=== PATIENT | female | born 1955 | race Caucasian/White ===

== ENCOUNTER 2020-08-03 06:55 | Day surgery (SDC) | payer MEDICARE, OTHER ==
[2020-08-01 12:45] VITALS: BMI 44.4
[2020-08-03 07:26] VITALS: TEMP 98.5
[2020-08-03 07:44] LABS: Glucose,Whole Blood 102 mg/dL (75-99)
[2020-08-03] MEDS ORDERED: LIDOCAINE 1% (10MG/ML) FOR IV START INTRADERMA PRN (08:21)
[2020-08-03] MEDS ORDERED: LIDOCAINE 1% INJ 10MG/ML (20 ML MDV) ONE (08:21)
[2020-08-03] MEDS ORDERED: PROPOFOL 10 MG/ML 20 ML VIAL IV ONE (08:21)
[2020-08-03] MEDS ORDERED: LACTATED RINGERS 1,000 ML IV ONE ×3 (08:21→08:34)
[2020-08-03] MEDS ORDERED: LACTATED RINGERS 1,000 ML IV SCH (08:21)
--- NOTE | 2020-08-03 08:23 | P.GSHP ---
History of Present Illness H&P Date: 08/03/20 Chief Complaint: Screening colonoscopy This is a 65-year-old female who presents today for screening colonoscopy. Patient denies a significant GI complaints. Past Medical History Past Medical History: Cancer, Diabetes Mellitus, GERD/Reflux, Hyperlipidemia, Hypertension, Memory Impairment Additional Past Medical History / Comment(s): HX BREAST CANCER 2004 History of Any Multi-Drug Resistant Organisms: None Reported Past Surgical History: Breast Surgery, Heart Catheterization, Tonsillectomy Additional Past Surgical History / Comment(s): BUNIONECTOMY. LT BREAST LUMPECTOMY. COLONOSCOPY Past Anesthesia/Blood Transfusion Reactions: No Reported Reaction Smoking Status: Former smoker - Past Family History Mother Family Medical History: No Reported History Medications and Allergies Home Medications Medication Instructions Recorded Confirmed Type Acetaminophen [Tylenol] 500 mg PO Q4-6H PRN 08/01/20 08/01/20 History Aspirin [Adult Low Dose Aspirin EC] 81 mg PO DAILY 08/01/20 08/01/20 History Citalopram Hydrobromide [CeleXA] 10 mg PO DAILY 08/01/20 08/01/20 History Dicyclomine [Bentyl] 10 mg PO TID 08/01/20 08/01/20 History Furosemide [Lasix] 40 mg PO DAILY 08/01/20 08/01/20 History Isosorbide Dinitrate 30 mg PO DAILY 08/01/20 08/01/20 History Nitroglycerin Sl Tabs [Nitrostat] 0.4 mg SUBLINGUAL Q5M PRN 08/01/20 08/01/20 History Pantoprazole Sodium 40 mg PO DAILY 08/01/20 08/01/20 History Potassium Chloride ER [K-Dur 10] 10 meq PO DAILY 08/01/20 08/01/20 History glipiZIDE [Glucotrol] 5 mg PO TID 08/01/20 08/01/20 History metFORMIN HCL 1,000 mg PO BID 08/01/20 08/01/20 History traZODone HCL [Desyrel] 100 mg PO HS 08/01/20 08/01/20 History Allergies Allergy/AdvReac Type Severity Reaction Status Date / Time naproxen AdvReac Nausea & Verified 08/03/20 07:26 Vomiting Surgical - Exam Vital Signs Temp Pulse Resp BP Pulse Ox 98.5 F 86 16 151/82 93 L 08/03/20 07:22 08/03/20 07:22 08/03/20 07:22 08/03/20 07:22 08/03/20 07:22 - General well developed, well nourished, no distress - Eyes PERRL - ENT normal pinna - Neck no masses - Respiratory normal expansion - Cardiovascular Rhythm: regular - Abdomen Abdomen: soft, non tender Results - Labs Abnormal Lab Results - Last 24 Hours (Table) 08/03/20 Range/Units 07:42 POC Glucose (mg/dL) 102 H (75-99) mg/dL Assessment and Plan Assessment: We'll perform screening colonoscopy.
[2020-08-03] MEDS ORDERED: IV FLUID CONTINUATION 850 ML IV ONE (08:24)
--- NOTE | 2020-08-03 08:32 | P.OP ---
Date of Procedure: 08/03/20 Preoperative Diagnosis: Screening colonoscopy Postoperative Diagnosis: Right colon polyp Procedure(s) Performed: Colonoscopy Anesthesia: MAC Surgeon: Fabian Ramsey Pathology: other (Right colon polyp) Condition: stable Disposition: PACU Description of Procedure: The patient's placed on the endoscopy table in the lateral position. She received IV sedation. Digital rectal exam was performed which revealed no abnormalities. Possible colonoscope was then placed patient anus and passed throughout the entire colon. The ileocecal valve was visualized. The cecum, ascending colon appeared normal. The distal ascending colon there is a small sessile polyp removed with the cold forcep. Scope was then brought withdrawn. Remainder of the transverse colon descending colon and sigmoid colon appeared normal. The rectum was normal. Scope was withdrawn for patient.
[2020-08-03] MEDS ORDERED: IV FLUID CONTINUATION 700 ML IV ONE (08:34)
[2020-08-03 08:42] VITALS: RESP 16
[2020-08-03 08:58] VITALS: BP 110/79; PULSE 75
== END 2020-08-03 09:14 | disposition home or self-care (01) ==
LOC: ORWHC2ENDO 06:55
PROVIDERS: ATTEND Surgery
DX: Z12.11 Encounter for screening for malignant neoplasm of colon (principal); D12.2 Benign neoplasm of ascending colon; E11.9 Type 2 diabetes mellitus without complications; K21.9 Gastro-esophageal reflux disease without esophagitis; E78.5 Hyperlipidemia, unspecified; I10 Essential (primary) hypertension; Z87.891 Personal history of nicotine dependence; Z88.6 Allergy status to analgesic agent; Z79.899 Other long term (current) drug therapy; J44.9 Chronic obstructive pulmonary disease, unspecified; F41.9 Anxiety disorder, unspecified
CPT/HCPCS: 88305; 45380; J2001; J2704

== ENCOUNTER 2020-11-26 10:02 | Emergency (ER) | payer MEDICARE ==
[2020-11-26 10:23] VITALS: RESP 17; TEMP 99
[2020-11-26] MEDS ORDERED: HYDROmorphone 1 MG/ML 1 ML SYRINGE IM STA (10:26)
--- NOTE | 2020-11-26 10:29 | ED ---
General Adult HPI - General Chief complaint: Extremity Problem,Nontraumatic Stated complaint: Left leg pain Time Seen by Provider: 11/26/20 10:17 Source: patient, EMS, RN notes reviewed Mode of arrival: EMS Limitations: no limitations - History of Present Illness Initial comments: Patient is a pleasant [age]-year-old female presenting to the emergency Department with complaints of left leg pain. Onset of symptoms was yesterday when she stood up from sitting on her chair. Patient states discomfort is mostly the upper leg. Patient states discomfort is greatly increased with movement and just moderate at rest. No history of similar symptoms previously. Patient denies back pain. Patient denies weakness. Patient states it is very painful to try to walk. No trauma. No leg swelling. No redness or rash or fever - Related Data Home Medications Medication Instructions Recorded Confirmed Aspirin [Adult Low Dose Aspirin EC] 81 mg PO DAILY 08/01/20 11/26/20 Citalopram Hydrobromide [CeleXA] 10 mg PO DAILY 08/01/20 11/26/20 Dicyclomine [Bentyl] 10 mg PO TID 08/01/20 11/26/20 Furosemide [Lasix] 40 mg PO DAILY 08/01/20 11/26/20 Isosorbide Dinitrate 30 mg PO DAILY 08/01/20 11/26/20 Nitroglycerin Sl Tabs [Nitrostat] 0.4 mg SUBLINGUAL Q5M PRN 08/01/20 11/26/20 Pantoprazole Sodium 40 mg PO DAILY 08/01/20 11/26/20 Potassium Chloride ER [K-Dur 10] 10 meq PO DAILY 08/01/20 11/26/20 glipiZIDE [Glucotrol] 5 mg PO TID 08/01/20 11/26/20 metFORMIN HCL [Glucophage] 1,000 mg PO BID 08/01/20 11/26/20 traZODone HCL [Desyrel] 100 mg PO HS 08/01/20 11/26/20 Atorvastatin Calcium [Lipitor] 10 mg PO DAILY 11/26/20 11/26/20 Brexpiprazole [Rexulti] 2 mg PO DAILY 11/26/20 11/26/20 SUMAtriptan succinate [Imitrex] 50 mg PO BID PRN 11/26/20 11/26/20 Topiramate [Topamax] 50 mg PO DAILY 11/26/20 11/26/20 ondansetron HCL [Zofran] 8 mg PO Q8HR PRN 11/26/20 11/26/20 Previous Rx's Medication Instructions Recorded Cyclobenzaprine [Flexeril] 10 mg PO TID PRN #12 tablet 11/26/20 predniSONE [Deltasone] 20 mg PO BID #10 tab 11/26/20 Allergies Allergy/AdvReac Type Severity Reaction Status Date / Time naproxen AdvReac Nausea & Verified 11/26/20 10:41 Vomiting Review of Systems ROS Statement: Those systems with pertinent positive or pertinent negative responses have been documented in the HPI. ROS Other: All systems not noted in ROS Statement are negative. Constitutional: Denies: fever Eyes: Denies: eye pain ENT: Denies: ear pain Respiratory: Denies: cough Cardiovascular: Denies: chest pain Endocrine: Denies: fatigue Gastrointestinal: Denies: abdominal pain Genitourinary: Denies: dysuria Musculoskeletal: Reports: as per HPI. Denies: back pain Skin: Denies: rash, lesions Past Medical History Past Medical History: Cancer, Diabetes Mellitus, GERD/Reflux, Hyperlipidemia, Hypertension, Memory Impairment Additional Past Medical History / Comment(s): HX BREAST CANCER 2004 History of Any Multi-Drug Resistant Organisms: None Reported Past Surgical History: Breast Surgery, Heart Catheterization, Tonsillectomy Additional Past Surgical History / Comment(s): BUNIONECTOMY. LT BREAST LUMPECTOMY. COLONOSCOPY Past Anesthesia/Blood Transfusion Reactions: No Reported Reaction Past Psychological History: Anxiety Smoking Status: Former smoker Past Alcohol Use History: None Reported Past Drug Use History: None Reported - Past Family History Mother Family Medical History: No Reported History General Exam Limitations: no limitations General appearance: alert, in no apparent distress Head exam: Present: atraumatic Eye exam: Present: normal appearance Neck exam: Present: normal inspection Respiratory exam: Present: normal lung sounds bilaterally Cardiovascular Exam: Present: regular rate, normal rhythm Expanded Peripheral pulses: 2+: Posterior Tibialis (R), Posterior Tibialis (L), Dorsalis Pedis (R), Dorsalis Pedis (L) GI/Abdominal exam: Present: soft. Absent: distended, tenderness, pulsatile mass Extremities exam: Present: normal inspection, full ROM (No discomfort with passive range of motion. Discomfort significantly with active range of motion). Absent: tenderness Back exam: Present: other (Discomfort left sciatic region, moderate to severe). Absent: vertebral tenderness Neurological exam: Present: alert. Absent: motor sensory deficit Psychiatric exam: Present: normal affect, normal mood Skin exam: Present: normal color. Absent: erythema Course Vital Signs 11/26/20 10:17 Temperature 99.0 F Pulse Rate 76 Respiratory 17 Rate Blood Pressure 189/137 O2 Sat by Pulse 96 Oximetry Medical Decision Making - Medical Decision Making Patient reevaluated and improved with medications. Patient updated on results and need for follow-up. - Radiology Data Radiology results: image reviewed (X-ray left elbow shows no fracture or dislocation.) Disposition Clinical Impression: Sciatica Disposition: HOME SELF-CARE Condition: Stable Additional Instructions: Please do follow-up to primary care physician in the next day or 2 for recheck. Prescription for muscle relaxers and steroids has been sent to her pharmacy. Return for increased pain, weakness, loss of control of bowel or bladder, worsening symptoms or other concerns. Prescriptions: predniSONE [Deltasone] 20 mg PO BID #10 tab Cyclobenzaprine [Flexeril] 10 mg PO TID PRN #12 tablet PRN Reason: Pain Is patient prescribed a controlled substance at d/c from ED?: No Referrals: Charu Gonzalez DO [Primary Care Provider] - 1-2 days Time of Disposition: 11:53
--- NOTE | 2020-11-26 11:44 | XR ---
EXAMINATION TYPE: XR Hip LT and AP Pelvis DATE OF EXAM: 11/26/2020 COMPARISON: NONE HISTORY: Pain TECHNIQUE: A single AP view of the pelvis is obtained. Two views of the left hip are obtained. FINDINGS: There is no acute fracture/dislocation evident in the pelvis. The hip and sacroiliac join ts appear symmetric and unremarkable. The overlying soft tissue appears unremarkable. Two views of left hip show no acute fracture or dislocation. No focal lytic or sclerotic lesion seen in the proximal left femur. Cortical thickening likely related to patient's remote history of fractu re in the diaphysis of the left femur. The overlying soft tissue is unremarkable. IMPRESSION: There is no acute fracture or dislocation in the pelvis or left hip.
[2020-11-26 12:24] VITALS: BP 176/95; PULSE 87
== END 2020-11-26 12:23 | disposition home or self-care (01) ==
LOC: EC 10:02
DX: M54.32 Sciatica, left side (principal); E11.9 Type 2 diabetes mellitus without complications; E78.5 Hyperlipidemia, unspecified; I10 Essential (primary) hypertension; K21.9 Gastro-esophageal reflux disease without esophagitis; Z79.84 Long term (current) use of oral hypoglycemic drugs; Z79.899 Other long term (current) drug therapy; Z87.891 Personal history of nicotine dependence; Z88.6 Allergy status to analgesic agent
CPT/HCPCS: 73502; 99283; 96372; J1170

== ENCOUNTER → 2020-12-13 | Outpatient (CLI) | payer MEDICARE ==
--- NOTE | 2020-12-13 14:46 | XR ---
Lumbar spine HISTORY: M54.42 3 views of lumbar spine No comparisons There is a spinal curvature present. Overlying artifact suspected in the frontal view, possible table t within the stomach, oval appearance. There is multilevel spondylosis. Loss of disc height is presen t at the intervertebral levels, vacuum phenomenon present at L2-3, L1-2 and T12-L1. Sclerosis is pres ent in the posterior elements of the lumbar spine. Retrolisthesis grade 1 L2-3. Lumbar vertebral bodi es show preserved height, bone mineralization is reduced. IMPRESSION: Degenerative disc disease, facet arthropathy, spinal curvature, spondylolisthesis and add itional findings above
== END | disposition home or self-care (01) ==
LOC: RADXRMAIN 12:29
PROVIDERS: ATTEND Family Medicine
DX: M51.36 Other intervertebral disc degeneration, lumbar region (principal); M46.96 Unspecified inflammatory spondylopathy, lumbar region; M43.10 Spondylolisthesis, site unspecified
CPT/HCPCS: 72100

== ENCOUNTER → 2021-02-01 | Outpatient (CLI) | payer MEDICARE, OTHER ==
[2021-02-01 11:23] VITALS: BP 150/98; PULSE 81; RESP 16
--- NOTE | 2021-02-01 11:54 | P.GSHP ---
History of Present Illness H&P Date: 02/01/21 Chief Complaint: right mastectomy 2004 Su is a 65 old white female seen in consultation for Dr. Johnson regarding asymmetry related to a prior left mastectomy. She underwent a left mastectomy in 2004 for breast cancer. She was treated with tamoxifen. She did not have any chemotherapy and she did not have any radiation therapy. She has been cancer free since that time. Her last right breast mammogram was performed at [facility]. She is not sure when that was done. She does not note any lumps, masses or nodules of concern in her right breast. Is not complaining of any nipple discharge or changes. She is concerned because she has marked asymmetry related to the size of the right breast and the fact that she has had a left mastectomy. She is requesting that a reduction be performed on the right side. right breast mammogram 04-18-20 benign BIRAD 2 It is hard to find clothes to fit. She also complains of back pain felt related to the asymmetry. Caffeine: 3 cups/day nicotine: none chocolate: several times a week Family History: unknown history of diabetes Hormonal History: menarche: 11 M3, breast fed: no, age at first : 34 menopause: in her 40's when she was on tamoxifen BCP: 3 years hormones: none Surgical History: Cardiac-Cath Bunions Medical History: diabetes since 2009 heart disease COPD reflux memory impairment Social History: nicotine: none alcohol: none drugs: none - Constitutional Constitutional: Denies chills, Denies fever - EENT Eyes: denies blurred vision, denies pain Ears: deny: decreased hearing, tinnitus Ears, nose, mouth and throat: Reports headache, Denies sore throat - Breasts Breasts: bilateral: as per HPI - Cardiovascular Comment: unstable angina/ follows with Dr. Valenzuela Cardiovascular: Reports as per HPI - Respiratory Respiratory: Reports cough - Gastrointestinal Gastrointestinal: Denies abdominal pain, Denies diarrhea, Denies nausea, Denies vomiting - Genitourinary (Female) Genitourinary: Denies dysuria, Denies hematuria - Menstruation Menstruation: Reports as per HPI - Musculoskeletal Musculoskeletal: Reports as per HPI - Integumentary Integumentary: Denies pruritus, Denies rash - Neurological Neurological: Reports as per HPI, Reports numbness - Psychiatric Psychiatric: Reports anxiety, Reports depression - Endocrine Comment: diabetes Endocrine: Denies fatigue, Denies weight change - Hematologic/Lymphatic Comment: aspirin - Allergic/Immunologic Allergic/Immunologic: Reports as per HPI Past Medical History Past Medical History: Cancer, COPD, Diabetes Mellitus, GERD/Reflux, Hyperlipidemia, Hypertension, Memory Impairment Additional Past Medical History / Comment(s): HX BREAST CANCER left 2004. dive rticulitis. IBS. left arm lymphodema History of Any Multi-Drug Resistant Organisms: None Reported Past Surgical History: Breast Surgery, Heart Catheterization, Tonsillectomy Additional Past Surgical History / Comment(s): BUNIONECTOMY. LT BREAST mastectomy. COLONOSCOPY Past Anesthesia/Blood Transfusion Reactions: No Reported Reaction Past Psychological History: Anxiety Smoking Status: Former smoker Past Alcohol Use History: None Reported Additional Past Alcohol Use History / Comment(s): "QUIT LONG ALONG" Past Drug Use History: None Reported - Past Family History Mother Family Medical History: No Reported History Medications and Allergies Home Medications Medication Instructions Recorded Confirmed Type Aspirin [Adult Low Dose Aspirin EC] 81 mg PO DAILY 08/01/20 11/26/20 History Citalopram Hydrobromide [CeleXA] 10 mg PO DAILY 08/01/20 11/26/20 History Dicyclomine [Bentyl] 10 mg PO TID 08/01/20 11/26/20 History Furosemide [Lasix] 40 mg PO DAILY 08/01/20 11/26/20 History Isosorbide Dinitrate 30 mg PO DAILY 08/01/20 11/26/20 History Nitroglycerin Sl Tabs [Nitrostat] 0.4 mg SUBLINGUAL Q5M PRN 08/01/20 11/26/20 History Pantoprazole Sodium 40 mg PO DAILY 08/01/20 11/26/20 History Potassium Chloride ER [K-Dur 10] 10 meq PO DAILY 08/01/20 11/26/20 History glipiZIDE [Glucotrol] 5 mg PO TID 08/01/20 11/26/20 History metFORMIN HCL [Glucophage] 1,000 mg PO BID 08/01/20 11/26/20 History traZODone HCL [Desyrel] 100 mg PO HS 08/01/20 11/26/20 History Atorvastatin Calcium [Lipitor] 10 mg PO DAILY 11/26/20 11/26/20 History Brexpiprazole [Rexulti] 2 mg PO DAILY 11/26/20 11/26/20 History Cyclobenzaprine [Flexeril] 10 mg PO TID PRN #12 tablet 11/26/20 Rx SUMAtriptan succinate [Imitrex] 50 mg PO BID PRN 11/26/20 11/26/20 History Topiramate [Topamax] 50 mg PO DAILY 11/26/20 11/26/20 History ondansetron HCL [Zofran] 8 mg PO Q8HR PRN 11/26/20 11/26/20 History predniSONE [Deltasone] 20 mg PO BID #10 tab 11/26/20 Rx Allergies Allergy/AdvReac Type Severity Reaction Status Date / Time naproxen AdvReac Nausea & Verified 02/01/21 11:17 Vomiting Surgical - Exam Vital Signs Pulse Resp BP 81 16 150/98 02/01/21 11:17 02/01/21 11:17 02/01/21 11:17 BMI 44.8 - General no distress - Eyes normal ocular movement - ENT no hearing loss - Neck trachea midline - Respiratory normal respiratory effort, clear to auscultation - Cardiovascular Heart Sounds: normal: S1, S2 - Abdomen Abdomen: soft - Integumentary normal turgor - Neurologic no disoriented, no combative - Musculoskeletal normal gait - Psychiatric oriented to time, oriented to person, oriented to place, speech is normal, memory intact breast Exam: BRA: 44DDD inspection: status post left mastectomy grade 3 ptosis right breast palpation: right breast: multipositional exam no dominate masses or nodules of concern; fungal infection under right breast right axilla: no adenopathy of concern left chest wall: no recurrent cancer left axilla: no adenopathy of concern Results Exam results reviewed from 3221 Assessment and Plan Assessment: Impression: 1. Marked asymmetry related to prior left mastectomy 2. No evidence of recurrent cancer on chest wall 3. History of heart disease 4. COPD 5. Anxiety/depression Plan: 1. Reduction mammoplasty right breast versus mastectomy I have discussed both with the patient and she wishes for a mastectomy 2. Clearance from cardiology 3. Clearance from Dr. Johnson 4. obtain medical records from Dr. Colby CC: Dr. Johnson I have had a discussion with the patient regarding reduction mammoplasty versus mastectomy. The patient is a diabetic with cardiac disease. She has symptomatic back pain and marked asymmetry making it difficult to find clothes to fit. She wishes something to be done to decrease the asymmetry. The options would include a reduction mammoplasty versus a mastectomy. The patient wishes a mastectomy to be performed. She does not want to be concerned about developing cancer in the right breast. She is not interested in reconstruction. She has declined seeing a plastic surgeon.
== END | disposition home or self-care (01) ==
LOC: WWCWWP 10:45
PROVIDERS: ATTEND Surgery
DX: N62 Hypertrophy of breast (principal); Z53.9 Procedure and treatment not carried out, unspecified reason

== ENCOUNTER → 2021-03-08 | Outpatient (CLI) | payer MEDICARE ==
[2021-03-08 13:13] VITALS: BP 183/101; PULSE 76; RESP 18; TEMP 98.1
--- NOTE | 2021-03-08 13:52 | P.PN ---
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 Johnson regarding asymmetry related to a prior left mastectomy. 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 She was treated with tamoxifen. She did not have any chemotherapy and she did not have any radiation therapy. She has been cancer free since that time. Her last right breast mammogram was performed at [facility]. This was on 04-18-20. She does not note any lumps, masses or nodules of concern in her right breast. Is not complaining of any nipple discharge or changes. She is concerned because she has marked asymmetry related to the size of the right breast and the fact that she has had a left mastectomy. She is requesting that a reduction be performed on the right side. right breast mammogram 04-18-20 benign BIRAD 2 It is hard to find clothes to fit. She also complains of back pain felt related to the asymmetry. Caffeine: 3 cups/day nicotine: none chocolate: several times a week Family History: unknown history of diabetes Hormonal History: menarche: 11 M3, breast fed: no, age at first : 34 menopause: in her 40's when she was on tamoxifen BCP: 3 years hormones: none Surgical History: Cardiac-Cath Bunions Medical History: diabetes since 2009 heart disease COPD reflux memory impairment HTN Social History: nicotine: none alcohol: none drugs: none - Constitutional Constitutional: Denies chills, Denies fever - EENT Eyes: denies blurred vision, denies pain Ears: deny: decreased hearing, tinnitus Ears, nose, mouth and throat: Reports headache, Denies sore throat - Breasts Breasts: bilateral: as per HPI - Cardiovascular Comment: unstable angina/ follows with Dr. Valenzuela Cardiovascular: Reports as per HPI - Respiratory Respiratory: Reports cough - Gastrointestinal Gastrointestinal: Denies abdominal pain, Denies diarrhea, Denies nausea, Denies vomiting - Genitourinary (Female) Genitourinary: Denies dysuria, Denies hematuria - Menstruation Menstruation: Reports as per HPI - Musculoskeletal Musculoskeletal: Reports as per HPI - Integumentary Integumentary: Denies pruritus, Denies rash - Neurological Neurological: Reports as per HPI, Reports numbness - Psychiatric Psychiatric: Reports anxiety, Reports depression - Endocrine Comment: diabetes Endocrine: Denies fatigue, Denies weight change - Hematologic/Lymphatic Comment: aspirin - Allergic/Immunologic Allergic/Immunologic: Reports as per HPI Objective - Vital Signs Vital signs: Vital Signs Temp 98.1 F 03/08/21 13:09 Pulse 76 03/08/21 13:09 Resp 18 03/08/21 13:09 BP 183/101 03/08/21 13:09 Pulse Ox 94 L 03/08/21 13:09 Intake & Output 03/07/21 03/08/21 03/08/21 18:59 06:59 18:59 Weight 109.316 kg - Exam BMI 45.5 - Constitutional General appearance: Present: cooperative - EENT Eyes: Present: EOMI ENT: Present: hearing grossly normal - Neck Neck: Present: normal ROM - Respiratory Respiratory: bilateral: CTA - Cardiovascular Rhythm: regular Heart sounds: normal: S1, S2 - Gastrointestinal General gastrointestinal: Present: soft - Integumentary Integumentary: Present: normal turgor - Musculoskeletal Musculoskeletal: Present: gait normal - Psychiatric Psychiatric: Present: A&O x's 3, appropriate affect, intact judgment & insight - Additional findings Additional findings: Breast Exam: BRA: 44DDD inspection: large ptotic right breast, no evidence of recurrent left chest wall cancer palpation: right breast: Multiple positional exam fibrocystic changes, no dominant masses or nodules of concern Right axilla: No adenopathy of concern Left chest wall: No evidence of recurrent cancer Left axilla: No adenopathy of concern Assessment and Plan Assessment: Impression: diabetes since 2009 heart disease COPD reflux memory impairment HTN Left breast DCIS/status post mastectomy/no evidence of recurrence Macromastia right breast resulting in marked asymmetry and breast pain Plan: Plan: Patient following up with cardiology today regarding hypertension Right breast mammogram Right breast mastectomy secondary to asymmetry Cardiology clearance prior to surgery Clearance from Dr. Johnson prior to surgery Surgery: Right breast mastectomy, resection redundant left axillary tissue I have talked to Dr. Uribe's office today secondary to the fact that Su has no elevated blood pressure 189/101, they're contacting Dr. Uribe and will contact Su. CC: Dr. Johnson
== END | disposition home or self-care (01) ==
LOC: WWCWWP 12:09
PROVIDERS: ATTEND Surgery
DX: Z53.9 Procedure and treatment not carried out, unspecified reason (principal)

== ENCOUNTER → 2021-03-14 | Outpatient (CLI) | payer MEDICARE ==
--- NOTE | 2021-03-14 11:32 | MM ---
Reason for exam: additional evaluation requested from prior study. Last mammogram was performed 10 years and 8 months ago. History: Patient is postmenopausal, has history of breast cancer at age 48, and had first child at age 31. Mastectomy of the left breast, March 13, 2004. Malignant stereotactic core biopsy of the left breast, January 16, 2004. Took hormonal contraceptives for 2 years beginning at age 15. Took tamoxifen for 5 years 5 months beginning at age 48. Physical Findings: Nurse did not find any significant physical abnormalities on exam. MG Diagnostic Mammo RT w CAD CC and MLO view(s) were taken of the right breast. Prior study comparison: April 18, 2020, mammogram, performed at [facility]. There are scattered fibroglandular densities. Stable benign calcifications. There is no discrete abnormality. These results were verbally communicated with the patient and result sheet given to the patient on 03/14/21. ASSESSMENT: Benign, BI-RAD 2 RECOMMENDATION: Routine screening mammogram of both breasts in 1 year.
== END | disposition home or self-care (01) ==
LOC: RADMAMWWP 10:36
PROVIDERS: ATTEND Surgery
DX: R92.8 Other abnormal and inconclusive findings on diagnostic imaging of breast (principal)
CPT/HCPCS: 77065

== ENCOUNTER → 2021-03-15 | Outpatient (CLI) | payer MEDICARE ==
[2021-03-15 10:08] VITALS: BP 146/95; PULSE 88; RESP 16; TEMP 98
--- NOTE | 2021-03-15 10:08 | P.PN ---
Subjective Progress Note Date: 03/15/21 Asymmetry of the breasts secondary to left mastectomy related to DCIS Su is a 65 old white female seen in consultation for Dr. Johnson regarding asymmetry related to a prior left mastectomy. 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 She was treated with tamoxifen. She did not have any chemotherapy and she did not have any radiation therapy. She has been cancer free since that time. Her last right breast mammogram was performed at [facility]. This was on 04-18-20. She does not note any lumps, masses or nodules of concern in her right breast. Is not complaining of any nipple discharge or changes. She is concerned because she has marked asymmetry related to the size of the right breast and the fact that she has had a left mastectomy. She is requesting that a reduction be performed on the right side. right breast mammogram 04-18-20 benign BIRAD 2 It is hard to find clothes to fit. She also complains of back pain felt related to the asymmetry. She underwent a right breast mammogram on which was benign BIRADS 2. Caffeine: 3 cups/day nicotine: none chocolate: several times a week Family History: unknown history of diabetes Hormonal History: menarche: 11 M3, breast fed: no, age at first : 34 menopause: in her 40's when she was on tamoxifen BCP: 3 years hormones: none Surgical History: Cardiac-Cath [place] Medical History: diabetes since 2009 heart disease COPD reflux memory impairment HTN Social History: nicotine: none alcohol: none drugs: none Objective - Constitutional General appearance: Present: cooperative - EENT Eyes: Present: EOMI ENT: Present: hearing grossly normal - Neck Neck: Present: normal ROM - Respiratory Respiratory: bilateral: CTA - Cardiovascular Heart sounds: normal: S1, S2 - Gastrointestinal General gastrointestinal: Present: soft - Integumentary Integumentary: Present: normal turgor - Psychiatric Psychiatric: Present: A&O x's 3, appropriate affect, intact judgment & insight - Additional findings Additional findings: Breast Exam: BRA: 44DDD inspection: Large ptotic right breast, no evidence of recurrent left breast cancer on the chest wall Palpation: Right breast: Multi-positional exam fibrocystic changes, no dominant masses or nodules of concern Right axilla: No adenopathy of concern Left chest wall: No evidence of recurrent cancer Left axilla: No adenopathy of concern Assessment and Plan Assessment: Impression: Diabetes since 2009 Heart disease COPD Reflux Memory impairment Hypertension Left breast DCIS status post mastectomy no evidence of recurrence Macromastia right breast resulting in marked asymmetry and back pain right breast mammogram on 03-10 benign BIRAD 2 Plan: Patient is following up with cardiology tomorrow and has a stress test scheduled for tomorrow Clearance from Dr. Johnson Clearance from cardiology Mastectomy right breast, resection redundant left axillary tissue CC; Dr. Johnson
== END | disposition home or self-care (01) ==
LOC: WWCWWP 09:03
PROVIDERS: ATTEND Surgery
DX: Z53.9 Procedure and treatment not carried out, unspecified reason (principal)

== ENCOUNTER 2021-03-20 08:14 | Day surgery (SDC) | payer MEDICARE ==
[2021-03-14 14:19] VITALS: BMI 43.1
[~2021-03-20 08:14] MED LIST: DEXAMETHASONE SOD PHOSPHATE 4 MG/ML 1 ML VIAL IV ONE; HEPARIN SODIUM,PORCINE/PF 5,000 UNIT/0.5 ML SYRINGE SQ PRN; HYDROmorphone 0.5 MG/0.5 ML SYRINGE IVP PRN; LIDOCAINE 1% (10MG/ML) FOR IV START INTRADERMA PRN; ONDANSETRON 4 MG/2 ML VIAL IVP ONE; Pre Op ABX Message 1 EACH MISC MISCELLANE ONE
[2021-03-20] MEDS: LACTATED RINGERS 1,000 ML IV SCH ×2 (09:21→22:58)
[2021-03-20 09:23] LABS: Glucose,Whole Blood 125 mg/dL (75-99)
[2021-03-20] MEDS ORDERED: LIDOCAINE 1% INJ 10MG/ML (20 ML MDV) ONE (09:46)
[2021-03-20] MEDS ORDERED: PROPOFOL 10 MG/ML 20 ML VIAL IV ONE (09:46)
[2021-03-20] MEDS ORDERED: MIDAZOLAM 2 MG/2 ML VIAL ONE (09:46)
[2021-03-20] MEDS ORDERED: PHENYLEPHRINE-0.9% NACL SYG 1,000 MCG/10 ML SYRINGE ONE (09:46)
[2021-03-20] MEDS ORDERED: SUCCINYLCHOLINE CHLORIDE 100 MG/5 ML SYR IV ONE (09:46)
[2021-03-20] MEDS ORDERED: fentaNYL (PF) 50 MCG/ML 2 ML AMP ONE (09:46)
[2021-03-20] MEDS ORDERED: LACTATED RINGERS 1,000 ML IV ONE (12:11)
--- NOTE | 2021-03-20 13:34 | P.OP ---
Date of Procedure: 03/20/21 Preoperative Diagnosis: Asymmetry secondary to prior left mastectomy for DCIS Postoperative Diagnosis: Same Procedure(s) Performed: Right mastectomy with VY advancement flap of lateral aspect to decrease dogear, left VY advancement flap for axillary tissue Anesthesia: JOSE Surgeon: Jammie Gallegos Estimated Blood Loss (ml): 75 IV fluids (ml): 1,100 Pathology: other (Right breast tissue, revision lateral aspect left mastectomy incision) Condition: stable Disposition: same day Indications for Procedure: Asymmetry secondary to prior left mastectomy for DCIS, marked right macromastia, redundant tissue at lateral aspect of left mastectomy incision Operative Findings: Fibrofatty tissue Description of Procedure: Patient was seen and evaluated in the preoperative area. Discussion was had regarding revision of the left mastectomy incision the lateral aspect as well as possible V-Y advancement flap and the lateral aspect of the right mastectomy incision. The patient was brought to the operating room room. Following induction of anesthesia both breasts and axillas were prepped and draped in a sterile fashion. The right side was approached initially. Using a marking pen markings were placed for the superior and inferior flap incisions. The flaps were formed. The mastectomy was performed from medial to lateral removing the breast. Hemostasis was attained using electrocautery device. The Harmonic Scalpel was used as needed for hemostasis. After the breast had been removed the defect was carefully evaluated. The wound was well irrigated. Hemostasis was attained. Additional tissue was obtained to make the closure procedure. The lateral aspect of the closure was done using a V-Y advancement flap. The base of the flap was 10 cm in each arm was 7 cm. 2 NOEMY drains were placed one under the axillary tissues and one under the skin flaps. Subcutaneous tissue was closed using a 3-0 Vicryl suture. This was followed by closure of the skin with a 4-0 Monocryl. The drains were secured using nylon suture. [place] were placed as well. The left side was approached. The base of the V-Y advancement flap on the lateral aspect of the incision was marked. This was approximately 10 cm. The limbs of this was approximately 8 cm and 6 cm superiorly. The incision was opened and the redundant skin and fatty tissue was removed. Following this a NEOMY drain was placed. The wound was well irrigated. After assured that hemostasis was attained a NOEMY suture was placed. This was secured using a nylon suture. Subcutaneous tissues were closed using 3-0 Vicryl suture. This is followed by closure of the skin with 4-0 Monocryl and mary jo. All instrument and sponge counts were correct at the end of the case. Patient tolerated procedure in stable condition.
[2021-03-20] MEDS ORDERED: NALOXONE 0.4 MG/ML 1 ML VIAL IV PRN (13:35)
[2021-03-20] MEDS ORDERED: ONDANSETRON 4 MG/2 ML VIAL IVP PRN (13:35)
[2021-03-20] MEDS ORDERED: MELATONIN 3 MG TABLET PO PRN (13:35)
[2021-03-20] MEDS ORDERED: CALCIUM CARBONATE 500 MG CHEWABLE PO PRN (13:35)
[2021-03-20] MEDS ORDERED: HYDROmorphone 1 MG/ML 1 ML SYRINGE IVP PRN (13:35)
[2021-03-20] MEDS: HYDROmorphone 1 MG/ML 1 ML SYRINGE IVP ONE ×2 (14:31→14:37)
[2021-03-20] MEDS ORDERED: HYDROmorphone 1 MG/ML 1 ML SYRINGE ONE (14:32)
[2021-03-20 14:55] LABS: Glucose,Whole Blood 139 mg/dL (75-99)
[2021-03-20] MEDS ORDERED: LABETALOL SYRINGE 5 MG/ML IVP ONE (15:20)
[2021-03-20] MEDS ORDERED: HYDROmorphone 1 MG/ML 1 ML SYRINGE IVP ONE (15:24)
[2021-03-20 17:00] LABS: Glucose,Whole Blood 165 mg/dL (75-99)
[2021-03-20] MEDS: HEPARIN SODIUM,PORCINE/PF 5,000 UNIT/0.5 ML SYRINGE SQ SCH ×2 (18:38→20:44)
[2021-03-20] MEDS: SODIUM CHLORIDE 0.45% 1,000 ML IV SCH ×2 (20:04→22:58)
[2021-03-20] MEDS: HYDROcodone/APAP 5-325MG 1 EACH TAB PO PRN (20:25)
[2021-03-20 20:47] LABS: Glucose,Whole Blood 263 mg/dL (75-99)
[2021-03-21] MEDS: HYDROcodone/APAP 5-325MG 1 EACH TAB PO PRN ×2 (02:40→12:12)
[2021-03-21 05:58] LABS: Basophils % (A) 0 %; Eosinophils % (A) 0 %; HCT 37.4 % (34.0-46.0); HGB 11.6 gm/dL (11.4-16.0); Hypochromasia Slight; Lymphocytes # (A) 1.9 k/uL (1.0-4.8); Lymphocytes % (A) 21 %; MCH 30.6 pg (25.0-35.0); MCHC 30.9 g/dL (31.0-37.0); MCV 98.9 fL (80.0-100.0); Mean Platelet Volume 7.8; Monocytes # (A) 0.5 k/uL (0-1.0); Monocytes % (A) 6 %; Neutrophils # (A) 6.3 k/uL (1.3-7.7); Neutrophils % (A) 71 %; Platelet Count 197 k/uL (150-450); RBC 3.78 m/uL (3.80-5.40); RDW 13.8 % (11.5-15.5); WBC 8.9 k/uL (3.8-10.6)
[2021-03-21] MEDS ORDERED: INSULIN ASPART (NovoLOG) 100 UNIT/ML VIAL SQ SCH ×2 (07:30→22:34)
--- NOTE | 2021-03-21 07:58 | P.PN ---
Subjective Progress Note Date: 03/21/21 Principal diagnosis: Postop day #1 right mastectomy with bilateral tissue transfer axillary incision Su is a 65-year-old white female status post right mastectomy and bilat eral axillary tissue transfer. She is doing well. She has no complaints this morning. She is tolerating her diet without difficulty. NOEMY drainage is serous. White count 8.9 hemoglobin 11.6. Objective - Vital Signs Vital signs: Vital Signs Temp 98 F 03/20/21 23:48 Pulse 88 03/20/21 23:48 Resp 17 03/20/21 23:48 BP 140/78 03/20/21 23:48 Pulse Ox 95 03/20/21 23:48 Intake & Output 03/20/21 03/21/21 03/21/21 18:59 06:59 18:59 Intake Total 1850 Output Total 335 655 Balance 1515 -655 Weight 110.9 kg Intake: IV 1850 Output: Drainage 55 #1 30 #2 20 #3 5 Urine 260 600 Estimated Blood Loss 75 Other: # Voids 1 - Constitutional General appearance: Present: cooperative - EENT Eyes: Present: EOMI ENT: Present: hearing grossly normal - Neck Neck: Present: normal ROM - Respiratory Respiratory: bilateral: CTA - Cardiovascular Heart sounds: normal: S1, S2 - Integumentary Integumentary Comment(s): Incision right chest wall and left axilla clean and dry no evidence of hematoma or infection - Labs CBC & Chem 7: 03/21/21 05:14 Labs: Abnormal Lab Results - Last 24 Hours (Table) 03/20/21 03/20/21 03/20/21 Range/Units 09:11 14:51 16:59 RBC (3.80-5.40) m/uL MCHC (31.0-37.0) g/dL POC Glucose (mg/dL) 125 H 139 H 165 H (75-99) mg/dL 03/20/21 03/21/21 Range/Units 20:43 05:14 RBC 3.78 L (3.80-5.40) m/uL MCHC 30.9 L (31.0-37.0) g/dL POC Glucose (mg/dL) 263 H (75-99) mg/dL Assessment and Plan Assessment: Impression: Patient postop day #1 right mastectomy and bilateral axillary tissue transfer patient doing well Plan: 1. Teach patient drain care 2. Home health care 3. Discharge if okay with medicine 4. Follow-up Dr. Lloyd 1 week
[2021-03-21 08:00] LABS: Glucose,Whole Blood 115 mg/dL (75-99)
--- NOTE | 2021-03-21 08:00 | P.DS ---
Providers Date of admission: 03-20-21 Expected date of discharge: 03/21/21 Attending physician: Jammie Gallegos Consults: 03/20/21 13:38 Consult Physician Routine Consulting Provider: Elian Givens Consult Reason/Comments: medical managment Do you want consulting provider notified?: Yes Primary care physician: [facility] Course: Patient is a 65-year-old white female postop day #1 from right mastectomy and bilateral axillary tissue transfer. Patient is done well postoperatively. She is ready for discharge if okay with medicine. Plan - Discharge Summary Discharge Rx Participant: No New Discharge Prescriptions: No Action Furosemide [Lasix] 40 mg PO DAILY metFORMIN HCL [Glucophage] 1,000 mg PO BID Citalopram Hydrobromide [CeleXA] 20 mg PO DAILY Aspirin [Adult Low Dose Aspirin EC] 81 mg PO DAILY SUMAtriptan succinate [Imitrex] 50 mg PO BID PRN PRN Reason: Migraine Headache ondansetron HCL [Zofran] 8 mg PO Q8HR PRN PRN Reason: Nausea Clotrimazole [Clotrimazole 1% Top Soln] 30 ml TOPICAL TID Cefuroxime Axetil [Ceftin] 500 mg PO BID Cholecalciferol [Vitamin D3 (25 Mcg = 1000 Iu)] 50 mcg PO DAILY traZODone HCL [Desyrel] 100 mg PO HS glipiZIDE [Glucotrol] 5 mg PO TID Nitroglycerin Sl Tabs [Nitrostat] 0.4 mg SUBLINGUAL Q5M PRN PRN Reason: Chest Pain Dicyclomine [Bentyl] 10 mg PO TID Potassium Chloride ER [K-Dur 10] 10 meq PO DAILY Pantoprazole Sodium 40 mg PO DAILY Topiramate [Topamax] 50 mg PO DAILY Brexpiprazole [Rexulti] 2 mg PO DAILY Atorvastatin Calcium [Lipitor] 10 mg PO DAILY Isosorbide Mononitrate [Isosorbide Mononitrate ER] 30 mg PO DAILY hydrOXYzine HCL [Atarax] 25 mg PO TID Nystatin 100,000Unit/gm Cream [Mycostatin Cream] 1 applic TOPICAL BID PRN PRN Reason: abd. skin folds Mupirocin [Mupirocin 2% with applicator] 1 applic TOPICAL DAILY PRN PRN Reason: skin irritation under breasts Discharge Medication List Aspirin [Adult Low Dose Aspirin EC] 81 mg PO DAILY 08/01/20 [History] Citalopram Hydrobromide [CeleXA] 20 mg PO DAILY 08/01/20 [History] Dicyclomine [Bentyl] 10 mg PO TID 08/01/20 [History] Furosemide [Lasix] 40 mg PO DAILY 08/01/20 [History] Nitroglycerin Sl Tabs [Nitrostat] 0.4 mg SUBLINGUAL Q5M PRN 08/01/20 [History] Pantoprazole Sodium 40 mg PO DAILY 08/01/20 [History] Potassium Chloride ER [K-Dur 10] 10 meq PO DAILY 08/01/20 [History] glipiZIDE [Glucotrol] 5 mg PO TID 08/01/20 [History] metFORMIN HCL [Glucophage] 1,000 mg PO BID 08/01/20 [History] traZODone HCL [Desyrel] 100 mg PO HS 08/01/20 [History] Atorvastatin Calcium [Lipitor] 10 mg PO DAILY 11/26/20 [History] Brexpiprazole [Rexulti] 2 mg PO DAILY 11/26/20 [History] SUMAtriptan succinate [Imitrex] 50 mg PO BID PRN 11/26/20 [History] Topiramate [Topamax] 50 mg PO DAILY 11/26/20 [History] ondansetron HCL [Zofran] 8 mg PO Q8HR PRN 11/26/20 [History] Clotrimazole [Clotrimazole 1% Top Soln] 30 ml TOPICAL TID 02/01/21 [History] Isosorbide Mononitrate [Isosorbide Mononitrate ER] 30 mg PO DAILY 02/01/21 [History] Cefuroxime Axetil [Ceftin] 500 mg PO BID 03/14/21 [History] Cholecalciferol [Vitamin D3 (25 Mcg = 1000 Iu)] 50 mcg PO DAILY 03/14/21 [History] Mupirocin [Mupirocin 2% with applicator] 1 applic TOPICAL DAILY PRN 03/14/21 [History] Nystatin 100,000Unit/gm Cream [Mycostatin Cream] 1 applic TOPICAL BID PRN 03/14/21 [History] hydrOXYzine HCL [Atarax] 25 mg PO TID 03/14/21 [History] Follow up Appointment(s)/Referral(s): Jammie Gallegos MD [STAFF PHYSICIAN] - 03/29/21 1:20 pm Activity/Diet/Wound Care/Special Instructions: Teach patient drain care, drain and record output of each drain twice a day and as needed, keep drains to suction Patient may shower after 48 hours Keep Robinson wrap in place at all times Do not drive until seen by Dr. Lloyd Discharge Disposition: HOME WITH HOME HEALTH SERVICES
[2021-03-21] MEDS: HEPARIN SODIUM,PORCINE/PF 5,000 UNIT/0.5 ML SYRINGE SQ SCH (08:25)
[2021-03-21 08:48] VITALS: BP 152/86; PULSE 71; RESP 16; TEMP 98.4
[2021-03-21] MEDS ORDERED: FUROSEMIDE 40 MG TAB PO SCH (09:00)
[2021-03-21] MEDS ORDERED: PANTOPRAZOLE SODIUM 40 MG GRANULE PKT PO SCH (09:00)
[2021-03-21] MEDS ORDERED: hydrOXYzine HCL 25 MG TAB PO SCH (09:00)
[2021-03-21] MEDS ORDERED: ATORVASTATIN 10 MG TAB PO SCH (09:00)
[2021-03-21] MEDS ORDERED: metFORMIN 500 MG TAB PO SCH (09:00)
[2021-03-21] MEDS ORDERED: glipiZIDE 5 MG TAB PO SCH (09:00)
[2021-03-21] MEDS ORDERED: CEFDINIR 300 MG CAP PO SCH (09:00)
[2021-03-21] MEDS ORDERED: NON FORMULARY DRUG (Brexpiprazole [Rexulti] 2 MG Tablet) PO SCH (09:00)
[2021-03-21] MEDS ORDERED: POTASSIUM CHLORIDE ER 10 MEQ TAB.ER.PRT PO SCH (09:00)
[2021-03-21] MEDS ORDERED: CITALOPRAM HYDROBROMIDE 20 MG TAB PO SCH (09:00)
[2021-03-21 12:13] LABS: Glucose,Whole Blood 103 mg/dL (75-99)
--- NOTE | 2021-03-21 20:23 | P.CONS ---
History of Present Illness - Reason for Consult Consult date: 03/21/21 Medical management Requesting physician: Jammie Gallegos - Chief Complaint Breast surgery - History of Present Illness This is a very pleasant 65-year-old patient who follows with Dr. Johnson. Chronic stable medical conditions include COPD, diabetes, GERD, hypertension, hyperlipidemia, mild cognitive impairment, osteoarthritis, IBS, left arm lymphedema. Patient's had previous left mastectomy. For DCIS. Patient has undergone right mastectomy with advancement of flap and also left advancement flap for axillary tissue. Patient is drainage tube in both the side s. Pain is controlled. Patient had breakfast this morning. Breathing stable. Some pain at the operative site. No nausea vomiting. Patient did ambulate a bit. Review of systems: GEN.: None EYES: None HEENT: None NECK: None RESPIRATORY: None CARDIOVASCULAR: None GASTROINTESTINAL: None GENITOURINARY: Mild urinary incontinence MUSCULOSKELETAL: [Some joint pains LYMPHATICS: None HEMATOLOGICAL: None PSYCHIATRY: None NEUROLOGICAL: None Past medical history to include: COPD, diabetes, GERD, hyperlipidemia, hypertension, mild cognitive impairment, osteoarthritis, left breast cancer 2004, diverticulitis, ABS, left arm lymphedema, anxiety depression Social history: Patient lives with her brother and [id number]. Smoked in the remote past. No alcohol. Family history: Reviewed, noncontributory to presentation Physical examination: VITAL SIGNS: 98.4, 71, 16, 152/86, 95% room air GENERAL: BMI 44.7 crit planning bed, awake, not in distress. EYES: Pupils equal. Conjunctiva normal. HEENT: External appearance of nose and ears normal, oral cavity grossly normal. NECK: JVD not raised; masses not palpable CHEST wall: Dressing with Robinson wrap across her chest. Chest tube drained.. HEART: First and second heart sounds are normal; no edema. LUNGS: Respiratory rate normal; clear to auscultation. ABDOMEN: Soft, nontender, liver spleen not palpable, no masses palpable. PSYCH: Alert and oriented x3; mood and affect normal. MUSCULOSKELETAL:No Clubbing/cyanosis;muscles-grossly intact. Some OA changes. NEUROLOGICAL: Cranial nerves grossly intact; no facial asymmetry, power and sensation grossly intact. LYMPHATICS: No lymph nodes palpable in the neck INVESTIGATIONS, reviewed in the clinical context: White count 8.9 hemoglobin 11.6 platelets 197 Accu-Cheks: 115, 103 Assessment and plan: -Diabetes mellitus type 2, on oral hypoglycemic Glucophage thousand milligrams by mouth twice a day, Glucotrol 5 mg by mouth 3 times a day. Sliding scale with coverage -GERD Protonix 40 mg daily -Hyperlipidemia Lipitor 10 mg a day -Essential hypertension Lasix 40 mg daily -Mild cognitive impairment -Primary osteoarthritis Tylenol as needed -Irritable bowel syndrome Bentyl 10 mg by mouth 3 times a day -Morbid obesity BMI 44.7 Weight loss measures -Anxiety depression otherwise specified Celexa 20 mg daily -Right mastectomy and flap surgery in both the axilla He followed by Dr. Gisela Calvillo Home medications resumed. Accu-Cheks followed. Patient is ambulating. Tolerating diet. Patient to follow-up with her family doctor per discharge. Questions answered. Thank you Dr. Nimoc Calvillo Past Medical History Past Medical History: Cancer, COPD, Diabetes Mellitus, GERD/Reflux, Hyperlipidemia, Hypertension, Memory Impairment, Osteoarthritis (OA) Additional Past Medical History / Comment(s): HX BREAST CANCER left 2004. diverticulitis, IBS, taking A/B for "yeast" vag. infection,. left arm lymph edema History of Any Multi-Drug Resistant Organisms: None Reported Past Surgical History: Breast Surgery, Heart Catheterization, Orthopedic S urgery, Tonsillectomy Additional Past Surgical History / Comment(s): BUNIONECTOMY. LT BREAST mastectomy w/some lymph nodes. COLONOSCOPY Past Anesthesia/Blood Transfusion Reactions: No Reported Reaction Past Psychological History: Anxiety, Depression Smoking Status: Former smoker Past Alcohol Use History: None Reported Additional Past Alcohol Use History / Comment(s): quit >35 yrs. ago Past Drug Use History: None Reported - Past Family History Mother Family Medical History: No Reported History Medications and Allergies Home Medications Medication Instructions Recorded Confirmed Type Aspirin [Adult Low Dose Aspirin EC] 81 mg PO DAILY 08/01/20 03/20/21 History Citalopram Hydrobromide [CeleXA] 20 mg PO DAILY 08/01/20 03/20/21 History Dicyclomine [Bentyl] 10 mg PO TID 08/01/20 03/20/21 History Furosemide [Lasix] 40 mg PO DAILY 08/01/20 03/20/21 History Nitroglycerin Sl Tabs [Nitrostat] 0.4 mg SUBLINGUAL Q5M PRN 08/01/20 03/20/21 History Pantoprazole Sodium 40 mg PO DAILY 08/01/20 03/20/21 History Potassium Chloride ER [K-Dur 10] 10 meq PO DAILY 08/01/20 03/20/21 History glipiZIDE [Glucotrol] 5 mg PO TID 08/01/20 03/20/21 History metFORMIN HCL [Glucophage] 1,000 mg PO BID 08/01/20 03/20/21 History traZODone HCL [Desyrel] 100 mg PO HS 08/01/20 03/20/21 History Atorvastatin Calcium [Lipitor] 10 mg PO DAILY 11/26/20 03/20/21 History Brexpiprazole [Rexulti] 2 mg PO DAILY 11/26/20 03/20/21 History SUMAtriptan succinate [Imitrex] 50 mg PO BID PRN 11/26/20 03/20/21 History Topiramate [Topamax] 50 mg PO DAILY 11/26/20 03/20/21 History ondansetron HCL [Zofran] 8 mg PO Q8HR PRN 11/26/20 03/20/21 History Clotrimazole [Clotrimazole 1% Top 30 ml TOPICAL TID 02/01/21 03/20/21 History Soln] Isosorbide Mononitrate [Isosorbide 30 mg PO DAILY 02/01/21 03/20/21 History Mononitrate ER] Cholecalciferol [Vitamin D3 (25 50 mcg PO DAILY 03/14/21 03/20/21 History Mcg = 1000 Iu)] Mupirocin [Mupirocin 2% with 1 applic TOPICAL DAILY PRN 03/14/21 03/20/21 History applicator] Nystatin 100,000Unit/gm Cream 1 applic TOPICAL BID PRN 03/14/21 03/20/21 History [Mycostatin Cream] hydrOXYzine HCL [Atarax] 25 mg PO TID 03/14/21 03/20/21 History Allergies Allergy/AdvReac Type Severity Reaction Status Date / Time naproxen AdvReac Nausea & Verified 03/20/21 17:28 Vomiting Physical Exam Vitals: Vital Signs Temp Pulse Pulse Resp BP Pulse Ox 03/21/21 08:00 98.4 F 71 16 152/86 95 03/20/21 23:48 98 F 88 17 140/78 95 03/20/21 20:00 98.6 F 90 18 142/80 94 L 03/20/21 18:15 98.0 F 86 16 128/78 92 L 03/20/21 17:45 81 16 123/74 94 L 03/20/21 17:15 77 16 130/75 94 L 03/20/21 17:00 87 16 137/82 94 L 03/20/21 16:45 79 16 130/86 96 03/20/21 16:34 98.3 F 78 16 145/89 89 L 03/20/21 16:00 79 16 140/76 92 L 03/20/21 15:45 77 16 135/72 92 L 03/20/21 15:30 84 16 137/75 92 L 03/20/21 15:15 85 16 154/88 94 L 03/20/21 15:00 95 16 167/92 93 L 03/20/21 14:45 96 16 173/88 95 03/20/21 14:31 83 16 185/107 96 03/20/21 14:17 97.7 F 96 19 199/101 98 Intake and Output 03/20/21 03/21/21 03/21/21 22:59 06:59 14:59 Intake Total 500 Output Total 455 400 40 Balance 45 -400 -40 Intake: IV 500 Output: Drainage 55 40 #1 30 20 #2 20 15 #3 5 5 Urine 400 400 Other: # Voids 1 Weight 110.9 kg Results CBC & Chem 7: 03/21/21 05:14 Labs: Abnormal Lab Results - Last 24 Hours (Table) 03/20/21 03/20/21 03/20/21 Range/Units 14:51 16:59 20:43 RBC (3.80-5.40) m/uL MCHC (31.0-37.0) g/dL POC Glucose (mg/dL) 139 H 165 H 263 H (75-99) mg/dL 03/21/21 03/21/21 Range/Units 05:14 07:59 RBC 3.78 L (3.80-5.40) m/uL MCHC 30.9 L (31.0-37.0) g/dL POC Glucose (mg/dL) 115 H (75-99) mg/dL
== END 2021-03-21 15:35 | disposition home health service (06) ==
LOC: OR 08:14 → 4FBP 13:37 → OR 03-21 15:35
PROVIDERS: ATTEND Surgery
DX: N65.1 Disproportion of reconstructed breast (principal); I11.9 Hypertensive heart disease without heart failure; J44.9 Chronic obstructive pulmonary disease, unspecified; E11.51 Type 2 diabetes mellitus with diabetic peripheral angiopathy without gangrene; K21.9 Gastro-esophageal reflux disease without esophagitis; R41.3 Other amnesia; F32.A Depression, unspecified; Z20.822 Contact with and (suspected) exposure to COVID-19; Z83.3 Family history of diabetes mellitus; Z85.3 Personal history of malignant neoplasm of breast; E78.5 Hyperlipidemia, unspecified; G31.84 Mild cognitive impairment of uncertain or unknown etiology; M19.90 Unspecified osteoarthritis, unspecified site; K58.9 Irritable bowel syndrome, unspecified; I89.0 Lymphedema, not elsewhere classified; Z90.12 Acquired absence of left breast and nipple; Z72.0 Tobacco use; Z79.84 Long term (current) use of oral hypoglycemic drugs; Z79.82 Long term (current) use of aspirin; Z79.899 Other long term (current) drug therapy; Z88.6 Allergy status to analgesic agent
CPT/HCPCS: 85025; 87635; 19303; 14000; 15839; J1100; J0690; J2405; J1170; J1644 ×2; 88307

== ENCOUNTER → 2021-03-23 | Outpatient (CLI) | payer MEDICARE ==
--- NOTE | 2021-03-23 15:18 | P.PN ---
Progress Note - Text Progress Note Date: 03/23/21 Su is a 65-year-old white female status post right mastectomy and left axillary incision revision. Pathology revealed in the right breast benign breast with no evidence of cancer; left axillary tissue no evidence of cancer. The patient post procedure has done well. Her NOEMY drains continue to have output greater than 40 mL per day on the right side with minimal to no output on the left side. The drainage is serous from all drains. Incisions are clean and dry. There is no evidence of any seroma. There is minimal erythema at the trifurcation of the right axillary incision. The patient is tolerating diet without difficulty. Physical exam: Lungs: Clear Heart: Regular rate and rhythm Incisions bilateral clean and dry no evidence of seroma Slight erythema trifurcation with some necrosis of the tissue at the trifurcation of the right axillary incision. Plan: Change dressings Continue drain care Follow-up next week DC left axillary drain CC: Dr. Johnson
[2021-03-23 17:02] VITALS: BP 145/77; PULSE 77; RESP 18; TEMP 98
== END | disposition home or self-care (01) ==
LOC: WWCWWP 14:34
PROVIDERS: ATTEND Surgery
DX: Z53.9 Procedure and treatment not carried out, unspecified reason (principal)

== ENCOUNTER → 2021-03-30 | Outpatient (CLI) | payer MEDICARE ==
--- NOTE | 2021-03-30 13:23 | P.PN ---
Progress Note - Text Progress Note Date: 03/30/21 Su is a 65-year-old white female status post right mastectomy and left axillary incision revision. Pathology revealed in the right breast benign breast with no evidence of cancer; left axillary tissue no evidence of cancer. The patient post procedure has done well. The left axillary drain was removed at her last visit. On the right she has [address] She has not had any fever or chills. She has no complaints. Physical exam: Lungs: Clear Heart: Regular rate and rhythm Incisions bilateral no evidence of seroma Slight erythema trifurcation with some necrosis of the tissue at the trifurcation of the right axillary incision stable; the patient has some reaction to the Robinson wrap which has been very tight and the inferior aspect of the incision appears erythematous although not infected The patient has not brought the amount of drainage from each drain therefore we're going to leave the drains in place. Plan: Change dressings Continue drain care Follow-up next week DC half the mary jo Keflex Cc: Dr. Johnson
== END | disposition home or self-care (01) ==
LOC: WWCWWP 12:49
PROVIDERS: ATTEND Surgery
DX: Z53.9 Procedure and treatment not carried out, unspecified reason (principal)

== ENCOUNTER → 2021-04-05 | Outpatient (CLI) | payer MEDICARE ==
[2021-04-05 09:48] VITALS: BP 117/89; PULSE 89; RESP 17; TEMP 99
--- NOTE | 2021-04-05 11:39 | P.PN ---
Subjective Progress Note Date: 04/05/21 Su is a 65-year-old white female status post right mastectomy and left axillary incision revision. Pathology revealed in the right breast benign breast with no evidence of cancer; left axillary tissue no evidence of cancer. The patient post procedure has done well. The left axillary drain was removed at her last visit. On the right side on drain was removed last week. The second drain continues to have over 40 mL of serous fluid per day. She has not had any fever or chills. She has no complaints. Physical exam: Incisions bilateral no evidence of seroma Slight erythema trifurcation with some necrosis of the tissue at the trifurcation of the right axillary incision stable; the patient had some reaction to the Robinson wrap which had been very tight and the inferior aspect of the incision appeared erythematous although not infected; on today's visit there is some necrosis of the trifurcation of the right axillary incision Plan: Debridement of trifurcation of right lateral aspect of incision Continue drain care Follow-up next week Removal of the remainder of most of the mary jo Keflex Debridement of the area of concern right lateral incision: Following obtaining consent the area of the right lateral aspect of the incision was prepped using Betadine; this was an area of necrosis at the trifurcation of the incision Sharp debridement was performed The area of debridement was approximately 4 cm x 2 cm 2 3-0 nylon sutures were placed to reinforce the incision The patient tolerated the procedure in stable condition. Objective - Vital Signs Vital signs: Vital Signs Temp 99.0 F 04/05/21 09:44 Pulse 89 04/05/21 09:44 Resp 17 04/05/21 09:44 BP 117/89 04/05/21 09:44 Pulse Ox Intake & Output 04/04/21 04/05/21 04/05/21 18:59 06:59 18:59 Weight 104.78 kg
== END ==
LOC: WWCWWP 09:15
PROVIDERS: ATTEND Surgery
DX: Z53.9 Procedure and treatment not carried out, unspecified reason (principal)

== ENCOUNTER → 2021-04-13 | Outpatient (CLI) | payer MEDICARE ==
[2021-04-13 10:27] VITALS: BP 104/76; PULSE 62; RESP 16
--- NOTE | 2021-04-13 11:35 | P.PN ---
Progress Note - Text Progress Note Date: 04/13/21 Su is a 65-year-old white female status post right mastectomy and left axillary incision revision. Pathology revealed in the right breast benign breast with no evidence of cancer; left axillary tissue no evidence of cancer. The patient post procedure has done well. The left axillary drain has been removed. On the right side one drain was removed. The second drain continues to have over significant serous fluid, it is not holding suction well however at this time. She has not had any fever or chills. She does state that she had some drainage from the left axillary region last week. She has not had any fever or chills. She has no complaints. Physical exam: Incisions bilateral no evidence of seroma at this time Decreased erythema trifurcation of the right mastectomy incision with some necrosis of the tissue at the trifurcation of the right axillary incision stable; the patient had some reaction to the Robinson wrap which had been very tight and the inferior aspect of the incision appeared erythematous although not infected; this has significantly improved The left axillary incision has some necrosis at the trifurcation Plan: Debridement of trifurcation of right and left lateral aspect of incision Drain not removed Follow-up next week Removal of the remainder of the mary jo Keflex Debridement of the area of concern right and left lateral incision: Following obtaining consent the area of the right and left lateral aspect of the incision was prepped using Betadine; this was an area of necrosis at the trifurcation of both of the incision Right breast: Sharp debridement was performed through a trifurcation The area of debridement was approximately 4 cm x 2 cm Several 3-0 nylon sutures were placed to reinforce the incision The patient tolerated the procedure in stable condition. Left breast: Sharp debridement at the trifurcation site approximately 4 cm x 2 cm several 3-0 nylon sutures placed to reinforce the incision all mary jo have been removed at this time Patient tolerated procedures in stable condition Patient will follow up next week
== END | disposition home or self-care (01) ==
LOC: WWCWWP 09:20
PROVIDERS: ATTEND Surgery
DX: Z53.9 Procedure and treatment not carried out, unspecified reason (principal)

== ENCOUNTER → 2021-04-17 | Outpatient (CLI) | payer MEDICARE ==
--- NOTE | 2021-04-17 12:35 | P.PN ---
Progress Note - Text Progress Note Date: 04/17/21 Su is a 65-year-old white female status post right mastectomy and left axillary incision revision. Pathology revealed in the right breast benign breast with no evidence of cancer; left axillary tissue no evidence of cancer. The patient post procedure has done well. The left axillary drain has been removed. On the right side one drain was removed. The second drain continued to have over significant serous fluid, it was not holding suction well however, reinforcing the incision it did start to hold suction. She states however this stopped holding suction again. She has not had any fever or chills. She does state that she had some drainage from the left axillary region last week, but has not had any since she was seen last week. The right lateral portion of the incision is opened. She has not had any fever or chills. She has no complaints. Physical exam: Incisions bilateral no evidence of seroma at this time Decreased erythema trifurcation of the right mastectomy incision with some necrosis of the tissue at the trifurcation of the right axillary incision; the patient had some reaction to the Robinson wrap which had been very tight and the inferior aspect of the incision appeared erythematous although not infected; this has significantly improved The left axillary incision had some necrosis at the trifurcation which was debrided last week and is improved Plan: Sutures removed in the central portion of the necrotic tissue and then trifurcation at the right lateral axillary incision the wound was packed with iodoform gauze No other sutures were removed The patient will follow up in 3 days Home health care to follow the patient
[2021-04-17 13:19] VITALS: BP 142/80; PULSE 110; RESP 18
== END | disposition home or self-care (01) ==
LOC: WWCWWP 12:15
PROVIDERS: ATTEND Surgery
DX: Z53.9 Procedure and treatment not carried out, unspecified reason (principal)

== ENCOUNTER → 2021-04-20 | Outpatient (CLI) | payer MEDICARE ==
[2021-04-20 13:08] VITALS: BP 155/89; PULSE 82; RESP 18; TEMP 97.5
--- NOTE | 2021-04-20 13:33 | P.PN ---
Progress Note - Text Progress Note Date: 04/20/21 Su is a 65-year-old white female status post right mastectomy and left axillary incision revision. Pathology revealed in the right breast benign breast with no evidence of cancer; left axillary tissue no evidence of cancer. The patient post procedure has done well. The left axillary drain has been removed. On the right side one drain was removed. The second drain continued to have over significant serous fluid, it was not holding suction well however, reinforcing the incision it did start to hold suction. She states however this stopped holding suction again. She has not had any fever or chills. She does state that she had some drainage from the left axillary region last week, but has not had any since she was seen last week. The right lateral portion of the incision is opened. She has not had any fever or chills. She has no complaints. Physical exam: Incisions bilateral no evidence of seroma at this time Decreased erythema trifurcation of the right mastectomy incision with some necrosis of the tissue at the trifurcation of the right axillary incision; the patient had some reaction to the Robinson wrap which had been very tight and the inferior aspect of the incision appeared erythematous although not infected; this has significantly improved The left axillary incision had some necrosis at the trifurcation which was debrided last week and continues to improved The size of the opening at the trifurcation in the right axillary incision is 4.5 x 1 cm and 2 cm deep This area is repacked today Left axillary incision appears to be healing without difficulty Plan: Continue present therapy Follow-up next week Patient states they have not been changing the packing daily and again this is emphasized that this is important
== END | disposition home or self-care (01) ==
LOC: WWCWWP 12:57
PROVIDERS: ATTEND Surgery
DX: Z53.9 Procedure and treatment not carried out, unspecified reason (principal)

== ENCOUNTER 2021-04-24 12:24 | Emergency (ER) | payer MEDICARE, OTHER ==
[2021-04-24 12:48] VITALS: TEMP 97.7
[2021-04-24] MEDS ORDERED: MECLIZINE 25 MG TAB PO STA (13:02)
--- NOTE | 2021-04-24 13:09 | ED ---
General Adult HPI - General Chief complaint: Dizziness Stated complaint: Lightheaded/Nausea/Low Pulse Time Seen by Provider: 04/24/21 12:40 Source: patient, RN notes reviewed, old records reviewed Mode of arrival: wheelchair Limitations: no limitations - History of Present Illness Initial comments: This is a 65-year-old female presents emergency department stating she was at Dr. Gabino Calvillo's office and getting a wound repacked when she sat up in bed and became very dizzy she stated that the room seemed like he was spinning. Patient states it didn't take long before she was very nauseated. Patient denies any headache patient denies numbness weakness per patient denies any ringing in the ears or deafness. Patient denies any palpitations. Patient denies any chest pain difficult breathing shortness of breath. Patient states she's never experi enced before but the spinning made her very nauseated. Patient denies any abdominal pain patient denies any diarrhea. Patient states lying down makes it much better but if she sits up now it's still there but not as bad as it was earlier. - Related Data Home Medications Medication Instructions Recorded Confirmed Aspirin [Adult Low Dose Aspirin EC] 81 mg PO DAILY 08/01/20 04/24/21 Citalopram Hydrobromide [CeleXA] 20 mg PO DAILY 08/01/20 04/24/21 Dicyclomine [Bentyl] 10 mg PO TID 08/01/20 04/24/21 Furosemide [Lasix] 40 mg PO DAILY 08/01/20 04/24/21 Nitroglycerin Sl Tabs [Nitrostat] 0.4 mg SUBLINGUAL Q5M PRN 08/01/20 04/24/21 Pantoprazole Sodium 40 mg PO DAILY 08/01/20 04/24/21 Potassium Chloride ER [K-Dur 10] 10 meq PO DAILY 08/01/20 04/24/21 glipiZIDE [Glucotrol] 5 mg PO TID 08/01/20 04/24/21 metFORMIN HCL [Glucophage] 1,000 mg PO BID 08/01/20 04/24/21 traZODone HCL [Desyrel] 100 mg PO HS 08/01/20 04/24/21 Atorvastatin Calcium [Lipitor] 10 mg PO DAILY 11/26/20 04/24/21 Brexpiprazole [Rexulti] 2 mg PO DAILY 11/26/20 04/24/21 SUMAtriptan succinate [Imitrex] 50 mg PO BID PRN 11/26/20 04/24/21 Topiramate [Topamax] 50 mg PO DAILY 11/26/20 04/24/21 ondansetron HCL [Zofran] 8 mg PO Q8HR PRN 11/26/20 04/24/21 Clotrimazole [Clotrimazole 1% Top 30 ml TOPICAL TID 02/01/21 04/24/21 Soln] Isosorbide Mononitrate [Isosorbide 30 mg PO DAILY 02/01/21 04/24/21 Mononitrate ER] Cholecalciferol [Vitamin D3 (25 50 mcg PO DAILY 03/14/21 04/24/21 Mcg = 1000 Iu)] Nystatin 100,000Unit/gm Cream 1 applic TOPICAL BID PRN 03/14/21 04/24/21 [Mycostatin Cream] hydrOXYzine HCL [Atarax] 25 mg PO TID 03/14/21 04/24/21 Previous Rx's Medication Instructions Recorded Meclizine [Antivert] 25 mg PO TID #20 tab 04/24/21 Allergies Allergy/AdvReac Type Severity Reaction Status Date / Time naproxen AdvReac Nausea & Verified 04/24/21 14:01 Vomiting Review of Systems ROS Statement: Those systems with pertinent positive or pertinent negative responses have been documented in the HPI. ROS Other: All systems not noted in ROS Statement are negative. Past Medical History Past Medical History: Cancer, COPD, Diabetes Mellitus, GERD/Reflux, Hyperlipidemia, Hypertension, Memory Impairment, Osteoarthritis (OA) Additional Past Medical History / Comment(s): HX BREAST CANCER left 2004. diverticulitis, IBS, taking A/B for "yeast" vag. infection,. left arm lymph edema History of Any Multi-Drug Resistant Organisms: None Reported Past Surgical History: Breast Surgery, Heart Catheterization, Orthopedic Surgery, Tonsillectomy Additional Past Surgical History / Comment(s): BUNIONECTOMY. LT BREAST mastectomy w/some lymph nodes. COLONOSCOPY Past Anesthesia/Blood Transfusion Reactions: No Reported Reaction Past Psychological History: Anxiety, Depression Smoking Status: Never smoker Past Alcohol Use History: None Reported Past Drug Use History: None Reported - Past Family History Mother Family Medical History: No Reported History General Exam - General Exam Comments Initial Comments: GENERAL: Patient is well-developed and well-nourished. Patient is nontoxic and well- hydrated and is in mild distress. ENT: Neck is soft and supple. No significant lymphadenopathy is noted. Oropharynx is clear. Moist mucous membranes. Neck has full range of motion without eliciting any pain. EYES: The sclera were anicteric and conjunctiva were pink and moist. Extraocular movements were intact and pupils were equal round and reactive to light. Eyelids were unremarkable. PULMONARY: Unlabored respirations. Good breath sounds bilaterally. No audible rales rhonchi or wheezing was noted. CARDIOVASCULAR: There is a regular rate and rhythm without any murmurs gallops or rubs. ABDOMEN: Soft and nontender with normal bowel sounds. SKIN: Skin is clear with no lesions or rashes and otherwise unremarkable. NEUROLOGIC: Patient is alert and oriented x3. Cranial nerves II through XII are grossly intact. Motor and sensory are also intact. Normal speech, volume and content. Symmetrical smile. Finger to nose testing bilaterally was normal MUSCULOSKELETAL: Normal extremities with adequate strength and full range of motion. No lower extremity swelling or edema. No calf tenderness. LYMPHATICS: No significant lymphadenopathy is noted PSYCHIATRIC: Normal psychiatric evaluation. Limitations: no limitations Course Vital Signs 04/24/21 12:45 Temperature 97.7 F Pulse Rate 60 Respiratory 20 Rate Blood Pressure 109/59 O2 Sat by Pulse 96 Oximetry Medical Decision Making - Medical Decision Making EKG shows sinus bradycardia 55 bpm FL interval is 134 QRS 92 QT interval is 456 QTC is 444. Patient's EKG shows T-wave inversions in inferior leads Patient's CT of the brain shows no acute abnormality. Chest x-ray shows no acute abnormality. Patient was given Antivert and was feeling considerably better when I reevaluated her. - Lab Data Result diagrams: 04/24/21 13:26 04/24/21 13:26 Lab Results 04/24/21 04/24/21 04/24/21 Range/Units 13:26 13:26 13:26 WBC 6.1 (3.8-10.6) k/uL RBC 4.16 (3.80-5.40) m/uL Hgb 12.6 (11.4-16.0) gm/dL Hct 39.1 (34.0-46.0) % MCV 93.9 D (80.0-100.0) fL MCH 30.3 (25.0-35.0) pg MCHC 32.3 (31.0-37.0) g/dL RDW 12.9 (11.5-15.5) % Plt Count 311 (150-450) k/uL MPV 7.2 Neutrophils % 56 % Lymphocytes % 33 % Monocytes % 5 % Eosinophils % 3 % Basophils % 1 % Neutrophils # 3.4 (1.3-7.7) k/uL Lymphocytes # 2.0 (1.0-4.8) k/uL Monocytes # 0.3 (0-1.0) k/uL Eosinophils # 0.2 (0-0.7) k/uL Basophils # 0.1 (0-0.2) k/uL Hypochromasia Slight PT 11.1 (9.0-12.0) sec INR 1.0 (<1.2) APTT 23.1 (22.0-30.0) sec Sodium 137 (137-145) mmol/L Potassium 4.1 (3.5-5.1) mmol/L Chloride 107 (98-107) mmol/L Carbon Dioxide 25 (22-30) mmol/L Anion Gap 5 mmol/L BUN 17 (7-17) mg/dL Creatinine 0.88 (0.52-1.04) mg/dL Est GFR (CKD-EPI)AfAm 80 (>60 ml/min/1.73 sqM) Est GFR (CKD-EPI)NonAf 70 (>60 ml/min/1.73 sqM) Glucose 98 (74-99) mg/dL Calcium 8.2 L (8.4-10.2) mg/dL Magnesium 1.9 (1.6-2.3) mg/dL Total Bilirubin 0.5 (0.2-1.3) mg/dL AST 25 (14-36) U/L ALT 20 (4-34) U/L Alkaline Phosphatase 78 (38-126) U/L Troponin I (0.000-0.034) ng/mL Total Protein 6.1 L (6.3-8.2) g/dL Albumin 3.3 L (3.5-5.0) g/dL 04/24/21 Range/Units 13:26 WBC (3.8-10.6) k/uL RBC (3.80-5.40) m/uL Hgb (11.4-16.0) gm/dL Hct (34.0-46.0) % MCV (80.0-100.0) fL MCH (25.0-35.0) pg MCHC (31.0-37.0) g/dL RDW (11.5-15.5) % Plt Count (150-450) k/uL MPV Neutrophils % % Lymphocytes % % Monocytes % % Eosinophils % % Basophils % % Neutrophils # (1.3-7.7) k/uL Lymphocytes # (1.0-4.8) k/uL Monocytes # (0-1.0) k/uL Eosinophils # (0-0.7) k/uL Basophils # (0-0.2) k/uL Hypochromasia PT (9.0-12.0) sec INR (<1.2) APTT (22.0-30.0) sec Sodium (137-145) mmol/L Potassium (3.5-5.1) mmol/L Chloride (98-107) mmol/L Carbon Dioxide (22-30) mmol/L Anion Gap mmol/L BUN (7-17) mg/dL Creatinine (0.52-1.04) mg/dL Est GFR (CKD-EPI)AfAm (>60 ml/min/1.73 sqM) Est GFR (CKD-EPI)NonAf (>60 ml/min/1.73 sqM) Glucose (74-99) mg/dL Calcium (8.4-10.2) mg/dL Magnesium (1.6-2.3) mg/dL Total Bilirubin (0.2-1.3) mg/dL AST (14-36) U/L ALT (4-34) U/L Alkaline Phosphatase (38-126) U/L Troponin I <0.012 (0.000-0.034) ng/mL Total Protein (6.3-8.2) g/dL Albumin (3.5-5.0) g/dL Disposition Clinical Impression: Vertigo Disposition: HOME SELF-CARE Condition: Good Instructions (If sedation given, give patient instructions): Vertigo (ED) Prescriptions: Meclizine [Antivert] 25 mg PO TID #20 tab Is patient prescribed a controlled substance at d/c from ED?: No Referrals: Alvaro Johnson DO [Primary Care Provider] - 1-2 days Time of Disposition: 14:38
[2021-04-24 13:42] LABS: Basophils # (A) 0.1 k/uL (0-0.2); Basophils % (A) 1 %; Eosinophils # (A) 0.2 k/uL (0-0.7); Eosinophils % (A) 3 %; HCT 39.1 % (34.0-46.0); HGB 12.6 gm/dL (11.4-16.0); Hypochromasia Slight; Lymphocytes % (A) 33 %; MCH 30.3 pg (25.0-35.0); MCHC 32.3 g/dL (31.0-37.0); Mean Platelet Volume 7.2; Monocytes # (A) 0.3 k/uL (0-1.0); Monocytes % (A) 5 %; Neutrophils # (A) 3.4 k/uL (1.3-7.7); Neutrophils % (A) 56 %; Platelet Count 311 k/uL (150-450); RBC 4.16 m/uL (3.80-5.40); RDW 12.9 % (11.5-15.5); WBC 6.1 k/uL (3.8-10.6)
[2021-04-24 13:51] LABS: MCV 93.9 fL (80.0-100.0)
[2021-04-24 13:53] LABS: Partial Thromboplastin Time 23.1 sec (22.0-30.0); Prothrombin Time 11.1 sec (9.0-12.0)
[2021-04-24 13:58] LABS: Albumin 3.3 g/dL (3.5-5.0); Calcium 8.2 mg/dL (8.4-10.2); Magnesium 1.9 mg/dL (1.6-2.3); Potassium 4.1 mmol/L (3.5-5.1); Total Bilirubin 0.5 mg/dL (0.2-1.3); Total Protein 6.1 g/dL (6.3-8.2)
--- NOTE | 2021-04-24 14:05 | XR ---
EXAMINATION TYPE: XR chest 2V DATE OF EXAM: 04/24/2021 COMPARISON: Chest x-ray 12/27/2010 HISTORY: Chest pain TECHNIQUE: Frontal and lateral views of the chest are obtained. FINDINGS: There is no focal air space opacity, pleural effusion, or pneumothorax seen. The cardiac silhouette size is within normal limits. Patient is rotated. There are overlying leads. Aorta is dens e. The osseous structures are intact, arthropathy noted in the shoulders, there is multilevel spondyl osis, flowing anterior osteophytes within the thoracic spine with preservation of disc heights sugges ts diffuse idiopathic skeletal hyperostosis. IMPRESSION: No acute cardiopulmonary process.
--- NOTE | 2021-04-24 14:08 | CT ---
EXAMINATION TYPE: CT brain wo con DATE OF EXAM: 04/24/2021 COMPARISON: 09/19/2010 HISTORY: 65-year-old female nausea, Vertigo TECHNIQUE: Examination was done in axial plane without intravenous contrast. Coronal and sagittal r econstructions performed. CT DLP: 1099.4 mGycm Automated exposure control for dose reduction was used. FINDINGS: Mildly lobulated CSF density extra-axial collection along the right paramedian anterior parietal conv exity. This measures 2.2 cm wide by 2.6 cm AP by 1.7 cm craniocaudal (coronal image 51 and sagittal i mage 30). This is in comparison to 1.6 cm wide on 2010. Focal atherosclerotic calcification within the distal basilar artery, axial image 15. There is no evidence of acute intracranial hemorrhage, acute ischemic changes, mass effect, or other extra-axial fluid collection. There is no effacement of cerebral sulci or basal subarachnoid cister ns. There is no hydrocephalus. There is no midline shift. Campos-white matter distinction is preserv ed. Leftward nasal septal deviation. Paranasal sinuses and mastoid air cells well pneumatized. Orbits and globes are intact. Normal variation of hyperostosis frontalis interna. IMPRESSION: 1. Findings suggest a gradually enlarging arachnoid cyst along the anterior and superior right pariet al convexity. Currently measuring up to 2.2 cm wide versus 1.6 cm on 09/19/2010. Additional follow-up a s clinically indicated. 2. Otherwise, no acute intracranial abnormality seen.
[2021-04-24 14:43] VITALS: BP 142/85; PULSE 63; RESP 16
== END 2021-04-24 14:57 | disposition home or self-care (01) ==
LOC: EC 12:24
DX: R42 Dizziness and giddiness (principal); J44.9 Chronic obstructive pulmonary disease, unspecified; I10 Essential (primary) hypertension; K21.9 Gastro-esophageal reflux disease without esophagitis; Z79.890 Hormone replacement therapy; Z88.6 Allergy status to analgesic agent
CPT/HCPCS: 36415; 70450; 71046; 80053; 83735; 84484; 85025; 85610; 85730; 93005; 99284

== ENCOUNTER → 2021-04-24 | Outpatient (CLI) | payer MEDICARE ==
--- NOTE | 2021-04-24 14:12 | P.PN ---
Progress Note - Text Progress Note Date: 04/24/21 Su is a 65-year-old white female status post right mastectomy and left axillary incision revision. Pathology revealed in the right breast benign breast with no evidence of cancer; left axillary tissue no evidence of cancer. The patient post procedure has done well however she did have some breakdown of the lateral aspect of the right chest wall incision. All drains were removed. The area of breakdown was being packed with iodoform gauze. She presents today stating that she is unable to pack the incision by herself and her home healthcare provider did not come. The patient is not complaining of any problems with the left axillary incision. At today's appointment the patient began to complain of feeling lightheaded and nauseated. Vitals were obtained and her heart rate was 48. Physical exam: Incisions bilateral no evidence of seroma at this time Decreased erythema trifurcation of the right mastectomy incision with some necrosis of the tissue at the trifurcation of the right axillary incision; the patient had some reaction to the Robinson wrap which had been very tight and the inferior aspect of the incision appeared erythematous although not infected; this has significantly improved The left axillary incision had some necrosis at the trifurcation which was debrided last week and continues to improved The size of the opening at the trifurcation in the right axillary incision is maximally 3 cm x 2 cm deep this is decreased from 4.5 x 1 cm and 2 cm deep This area is repacked today Left axillary incision appears to be healing without difficulty Plan: Continue present therapy The patient was sent to the emergency room secondary to the bradycardia and feeling of lightheadedness I have called home healthcare and they understand that if the patient is discharged home that she needs to be seen at least every other day with the packing changed. We will orders were given.
[2021-04-24 15:00] VITALS: BP 121/85; PULSE 48; RESP 18; TEMP 97.4
== END ==
LOC: WWCWWP 11:17
PROVIDERS: ATTEND Surgery
DX: Z53.9 Procedure and treatment not carried out, unspecified reason (principal)

== ENCOUNTER → 2021-05-08 | Outpatient (CLI) | payer MEDICARE ==
[2021-05-08 12:01] VITALS: BP 172/130; PULSE 98; RESP 18; TEMP 98.1
--- NOTE | 2021-05-08 12:39 | P.PN ---
Progress Note - Text Progress Note Date: 05/08/21 Su is a 65-year-old white female status post right mastectomy and left axillary incision revision. Pathology revealed in the right breast benign breast with no evidence of cancer; left axillary tissue no evidence of cancer. The patient post procedure has done well however she did have some breakdown of the lateral aspect of the right chest wall incision. All drains have been removed. The area of breakdown was being packed with iodoform gauze. She presented on her last visit stating that she is unable to pack the incision by herself and her home healthcare provider did not come. The patient was not complaining of any problems with the left axillary incision. Since that time the home health care has been contacted and they have been seeing her. She did have some breakdown of the medial aspect of the incision at the lateral aspect is healing well. The left axilla continues to heal. On her last appointment the patient began to complain of feeling lightheaded and nauseated. Vitals were obtained and her heart rate was 48. She was evaluated in the emergency room and discharge. She does not have any complaints today however her blood pressure is noted to be 200/113. Physical exam: Incisions bilateral no evidence of seroma at this time Decreased erythema trifurcation of the right mastectomy incision with some necrosis of the tissue at the trifurcation of the right axillary incision; the patient had some reaction to the Robinson wrap which had been very tight and the i nferior aspect of the incision appeared erythematous although not infected; this has significantly improved The left axillary incision had some necrosis at the trifurcation which was debrided last week and continues to improved The size of the opening at the trifurcation in the right axillary incision has decreased from 4.5 x 1 cm and 2 cm deep; the area of the opening has decreased to approximately 3 cm x 1 cm there is granulation tissue in the base. In the medial aspect of the left chest wall incision is approximately 3 x 1 cm open area with granulation tissue at the base. This area is repacked today Left axillary incision appears to be healing without difficulty Plan: Continue present therapy Patient will follow up in 1 week We have contacted Dr. Johnson's office regarding her hypertension and she is going to be seen by them today.
== END | disposition home or self-care (01) ==
LOC: WWCWWP 11:27
PROVIDERS: ATTEND Surgery
DX: Z53.9 Procedure and treatment not carried out, unspecified reason (principal)

== ENCOUNTER → 2021-06-28 | Outpatient (CLI) | payer MEDICARE ==
[2021-06-28 11:23] VITALS: BP 173/94; PULSE 78; RESP 18; TEMP 99
--- NOTE | 2021-06-28 11:34 | P.PN ---
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 Johnson regarding asymmetry related to a prior left mastectomy. 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 She was treated with tamoxifen. She did not have any chemotherapy and she did not have any radiation therapy. She has been cancer free since that time. Her last right breast mammogram was performed at [facility]. This was on 04-18-20. She does not note any lumps, masses or nodules of concern in her right breast. Is not complaining of any nipple discharge or changes. She is concerned because she has marked asymmetry related to the size of the right breast and the fact that she has had a left mastectomy. She is requesting that a reduction be performed on the right side. right breast mammogram 04-18-20 benign BIRAD 2 It is hard to find clothes to fit. She also complains of back pain felt related to the asymmetry. 06-28-21 She underwent a right mastectomy and left azillary incision revision on 03-20-21. Post operatively she had some wound healing issues, these have completely resolved at this time. Her back pain is much improved. Caffeine: 3 cups/day nicotine: none chocolate: several times a week Family History: unknown history of diabetes Hormonal History: menarche: 11 M3, breast fed: no, age at first : 34 menopause: in her 40's when she was on tamoxifen BCP: 3 years hormones: none Surgical History: Cardiac-Cath Bunions Medical History: diabetes since 2010 heart disease COPD reflux memory impairment HTN Social History: nicotine: none alcohol: none drugs: none - Constitutional Constitutional: Denies chills, Denies fever - EENT Eyes: denies blurred vision, denies pain Ears: deny: decreased hearing, tinnitus Ears, nose, mouth and throat: Reports headache, Denies sore throat - Breasts Breasts: bilateral: as per HPI - Cardiovascular Comment: unstable angina/ follows with Dr. Valenzuela Cardiovascular: Reports as per HPI - Respiratory Respiratory: Reports cough - Gastrointestinal Gastrointestinal: Denies abdominal pain, Denies diarrhea, Denies nausea, Denies vomiting - Genitourinary (Female) Genitourinary: Denies dysuria, Denies hematuria - Menstruation Menstruation: Reports as per HPI - Musculoskeletal Musculoskeletal: Reports as per HPI - Integumentary Integumentary: Denies pruritus, Denies rash - Neurological Neurological: Reports as per HPI, Reports numbness - Psychiatric Psychiatric: Reports anxiety, Reports depression - Endocrine Comment: diabetes Endocrine: Denies fatigue, Denies weight change - Hematologic/Lymphatic Comment: aspirin - Allergic/Immunologic Allergic/Immunologic: Reports as per HPI Physical Exam: lungs: clear heart: RRR chest wall : clean and dry, incision is completely healed Impression: Patient doing well incisions completely healed Plan: Follow-up in one year
== END | disposition home or self-care (01) ==
LOC: WWCWWP 10:54
PROVIDERS: ATTEND Surgery
DX: Z53.9 Procedure and treatment not carried out, unspecified reason (principal)

== ENCOUNTER 2021-07-03 14:36 | Emergency (ER) | payer MEDICARE ==
[2021-07-03 15:05] VITALS: RESP 18
[2021-07-03] MEDS ORDERED: SODIUM CHLORIDE 0.9% 1,000 ML IV STA (21:08)
[2021-07-03] MEDS ORDERED: diphenhydrAMINE 50 MG/ML 1 ML VIAL IVP STA (21:08)
[2021-07-03] MEDS ORDERED: KETOROLAC 15 MG/ML 1 ML VIAL IVP STA (21:08)
[2021-07-03] MEDS ORDERED: METOCLOPRAMIDE 5 MG/ML 2 ML VIAL IVP STA (21:08)
--- NOTE | 2021-07-03 21:51 | ED ---
Headache HPI - General Chief Complaint: Headache Stated Complaint: Migraine Time Seen by Provider: 07/03/21 20:58 Mode of arrival: ambulatory Limitations: no limitations - History of Present Illness Initial Comments: Patient is a 66-year-old female presenting with chief complaint of migraine. Patient states that this migraine began at 0800. She has a history of migraines and this feels consistent with her regular attacks. She tried taking 2 Imitrex at home which did not provide her any relief. She called her neurologist to advised her to report to the ER. She states that the headache began near the back of the skull and traveled to the front and is now in the bilateral temples. She has not taken any Motrin or Tylenol at home for this pain. She denies any nausea, vomiting, vision or hearing changes, chest pain, shortness of breath, neck pain or stiffness, fever, chills abdominal pain, head injury, loss of consciousness, seizure. - Related Data Home Medications Medication Instructions Recorded Confirmed Aspirin [Adult Low Dose Aspirin EC] 81 mg PO DAILY 08/01/20 06/28/21 Citalopram Hydrobromide [CeleXA] 20 mg PO DAILY 08/01/20 06/28/21 Dicyclomine [Bentyl] 10 mg PO TID 08/01/20 06/28/21 Furosemide [Lasix] 40 mg PO DAILY 08/01/20 06/28/21 Nitroglycerin Sl Tabs [Nitrostat] 0.4 mg SL Q5M PRN 08/01/20 06/28/21 Pantoprazole Sodium 40 mg PO DAILY 08/01/20 06/28/21 Potassium Chloride ER [K-Dur 10] 10 meq PO DAILY 08/01/20 06/28/21 glipiZIDE [Glucotrol] 5 mg PO TID 08/01/20 06/28/21 metFORMIN HCL [Glucophage] 500 mg PO BID 08/01/20 06/28/21 traZODone HCL [Desyrel] 100 mg PO HS 08/01/20 06/28/21 Atorvastatin Calcium [Lipitor] 10 mg PO DAILY 11/26/20 06/28/21 Brexpiprazole [Rexulti] 2 mg PO DAILY 11/26/20 06/28/21 SUMAtriptan succinate [Imitrex] 50 mg PO BID PRN 11/26/20 06/28/21 Topiramate [Topamax] 50 mg PO DAILY 11/26/20 06/28/21 ondansetron HCL [Zofran] 8 mg PO Q8H PRN 11/26/20 06/28/21 Cholecalciferol [Vitamin D3 (25 50 mcg PO DAILY 03/14/21 06/28/21 Mcg = 1000 Iu)] Nystatin 100,000Unit/gm Cream 1 applic TOPICAL BID 03/14/21 06/28/21 [Mycostatin Cream] Isosorbide Dinitrate 30 mg PO DAILY 06/16/21 06/28/21 Losartan [Cozaar] 25 mg PO DAILY 06/16/21 06/28/21 Meclizine [Antivert] 25 mg PO TID PRN 06/16/21 06/28/21 hydrOXYzine pamoate [Vistaril] 25 mg PO TID 06/16/21 06/28/21 traZODone HCL 50 mg PO HS 06/16/21 06/28/21 Previous Rx's Medication Instructions Recorded Acetaminophen Tab [Tylenol] 650 mg PO Q6HR PRN #0 tab 06/17/21 Allergies Allergy/AdvReac Type Severity Reaction Status Date / Time naproxen AdvReac Nausea & Verified 06/28/21 11:19 Vomiting Review of Systems ROS Statement: Those systems with pertinent positive or pertinent negative responses have been documented in the HPI. ROS Other: All systems not noted in ROS Statement are negative. Past Medical History Past Medical History: Cancer, COPD, Diabetes Mellitus, GERD/Reflux, Hyperlipidemia, Hypertension, Memory Impairment, Osteoarthritis (OA) Additional Past Medical History / Comment(s): HX BREAST CANCER left 2004. diverticulitis, IBS, Lymphedema (L) arm History of Any Multi-Drug Resistant Organisms: None Reported Past Surgical History: Breast Surgery, Heart Catheterization, Tonsillectomy Additional Past Surgical History / Comment(s): BUNIONECTOMY. LT BREAST mastectomy w/some lymph nodes. COLONOSCOPY Past Anesthesia/Blood Transfusion Reactions: No Reported Reaction Past Psychological History: Anxiety, Depression Smoking Status: Former smoker Past Alcohol Use History: None Reported Past Drug Use History: None Reported - Past Family History Mother Family Medical History: Congestive Heart Failure (CHF), Diabetes Mellitus Additional Family Medical History / Comment(s): Had colostomy Father Family Medical History: Chest Pain / Angina, Diabetes Mellitus Additional Family Medical History / Comment(s): Colostomy General Exam Limitations: no limitations General appearance: alert, in no apparent distress Head exam: Present: atraumatic, normocephalic, normal inspection Eye exam: Present: normal appearance, PERRL, EOMI. Absent: scleral icterus Neck exam: Present: normal inspection. Absent: tenderness Respiratory exam: Present: normal lung sounds bilaterally. Absent: respiratory distress, wheezes, rales, rhonchi, stridor Cardiovascular Exam: Present: regular rate, normal rhythm, normal heart sounds. Absent: systolic murmur, diastolic murmur, rubs, gallop, clicks Neurological exam: Present: alert, oriented X3, CN II-XII intact Expanded Patient oriented to: Present: person, place, time Speech: Present: fluid speech Cranial nerves: EOM's Intact: Normal, Tongue Deviation: Normal, Facial Sensation: Normal Cerebellar function: Finger to Nose: Normal, Heel to Lopez: Normal Eye Response: (4) open spontaneously Motor Response: (6) obeys commands Verbal Response: (5) oriented [place] Total: 15 Psychiatric exam: Present: normal affect, normal mood Skin exam: Present: warm, dry, intact, normal color. Absent: rash Course Vital Signs 07/03/21 07/03/21 15:02 22:21 Temperature 98.2 F 97.7 F Pulse Rate 83 71 Respiratory 18 18 Rate Blood Pressure 163/119 177/100 O2 Sat by Pulse 98 96 Oximetry Medical Decision Making - Medical Decision Making Patient is a 66-year-old female presenting with chief complaint of migraine. She is a history of migraines and this episode feels consistent with her regular migraines. She attempted taking Imitrex at home which did not stop the pain. She denies nausea, vomiting, head injury, neck pain or stiffness, fever, chills. On examination there are no focal neurological deficits. Extraocular motions are intact, strength is 5 out of 5, no unilateral weakness, no aphasia, rapid hand movements and [id number] are normal. Patient was given Reglan, Toradol, Benadryl, 1 L IV fluids. On reassessment patient states that her pain has improved. She appears stable for discharge with outpatient follow-up at this time. Follow-up with your PCP in one to 2 days. Report back to ER if any worsening symptoms. Educated her on return parameters and alarm symptoms. Educated her on supportive treatment with Motrin, Tylenol, hydration, caffeine. I answered all questions. Patient conveyed verbal understanding and agreed to the plan. I discussed this case my attending Dr. Reyes Disposition Clinical Impression: Migraine headache Disposition: HOME SELF-CARE Condition: Good Instructions (If sedation given, give patient instructions): Migraine Headache (ED), Acute Headache (ED) Additional Instructions: Follow up with PCP 1-2 days. Utilize Motrin, Tylenol, Benadryl, caffeine, oral hydration at home for migraine management. Report back to ER if any worsening symptoms. Is patient prescribed a controlled substance at d/c from ED?: No Referrals: Alvaro Johnson DO [Primary Care Provider] - 1-2 days Time of Disposition: 22:17
[2021-07-03 22:24] VITALS: BP 177/100; PULSE 71; TEMP 97.7
== END 2021-07-03 22:27 | disposition home or self-care (01) ==
LOC: EC 14:36
DX: G43.909 Migraine, unspecified, not intractable, without status migrainosus (principal); Z88.6 Allergy status to analgesic agent; E11.9 Type 2 diabetes mellitus without complications; K21.9 Gastro-esophageal reflux disease without esophagitis; Z79.83 Long term (current) use of bisphosphonates; E78.5 Hyperlipidemia, unspecified; I10 Essential (primary) hypertension; Z87.891 Personal history of nicotine dependence
CPT/HCPCS: 99283; 96374; 96375; J1200; J2765; J1885

== ENCOUNTER 2021-08-01 13:03 | Emergency (ER) | payer MEDICARE ==
[2021-08-01 13:11] VITALS: RESP 18; TEMP 99.2
--- NOTE | 2021-08-01 16:12 | XR ---
Lumbar spine HISTORY: Low back pain 3 views the lumbar spine correlated prior exam 12/13/2020 There is a scoliotic curvature to the lumbar spine seen as on prior convex left centered at L3. There is multilevel spondylosis. Lumbar vertebral bodies show preserved height and bone mineralization is reduced. Sclerosis of the right sacroiliac joint could be due to chronic stress changes. There is ret rolisthesis grade 1 L2-3, multilevel spondylosis. Loss of disc height is present at intervertebral le vels, vacuum phenomenon present at T12-L1, L1-2, L2-3, L4-5. Sclerosis is present in the posterior el ements. IMPRESSION: Degenerative disc disease and facet arthropathy, scoliosis
[2021-08-01] MEDS ORDERED: MORPHINE SULFATE 4 MG/ML SYRINGE IM STA (17:05)
--- NOTE | 2021-08-01 17:06 | ED ---
General Adult HPI - General Chief complaint: Back Pain/Injury Stated complaint: right leg pain Time Seen by Provider: 08/01/21 16:32 Source: EMS Mode of arrival: EMS Limitations: no limitations - History of Present Illness Initial comments: Dictation was produced using [employer] dictation software. please excuse any grammatical, word or spelling errors. Chief Complaint: 66-year-old female presents to the emergency department for back pain History of Present Illness: 66-year-old female presents to the emergency department for 1 week of back pain. Patient states that she was seen recently in orthopedic surgery office for knee pain. She was put on prednisone. Patient went to the chiropractor today to have her back pain evaluated. He states the chiropractor treatment improved her symptoms slightly however she still having pain. Patient has not taken any pain medications for her back pain. Patient states the pain is localized to the right lower back and radiates down the right lower extremity posteriorly. Patient denies any trauma. No fever. No saddle anesthesia. The ROS documented in this emergency department record has been reviewed and confirmed by me. Those systems with pertinent positive or negative responses have been documented in the HPI. All other systems are other negative and/or noncontributory. PHYSICAL EXAM: General Impression: Alert and oriented x3, not in acute distress HEENT: Normocephalic atraumatic, extra-ocular movements intact, pupils equal and reactive to light bilaterally, mucous membranes moist. Cardiovascular: Heart regular rate and rhythm Chest: Able to complete full sentences, no retractions, no tachypnea Abdomen: abdomen soft, non-tender, non-distended, no organomegaly Musculoskeletal: Pulses present and equal in all extremities, no peripheral edema, pain reproduced with palpation over the puriform is an reproduced with external rotation of the right hip Motor: no focal deficits noted Neurological: CN II-XII grossly intact, no focal motor or sensory deficits noted Skin: Intact with no visualized rashes Psych: Normal affect and mood ED course: 66 yo female presents emergency department with clinical presentation consistent with sciatica. Patient is well-appearing at the bedside. Vital signs are stable. Spine x-rays were ordered by triage nurse per advanced triage protocol showing degenerative disc disease and facet arthropathy with scoliosis. Patient states that her pain is more lateral towards the right suggesting sciatica arising from the external rotators of the hip. Patient is on steroids for knee pain. Patient given IM injection of morphine. She is advised to follow-up with orthopedic surgeon or primary care doctor for outpatient treatment of her sciatica. patient has no high-risk features. - Related Data Home Medications Medication Instructions Recorded Confirmed Aspirin [Adult Low Dose Aspirin EC] 81 mg PO DAILY 08/01/20 06/28/21 Citalopram Hydrobromide [CeleXA] 20 mg PO DAILY 08/01/20 06/28/21 Dicyclomine [Bentyl] 10 mg PO TID 08/01/20 06/28/21 Furosemide [Lasix] 40 mg PO DAILY 08/01/20 06/28/21 Nitroglycerin Sl Tabs [Nitrostat] 0.4 mg SL Q5M PRN 08/01/20 06/28/21 Pantoprazole Sodium 40 mg PO DAILY 08/01/20 06/28/21 Potassium Chloride ER [K-Dur 10] 10 meq PO DAILY 08/01/20 06/28/21 glipiZIDE [Glucotrol] 5 mg PO TID 08/01/20 06/28/21 metFORMIN HCL [Glucophage] 500 mg PO BID 08/01/20 06/28/21 traZODone HCL [Desyrel] 100 mg PO HS 08/01/20 06/28/21 Atorvastatin Calcium [Lipitor] 10 mg PO DAILY 11/26/20 06/28/21 Brexpiprazole [Rexulti] 2 mg PO DAILY 11/26/20 06/28/21 SUMAtriptan succinate [Imitrex] 50 mg PO BID PRN 11/26/20 06/28/21 Topiramate [Topamax] 50 mg PO DAILY 11/26/20 06/28/21 ondansetron HCL [Zofran] 8 mg PO Q8H PRN 11/26/20 06/28/21 Cholecalciferol [Vitamin D3 (25 50 mcg PO DAILY 03/14/21 06/28/21 Mcg = 1000 Iu)] Nystatin 100,000Unit/gm Cream 1 applic TOPICAL BID 03/14/21 06/28/21 [Mycostatin Cream] Isosorbide Dinitrate 30 mg PO DAILY 06/16/21 06/28/21 Losartan [Cozaar] 25 mg PO DAILY 06/16/21 06/28/21 Meclizine [Antivert] 25 mg PO TID PRN 06/16/21 06/28/21 hydrOXYzine pamoate [Vistaril] 25 mg PO TID 06/16/21 06/28/21 traZODone HCL 50 mg PO HS 06/16/21 06/28/21 Previous Rx's Medication Instructions Recorded Acetaminophen Tab [Tylenol] 650 mg PO Q6HR PRN #0 tab 06/17/21 HYDROcodone/APAP 5-325MG [[place] 1 tab PO Q6HR PRN 3 Days #12 tab 08/01/21 5-325] Allergies Allergy/AdvReac Type Severity Reaction Status Date / Time naproxen AdvReac Nausea & Verified 08/01/21 13:11 Vomiting Review of Systems ROS Statement: Those systems with pertinent positive or pertinent negative responses have been documented in the HPI. ROS Other: All systems not noted in ROS Statement are negative. Past Medical History Past Medical History: Cancer, COPD, Diabetes Mellitus, GERD/Reflux, Hyperlipidemia, Hypertension, Memory Impairment, Osteoarthritis (OA) Additional Past Medical History / Comment(s): HX BREAST CANCER left 2004. diverticulitis, IBS, Lymphedema (L) arm History of Any Multi-Drug Resistant Organisms: None Reported Past Surgical History: Breast Surgery, Heart Catheterization, Tonsillectomy Additional Past Surgical History / Comment(s): BUNIONECTOMY. LT BREAST mastectomy w/some lymph nodes. COLONOSCOPY Past Anesthesia/Blood Transfusion Reactions: No Reported Reaction Past Psychological History: Anxiety, Depression Smoking Status: Former smoker Past Alcohol Use History: None Reported Past Drug Use History: None Reported - Past Family History Mother Family Medical History: Congestive Heart Failure (CHF), Diabetes Mellitus Additional Family Medical History / Comment(s): Had colostomy Father Family Medical History: Chest Pain / Angina, Diabetes Mellitus Additional Family Medical History / Comment(s): Colostomy General Exam Limitations: no limitations Course Vital Signs 08/01/21 13:04 Temperature 99.2 F Pulse Rate 87 Respiratory 18 Rate Blood Pressure 188/92 O2 Sat by Pulse 95 Oximetry Disposition Clinical Impression: Sciatica Disposition: HOME SELF-CARE Condition: Good Instructions (If sedation given, give patient instructions): Acute Low Back Pain (ED) Prescriptions: HYDROcodone/APAP 5-325MG [[place] 5-325] 1 tab PO Q6HR PRN 3 Days #12 tab PRN Reason: Severe Pain Is patient prescribed a controlled substance at d/c from ED?: Yes If prescribed controlled substance>3 days was MAPS reviewed?: Prescribed <3 Days Referrals: Alvaro Johnson DO [Primary Care Provider] - 1-2 days Time of Disposition: 17:06
[2021-08-01 19:26] VITALS: BP 169/78; PULSE 72
== END 2021-08-01 17:34 | disposition home or self-care (01) ==
LOC: EC 13:03
DX: M54.30 Sciatica, unspecified side (principal); E11.9 Type 2 diabetes mellitus without complications; E78.5 Hyperlipidemia, unspecified; I10 Essential (primary) hypertension; J44.9 Chronic obstructive pulmonary disease, unspecified; M19.90 Unspecified osteoarthritis, unspecified site; F41.9 Anxiety disorder, unspecified; F32.A Depression, unspecified; Z87.891 Personal history of nicotine dependence; K21.9 Gastro-esophageal reflux disease without esophagitis; Z79.84 Long term (current) use of oral hypoglycemic drugs; Z79.4 Long term (current) use of insulin; Z79.899 Other long term (current) drug therapy; Z88.6 Allergy status to analgesic agent
CPT/HCPCS: 72100; 99283; 96372; J2270

== ENCOUNTER 2022-05-21 07:51 | Emergency (ER) | payer MEDICARE, OTHER ==
[2022-05-21 08:05] VITALS: RESP 16
--- NOTE | 2022-05-21 10:35 | ED ---
Recheck HPI - General Chief Complaint: Recheck/Abnormal Lab/Rx Stated Complaint: high blood pressure Time Seen by Provider: 05/21/22 09:17 Source: patient, RN notes reviewed Mode of arrival: EMS Limitations: no limitations - History of Present Illness Initial Comments: This is a 66-year-old female who presents to the emergency department for elevated blood pressure. States that she is only being treated with losartan, and the dose was recently increased from 50 mg to 100 mg. When she checked her blood pressure today, it was initially in the 150s systolically. When she was on the phone with her sister she rechecked it. When she rechecked her blood pressure, it was in the 200s systolically. Her sister then instructed her to come to the emergency department. She has mild intermittent headaches. Denies any visual changes. She does note swelling in the bilateral lower extremities. States that her legs also feel heavy. She has not had any redness to the legs. When she went [facility] couple of days ago, they noticed that she also had a 10 pound weight gain. She has no personal history of CHF, but states that it does run in the family. Also reports intermittent shortness of breath that is worse with exertion, however it is not any worse than normal. Denies any chest pain. Denies any fevers, chills, sore throat, cough, chest pain, palpitations, abdominal pain, nausea, vomiting, or diarrhea. MD Complaint: other (HTN) - Related Data Home Medications Medication Instructions Recorded Confirmed Aspirin [Adult Low Dose Aspirin EC] 81 mg PO DAILY 08/01/20 05/21/22 Citalopram Hydrobromide [CeleXA] 20 mg PO DAILY 08/01/20 05/21/22 Dicyclomine [Bentyl] 10 mg PO TID 08/01/20 05/21/22 Furosemide [Lasix] 40 mg PO DAILY 08/01/20 05/21/22 Nitroglycerin Sl Tabs [Nitrostat] 0.4 mg SL Q5M PRN 08/01/20 05/21/22 Pantoprazole Sodium 40 mg PO DAILY 08/01/20 05/21/22 Potassium Chloride ER [K-Dur 10] 10 meq PO DAILY 08/01/20 05/21/22 glipiZIDE [Glucotrol] 5 mg PO BID 08/01/20 05/21/22 metFORMIN HCL [Glucophage] 1,000 mg PO BID 08/01/20 05/21/22 traZODone HCL [Desyrel] 100 mg PO HS 08/01/20 05/21/22 Atorvastatin Calcium [Lipitor] 10 mg PO DAILY 11/26/20 05/21/22 Brexpiprazole [Rexulti] 2 mg PO DAILY 11/26/20 05/21/22 Topiramate [Topamax] 50 mg PO DAILY 11/26/20 05/21/22 ondansetron HCL [Zofran] 8 mg PO Q8H PRN 11/26/20 05/21/22 Cholecalciferol [Vitamin D3 (25 50 mcg PO DAILY 03/14/21 05/21/22 Mcg = 1000 Iu)] Nystatin 100,000Unit/gm Cream 1 applic TOPICAL BID 03/14/21 05/21/22 [Mycostatin Cream] Isosorbide Dinitrate 30 mg PO DAILY 06/16/21 05/21/22 Meclizine [Antivert] 25 mg PO TID PRN 06/16/21 05/21/22 hydrOXYzine pamoate [Vistaril] 25 mg PO TID 06/16/21 05/21/22 traZODone HCL 50 mg PO HS 06/16/21 05/21/22 Benzonatate [Tessalon Perle] 200 mg PO TID PRN 05/21/22 05/21/22 Calcium Carbonate [Calcium] 600 mg PO DAILY 05/21/22 05/21/22 Cider Vinegar [Apple Cider Vinegar] 300 mg PO DAILY 05/21/22 05/21/22 Cinnamon Bark [Cinnamon] 500 mg PO DAILY 05/21/22 05/21/22 Frida Root Extract 50 mg PO DAILY 05/21/22 05/21/22 [Dramamine-Natural] Ketoconazole 2% Cream [Nizoral 2%] 1 applic TOPICAL HS 05/21/22 05/21/22 Losartan Potassium [Cozaar] 100 mg PO DAILY 05/21/22 05/21/22 Magnesium Oxide [Mag-Ox] 400 mg PO DAILY 05/21/22 05/21/22 Vitamin E (Dl,Tocopheryl Acet) 400 unit PO DAILY 05/21/22 05/21/22 [Vitamin E (400 Iu = 180 mg)] traMADol HCl [Ultram] 50 mg PO BID PRN 05/21/22 05/21/22 Previous Rx's Medication Instructions Recorded Acetaminophen Tab [Tylenol] 650 mg PO Q6HR PRN #0 tab 06/17/21 amLODIPine [Norvasc] 5 mg PO DAILY #30 tab 05/21/22 Allergies Allergy/AdvReac Type Severity Reaction Status Date / Time naproxen AdvReac Nausea & Verified 05/21/22 12:43 Vomiting Review of Systems ROS Statement: Those systems with pertinent positive or pertinent negative responses have been documented in the HPI. ROS Other: All systems not noted in ROS Statement are negative. Past Medical History Past Medical History: Cancer, COPD, Diabetes Mellitus, GERD/Reflux, Hyperlipidemia, Hypertension, Memory Impairment, Osteoarthritis (OA) Additional Past Medical History / Comment(s): HX BREAST CANCER left 2004. diverticulitis, IBS, Lymphedema (L) arm History of Any Multi-Drug Resistant Organisms: None Reported Past Surgical History: Breast Surgery, Heart Catheterization, Tonsillectomy Additional Past Surgical History / Comment(s): BUNIONECTOMY. LT BREAST mastectomy w/some lymph nodes. COLONOSCOPY Past Anesthesia/Blood Transfusion Reactions: No Reported Reaction Past Psychological History: Anxiety, Depression Smoking Status: Former smoker Past Alcohol Use History: None Reported Past Drug Use History: None Reported - Past Family History Mother Family Medical History: Congestive Heart Failure (CHF), Diabetes Mellitus Additional Family Medical History / Comment(s): Had colostomy Father Family Medical History: Chest Pain / Angina, Diabetes Mellitus Additional Family Medical History / Comment(s): Colostomy General Exam Limitations: no limitations General appearance: alert, in no apparent distress Head exam: Present: atraumatic, normocephalic, normal inspection Eye exam: Present: normal appearance, PERRL, EOMI. Absent: scleral icterus, conjunctival injection, periorbital swelling Respiratory exam: Present: normal lung sounds bilaterally. Absent: respiratory distress, wheezes, rales, rhonchi, stridor Cardiovascular Exam: Present: regular rate, normal rhythm, normal heart sounds. Absent: systolic murmur, diastolic murmur, rubs, gallop, clicks Extremities exam: Present: other (Bilateral nonpitting edema. 2+ DP and TP pulses bilaterally. There is no erythema, increased heat, or calf tenderness.) Neurological exam: Present: alert, oriented X3, CN II-XII intact Psychiatric exam: Present: normal affect, normal mood Skin exam: Present: warm, dry, intact, normal color. Absent: rash Course Vital Signs 05/21/22 05/21/22 05/21/22 08:03 09:47 12:04 Temperature 98.8 F 98 F Pulse Rate 76 78 Pulse Rate [ 76 Pulse Oximetery ] Respiratory 16 16 Rate Blood Pressure 170/92 188/111 O2 Sat by Pulse 95 98 Oximetry 05/21/22 05/21/22 05/21/22 14:06 14:20 14:46 Temperature 97.6 F 98.0 F Pulse Rate 73 71 Pulse Rate [ Pulse Oximetery ] Respiratory 16 16 Rate Blood Pressure 136/75 168/99 O2 Sat by Pulse 97 98 Oximetry Medical Decision Making - Medical Decision Making This is a 66-year-old female who presents to the emergency department for hypertension and bilateral lower extremity swelling. Was pt. sent in by a medical professional or institution? @ -No Did you speak to anyone other than the patient for history? @ -Her brother and sister Did you review nursing and triage notes? @ -Yes, and I agree, it is accurate with regards to the patient's symptoms. Were old charts reviewed? @ -No Differential Diagnosis? @ -Differential Leg Swelling: Cellullitis, Gout, DVT, PVD, arterial insufficiency, congestive heart failure, compartment syndrome, venous stasis changes, thrombophlebitis, contact dermatitis, necrotizing fasciitis, septic arthritis, this is not meant to be an all-inclusive list. EKG interpreted by me (3pts min.)? @ -Sinus rhythm. Left axis deviation. Ventricular rate 67 beats per minute, LA interval 138 ms, QRS duration 99 ms, QTC 462 ms. X-rays interpreted by me (1pt min.)? @ -Chest x-ray obtained, my interpretation identifies no cardiomegaly, localized consolidations or infiltrates. What testing was considered but not performed? (CT, X-rays, U/S, labs)? Why? @ -None What meds were considered but not given? Why? @ -None Did you discuss the management of the patient with other professionals? @ -No Did you reconcile home meds? @ -No Was smoking cessation discussed for >3mins.? @ -No Was critical care preformed (if so, how long)? @ -No Were there social determinants of health that impacted care today? How? (Homel essness, low income, unemployed, alcoholism, drug addiction, transportation, low edu. Level, literacy, decrease access to med. care, half-way, rehab)? @ -No Was there de-escalation of care discussed even if they declined? (Discuss DNR or withdrawal of care, Hospice)? @ -No What co-morbidities impacted this encounter? (DM, HTN, Smoking, COPD, CAD, Cancer, CVA, Hep., AIDS, mental health diagnosis, sleep apnea, morbid obesity)? @ -Morbid obesity, HTN, HLD, DM Was patient admitted / discharged? @ -Discharged. Lab work obtained and found to be nonactionable. Chest x-ray reveals no acute findings. BNP is not elevated to suggest CHF. Lower extremity swelling may be related to the hypertension or another problem. Currently taking losartan for her blood pressure. While not directly prescribed for the HTN, she is also taking isosorbide and Lasix, which will have an effect on her pressure. Patient was given 2 doses of IV labetalol. Her BP improved to 136/75. At the time of discharge, blood pressure did increase back to 168/99, however it was improved compared to when the patient presented here and she was asymptomatic at that time. Discussed with the patient that we will add 5 mg of amlodipine to her regimen and this was prescribed. Instructed her to take her blood pressure at least twice daily and to keep a record of it. She will need to review this with her primary care provider during her follow-up appointment. She is also instructed to reduce sodium intake. Discussed that if she were to develop worsening headaches, chest pain, back pain, or abdominal pain, she should return to the emergency department immediately. Undiagnosed new problem with uncertain prognosis? @ -None Drug Therapy requiring intensive monitoring for toxicity (Heparin, Nitro, Insulin, Cardizem)? @ -None Were any procedures done? @ -None Diagnosis/symptom? @ -HTN. Acute, or Chronic, or Acute on Chronic? @ -Acute on chronic Uncomplicated (without systemic symptoms) or Complicated (systemic symptoms)? @ -Uncomplicated Side effects of treatment? @ -None Exacerbation, Progression, or Severe Exacerbation] @ -Progression Poses a threat to life or bodily function? @ -Yes, if this were to remain untreated, it can lead to a heart attack and stroke. Diagnosis/symptom? @ -Bilateral LE swelling Acute, or Chronic, or Acute on Chronic? @ -Chronic Uncomplicated (without systemic symptoms) or Complicated (systemic symptoms)? @ -Uncomplicated Side effects of treatment? @ -None Exacerbation, Progression, or Severe Exacerbation] @ -Stable Poses a threat to life or bodily function? @ -No Return precautions reviewed in depth, the patient is instructed to return to the emergency department with any new, worsening, or concerning symptoms. Patient verbalized understanding. This case was discussed in detail with the attending ED physician, Dr. Boateng. Presentation, findings, and treatment plan discussed in detail as well. - Lab Data Result diagrams: 05/21/22 10:11 05/21/22 10:11 Lab Results 05/21/22 05/21/22 05/21/22 Range/Units 10:11 10:11 10:11 WBC 4.4 (3.8-10.6) k/uL RBC 4.64 (3.80-5.40) m/uL Hgb 13.8 (11.4-16.0) gm/dL Hct 41.8 (34.0-46.0) % MCV 90.0 (80.0-100.0) fL MCH 29.7 (25.0-35.0) pg MCHC 33.0 (31.0-37.0) g/dL RDW 13.9 (11.5-15.5) % Plt Count 182 (150-450) k/uL MPV 7.7 Neutrophils % 49 % Lymphocytes % 37 % Monocytes % 6 % Eosinophils % 4 % Basophils % 1 % Neutrophils # 2.2 (1.3-7.7) k/uL Lymphocytes # 1.6 (1.0-4.8) k/uL Monocytes # 0.3 (0-1.0) k/uL Eosinophils # 0.2 (0-0.7) k/uL Basophils # 0.0 (0-0.2) k/uL PT 10.0 (9.0-12.0) sec INR 0.9 (<1.2) APTT 23.5 (22.0-30.0) sec Sodium 142 (137-145) mmol/L Potassium 4.1 (3.5-5.1) mmol/L Chloride 108 H (98-107) mmol/L Carbon Dioxide 29 (22-30) mmol/L Anion Gap 5 mmol/L BUN 17 (7-17) mg/dL Creatinine 0.84 (0.52-1.04) mg/dL Est GFR (CKD-EPI)AfAm 84 (>60 ml/min/1.73 sqM) Est GFR (CKD-EPI)NonAf 73 (>60 ml/min/1.73 sqM) Glucose 113 H (74-99) mg/dL Plasma Lactic Acid Kasi (0.7-2.0) mmol/L Calcium 8.1 L (8.4-10.2) mg/dL Total Bilirubin 0.4 (0.2-1.3) mg/dL AST 28 (14-36) U/L ALT 28 (4-34) U/L Alkaline Phosphatase 95 (38-126) U/L Troponin I (0.000-0.034) ng/mL NT-Pro-B Natriuret Pep pg/mL Total Protein 6.2 L (6.3-8.2) g/dL Albumin 3.4 L (3.5-5.0) g/dL Urine Color Urine Appearance (Clear) Urine pH (5.0-8.0) Ur Specific [place] (1.001-1.035) Urine Protein (Negative) Urine Glucose (UA) (Negative) Urine Ketones (Negative) Urine Blood (Negative) Urine Nitrite (Negative) Urine Bilirubin (Negative) Urine Urobilinogen (<2.0) mg/dL Ur Leukocyte Esterase (Negative) 05/21/22 05/21/22 05/21/22 Range/Units 10:11 10:11 10:11 WBC (3.8-10.6) k/uL RBC (3.80-5.40) m/uL Hgb (11.4-16.0) gm/dL Hct (34.0-46.0) % MCV (80.0-100.0) fL MCH (25.0-35.0) pg MCHC (31.0-37.0) g/dL RDW (11.5-15.5) % Plt Count (150-450) k/uL MPV Neutrophils % % Lymphocytes % % Monocytes % % Eosinophils % % Basophils % % Neutrophils # (1.3-7.7) k/uL Lymphocytes # (1.0-4.8) k/uL Monocytes # (0-1.0) k/uL Eosinophils # (0-0.7) k/uL Basophils # (0-0.2) k/uL PT (9.0-12.0) sec INR (<1.2) APTT (22.0-30.0) sec Sodium (137-145) mmol/L Potassium (3.5-5.1) mmol/L Chloride (98-107) mmol/L Carbon Dioxide (22-30) mmol/L Anion Gap mmol/L BUN (7-17) mg/dL Creatinine (0.52-1.04) mg/dL Est GFR (CKD-EPI)AfAm (>60 ml/min/1.73 sqM) Est GFR (CKD-EPI)NonAf (>60 ml/min/1.73 sqM) Glucose (74-99) mg/dL Plasma Lactic Acid Kasi 1.0 (0.7-2.0) mmol/L Calcium (8.4-10.2) mg/dL Total Bilirubin (0.2-1.3) mg/dL AST (14-36) U/L ALT (4-34) U/L Alkaline Phosphatase (38-126) U/L Troponin I <0.012 (0.000-0.034) ng/mL NT-Pro-B Natriuret Pep 210 pg/mL Total Protein (6.3-8.2) g/dL Albumin (3.5-5.0) g/dL Urine Color Urine Appearance (Clear) Urine pH (5.0-8.0) Ur Specific [place] (1.001-1.035) Urine Protein (Negative) Urine Glucose (UA) (Negative) Urine Ketones (Negative) Urine Blood (Negative) Urine Nitrite (Negative) Urine Bilirubin (Negative) Urine Urobilinogen (<2.0) mg/dL Ur Leukocyte Esterase (Negative) 05/21/22 Range/Units 10:11 WBC (3.8-10.6) k/uL RBC (3.80-5.40) m/uL Hgb (11.4-16.0) gm/dL Hct (34.0-46.0) % MCV (80.0-100.0) fL MCH (25.0-35.0) pg MCHC (31.0-37.0) g/dL RDW (11.5-15.5) % Plt Count (150-450) k/uL MPV Neutrophils % % Lymphocytes % % Monocytes % % Eosinophils % % Basophils % % Neutrophils # (1.3-7.7) k/uL Lymphocytes # (1.0-4.8) k/uL Monocytes # (0-1.0) k/uL Eosinophils # (0-0.7) k/uL Basophils # (0-0.2) k/uL PT (9.0-12.0) sec INR (<1.2) APTT (22.0-30.0) sec Sodium (137-145) mmol/L Potassium (3.5-5.1) mmol/L Chloride (98-107) mmol/L Carbon Dioxide (22-30) mmol/L Anion Gap mmol/L BUN (7-17) mg/dL Creatinine (0.52-1.04) mg/dL Est GFR (CKD-EPI)AfAm (>60 ml/min/1.73 sqM) Est GFR (CKD-EPI)NonAf (>60 ml/min/1.73 sqM) Glucose (74-99) mg/dL Plasma Lactic Acid Kasi (0.7-2.0) mmol/L Calcium (8.4-10.2) mg/dL Total Bilirubin (0.2-1.3) mg/dL AST (14-36) U/L ALT (4-34) U/L Alkaline Phosphatase (38-126) U/L Troponin I (0.000-0.034) ng/mL NT-Pro-B Natriuret Pep pg/mL Total Protein (6.3-8.2) g/dL Albumin (3.5-5.0) g/dL Urine Color Light Yellow Urine Appearance Clear (Clear) Urine pH 6.5 (5.0-8.0) Ur Specific [place] 1.018 (1.001-1.035) Urine Protein Negative (Negative) Urine Glucose (UA) Negative (Negative) Urine Ketones Negative (Negative) Urine Blood Negative (Negative) Urine Nitrite Negative (Negative) Urine Bilirubin Negative (Negative) Urine Urobilinogen <2.0 (<2.0) mg/dL Ur Leukocyte Esterase Negative (Negative) - Radiology Data Radiology results: report reviewed, image reviewed Disposition Clinical Impression: Hypertension, Swelling of both lower extremities, Headache Disposition: HOME SELF-CARE Instructions (If sedation given, give patient instructions): Hypertension (ED) Additional Instructions: Return to the emergency department with any new, worsening, or concerning symptoms, especially if you develop severe headaches, chest pain, back pain, or abdominal pain. Begin taking the amlodipine daily for your blood pressure. You need to check her blood pressure at least twice daily and keep a log of the pressure. Reduce your sodium intake as well. Follow up with your primary care provider in 1-2 days. Make sure that you also make an appointment to follow up with Dr. Uribe to discuss your concerns and shortness of breath. Prescriptions: amLODIPine [Norvasc] 5 mg PO DAILY #30 tab Is patient prescribed a controlled substance at d/c from ED?: No Referrals: Alvaro Johnson DO [Primary Care Provider] - 1-2 days
[2022-05-21 10:47] LABS: Appearance,Urine Clear (Clear); Bilirubin,Urine Negative (Negative); Blood,Urine Negative (Negative); Color,Urine Light Yellow; Glucose,Urine (UA) Negative (Negative); Ketones,Urine Negative (Negative); Leukocyte Esterase,Urine Negative (Negative); Nitrite,Urine Negative (Negative); PH, Urine 6.5 (5.0-8.0); Protein,Urine Negative (Negative); Specific Gravity,Urine 1.018 (1.001-1.035); Urobilinogen,Urine <2.0 mg/dL (<2.0)
[2022-05-21 10:51] LABS: INR 0.9 (<1.2); Partial Thromboplastin Time 23.5 sec (22.0-30.0)
[2022-05-21 10:58] LABS: Basophils % (A) 1 %; Eosinophils # (A) 0.2 k/uL (0-0.7); Eosinophils % (A) 4 %; HCT 41.8 % (34.0-46.0); HGB 13.8 gm/dL (11.4-16.0); Lymphocytes # (A) 1.6 k/uL (1.0-4.8); Lymphocytes % (A) 37 %; MCH 29.7 pg (25.0-35.0); Mean Platelet Volume 7.7; Monocytes # (A) 0.3 k/uL (0-1.0); Monocytes % (A) 6 %; Neutrophils # (A) 2.2 k/uL (1.3-7.7); Neutrophils % (A) 49 %; Platelet Count 182 k/uL (150-450); RBC 4.64 m/uL (3.80-5.40); RDW 13.9 % (11.5-15.5); WBC 4.4 k/uL (3.8-10.6)
[2022-05-21 11:01] LABS: Albumin 3.4 g/dL (3.5-5.0); Calcium 8.1 mg/dL (8.4-10.2); Potassium 4.1 mmol/L (3.5-5.1); Total Bilirubin 0.4 mg/dL (0.2-1.3); Total Protein 6.2 g/dL (6.3-8.2)
--- NOTE | 2022-05-21 11:30 | XR ---
EXAMINATION TYPE: XR chest 2V DATE OF EXAM: 05/21/2022 COMPARISON: 04/24/2021 TECHNIQUE: PA and lateral views submitted. HISTORY: High blood pressure FINDINGS: The lungs are clear and there is no pneumothorax, pleural effusion, or focal pneumonia. Heart size normal and no overt failure. Osseous structures demonstrate hypertrophic and degenerative changes of the spine. Atherosclerotic change aorta. Hyperinflation suggests COPD. AC joint arthropathy noted. Me tallic density in the lateral view could be superficial to the patient. Correlate clinically. IMPRESSION: 1. No acute process. COPD
[2022-05-21] MEDS ORDERED: LABETALOL 5 MG/ML VIAL MDV IVP STA ×2 (12:08→13:16)
[2022-05-21 15:00] VITALS: BP 168/99; PULSE 71; TEMP 98
== END 2022-05-21 15:01 | disposition home or self-care (01) ==
LOC: EC 07:51
DX: I10 Essential (primary) hypertension (principal); M79.89 Other specified soft tissue disorders; R51.9 Headache, unspecified; J44.9 Chronic obstructive pulmonary disease, unspecified; E11.9 Type 2 diabetes mellitus without complications; E78.5 Hyperlipidemia, unspecified; K21.9 Gastro-esophageal reflux disease without esophagitis; M19.90 Unspecified osteoarthritis, unspecified site; F41.9 Anxiety disorder, unspecified; F32.A Depression, unspecified; Z79.899 Other long term (current) drug therapy; Z87.891 Personal history of nicotine dependence
CPT/HCPCS: 36415; 71046; 80053; 81003; 83605; 83880; 84484; 85025; 85610; 85730; 93005; 96374; 96376; 99284

== ENCOUNTER → 2022-07-05 | Outpatient (CLI) | payer MEDICARE ==
[2022-07-05 13:13] VITALS: BP 114/76; PULSE 99; RESP 16; TEMP 97.9
--- NOTE | 2022-07-05 13:21 | P.PN ---
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 She was treated with tamoxifen. She did not have any chemotherapy and did not receive any radiation therapy. She has been cancer free since that time. She was seen secondary to asymmetry and requested a mastectomy be performed on the contralateral side. She underwent a right mastectomy and left axillary incision revision on 2121. She is doing well at this time. She has no complaints related to her chest wall. She is not complaining of any lumps masses or nodules of concern on her chest wall. Patient is complaining of some bilateral ankle swelling. She is going to follow with Dr. Johnson regarding this Caffeine: 3 cups/day nicotine: none chocolate: several times a week Family History: unknown history of diabetes Hormonal History: menarche: 11 M3, breast fed: no, age at first : 34 menopause: in her 40's when she was on tamoxifen BCP: 3 years hormones: none Surgical History: Cardiac-Cath Bunions bilateral mastectomies Medical History: diabetes since 2009 heart disease COPD reflux memory impairment HTN Social History: nicotine: none alcohol: none drugs: none - Constitutional Constitutional: Denies chills, Denies fever - EENT Eyes: denies blurred vision, denies pain Ears: deny: decreased hearing, tinnitus Ears, nose, mouth and throat: Reports headache, Denies sore throat - Breasts Breasts: bilateral: as per HPI - Cardiovascular Comment: unstable angina/ follows with Dr. Valenzuela Cardiovascular: Reports as per HPI - Respiratory Respiratory: Reports cough - Gastrointestinal Gastrointestinal: Denies abdominal pain, Denies diarrhea, Denies nausea, Denies vomiting - Genitourinary (Female) Genitourinary: Denies dysuria, Denies hematuria - Menstruation Menstruation: Reports as per HPI - Musculoskeletal Musculoskeletal: Reports as per HPI - Integumentary Integumentary: Denies pruritus, Denies rash - Neurological Neurological: Reports as per HPI, Reports numbness - Psychiatric Psychiatric: Reports anxiety, Reports depression - Endocrine Comment: diabetes Endocrine: Denies fatigue, Denies weight change - Hematologic/Lymphatic Comment: aspirin - Allergic/Immunologic Allergic/Immunologic: Reports as per HPI Objective - Vital Signs Vital signs: Intake & Output 07/04/22 07/05/22 07/05/22 18:59 06:59 18:59 Weight 111.584 kg - Constitutional General appearance: Present: cooperative - EENT Eyes: Present: EOMI - Neck Neck: Present: normal ROM - Respiratory Respiratory: bilateral: CTA - Cardiovascular Rhythm: regular Heart sounds: normal: S1, S2 - Gastrointestinal General gastrointestinal: Present: soft - Integumentary Integumentary Comment(s): bilateral ankle edema - Musculoskeletal Musculoskeletal: Present: gait normal - Psychiatric Psychiatric: Present: A&O x's 3, appropriate affect, intact judgment & insight - Additional findings Additional findings: Chest wall: Inspection: No evidence of any lesions on the chest wall Right chest wall: No nodules or masses of concern Right axilla: No adenopathy of concern Left chest wall: No masses or nodules of concern Left axilla: No adenopathy of concern Assessment and Plan Assessment: Impression: Patient status post bilateral mastectomies Left breast DCIS Diabetes heart disease COPD reflux memory impairment HTN Plan: Follow-up 1 year Follow-up sooner any questions or concerns CC: Dr. Johnson
== END ==
LOC: WWCWWP 13:02
PROVIDERS: ATTEND Surgery
DX: D05.12 Intraductal carcinoma in situ of left breast (principal); Z85.3 Personal history of malignant neoplasm of breast; E11.9 Type 2 diabetes mellitus without complications; J44.9 Chronic obstructive pulmonary disease, unspecified; K21.9 Gastro-esophageal reflux disease without esophagitis; I10 Essential (primary) hypertension; R41.3 Other amnesia; Z88.8 Allergy status to other drugs, medicaments and biological substances

== ENCOUNTER 2022-07-23 19:17 | Observation (INO) | payer MEDICARE ==
[2022-07-23] MEDS ORDERED: hydrALAZINE HCL 20 MG/ML 1 ML VIAL IVP STA (19:38)
[2022-07-23] MEDS ORDERED: NITROGLYCERIN OINT 1 INCH/GM PACKET TOPICAL STA (19:38)
--- NOTE | 2022-07-23 19:45 | ED ---
General Adult HPI - General Chief complaint: Chest Pain Stated complaint: Chest pain Time Seen by Provider: 07/23/22 19:25 Source: patient, RN notes reviewed, old records reviewed Mode of arrival: ambulatory Limitations: no limitations - History of Present Illness Initial comments: Is a 67-year-old female who presents emergency Department complaining of chest pain since 6:30. Patient described it as a heaviness. Patient states she has shortness of breath associated with it. Patient states prior to coming to the hospital she took 2 nitroglycerin without relief. Patient states in route to the hospital she was given another nitroglycerin and aspirin and she still has no relief. Patient complains of chest heaviness patient denies any radiation pain patient denies any diaphoretic episodes. Patient denies any nausea vomiting. Patient denies abdominal pain patient states she has no syncope swelling in her legs - Related Data Home Medications Medication Instructions Recorded Confirmed Aspirin [Adult Low Dose Aspirin EC] 81 mg PO DAILY 08/01/20 07/23/22 Dicyclomine [Bentyl] 10 mg PO TID 08/01/20 07/23/22 Furosemide [Lasix] 40 mg PO DAILY 08/01/20 07/23/22 Nitroglycerin Sl Tabs [Nitrostat] 0.4 mg SL Q5M PRN 08/01/20 07/23/22 Pantoprazole Sodium 40 mg PO DAILY 08/01/20 07/23/22 Potassium Chloride ER [K-Dur 10] 10 meq PO DAILY 08/01/20 07/23/22 glipiZIDE [Glucotrol] 5 mg PO TID 08/01/20 07/23/22 metFORMIN HCL [Glucophage] 1,000 mg PO DAILY 08/01/20 07/23/22 traZODone HCL [Desyrel] 100 mg PO HS 08/01/20 07/23/22 Atorvastatin Calcium [Lipitor] 10 mg PO DAILY 11/26/20 07/23/22 Brexpiprazole [Rexulti] 2 mg PO DAILY 11/26/20 07/23/22 Topiramate [Topamax] 50 mg PO DAILY 11/26/20 07/23/22 Cholecalciferol [Vitamin D3 (25 50 mcg PO DAILY 03/14/21 07/23/22 Mcg = 1000 Iu)] Nystatin 100,000Unit/gm Cream 1 applic TOPICAL BID 03/14/21 07/23/22 [Mycostatin Cream] Isosorbide Dinitrate 30 mg PO DAILY 06/16/21 07/23/22 Meclizine [Antivert] 25 mg PO TID PRN 06/16/21 07/23/22 hydrOXYzine pamoate [Vistaril] 25 mg PO TID 06/16/21 07/23/22 traZODone HCL 50 mg PO HS 06/16/21 07/23/22 Benzonatate [Tessalon Perle] 200 mg PO TID PRN 05/21/22 07/23/22 Calcium Carbonate [Calcium] 600 mg PO DAILY 05/21/22 07/23/22 Cider Vinegar [Apple Cider Vinegar] 300 mg PO DAILY 05/21/22 07/23/22 Cinnamon Bark [Cinnamon] 500 mg PO DAILY 05/21/22 07/23/22 Frida Root Extract 50 mg PO DAILY 05/21/22 07/23/22 [Dramamine-Natural] Ketoconazole 2% Cream [Nizoral 2%] 1 applic TOPICAL HS 05/21/22 07/23/22 Losartan Potassium [Cozaar] 100 mg PO DAILY 05/21/22 07/23/22 Magnesium Oxide [Mag-Ox] 400 mg PO DAILY 05/21/22 07/23/22 Vitamin E (Dl,Tocopheryl Acet) 400 unit PO DAILY 05/21/22 07/23/22 [Vitamin E (400 Iu = 180 mg)] traMADol HCl [Ultram] 50 mg PO BID PRN 05/21/22 07/23/22 Citalopram Hydrobromide [CeleXA] 20 mg PO DAILY 07/23/22 07/23/22 Previous Rx's Medication Instructions Recorded Acetaminophen Tab [Tylenol] 650 mg PO Q6HR PRN #0 tab 06/17/21 amLODIPine [Norvasc] 5 mg PO DAILY #30 tab 05/21/22 Allergies Allergy/AdvReac Type Severity Reaction Status Date / Time naproxen AdvReac Nausea & Verified 07/23/22 20:46 Vomiting Review of Systems ROS Statement: Those systems with pertinent positive or pertinent negative responses have been documented in the HPI. ROS Other: All systems not noted in ROS Statement are negative. Past Medical History Past Medical History: Cancer, COPD, Diabetes Mellitus, GERD/Reflux, Hyperlipidemia, Hypertension, Memory Impairment, Osteoarthritis (OA) Additional Past Medical History / Comment(s): HX BREAST CANCER left 2004. diverticulitis, IBS, Lymphedema (L) arm History of Any Multi-Drug Resistant Organisms: None Reported Past Surgical History: Breast Surgery, Heart Catheterization, Tonsillectomy Additional Past Surgical History / Comment(s): BUNIONECTOMY. LT BREAST mastectomy w/some lymph nodes. COLONOSCOPY Past Anesthesia/Blood Transfusion Reactions: No Reported Reaction Past Psychological History: Anxiety, Depression Smoking Status: Former smoker Past Alcohol Use History: None Reported Past Drug Use History: None Reported - Past Family History Mother Family Medical History: Congestive Heart Failure (CHF), Diabetes Mellitus Additional Family Medical History / Comment(s): Had colostomy Father Family Medical History: Chest Pain / Angina, Diabetes Mellitus Additional Family Medical History / Comment(s): Colostomy General Exam - General Exam Comments Initial Comments: GENERAL: Patient is well-developed and well-nourished. Patient is nontoxic and well- hydrated and is in mild distress. ENT: Neck is soft and supple. No significant lymphadenopathy is noted. Oropharynx is clear. Moist mucous membranes. Neck has full range of motion without eliciting any pain. EYES: The sclera were anicteric and conjunctiva were pink and moist. Extraocular movements were intact and pupils were equal round and reactive to light. Eyelids were unremarkable. PULMONARY: Unlabored respirations. Good breath sounds bilaterally. No audible rales rhonchi or wheezing was noted. CARDIOVASCULAR: There is a regular rate and rhythm without any murmurs gallops or rubs. ABDOMEN: Soft and nontender with normal bowel sounds. SKIN: Skin is clear with no lesions or rashes and otherwise unremarkable. NEUROLOGIC: Patient is alert and oriented x3. Cranial nerves II through XII are grossly intact. Motor and sensory are also intact. Normal speech, volume and content. Symmetrical smile. MUSCULOSKELETAL: Normal extremities with adequate strength and full range of motion. LYMPHATICS: No significant lymphadenopathy is noted PSYCHIATRIC: Normal psychiatric evaluation. Limitations: no limitations Course Vital Signs 07/23/22 07/23/22 07/23/22 19:21 20:04 20:25 Temperature 98.8 F Pulse Rate 75 87 Respiratory 18 18 Rate Blood Pressure 196/116 183/80 167/89 O2 Sat by Pulse 97 97 Oximetry Medical Decision Making - Medical Decision Making EKG was interpreted by myself shows a sinus rhythm at 60 bpm NC interval 290 QRS is 111 QT interval 423 QTC is 440. Patient's EKG shows no ST segment elevation or T-wave inversions in inferior leads II, III, and F aVF as well as precordial leads Was pt. sent in by a medical professional or institution (, [facility], [employer], urgent care, hospital, or senior living...) When possible be specific @ -No Did you speak to anyone other than the patient for history (EMS, parent, family, police, friend...)? What history was obtained from this source @ -No Did you review nursing and triage notes (agree or disagree)? Why? @ -I reviewed and agree with nursing and triage notes Were old charts reviewed (outside hosp., previous admission, EMS record, old EKG, old radiological studies, urgent care reports/EKG's, senior living records)? Report findings @ -I reviewed prior charts EKGs and lab work on this patient Differential Diagnosis (chest pain, altered mental status, abdominal pain women, abdominal pain men, vaginal bleeding, weakness, fever, dyspnea, syncope, headache, dizziness, GI bleed, back pain, seizure, CVA, palpatations, mental health, musculoskeletal)? @ -Differential Chest Pain: Stable Angina, Unstable Angina, STEMI, NSTEMI Aortic Dissection, Pneumothorax, Musculoskeletal, Esophageal Spasm GERD, Cholecystitis, Pancreatitis, Zoster, this is not meant to be an all-inclusive list. EKG interpreted by me (3pts min.). @ -As above X-rays interpreted by me (1pt min.). @ -Chest x-ray showed no acute abnormality. CT interpreted by me (1pt min.). @ -None done U/S interpreted by me (1pt. min.). @ -None done What testing was considered but not performed or refused? (CT, X-rays, U/S, labs)? Why? @ -None What meds were considered but not given or refused? Why? @ -None Did you discuss the management of the patient with other professionals (professionals i.e. , [facility], [employer], lab, RT, psych nurse, clinical social worker, forestry aid technician, teacher, aboriginal home school liaison officer, skilled nursing case manager)? Give summary @ -I spoke with Dr. Givens he agreed to admit the patient we discussed all the results. Was smoking cessation discussed for >3mins.? @ -No Was critical care preformed (if so, how long)? @ -No Were there social determinants of health that impacted care today? How? (Homelessness, low income, unemployed, alcoholism, drug addiction, lucia sportation, low edu. Level, literacy, decrease access to med. care, long-term, rehab)? @ -No Was there de-escalation of care discussed even if they declined (Discuss DNR or withdrawal of care, Hospice)? DNR status @ -No What co-morbidities impacted this encounter? (DM, HTN, Smoking, COPD, CAD, Cancer, CVA, ARF, Chemo, Hep., AIDS, mental health diagnosis, sleep apnea, morbid obesity)? @ -None Was patient admitted / discharged? Hospital course, mention meds given and route, prescriptions, significant lab abnormalities, going to OR and other pertinent info. @ -Patient was given Nitropaste in the emergency department as well as hydralazine to bring down the pressure I spoke with Dr. Givens once all the labs came back they were all negative and x-ray showed no acute abnormality. Because the patient was having chest pressure patient will be admitted and I wrote admitting orders Undiagnosed new problem with uncertain prognosis? @ -No Drug Therapy requiring intensive monitoring for toxicity (Heparin, Nitro, Insulin, Cardizem)? @ -No Were any procedures done? @ -No Diagnosis/symptom? @ -Chest pain Acute, or Chronic, or Acute on Chronic? @ -Acute Uncomplicated (without systemic symptoms) or Complicated (systemic symptoms)? @ -Complicated Side effects of treatment? @ -No Exacerbation, Progression, or Severe Exacerbation? @ -No Poses a threat to life or bodily function? How? (Chest pain, [place], AL, pneumonia, PE, COPD, DKA, ARF, appy, cholecystitis, CVA, Diverticulitis, Homicidal, Suicidal, threat to staff... and all critical care pts) @ -Yes this could lead to end organ dysfunction through decreased cardiac perf usion Diagnosis/symptom? @ -Hypertensive urgency Acute, or Chronic, or Acute on Chronic? @ -Acute Uncomplicated (without systemic symptoms) or Complicated (systemic symptoms)? @ -Complicated Side effects of treatment? @ -none Exacerbation, Progression, or Severe Exacerbation] @ -no Poses a threat to life or bodily function? @ -This could lead to AL and eventually end organ dysfunction - Lab Data Result diagrams: 07/23/22 19:35 07/23/22 19:35 Lab Results 07/23/22 07/23/22 07/23/22 Range/Units 19:35 19:35 19:35 WBC 6.5 (3.8-10.6) k/uL RBC 4.43 (3.80-5.40) m/uL Hgb 13.4 (11.4-16.0) gm/dL Hct 40.2 (34.0-46.0) % MCV 90.8 (80.0-100.0) fL MCH 30.2 (25.0-35.0) pg MCHC 33.2 (31.0-37.0) g/dL RDW 13.6 (11.5-15.5) % Plt Count 226 (150-450) k/uL MPV 7.4 Neutrophils % 51 % Lymphocytes % 35 % Monocytes % 7 % Eosinophils % 4 % Basophils % 1 % Neutrophils # 3.3 (1.3-7.7) k/uL Lymphocytes # 2.3 (1.0-4.8) k/uL Monocytes # 0.4 (0-1.0) k/uL Eosinophils # 0.3 (0-0.7) k/uL Basophils # 0.0 (0-0.2) k/uL PT 9.9 (9.0-12.0) sec INR 0.9 (<1.2) APTT 23.9 (22.0-30.0) sec Sodium 139 (137-145) mmol/L Potassium 3.9 (3.5-5.1) mmol/L Chloride 106 (98-107) mmol/L Carbon Dioxide 24 (22-30) mmol/L Anion Gap 9 mmol/L BUN 19 H (7-17) mg/dL Creatinine 1.06 H (0.52-1.04) mg/dL Est GFR (CKD-EPI)AfAm 63 (>60 ml/min/1.73 sqM) Est GFR (CKD-EPI)NonAf 55 (>60 ml/min/1.73 sqM) Glucose 87 (74-99) mg/dL Calcium 8.0 L (8.4-10.2) mg/dL Magnesium 2.0 (1.6-2.3) mg/dL Total Bilirubin 0.3 (0.2-1.3) mg/dL AST 28 (14-36) U/L ALT 22 (4-34) U/L Alkaline Phosphatase 102 (38-126) U/L Troponin I (0.000-0.034) ng/mL NT-Pro-B Natriuret Pep pg/mL Total Protein 6.5 (6.3-8.2) g/dL Albumin 3.6 (3.5-5.0) g/dL 07/23/22 07/23/22 Range/Units 19:35 19:39 WBC (3.8-10.6) k/uL RBC (3.80-5.40) m/uL Hgb (11.4-16.0) gm/dL Hct (34.0-46.0) % MCV (80.0-100.0) fL MCH (25.0-35.0) pg MCHC (31.0-37.0) g/dL RDW (11.5-15.5) % Plt Count (150-450) k/uL MPV Neutrophils % % Lymphocytes % % Monocytes % % Eosinophils % % Basophils % % Neutrophils # (1.3-7.7) k/uL Lymphocytes # (1.0-4.8) k/uL Monocytes # (0-1.0) k/uL Eosinophils # (0-0.7) k/uL Basophils # (0-0.2) k/uL PT (9.0-12.0) sec INR (<1.2) APTT (22.0-30.0) sec Sodium (137-145) mmol/L Potassium (3.5-5.1) mmol/L Chloride (98-107) mmol/L Carbon Dioxide (22-30) mmol/L Anion Gap mmol/L BUN (7-17) mg/dL Creatinine (0.52-1.04) mg/dL Est GFR (CKD-EPI)AfAm (>60 ml/min/1.73 sqM) Est GFR (CKD-EPI)NonAf (>60 ml/min/1.73 sqM) Glucose (74-99) mg/dL Calcium (8.4-10.2) mg/dL Magnesium (1.6-2.3) mg/dL Total Bilirubin (0.2-1.3) mg/dL AST (14-36) U/L ALT (4-34) U/L Alkaline Phosphatase (38-126) U/L Troponin I <0.012 (0.000-0.034) ng/mL NT-Pro-B Natriuret Pep 164 pg/mL Total Protein (6.3-8.2) g/dL Albumin (3.5-5.0) g/dL Disposition Clinical Impression: Chest pain, Hypertensive urgency Disposition: ADMITTED IP TO THIS HOSP Referrals: Alvaro Johnson DO [Primary Care Provider] - 1-2 days Time of Disposition: 20:58
[2022-07-23 19:52] LABS: Basophils % (A) 1 %; Eosinophils # (A) 0.3 k/uL (0-0.7); Eosinophils % (A) 4 %; HCT 40.2 % (34.0-46.0); HGB 13.4 gm/dL (11.4-16.0); Lymphocytes # (A) 2.3 k/uL (1.0-4.8); Lymphocytes % (A) 35 %; MCH 30.2 pg (25.0-35.0); MCHC 33.2 g/dL (31.0-37.0); MCV 90.8 fL (80.0-100.0); Mean Platelet Volume 7.4; Monocytes # (A) 0.4 k/uL (0-1.0); Monocytes % (A) 7 %; Neutrophils # (A) 3.3 k/uL (1.3-7.7); Neutrophils % (A) 51 %; Platelet Count 226 k/uL (150-450); RBC 4.43 m/uL (3.80-5.40); RDW 13.6 % (11.5-15.5); WBC 6.5 k/uL (3.8-10.6)
--- NOTE | 2022-07-23 19:56 | XR ---
EXAMINATION TYPE: XR chest 2V DATE OF EXAM: 07/23/2022 7:49 PM COMPARISON: Chest radiographs from 05/21/2022 TECHNIQUE: XR chest 2V Frontal and lateral views of the chest. CLINICAL INDICATION:Female, 67 years old with history of Chest Pain; FINDINGS: Lungs/Pleura: There is no evidence of pleural effusion, focal consolidation, or pneumothorax. Pulmonary vascularity: Unremarkable. Heart/mediastinum: Cardiomediastinal silhouette is unremarkable. Musculoskeletal: Degenerative changes of the shoulder joints. IMPRESSION: 1. No acute cardiopulmonary disease process. 2. COPD changes.
[2022-07-23 20:04] LABS: INR 0.9 (<1.2); Partial Thromboplastin Time 23.9 sec (22.0-30.0); Prothrombin Time 9.9 sec (9.0-12.0)
[2022-07-23 20:05] LABS: ALT 22 U/L (4-34); AST 28 U/L (14-36); African American GFR (CKD) 63 (>60 ml/min/1.73 sqM); Albumin 3.6 g/dL (3.5-5.0); Alkaline Phosphatase 102 U/L (38-126); Anion Gap 9 mmol/L; Blood Urea Nitrogen 19 mg/dL (7-17); Carbon Dioxide 24 mmol/L (22-30); Chloride 106 mmol/L (98-107); Glucose 87 mg/dL (74-99); Non-African American GFR(CKD) 55 (>60 ml/min/1.73 sqM); Potassium 3.9 mmol/L (3.5-5.1); Sodium 139 mmol/L (137-145); Total Bilirubin 0.3 mg/dL (0.2-1.3); Total Protein 6.5 g/dL (6.3-8.2)
[2022-07-23] MEDS ORDERED: NITROGLYCERIN SL TABS 0.4 MG TAB SUBLINGUAL PRN (20:58)
[2022-07-23] MEDS: ONDANSETRON 4 MG/2 ML VIAL IVP PRN (21:10)
[2022-07-24] MEDS: NITROGLYCERIN OINT 1 INCH/GM PACKET TOPICAL SCH ×2 (00:33→05:37)
[2022-07-24] MEDS: ONDANSETRON 4 MG/2 ML VIAL IVP PRN (04:45)
[2022-07-24] MEDS ORDERED: ASPIRIN 81 MG PO SCH (09:00)
[2022-07-24] MEDS ORDERED: amLODIPine 5 MG TAB PO SCH (09:00)
[2022-07-24] MEDS: ATORVASTATIN 10 MG TAB PO SCH (09:29)
[2022-07-24] MEDS: FUROSEMIDE 40 MG TAB PO SCH (09:29)
[2022-07-24] MEDS: LOSARTAN 50 MG TAB PO SCH (09:29)
[2022-07-24] MEDS: POTASSIUM CHLORIDE ER 10 MEQ TAB.ER.PRT PO SCH (09:29)
[2022-07-24] MEDS: ASPIRIN 325 MG TAB PO SCH (09:38)
[2022-07-24] MEDS ORDERED: hydrALAZINE HCL 20 MG/ML 1 ML VIAL IVP STA (10:10)
[2022-07-24] MEDS ORDERED: ACETAMINOPHEN TAB 325 MG TAB PO PRN (10:34)
[2022-07-24] MEDS ORDERED: traMADol 50 MG TAB PO PRN (10:34)
[2022-07-24] MEDS ORDERED: DEXTROSE 50% SYRINGE 50 ML IVP PRN ×2 (10:36)
[2022-07-24] MEDS: CITALOPRAM HYDROBROMIDE 20 MG TAB PO SCH (11:50)
[2022-07-24] MEDS: metFORMIN 500 MG TAB PO SCH (11:50)
[2022-07-24] MEDS: TOPIRAMATE 25 MG TAB PO SCH (11:50)
[2022-07-24] MEDS: VITAMIN E (DL,TOCOPHERYL ACET) 400 UNIT (180 MG) CAP PO SCH (11:50)
[2022-07-24] MEDS: DICYCLOMINE 10 MG CAP PO SCH ×3 (11:50→17:57)
[2022-07-24] MEDS: ISOSORBIDE DINITRATE 10 MG TAB PO SCH (11:50)
[2022-07-24] MEDS: PANTOPRAZOLE 40 MG TABLET PO SCH (11:50)
[2022-07-24] MEDS: REXULTI (Brexpiprazole) 2 MG Tablet PO SCH (11:56)
[2022-07-24] MEDS ORDERED: amLODIPine 5 MG TAB PO STA (12:00)
--- NOTE | 2022-07-24 12:07 | P.CRDCN ---
History of Present Illness Consult date: 07/24/22 Consult reason: chest pain History of present illness: History of present illness: This is a 67-year-old female patient of Dr. Uribe with past medical history of diabetes, hypertension, hyperlipidemia, breast cancer status post bilateral mastectomy. Patient was last seen in the office following a hospital visit complaining of increasing shortness of breath and chest pain in the middle of her chest. Patient was arranged for echocardiogram and stress test is scheduled for 08/05. Patient states that she was sitting at the dining room table last evening and developed chest pain that was different than what she's been having and was in the center of her chest. She took a couple nitroglycerin without any improvement and call to go into the hospital. She denies having any chest pain at the time of evaluation. She is not sure what made it improve but she was placed on Nitropaste. She also has had nausea and vomiting with emesis a short time ago. She complains of lower extremity edema. Her initial blood pressure was 196/116 and remains elevated. She is status post 1 dose of hydralazine. She is seen today in the emergency center waiting for a bed on the cardiac stepdown unit. Additional dose of hydralazine 10 mg IV push 1 ordered for now. EKG sinus rhythm Chest x-ray: No acute findings, COPD CBC unremarkable. INR 0.9. D-dimer 0.69. Troponin negative 3. ProBNP 164. Electrolytes normal. BUN 19 creatinine 1.06. TSH 0.712. Home cardiac medications: Amlodipine 5 mg daily, atorvastatin 10 mg daily, Lasix 40 mg daily, Imdur 30 mg daily, losartan 100 mg daily, Echocardiogram completed in the office on 07/18/2022: EF 5055 percent, mild concentric left ventricular hypertrophy. Aortic valve is calcified. Mild mitral regurgitation. Mild tricuspid regurgitation. Normal pulmonary artery systolic pressure. Lexiscan stress test 02/2021: Normal Review Of Systems: At the time of my evaluation: Constitutional: No fever, no chills. No weakness, fatigue or lethargy. EENT: Reports headache. No dizziness. Lungs: No shortness of breath, cough, no sputum production. No wheezing. Cardiovascular: No chest pain, Reports lower extremity edema. No palpitations. No paroxysmal nocturnal dyspnea. No orthopnea. No lightheadedness or dizziness. No syncopal episodes. Abdominal: No abdominal pain. Reports nausea, Reports vomiting. No diarrhea. No bloody or tarry stools. Musculoskeletal: No myalgias. No muscle weakness, no frequent falls. No back pain. No neck pain. Integumentary: No wounds. No rash. No unusual bruising. Neurologic: No aphasia. No facial droop. No change in mentation. No head injury. No headache. Physical examination: Gen: This is a morbidly obese 67-year-old female. She is resting on the ER stretcher and appears to be comfortable at rest. VS: reviewed HEENT: Head is atraumatic, normocephalic. Pupils equal, round. Sclerae is anicteric. NECK: Supple. No JVD. . LUNGS: Diminished to the bilateral bases. No wheezes or rhonchi. No intercostal retractions. HEART: Regular rate and rhythm. Systolic murmur at right upper sternal border. ABDOMEN: Soft No tenderness. EXTREMITIES: 1+ pedal edema. No calf tenderness. NEUROLOGICAL: Patient is awake, alert and oriented x3. Assessment: Chest pain, acute coronary syndrome ruled out Nausea and vomiting Mild Hypertensive emergency Diabetes Hypertension Hyperlipidemia Breast cancer history status post bilateral mastectomy Plan: Resume patient's home cardiac medications Repeat hydralazine IV at 10 mg once No need to repeat echocardiogram Plan for Lexiscan stress test tomorrow once patient's nausea vomiting and edema improved Thank you kindly for this consultation. Nurse practitioner note has been reviewed, I agree with documented findings and plan of care. Patient was seen and examined. Past Medical History Past Medical History: Cancer, COPD, Diabetes Mellitus, GERD/Reflux, Hyperlipidemia, Hypertension, Memory Impairment, Osteoarthritis (OA) Additional Past Medical History / Comment(s): HX BREAST CANCER left 2004. diverticulitis, IBS, Lymphedema (L) arm History of Any Multi-Drug Resistant Organisms: None Reported Past Surgical History: Breast Surgery, Heart Catheterization, Tonsillectomy Additional Past Surgical History / Comment(s): BUNIONECTOMY. LT BREAST mastectomy w/some lymph nodes. COLONOSCOPY Past Anesthesia/Blood Transfusion Reactions: No Reported Reaction Past Psychological History: Anxiety, Depression Smoking Status: Former smoker Past Alcohol Use History: None Reported Past Drug Use History: None Reported - Past Family History Mother Family Medical History: Congestive Heart Failure (CHF), Diabetes Mellitus Additional Family Medical History / Comment(s): Had colostomy Father Family Medical History: Chest Pain / Angina, Diabetes Mellitus Additional Family Medical History / Comment(s): Colostomy Medications and Allergies Home Medications Medication Instructions Recorded Confirmed Type Aspirin [Adult Low Dose Aspirin EC] 81 mg PO DAILY 08/01/20 07/23/22 History Dicyclomine [Bentyl] 10 mg PO TID 08/01/20 07/23/22 History Furosemide [Lasix] 40 mg PO DAILY 08/01/20 07/23/22 History Nitroglycerin Sl Tabs [Nitrostat] 0.4 mg SL Q5M PRN 08/01/20 07/23/22 History Pantoprazole Sodium 40 mg PO DAILY 08/01/20 07/23/22 History Potassium Chloride ER [K-Dur 10] 10 meq PO DAILY 08/01/20 07/23/22 History glipiZIDE [Glucotrol] 5 mg PO TID 08/01/20 07/23/22 History metFORMIN HCL [Glucophage] 1,000 mg PO DAILY 08/01/20 07/23/22 History traZODone HCL [Desyrel] 100 mg PO HS 08/01/20 07/23/22 History Atorvastatin Calcium [Lipitor] 10 mg PO DAILY 11/26/20 07/23/22 History Brexpiprazole [Rexulti] 2 mg PO DAILY 11/26/20 07/23/22 History Topiramate [Topamax] 50 mg PO DAILY 11/26/20 07/23/22 History Cholecalciferol [Vitamin D3 (25 50 mcg PO DAILY 03/14/21 07/23/22 History Mcg = 1000 Iu)] Nystatin 100,000Unit/gm Cream 1 applic TOPICAL BID 03/14/21 07/23/22 History [Mycostatin Cream] Isosorbide Dinitrate 30 mg PO DAILY 06/16/21 07/23/22 History Meclizine [Antivert] 25 mg PO TID PRN 06/16/21 07/23/22 History hydrOXYzine pamoate [Vistaril] 25 mg PO TID 06/16/21 07/23/22 History traZODone HCL 50 mg PO HS 06/16/21 07/23/22 History Acetaminophen Tab [Tylenol] 650 mg PO Q6HR PRN #0 tab 06/17/21 07/23/22 Rx Benzonatate [Tessalon Perle] 200 mg PO TID PRN 05/21/22 07/23/22 History Calcium Carbonate [Calcium] 600 mg PO DAILY 05/21/22 07/23/22 History Cider Vinegar [Apple Cider Vinegar] 300 mg PO DAILY 05/21/22 07/23/22 History Cinnamon Bark [Cinnamon] 500 mg PO DAILY 05/21/22 07/23/22 History Frida Root Extract 50 mg PO DAILY 05/21/22 07/23/22 History [Dramamine-Natural] Ketoconazole 2% Cream [Nizoral 2%] 1 applic TOPICAL HS 05/21/22 07/23/22 History Losartan Potassium [Cozaar] 100 mg PO DAILY 05/21/22 07/23/22 History Magnesium Oxide [Mag-Ox] 400 mg PO DAILY 05/21/22 07/23/22 History Vitamin E (Dl,Tocopheryl Acet) 400 unit PO DAILY 05/21/22 07/23/22 History [Vitamin E (400 Iu = 180 mg)] amLODIPine [Norvasc] 5 mg PO DAILY #30 tab 05/21/22 07/23/22 Rx traMADol HCl [Ultram] 50 mg PO BID PRN 05/21/22 07/23/22 History Citalopram Hydrobromide [CeleXA] 20 mg PO DAILY 07/23/22 07/23/22 History Allergies Allergy/AdvReac Type Severity Reaction Status Date / Time naproxen AdvReac Nausea & Verified 07/23/22 20:46 Vomiting Physical Exam Vitals: Vital Signs Temp Pulse Resp BP Pulse Ox 07/24/22 10:50 88 18 177/89 98 07/24/22 09:37 101 H 18 179/105 95 07/24/22 05:56 98.1 F 91 16 150/82 97 07/24/22 02:00 97.8 F 95 16 145/88 97 07/23/22 22:04 89 18 138/90 97 07/23/22 21:30 98.2 F 88 16 133/84 99 07/23/22 20:30 84 18 167/89 99 07/23/22 20:25 167/89 07/23/22 20:04 87 18 183/80 97 07/23/22 19:21 98.8 F 75 18 196/116 97 Intake and Output 07/23/22 07/24/22 07/24/22 22:59 06:59 14:59 Other: Weight 111.584 kg Results 07/23/22 19:35 07/23/22 19:35 Cardiac Enzymes 07/23/22 07/23/22 07/23/22 Range/Units 19:35 19:35 22:08 AST 28 (14-36) U/L Troponin I <0.012 <0.012 (0.000-0.034) ng/mL 07/24/22 Range/Units 00:33 AST (14-36) U/L Troponin I <0.012 (0.000-0.034) ng/mL Coagulation 07/23/22 Range/Units 19:35 PT 9.9 (9.0-12.0) sec APTT 23.9 (22.0-30.0) sec CBC 07/23/22 Range/Units 19:35 WBC 6.5 (3.8-10.6) k/uL RBC 4.43 (3.80-5.40) m/uL Hgb 13.4 (11.4-16.0) gm/dL Hct 40.2 (34.0-46.0) % Plt Count 226 (150-450) k/uL Comprehensive Metabolic Panel 07/23/22 Range/Units 19:35 Sodium 139 (137-145) mmol/L Potassium 3.9 (3.5-5.1) mmol/L Chloride 106 (98-107) mmol/L Carbon Dioxide 24 (22-30) mmol/L BUN 19 H (7-17) mg/dL Creatinine 1.06 H (0.52-1.04) mg/dL Glucose 87 (74-99) mg/dL Calcium 8.0 L (8.4-10.2) mg/dL AST 28 (14-36) U/L ALT 22 (4-34) U/L Alkaline Phosphatase 102 (38-126) U/L Total Protein 6.5 (6.3-8.2) g/dL Albumin 3.6 (3.5-5.0) g/dL Current Medications Generic Name Dose Route Start Last Admin Trade Name Freq PRN Reason Stop Dose Admin Acetaminophen 650 mg 07/24/22 10:34 Acetaminophen Tab 325 Mg Tab PO Q6HR PRN Mild Pain or Fever > 100.5 Amlodipine Besylate 5 mg 07/24/22 09:00 07/24/22 09:30 Amlodipine 5 Mg Tab PO 5 mg DAILY [facility] Administration Aspirin 325 mg 07/24/22 09:00 07/24/22 09:38 Aspirin 325 Mg Tab PO 325 mg DAILY [facility] Administration Atorvastatin Calcium 10 mg 07/24/22 09:00 07/24/22 09:29 Atorvastatin 10 Mg Tab PO 10 mg DAILY [facility] Administration Calcium Carbonate/Glycine 500 mg 07/25/22 09:00 Calcium Carbonate 500 Mg Chewable PO DAILY [facility] Cholecalciferol 50 mcg 07/25/22 09:00 Cholecalciferol 25 Mcg (1000 Iu) Tablet PO DAILY [facility] Citalopram Hydrobromide 20 mg 07/24/22 10:45 07/24/22 11:50 Citalopram Hydrobromide 20 Mg Tab PO 20 mg DAILY [facility] Administration Clotrimazole 1 applic 07/24/22 21:00 Clotrimazole 1% Cream 30 Gm Tube TOPICAL HS [facility] Dextrose/Water 25 ml 07/24/22 10:36 Dextrose 50% Syringe 50 Ml IVP PER PROTOCOL PRN Hypoglycemia Protocol Dextrose/Water 50 ml 07/24/22 10:36 Dextrose 50% Syringe 50 Ml IVP PER PROTOCOL PRN Hypoglycemia Protocol Dicyclomine HCl 10 mg 07/24/22 10:45 07/24/22 11:50 Dicyclomine 10 Mg Cap PO 10 mg TID [facility] Administration Furosemide 40 mg 07/24/22 09:00 07/24/22 09:29 Furosemide 40 Mg Tab PO 40 mg DAILY [facility] Administration Glipizide 5 mg 07/24/22 16:00 Glipizide 5 Mg Tab PO TID [facility] Insulin Aspart 0 unit 07/24/22 12:30 Insulin Aspart (Novolog) 100 Unit/Ml Vial SQ AC-TID [facility] Protocol Isosorbide Dinitrate 30 mg 07/24/22 09:00 07/24/22 11:50 Isosorbide Dinitrate 10 Mg Tab PO 30 mg DAILY [facility] Administration Losartan Potassium 100 mg 07/24/22 09:00 07/24/22 09:29 Losartan 50 Mg Tab PO 100 mg DAILY [facility] Administration Metformin HCl 1,000 mg 07/24/22 10:45 07/24/22 11:50 Metformin 500 Mg Tab PO 1,000 mg DAILY [facility] Administration Nitroglycerin 0.4 mg 07/23/22 20:58 Nitroglycerin Sl Tabs 0.4 Mg Tab SUBLINGUAL Q5M PRN Chest Pain Rexulti ( 2 mg 07/24/22 10:45 Brexpiprazole) 2 Mg PO Tablet DAILY [facility] Ondansetron HCl 4 mg 07/23/22 21:07 07/24/22 04:45 Ondansetron 4 Mg/2 Ml Vial IVP 4 mg Q6HR PRN Administration Nausea And Vomiting Pantoprazole Sodium 40 mg 07/24/22 10:45 07/24/22 11:50 Pantoprazole 40 Mg Tablet PO 40 mg DAILY [facility] Administration Potassium Chloride 10 meq 07/24/22 09:00 07/24/22 09:29 Potassium Chloride Er 10 Meq Tab.Er.Prt PO 10 meq DAILY [facility] Administration Topiramate 50 mg 07/24/22 10:45 07/24/22 11:50 Topiramate 25 Mg Tab PO 50 mg DAILY [facility] Administration Tramadol HCl 50 mg 07/24/22 10:34 Tramadol 50 Mg Tab PO BID PRN Pain Trazodone HCl 100 mg 07/24/22 21:00 Trazodone Hcl 100 Mg Tab PO HS [facility] Trazodone HCl 50 mg 07/24/22 21:00 Trazodone Hcl 50 Mg Tab PO HS [facility] Vitamin E 400 unit 07/24/22 10:45 07/24/22 11:50 Vitamin E (Dl,Tocopheryl Acet) 400 Unit (180 Mg) Cap PO 400 unit DAILY [facility] Administration Intake and Output 07/23/22 07/24/22 07/24/22 22:59 06:59 14:59 Other: Weight 111.584 kg 07/23/22 19:35 07/23/22 19:35
[2022-07-24 12:10] LABS: Glucose,Whole Blood 185 mg/dL (70-110)
[2022-07-24] MEDS: INSULIN ASPART (NovoLOG) 100 UNIT/ML VIAL SQ SCH ×2 (12:13→17:43)
--- NOTE | 2022-07-24 13:10 | P.HPIM ---
History of Present Illness H&P Date: 07/24/22 Chief Complaint: Sharp chest pain This is a pleasant 67-year-old patient who follows with Dr. Johnson. Chronic stable medical conditions include COPD, diabetes, GERD, hypertension, hyperlipidemia, some cognitive impairment, osteoarthritis, left breast cancer 2004, diverticulitis, IBS, lymphedema left arm anxiety depression. Patient lives alone normally uses a cane/walker to get about. Yesterday suddenly developed or's stabbing sharp pain. No radiation. No dizziness no lightheadedness. No animal short of breath. Patient's had some edema recently. Did take nitroglycerin with no help. Last her for at least couple of hours. No chest pain this morning. Doesn't remember lifting anything heavy. Review of systems: GEN.: Tired EYES: None HEENT: None NECK: None RESPIRATORY: None CARDIOVASCULAR: As above GASTROINTESTINAL: None GENITOURINARY: None MUSCULOSKELETAL: Some joint pain LYMPHATICS: None HEMATOLOGICAL: None PSYCHIATRY: None NEUROLOGICAL: Does use a walker/cane Past medical history to include: COPD, diabetes, GERD, hypertension, hyperlipidemia, all negative impairment, osteomyelitis arthritis, left breast cancer, diabetic mellitus, IV us, left arm lymphedema, anxiety depression Social history: *Smoking over 35 years ago. No alcohol. Lives alone. Does use a cane and a walker Physical examination: VITAL SIGNS: 98.5, 91, 16, 150/82, 97% room air GENERAL: BMI 45, reclining in bed awake not in distress. EYES: Pupils equal. Conjunctiva normal. HEENT: External appearance of nose and ears normal, oral cavity grossly normal. NECK: JVD not raised; masses not palpable. HEART: First and second heart sounds are normal; edema present. LUNGS: Respiratory rate normal; clear to auscultation. ABDOMEN: Soft, nontender, liver spleen not palpable, no masses palpable. PSYCH: Alert and oriented x3; mood and affect normal. MUSCULOSKELETAL:No Clubbing/cyanosis;muscles-grossly intact. Some reproducible tenderness of the left costochondral junction midway. OA NEUROLOGICAL: Cranial nerves grossly intact; no facial asymmetry, power and sensation grossly intact. LYMPHATICS: No lymph nodes palpable in the axilla and neck INVESTIGATIONS, reviewed in the clinical context: White count 6.5 hemoglobin 13.4 platelets 226 potassium 3.9 BUN 19 creatinine 1.06 Troponin I less than 0.0123 EKG tracing personally reviewed by me-normal sinus rhythm. Nonspecific T-wave changes. Chest x-ray film personally reviewed by me-hyperinflation. No infiltrates Assessment and plan: -Anterior midsternal should very sharp chest pain. No other cardiac component. Could be muscular skeletal/costochondritis. Has cardiac risk factors. Rule out a cardiac cause. Troponins are negative. Cardiology consulted. For stress test tomorrow. Troponin negative -D-dimer 0.69. Rule out PE. -Morbid obesity BMI 45 Weight loss measures -Hyperlipidemia Lipitor -Depression and anxiety Celexa 20 mg daily -Bowel spasms Bentyl when necessary -Morbid obesity BMI 45 Weight loss measures -Depression Celexa -GERD Protonix -Essential hypertension Amlodipine -Diabetes mellitus type 2 on oral hypoglycemic Glucophage, Glucotrol. Diabetic diet and follow Accu-Cheks and sliding scale -Chronic gait dysfunction uses a cane/walker at baseline Past Medical History Past Medical History: Cancer, COPD, Diabetes Mellitus, GERD/Reflux, Hyperlipidemia, Hypertension, Memory Impairment, Osteoarthritis (OA) Additional Past Medical History / Comment(s): HX BREAST CANCER left 2004. diverticulitis, IBS, Lymphedema (L) arm History of Any Multi-Drug Resistant Organisms: None Reported Past Surgical History: Breast Surgery, Heart Catheterization, Tonsillectomy Additional Past Surgical History / Comment(s): BUNIONECTOMY. LT BREAST mastectomy w/some lymph nodes. COLONOSCOPY Past Anesthesia/Blood Transfusion Reactions: No Reported Reaction Past Psychological History: Anxiety, Depression Smoking Status: Former smoker Past Alcohol Use History: None Reported Past Drug Use History: None Reported - Past Family History Mother Family Medical History: Congestive Heart Failure (CHF), Diabetes Mellitus Additional Family Medical History / Comment(s): Had colostomy Father Family Medical History: Chest Pain / Angina, Diabetes Mellitus Additional Family Medical History / Comment(s): Colostomy Medications and Allergies Home Medications Medication Instructions Recorded Confirmed Type Aspirin [Adult Low Dose Aspirin EC] 81 mg PO DAILY 08/01/20 07/23/22 History Dicyclomine [Bentyl] 10 mg PO TID 08/01/20 07/23/22 History Furosemide [Lasix] 40 mg PO DAILY 08/01/20 07/23/22 History Nitroglycerin Sl Tabs [Nitrostat] 0.4 mg SL Q5M PRN 08/01/20 07/23/22 History Pantoprazole Sodium 40 mg PO DAILY 08/01/20 07/23/22 History Potassium Chloride ER [K-Dur 10] 10 meq PO DAILY 08/01/20 07/23/22 History glipiZIDE [Glucotrol] 5 mg PO TID 08/01/20 07/23/22 History metFORMIN HCL [Glucophage] 1,000 mg PO DAILY 08/01/20 07/23/22 History traZODone HCL [Desyrel] 100 mg PO HS 08/01/20 07/23/22 History Atorvastatin Calcium [Lipitor] 10 mg PO DAILY 11/26/20 07/23/22 History Brexpiprazole [Rexulti] 2 mg PO DAILY 11/26/20 07/23/22 History Topiramate [Topamax] 50 mg PO DAILY 11/26/20 07/23/22 History Cholecalciferol [Vitamin D3 (25 50 mcg PO DAILY 03/14/21 07/23/22 History Mcg = 1000 Iu)] Nystatin 100,000Unit/gm Cream 1 applic TOPICAL BID 03/14/21 07/23/22 History [Mycostatin Cream] Isosorbide Dinitrate 30 mg PO DAILY 06/16/21 07/23/22 History Meclizine [Antivert] 25 mg PO TID PRN 06/16/21 07/23/22 History hydrOXYzine pamoate [Vistaril] 25 mg PO TID 06/16/21 07/23/22 History traZODone HCL 50 mg PO HS 06/16/21 07/23/22 History Acetaminophen Tab [Tylenol] 650 mg PO Q6HR PRN #0 tab 06/17/21 07/23/22 Rx Benzonatate [Tessalon Perle] 200 mg PO TID PRN 05/21/22 07/23/22 History Calcium Carbonate [Calcium] 600 mg PO DAILY 05/21/22 07/23/22 History Cider Vinegar [Apple Cider Vinegar] 300 mg PO DAILY 05/21/22 07/23/22 History Cinnamon Bark [Cinnamon] 500 mg PO DAILY 05/21/22 07/23/22 History Frida Root Extract 50 mg PO DAILY 05/21/22 07/23/22 History [Dramamine-Natural] Ketoconazole 2% Cream [Nizoral 2%] 1 applic TOPICAL HS 05/21/22 07/23/22 History Losartan Potassium [Cozaar] 100 mg PO DAILY 05/21/22 07/23/22 History Magnesium Oxide [Mag-Ox] 400 mg PO DAILY 05/21/22 07/23/22 History Vitamin E (Dl,Tocopheryl Acet) 400 unit PO DAILY 05/21/22 07/23/22 History [Vitamin E (400 Iu = 180 mg)] amLODIPine [Norvasc] 5 mg PO DAILY #30 tab 05/21/22 07/23/22 Rx traMADol HCl [Ultram] 50 mg PO BID PRN 05/21/22 07/23/22 History Citalopram Hydrobromide [CeleXA] 20 mg PO DAILY 07/23/22 07/23/22 History Allergies Allergy/AdvReac Type Severity Reaction Status Date / Time naproxen AdvReac Nausea & Verified 07/23/22 20:46 Vomiting Physical Exam Vitals: Vital Signs Temp Pulse Resp BP Pulse Ox 07/24/22 09:37 101 H 18 179/105 95 07/24/22 05:56 98.1 F 91 16 150/82 97 07/24/22 02:00 97.8 F 95 16 145/88 97 07/23/22 22:04 89 18 138/90 97 07/23/22 21:30 98.2 F 88 16 133/84 99 07/23/22 20:30 84 18 167/89 99 07/23/22 20:25 167/89 07/23/22 20:04 87 18 183/80 97 07/23/22 19:21 98.8 F 75 18 196/116 97 Intake and Output 07/23/22 07/24/22 07/24/22 22:59 06:59 14:59 Other: Weight 111.584 kg Results CBC & Chem 7: 07/23/22 19:35 07/23/22 19:35 Labs: Abnormal Lab Results - Last 24 Hours (Table) 07/23/22 Range/Units 19:35 BUN 19 H (7-17) mg/dL Creatinine 1.06 H (0.52-1.04) mg/dL Calcium 8.0 L (8.4-10.2) mg/dL
--- NOTE | 2022-07-24 14:01 | CT ---
EXAMINATION TYPE: CT angio chest DATE OF EXAM: 07/24/2022 COMPARISON: NONE HISTORY: Chest pain. CT DLP: 713.3 mGycm. Automated Exposure Control for Dose Reduction was Utilized. CONTRAST: CTA scan of the thorax is performed with IV Contrast, patient injected with 100ml mL of Isovue 370, p ulmonary embolism protocol. MIP Images are created on CT scanner and reviewed. FINDINGS: Exam is suboptimal as patient unable to hold breath. LUNGS: Suboptimal as is degraded by respiratory motion artifact particularly for evaluation of subcen timeter nodules. Lungs are grossly clear. No pleural effusion or pneumothorax seen bilaterally. MEDIASTINUM: There is a suboptimal study with equal dense contrast in the thoracic aorta. No thoracic aortic aneurysm or dissection is seen. No central pulmonary embolism. Cannot entirely exclude smalle r segmental and subsegmental PE on this exam is degraded by motion artifact with heterogeneity toward s the periphery. No cardiomegaly or pericardial effusion is seen. OTHER: Liver is diffusely low dense suggesting diffuse fatty infiltration. Multilevel spurring in the spine is present. IMPRESSION: 1. Suboptimal study without central acute pulmonary embolism. Cannot entirely exclude smaller periphe ral segmental and subsegmental acute PE on this exam. 2. No suspicious acute pulmonary process.
[2022-07-24 17:24] LABS: Chol/HDL Ratio 4.28 Ratio; LDL Cholesterol,Calculated 95.7 mg/dL (0.0-131.0)
[2022-07-24 17:42] LABS: Glucose,Whole Blood 125 mg/dL (70-110)
[2022-07-24] MEDS: glipiZIDE 5 MG TAB PO SCH ×2 (17:56→20:44)
[2022-07-24] MEDS: traZODone HCL 50 MG TAB PO SCH (20:45)
[2022-07-24] MEDS: traZODone HCL 100 MG TAB PO SCH (20:45)
[2022-07-25] MEDS: CLOTRIMAZOLE 1% CREAM 30 GM TUBE TOPICAL SCH ×2 (00:04→21:27)
[2022-07-25] MEDS ORDERED: AMINOPHYLLINE 500 MG/20 ML VIAL IV PRN (07:57)
[2022-07-25] MEDS ORDERED: REGADENOSON 0.4 MG/5 ML SYRINGE IV PRN (07:57)
[2022-07-25] MEDS ORDERED: CAFFEINE CITRATE 60 MG/3 ML VIAL IV PRN (07:57)
[2022-07-25] MEDS: INSULIN ASPART (NovoLOG) 100 UNIT/ML VIAL SQ SCH ×3 (08:50→16:33)
[2022-07-25] MEDS ORDERED: amLODIPine 10 MG TAB PO SCH (09:00)
[2022-07-25] MEDS: REXULTI (Brexpiprazole) 2 MG Tablet PO SCH (11:34)
[2022-07-25] MEDS: POTASSIUM CHLORIDE ER 10 MEQ TAB.ER.PRT PO SCH (11:35)
[2022-07-25] MEDS: ISOSORBIDE DINITRATE 10 MG TAB PO SCH (11:35)
[2022-07-25] MEDS: PANTOPRAZOLE 40 MG TABLET PO SCH (11:35)
[2022-07-25] MEDS: glipiZIDE 5 MG TAB PO SCH ×3 (11:35→21:27)
[2022-07-25] MEDS: VITAMIN E (DL,TOCOPHERYL ACET) 400 UNIT (180 MG) CAP PO SCH (11:35)
[2022-07-25] MEDS: FUROSEMIDE 40 MG TAB PO SCH (11:35)
[2022-07-25] MEDS: ASPIRIN 325 MG TAB PO SCH (11:35)
[2022-07-25] MEDS: LOSARTAN 50 MG TAB PO SCH (11:35)
[2022-07-25] MEDS: ATORVASTATIN 10 MG TAB PO SCH (11:36)
[2022-07-25] MEDS: CHOLECALCIFEROL 25 MCG (1000 IU) TABLET PO SCH (11:36)
[2022-07-25] MEDS: CALCIUM CARBONATE 500 MG CHEWABLE PO SCH (11:36)
[2022-07-25] MEDS: metFORMIN 500 MG TAB PO SCH (11:36)
[2022-07-25] MEDS: CITALOPRAM HYDROBROMIDE 20 MG TAB PO SCH (11:36)
[2022-07-25] MEDS: DICYCLOMINE 10 MG CAP PO SCH ×3 (11:36→21:26)
[2022-07-25] MEDS: TOPIRAMATE 25 MG TAB PO SCH (11:36)
[2022-07-25 12:06] LABS: Glucose,Whole Blood 187 mg/dL (70-110)
[2022-07-25 12:15] LABS: ALT 24 U/L (4-34); AST 35 U/L (14-36); African American GFR (CKD) 38 (>60 ml/min/1.73 sqM); Albumin 3.7 g/dL (3.5-5.0); Alkaline Phosphatase 82 U/L (38-126); Anion Gap 8 mmol/L; Blood Urea Nitrogen 22 mg/dL (7-17); Calcium 8.6 mg/dL (8.4-10.2); Carbon Dioxide 27 mmol/L (22-30); Chloride 104 mmol/L (98-107); Glucose 137 mg/dL (74-99); Non-African American GFR(CKD) 33 (>60 ml/min/1.73 sqM); Potassium 4.2 mmol/L (3.5-5.1); Sodium 139 mmol/L (137-145); Total Bilirubin 0.4 mg/dL (0.2-1.3); Total Protein 6.4 g/dL (6.3-8.2)
--- NOTE | 2022-07-25 12:21 | NM ---
EXAMINATION TYPE: NM stress lexiscan cardiolite DATE OF EXAM: 07/25/2022 COMPARISON: 09/21/2010 CLINICAL INDICATION: Female, 67 years old with history of CP; TECHNIQUE: After the intravenous administration of 10.1 mCi Tc 99m Sestamibi - Cardiolite resting SP ECT images acquired 70 minutes post injection. The patient received 0.4mg Lexiscan, 25.3 mCi Tc 99m Sestamibi - Stress images obtained [address] injection FINDINGS: Review of stress and rest SPECT images demonstrates fixed perfusion defect involving the inferior wal l of the myocardium.. Gated analysis shows normal wall motion with an estimated left ventricular eje ction fraction of 53 %. IMPRESSION: No scintigraphic evidence for reversible ischemia. There is a fixed defect involving the inferior wal l the myocardium correlate for previous myocardial infarction. Cannot exclude a tiny area of stress i nduced reversible ischemia.
--- NOTE | 2022-07-25 13:23 | P.PN ---
Subjective Progress Note Date: 07/25/22 History of present illness: This is a 67-year-old female patient of Dr. Uribe with past medical history of diabetes, hypertension, hyperlipidemia, breast cancer status post bilateral mastectomy. Patient was last seen in the office following a hospital visit complaining of increasing shortness of breath and chest pain in the middle of her chest. Patient was arranged for echocardiogram and stress test is scheduled for 08/05. Patient states that she was sitting at the dining room table last evening and developed chest pain that was different than what she's been having and was in the center of her chest. She took a couple nitroglycerin without any improvement and call to go into the hospital. She denies having any chest pain at the time of evaluation. She is not sure what made it improve but she was placed on Nitropaste. She also has had nausea and vomiting with emesis a short time ago. She complains of lower extremity edema. Her initial blood pressure was 196/116 and remains elevated. She is status post 1 dose of hydralazine. She is seen today in the emergency center waiting for a bed on the cardiac stepdown unit. Additional dose of hydralazine 10 mg IV push 1 ordered for now. EKG sinus rhythm Chest x-ray: No acute findings, COPD CBC unremarkable. INR 0.9. D-dimer 0.69. Troponin negative 3. ProBNP 164. Electrolytes normal. BUN 19 creatinine 1.06. TSH 0.712. Home cardiac medications: Amlodipine 5 mg daily, atorvastatin 10 mg daily, Lasix 40 mg daily, Imdur 30 mg daily, losartan 100 mg daily, Echocardiogram completed in the office on 07/18/2022: EF 5055 percent, mild concentric left ventricular hypertrophy. Aortic valve is calcified. Mild mitral regurgitation. Mild tricuspid regurgitation. Normal pulmonary artery systolic pressure. Lexiscan stress test 02/2021: Normal 07/25 Patient is seen today in follow-up. She states she is feeling okay today. She complains of leg and feet swelling with pain which she has not had before. She denies having any chest pain. Noted the blood pressure readings are significantly lower this morning. Discussed option of discontinuing amlodipine as this could be a side effect and she is in agreement. Reviewed results of stress test which appear to be negative. Repeat blood work reveals BUN 22 creatinine 1.59. Physical examination: Gen: This is a morbidly obese 67-year-old female. She is resting on the ER stretcher and appears to be comfortable at rest. VS: reviewed HEENT: Head is atraumatic, normocephalic. Pupils equal, round. Sclerae is anicteric. NECK: Supple. No JVD. . LUNGS: Diminished to the bilateral bases. No wheezes or rhonchi. No intercostal retractions. HEART: Regular rate and rhythm. Systolic murmur at right upper sternal border. ABDOMEN: Soft No tenderness. EXTREMITIES: 1+ pedal edema. No calf tenderness. NEUROLOGICAL: Patient is awake, alert and oriented x3. Assessment: Chest pain, acute coronary syndrome ruled out Nausea and vomiting Mild Hypertensive emergency Diabetes Hypertension Hyperlipidemia Breast cancer history status post bilateral mastectomy Plan: Resume patient's home cardiac medications Discontinue Amlodipine Patient to monitor BP at home once she obtains BP cuff Patient is cleared for discharge and may follow up with Dr. Uribe in 1-2 weeks. Nurse practitioner note has been reviewed, I agree with documented findings and plan of care. Patient was seen and examined. Objective - Vital Signs Vital signs: Vital Signs Temp 98.1 F 07/25/22 08:00 Pulse 84 07/25/22 12:00 Resp 18 07/25/22 08:00 BP 116/67 07/25/22 12:00 Pulse Ox 93 L 07/25/22 12:00 FiO2 Intake & Output 07/24/22 07/25/22 07/25/22 18:59 06:59 18:59 Intake Total 240 Balance 240 Weight 111.584 kg Intake: Oral 240 Other: Voiding Method Toilet Toilet # Voids 1 - Labs CBC & Chem 7: 07/23/22 19:35 07/25/22 11:28 Labs: Abnormal Lab Results - Last 24 Hours (Table) 07/24/22 07/24/22 07/25/22 Range/Units 10:33 17:41 11:28 BUN 22 H (7-17) mg/dL Creatinine 1.59 H (0.52-1.04) mg/dL Glucose 137 H (74-99) mg/dL POC Glucose (mg/dL) 125 H (70-110) mg/dL Triglycerides 188.00 H (0.00-149.00) mg/dL 06/08/23 Range/Units 12:05 BUN (7-17) mg/dL Creatinine (0.52-1.04) mg/dL Glucose (74-99) mg/dL POC Glucose (mg/dL) 187 H (70-110) mg/dL Triglycerides (0.00-149.00) mg/dL
--- NOTE | 2022-07-25 15:50 | P.PN ---
Progress Note - Text Progress Note Date: 07/25/22 Chief Complaint: Sharp chest pain This is a pleasant 67-year-old patient who follows with Dr. Johnson. Chronic stable medical conditions include COPD, diabetes, GERD, hypertension, hyperlipidemia, some cognitive impairment, osteoarthritis, left breast cancer 2004, diverticulitis, IBS, lymphedema left arm anxiety depression. Patient lives alone normally uses a cane/walker to get about. Yesterday suddenly developed or's stabbing sharp pain. No radiation. No dizziness no lightheadedness. No animal short of breath. Patient's had some edema recently. Did take nitroglycerin with no help. Last her for at least couple of hours. No chest pain this morning. Doesn't remember lifting anything heavy. July 25: Chest CT showing no obvious PE. Nuclear stress test showing a fixed defect. Dr. Mandujano communicated to me that it was essentially negative. Patient's creatinine has gone up. We'll hydrate the patient overnight. Repeat labs. The pressure running low. Hold off Lasix. Review of systems: GEN.: Tired EYES: None HEENT: None NECK: None RESPIRATORY: None CARDIOVASCULAR: As above GASTROINTESTINAL: None GENITOURINARY: None MUSCULOSKELETAL: Some joint pain LYMPHATICS: None HEMATOLOGICAL: None PSYCHIATRY: None NEUROLOGICAL: Does use a walker/cane Past medical history to include: COPD, diabetes, GERD, hypertension, hyperlipidemia, all negative impairment, osteomyelitis arthritis, left breast cancer, diabetic mellitus, IV us, left arm lymphedema, anxiety depression Social history: *Smoking over 35 years ago. No alcohol. Lives alone. Does use a cane and a walker Physical examination: VITAL SIGNS: 98.5, 91, 16, 150/82, 97% room air GENERAL: BMI 45, reclining in bed awake not in distress. EYES: Pupils equal. Conjunctiva normal. HEENT: External appearance of nose and ears normal, oral cavity grossly normal. NECK: JVD not raised; masses not palpable. HEART: First and second heart sounds are normal; edema present. LUNGS: Respiratory rate normal; clear to auscultation. ABDOMEN: Soft, nontender, liver spleen not palpable, no masses palpable. PSYCH: Alert and oriented x3; mood and affect normal. MUSCULOSKELETAL:No Clubbing/cyanosis;muscles-grossly intact. Some reproducible tenderness of the left costochondral junction midway. OA INVESTIGATIONS, reviewed in the clinical context: July 25: Potassium 4.2 BUN 22 creatinine 1.59 LDL 95 Lexiscan Cardilate stress test: Fixed effects. White count 6.5 hemoglobin 13.4 platelets 226 potassium 3.9 BUN 19 creatinine 1.06 Troponin I less than 0.0123 EKG tracing personally reviewed by me-normal sinus rhythm. Nonspecific T-wave changes. Chest x-ray film personally reviewed by me-hyperinflation. No infiltrates Assessment and plan: -Anterior midsternal should very sharp chest pain. Probably musculoskeletal Nuclear stress test: Showing a fixed defect. -Acute kidney injury. Possibly prerenal. IV fluids. Hold Lasix. -Morbid obesity BMI 45 Weight loss measures -Hyperlipidemia Lipitor -Depression and anxiety Celexa 20 mg daily -Bowel spasms Bentyl when necessary -Morbid obesity BMI 45 Weight loss measures -Depression Celexa -GERD Protonix -Essential hypertension Cozaar. Hold amlodipine -Diabetes mellitus type 2 on oral hypoglycemic Glucophage, Glucotrol. Diabetic diet and follow Accu-Cheks and sliding scale -Chronic gait dysfunction uses a cane/walker at baseline Amlodipine discontinued. Hold Lasix. IV fluids. Repeat labs in the morning.
[2022-07-25] MEDS: SODIUM CHLORIDE 0.9% 1,000 ML IV SCH (16:28)
[2022-07-25 16:35] LABS: Glucose,Whole Blood 91 mg/dL (70-110)
[2022-07-25 20:22] LABS: Glucose,Whole Blood 83 mg/dL (70-110)
[2022-07-25] MEDS: traZODone HCL 50 MG TAB PO SCH (21:26)
[2022-07-25] MEDS: traZODone HCL 100 MG TAB PO SCH (21:27)
[2022-07-26 06:03] LABS: Glucose,Whole Blood 108 mg/dL (70-110)
[2022-07-26] MEDS: SODIUM CHLORIDE 0.9% 1,000 ML IV SCH (06:05)
[2022-07-26] MEDS: INSULIN ASPART (NovoLOG) 100 UNIT/ML VIAL SQ SCH (06:05)
[2022-07-26] MEDS: glipiZIDE 5 MG TAB PO SCH (09:17)
[2022-07-26] MEDS: CHOLECALCIFEROL 25 MCG (1000 IU) TABLET PO SCH (09:17)
[2022-07-26] MEDS: metFORMIN 500 MG TAB PO SCH (09:17)
[2022-07-26] MEDS: TOPIRAMATE 25 MG TAB PO SCH (09:17)
[2022-07-26] MEDS: CALCIUM CARBONATE 500 MG CHEWABLE PO SCH (09:17)
[2022-07-26] MEDS: ATORVASTATIN 10 MG TAB PO SCH (09:17)
[2022-07-26] MEDS: PANTOPRAZOLE 40 MG TABLET PO SCH (09:17)
[2022-07-26] MEDS: CITALOPRAM HYDROBROMIDE 20 MG TAB PO SCH (09:17)
[2022-07-26] MEDS: LOSARTAN 50 MG TAB PO SCH (09:17)
[2022-07-26] MEDS: ASPIRIN 325 MG TAB PO SCH (09:17)
[2022-07-26] MEDS: DICYCLOMINE 10 MG CAP PO SCH (09:17)
[2022-07-26] MEDS: POTASSIUM CHLORIDE ER 10 MEQ TAB.ER.PRT PO SCH (09:17)
[2022-07-26] MEDS: ISOSORBIDE DINITRATE 10 MG TAB PO SCH (09:18)
[2022-07-26] MEDS: VITAMIN E (DL,TOCOPHERYL ACET) 400 UNIT (180 MG) CAP PO SCH (09:18)
[2022-07-26] MEDS: REXULTI (Brexpiprazole) 2 MG Tablet PO SCH (09:18)
[2022-07-26 09:27] VITALS: BP 114/71; PULSE 73; RESP 18; TEMP 98.9
[2022-07-26 09:30] LABS: African American GFR (CKD) 43 (>60 ml/min/1.73 sqM); Anion Gap 9 mmol/L; Blood Urea Nitrogen 26 mg/dL (7-17); Calcium 8.3 mg/dL (8.4-10.2); Carbon Dioxide 24 mmol/L (22-30); Chloride 106 mmol/L (98-107); Glucose 117 mg/dL (74-99); Non-African American GFR(CKD) 37 (>60 ml/min/1.73 sqM); Potassium 4.6 mmol/L (3.5-5.1); Sodium 139 mmol/L (137-145)
--- NOTE | 2022-07-26 11:24 | P.PN ---
Subjective Progress Note Date: 07/26/22 History of present illness: This is a 67-year-old female patient of Dr. Uribe with past medical history of diabetes, hypertension, hyperlipidemia, breast cancer status post bilateral mastectomy. Patient was last seen in the office following a hospital visit complaining of increasing shortness of breath and chest pain in the middle of her chest. Patient was arranged for echocardiogram and stress test is scheduled for 08/05. Patient states that she was sitting at the dining room table last evening and developed chest pain that was different than what she's been having and was in the center of her chest. She took a couple nitroglycerin without any improvement and call to go into the hospital. She denies having any chest pain at the time of evaluation. She is not sure what made it improve but she was placed on Nitropaste. She also has had nausea and vomiting with emesis a short time ago. She complains of lower extremity edema. Her initial blood pressure was 196/116 and remains elevated. She is status post 1 dose of hydralazine. She is seen today in the emergency center waiting for a bed on the cardiac stepdown unit. Additional dose of hydralazine 10 mg IV push 1 ordered for now. EKG sinus rhythm Chest x-ray: No acute findings, COPD CBC unremarkable. INR 0.9. D-dimer 0.69. Troponin negative 3. ProBNP 164. Electrolytes normal. BUN 19 creatinine 1.06. TSH 0.712. Home cardiac medications: Amlodipine 5 mg daily, atorvastatin 10 mg daily, Lasix 40 mg daily, Imdur 30 mg daily, losartan 100 mg daily, Echocardiogram completed in the office on 07/18/2022: EF 5055 percent, mild concentric left ventricular hypertrophy. Aortic valve is calcified. Mild mitral regurgitation. Mild tricuspid regurgitation. Normal pulmonary artery systolic pressure. Lexiscan stress test 02/2021: Normal 07/25 Patient is seen today in follow-up. She states she is feeling okay today. She complains of leg and feet swelling with pain which she has not had before. She denies having any chest pain. Noted the blood pressure readings are significantly lower this morning. Discussed option of discontinuing amlodipine as this could be a side effect and she is in agreement. Reviewed results of stress test which appear to be negative. Repeat blood work reveals BUN 22 creatinine 1.59. 6/9 Amlodipine was discontinued yesterday and patient's blood pressure has been stable, 114-124 systolic. Heart rate is running in the 70s. Repeat blood work reveals BUN 26, creatinine 1.46, potassium 4.6. Physical examination: Gen: This is a morbidly obese 67-year-old female. She is resting in bed and appears to be comfortable at rest. VS: reviewed HEENT: Head is atraumatic, normocephalic. Pupils equal, round. Sclerae is anicteric. NECK: Supple. No JVD. . LUNGS: Diminished to the bilateral bases. No wheezes or rhonchi. No intercostal retractions. HEART: Regular rate and rhythm. Systolic murmur at right upper sternal border. ABDOMEN: Soft No tenderness. EXTREMITIES: Trace pedal edema. No calf tenderness. NEUROLOGICAL: Patient is awake, alert and oriented x3. Assessment: Chest pain, acute coronary syndrome ruled out Nausea and vomiting Mild Hypertensive emergency Diabetes Hypertension Hyperlipidemia Breast cancer history status post bilateral mastectomy Plan: Resume patient's home cardiac medications Discontinue Amlodipine Patient is cleared for discharge and may follow up with Dr. Uribe in 1-2 weeks. Nurse practitioner note has been reviewed, I agree with documented findings and plan of care. Patient was seen and examined. Objective - Vital Signs Vital signs: Vital Signs Temp 98.9 F 07/26/22 09:15 Pulse 73 07/26/22 09:15 Resp 18 07/26/22 09:15 BP 114/71 07/26/22 09:15 Pulse Ox 94 L 07/26/22 09:15 FiO2 Intake & Output 07/25/22 07/26/22 07/26/22 18:59 06:59 18:59 Intake Total 1300 Balance 1300 Intake: Oral 1300 Other: Voiding Method Toilet Toilet # Voids 2 - Labs CBC & Chem 7: 07/23/22 19:35 07/26/22 08:32 Labs: Abnormal Lab Results - Last 24 Hours (Table) 07/25/22 07/25/22 07/26/22 Range/Units 11:28 12:05 08:32 BUN 22 H 26 H (7-17) mg/dL Creatinine 1.59 H 1.46 H (0.52-1.04) mg/dL Glucose 137 H 117 H (74-99) mg/dL POC Glucose (mg/dL) 187 H (70-110) mg/dL Calcium 8.3 L (8.4-10.2) mg/dL
[2022-07-26 11:44] LABS: Glucose,Whole Blood 91 mg/dL (70-110)
--- NOTE | 2022-07-26 15:39 | P.DS ---
Providers Date of admission: 07/23/22 20:59 Expected date of discharge: 07/26/22 Attending physician: Elian Givens Consults: 07/23/22 20:58 Consult Physician Urgent Consulting Provider: [facility] Consult Reason/Comments: Chest pain Do you want consulting provider notified?: Yes Primary care physician: Alvaro Sparrow [place] [facility] Course: Chief Complaint: Sharp chest pain This is a pleasant 67-year-old patient who follows with Dr. Johnson. Chronic stable medical conditions include COPD, diabetes, GERD, hypertension, hyperlipidemia, some cognitive impairment, osteoarthritis, left breast cancer 2004, diverticulitis, IBS, lymphedema left arm anxiety depression. Patient lives alone normally uses a cane/walker to get about. Yesterday kitty denly developed or's stabbing sharp pain. No radiation. No dizziness no lightheadedness. No animal short of breath. Patient's had some edema recently. Did take nitroglycerin with no help. Last her for at least couple of hours. No chest pain this morning. Doesn't remember lifting anything heavy. July 25: Chest CT showing no obvious PE. Nuclear stress test showing a fixed defect. Dr. Mandujano communicated to me that it was essentially negative. Patient's creatinine has gone up. We'll hydrate the patient overnight. Repeat labs. The pressure running low. Hold off Lasix. July 26: Amlodipine was discontinued. Blood pressure better. Discussed with patient. Questions answered. Cleared by currently. Past medical history to include: COPD, diabetes, GERD, hypertension, hyperlipidemia, all negative impairment, osteomyelitis arthritis, left breast cancer, diabetic mellitus, IV us, left arm lymphedema, anxiety depression Social history: *Smoking over 35 years ago. No alcohol. Lives alone. Does use a cane and a walker Physical examination: VITAL SIGNS: 98.9, 73, 18, 104/71, 94% room air GENERAL: BMI 45, reclining in bed awake not in distress. EYES: Pupils equal. Conjunctiva normal. HEENT: External appearance of nose and ears normal, oral cavity grossly normal. NECK: JVD not raised; masses not palpable. HEART: First and second heart sounds are normal; edema present. LUNGS: Respiratory rate normal; clear to auscultation. ABDOMEN: Soft, nontender, liver spleen not palpable, no masses palpable. PSYCH: Alert and oriented x3; mood and affect normal. MUSCULOSKELETAL:No Clubbing/cyanosis;muscles-grossly intact. Some reproducible tenderness of the left costochondral junction midway. OA INVESTIGATIONS, reviewed in the clinical context: August 05: Potassium 4.6 BUN 26 creatinine 1.46 July 25: Potassium 4.2 BUN 22 creatinine 1.59 LDL 95 Lexiscan Cardilate stress test: Fixed effects. White count 6.5 hemoglobin 13.4 platelets 226 potassium 3.9 BUN 19 creatinine 1.06 Troponin I less than 0.0123 EKG tracing personally reviewed by me-normal sinus rhythm. Nonspecific T-wave changes. Chest x-ray film personally reviewed by me-hyperinflation. No infiltrates Assessment and plan: -Anterior midsternal should very sharp chest pain. Probably musculoskeletal Nuclear stress test: Showing a fixed defect. -Acute kidney injury. Possibly prerenal. IV fluids. Lasix discontinued -Morbid obesity BMI 45 Weight loss measures -Hyperlipidemia Lipitor -Depression and anxiety Celexa 20 mg daily -Bowel spasms Bentyl when necessary -Morbid obesity BMI 45 Weight loss measures -Depression Celexa -GERD Protonix -Essential hypertension Cozaar. Hold amlodipine -Diabetes mellitus type 2 on oral hypoglycemic Glucophage, Glucotrol. Diabetic diet and follow Accu-Cheks and sliding scale -Chronic gait dysfunction uses a cane/walker at baseline Disposition: Home CBC, BMP: 1 week Plan - Discharge Summary Discharge Rx Participant: No New Discharge Prescriptions: Continue metFORMIN HCL [Glucophage] 1,000 mg PO DAILY Aspirin [Adult Low Dose Aspirin EC] 81 mg PO DAILY Cholecalciferol [Vitamin D3 (25 Mcg = 1000 Iu)] 50 mcg PO DAILY traZODone HCL 50 mg PO HS Vitamin E (Dl,Tocopheryl Acet) [Vitamin E (400 Iu = 180 mg)] 400 unit PO DAILY Benzonatate [Tessalon Perle] 200 mg PO TID PRN PRN Reason: Cough traMADol HCl [Ultram] 50 mg PO BID PRN PRN Reason: Pain Losartan Potassium [Cozaar] 100 mg PO DAILY Citalopram Hydrobromide [CeleXA] 20 mg PO DAILY traZODone HCL [Desyrel] 100 mg PO HS glipiZIDE [Glucotrol] 5 mg PO TID Nitroglycerin Sl Tabs [Nitrostat] 0.4 mg SL Q5M PRN PRN Reason: Chest Pain Dicyclomine [Bentyl] 10 mg PO TID Pantoprazole Sodium 40 mg PO DAILY Topiramate [Topamax] 50 mg PO DAILY Brexpiprazole [Rexulti] 2 mg PO DAILY Atorvastatin Calcium [Lipitor] 10 mg PO DAILY Nystatin 100,000Unit/gm Cream [Mycostatin Cream] 1 applic TOPICAL BID Isosorbide Dinitrate 30 mg PO DAILY Acetaminophen Tab [Tylenol] 650 mg PO Q6HR PRN #0 tab PRN Reason: Mild Pain Or Fever > 100.5 Calcium Carbonate [Calcium] 600 mg PO DAILY Ketoconazole 2% Cream [Nizoral 2%] 1 applic TOPICAL HS Discontinued Furosemide [Lasix] 40 mg PO DAILY Meclizine [Antivert] 25 mg PO TID PRN PRN Reason: dizziness Potassium Chloride ER [K-Dur 10] 10 meq PO DAILY hydrOXYzine pamoate [Vistaril] 25 mg PO TID Magnesium Oxide [Mag-Ox] 400 mg PO DAILY amLODIPine [Norvasc] 5 mg PO DAILY #30 tab No Action Cider Vinegar [Apple Cider Vinegar] 300 mg PO DAILY Frida Root Extract [Dramamine-Natural] 50 mg PO DAILY Cinnamon Bark [Cinnamon] 500 mg PO DAILY Discharge Medication List Aspirin [Adult Low Dose Aspirin EC] 81 mg PO DAILY 08/01/20 [History] Dicyclomine [Bentyl] 10 mg PO TID 08/01/20 [History] Nitroglycerin Sl Tabs [Nitrostat] 0.4 mg SL Q5M PRN 08/01/20 [History] Pantoprazole Sodium 40 mg PO DAILY 08/01/20 [History] glipiZIDE [Glucotrol] 5 mg PO TID 08/01/20 [History] metFORMIN HCL [Glucophage] 1,000 mg PO DAILY 08/01/20 [History] traZODone HCL [Desyrel] 100 mg PO HS 08/01/20 [History] Atorvastatin Calcium [Lipitor] 10 mg PO DAILY 11/26/20 [History] Brexpiprazole [Rexulti] 2 mg PO DAILY 11/26/20 [History] Topiramate [Topamax] 50 mg PO DAILY 11/26/20 [History] Cholecalciferol [Vitamin D3 (25 Mcg = 1000 Iu)] 50 mcg PO DAILY 03/14/21 [History] Nystatin 100,000Unit/gm Cream [Mycostatin Cream] 1 applic TOPICAL BID 03/14/21 [History] Isosorbide Dinitrate 30 mg PO DAILY 06/16/21 [History] traZODone HCL 50 mg PO HS 06/16/21 [History] Acetaminophen Tab [Tylenol] 650 mg PO Q6HR PRN #0 tab 06/17/21 [Rx] Benzonatate [Tessalon Perle] 200 mg PO TID PRN 05/21/22 [History] Calcium Carbonate [Calcium] 600 mg PO DAILY 05/21/22 [History] Cider Vinegar [Apple Cider Vinegar] 300 mg PO DAILY 05/21/22 [History] Cinnamon Bark [Cinnamon] 500 mg PO DAILY 05/21/22 [History] Frida Root Extract [Dramamine-Natural] 50 mg PO DAILY 05/21/22 [History] Ketoconazole 2% Cream [Nizoral 2%] 1 applic TOPICAL HS 05/21/22 [History] Losartan Potassium [Cozaar] 100 mg PO DAILY 05/21/22 [History] Vitamin E (Dl,Tocopheryl Acet) [Vitamin E (400 Iu = 180 mg)] 400 unit PO DAILY 05/21/22 [History] traMADol HCl [Ultram] 50 mg PO BID PRN 05/21/22 [History] Citalopram Hydrobromide [CeleXA] 20 mg PO DAILY 07/23/22 [History] Follow up Appointment(s)/Referral(s): Alvaro Johnson DO [Primary Care Provider] - 1-2 days (call office to make follow up appointment) Milton Uribe MD [STAFF PHYSICIAN] - 08/07/22 2:45 pm (all other appointments were cancelled, this is your new appointment) Patient Instructions/Handouts: Chest Pain (DC) Discharge Disposition: HOME SELF-CARE
--- NOTE | 2022-07-26 18:46 | CA ---
Lexiscan Nuclear Stress Test Report Name: Su Kim Exam Date: 07/25/2022 09:56 Exam Location: [place] Stress Ht (in): 62 Wt (lb): 245 BSA: 2.08 Ordering Phys: Jami Lopez Referring Phys: YONATHAN, Technologist: EDIN,, Age: 67 Gender: F : 1955 Procedure CPT: Indications: Reflex order-Stress test ICD-10 Codes: Patient History: Chest pain and Shortness of breath Medications: Meds past 24 hrs: Pretest Chest Pain: STRESS TEST Lexiscan Protocol Exercise Duration (min:sec): 02:[address] Depressions (mm): Angina Score: Lewis Score: Resting HR (bpm): 61 Peak HR (bpm): 101 Resting BP (mmHg): 140 / 75 Peak BP (mmHg): 169 / 63 MPHR: 153 Target HR: 130 % MPHR: 66 METS: 1.0 Total Dose: Peak Dose: Atropine: Double Product: 76206 BP Response: Stress Termination: Infusion complete Stress Symptoms: No chest pain or symptoms Stress Summary: ECG ANALYSIS Resting ECG: Stress ECG: CONCLUSIONS Nondiagnostic stress test Dr. Milton Uribe MD (Electronically Signed) Final Date: 26 July 2022 18:45
== END 2022-07-26 14:52 | disposition home or self-care (01) ==
LOC: EC 19:17 → INTOOBSV 20:59 → 3SCARD 20:59
PROVIDERS: ADMIT Hospitalist; ATTEND Hospitalist
DX: R07.89 Other chest pain (principal); I16.1 Hypertensive emergency; N17.9 Acute kidney failure, unspecified; E66.01 Morbid (severe) obesity due to excess calories; Z68.42 Body mass index [BMI] 45.0-49.9, adult; E78.5 Hyperlipidemia, unspecified; F32.A Depression, unspecified; F41.9 Anxiety disorder, unspecified; K58.9 Irritable bowel syndrome, unspecified; K21.9 Gastro-esophageal reflux disease without esophagitis; I10 Essential (primary) hypertension; E11.9 Type 2 diabetes mellitus without complications; R26.9 Unspecified abnormalities of gait and mobility; J44.9 Chronic obstructive pulmonary disease, unspecified; R41.3 Other amnesia; M19.90 Unspecified osteoarthritis, unspecified site; Z85.3 Personal history of malignant neoplasm of breast; Z87.19 Personal history of other diseases of the digestive system; Z98.890 Other specified postprocedural states; Z87.891 Personal history of nicotine dependence; Z82.49 Family history of ischemic heart disease and other diseases of the circulatory system; Z83.3 Family history of diabetes mellitus; Z90.13 Acquired absence of bilateral breasts and nipples; Z79.84 Long term (current) use of oral hypoglycemic drugs; Z79.82 Long term (current) use of aspirin; Z79.899 Other long term (current) drug therapy; Z88.6 Allergy status to analgesic agent
CPT/HCPCS: 96376; 96374; 96375; 99285; 36415; 93005; 93017; 85379; 83880; 80061; 80053 ×2; 80048; 84443; 83735; 84484 ×2; 85025; 85610; 85730; 71046; 71275; 78452; G0378 ×4; A9500; J0360 ×2; J2405 ×2; J2785; Q9967

== ENCOUNTER → 2022-09-13 | Day surgery (SDC) | payer MEDICARE, OTHER ==
[~2022-09-13] MED LIST changes: +ALPRAZolam 0.25 MG TAB PO PRN; +ALPRAZolam 0.5 MG TAB ONE; +ALPRAZolam 0.5 MG TAB PO PRN; +ASPIRIN 325 MG TAB PO ONE; +ATORVASTATIN 80 MG TAB PO ONE; -DEXAMETHASONE SOD PHOSPHATE 4 MG/ML 1 ML VIAL IV ONE; +ENALAPRILAT 1.25 MG/ML 1 ML VIAL IV ONE; +ENALAPRILAT 1.25 MG/ML 1 ML VIAL ONE; +HEPARIN SODIUM 1,000 UN/ML (10ML VL) IV ONE; +HEPARIN SODIUM 1,000 UN/ML (10ML VL) ONE; +HEPARIN SODIUM,PORCINE 10,000 UNIT in SODIUM CHLORIDE 0.9% 1,000 ML IRRIGATION PRN; +HEPARIN SODIUM,PORCINE 2,500 UNIT in SODIUM CHLORIDE 0.9% 250 ML IRRIGATION PRN; -HEPARIN SODIUM,PORCINE/PF 5,000 UNIT/0.5 ML SYRINGE SQ PRN; -HYDROmorphone 0.5 MG/0.5 ML SYRINGE IVP PRN; +IOPAMIDOL-370 100ML BTL INJ ONE; -LIDOCAINE 1% (10MG/ML) FOR IV START INTRADERMA PRN; +LIDOCAINE 1% INJ 10MG/ML (20 ML MDV) ONE; +LIDOCAINE 1% INJ 10MG/ML (5 ML VIAL-PF) SQ ONE; +MIDAZOLAM 2 MG/2 ML VIAL IVP ONE; +NITROGLYCERIN SL TABS 0.4 MG TAB SUBLINGUAL PRN; -ONDANSETRON 4 MG/2 ML VIAL IVP ONE; +ONDANSETRON 4 MG/2 ML VIAL ONE; -Pre Op ABX Message 1 EACH MISC MISCELLANE ONE; +RX INFO: IV CONTRAST WAS GIVEN 1 EACH MISC MISCELLANE PRN; +SODIUM CHLORIDE 0.9% 1,000 ML IV SCH; +SODIUM CHLORIDE 0.9% 1,000 ML in EMPTY BAG 1 BAG IV SCH; +VERAPAMIL 2.5 MG/ML 2 ML AMP ONE; +VERAPAMIL SYRINGE (5 MG/10 ML) INTRAARTER ONE; +carvediloL 3.125 MG TAB PO STA; +hydrALAZINE HCL 20 MG/ML 1 ML VIAL IV ONE; +hydrALAZINE HCL 20 MG/ML 1 ML VIAL ONE
[2022-09-13 12:03] LABS: Glucose,Whole Blood 93 mg/dL (70-110)
--- NOTE | 2022-09-13 13:53 | P.PCN ---
Operative Findings: CARDIAC CATHETERIZATION PERFORMING PHYSICIAN: Milton Uribe MD, RPVI PROCEDURE PERFORMED: 1. Selective right and left coronary angiogram 2. Left heart catheterization 3. Ultrasound guided access of the right radial artery INDICATION: Chest discomfort concerning for unstable angina COMPLICATION: None APPROACH: Right radial artery LEVEL OF SEDATION: Moderate with a sedation length of 11 minutes PROCEDURE DESCRIPTION: After obtaining an informed consent, the patient was brought to cardiac crime lab analyst. Local anesthesia was performed using lidocaine subcutaneously. The right radial artery was cannulated using Seldinger technique, the guidewire passed easily, following that we advanced a 5-Bengali sheath dilator assembly, the wire and dilator were removed and sheath was flushed. Following that, 2 mg of verapamil along with 5000 unit heparin were given. Selective right and left coronary angiogram using a 6-Bengali JR4 and JL 3.5 catheters. Following that we did left heart catheterization using 6-Bengali pigtail catheter. The procedure was completed there was no complication. SELECTIVE CORONARY ANGIOGRAM: The right coronary artery: Large caliber vessel and a dominant vessel. Its angiographically normal. Left main: It is angiographically normal. Bifurcates into an LCx and LAD The left circumflex: Large caliber vessel nondominant vessel. Its angiographically normal. Gives rise into an OM1 and OM 21 both appeared to be angiographically normal The left anterior descending artery: Large caliber vessel. Its angiographically normal. It gives rise into a diagonal which bifurcates into 2 subbranches appeared to be angiographically normal HEMODYNAMICS: Tthe LVEDP was 6 mmHg was no significant gradient across aortic valve CONCLUSION: 1. Normal coronary angiogram 2. Normal left-sided filling pressure POSTPROCEDURE MANAGEMENT: Medical treatment
[2022-09-13 18:32] VITALS: PULSE 85; RESP 16
[2022-09-13 21:56] VITALS: BP 230/138; TEMP 98.4
== END ==
LOC: CATHCVL 11:21
PROVIDERS: ATTEND Internal Medicine Interventional Cardiology
DX: I25.10 Atherosclerotic heart disease of native coronary artery without angina pectoris (principal); I10 Essential (primary) hypertension; E78.5 Hyperlipidemia, unspecified; E11.9 Type 2 diabetes mellitus without complications; F17.210 Nicotine dependence, cigarettes, uncomplicated; I65.23 Occlusion and stenosis of bilateral carotid arteries; Z79.82 Long term (current) use of aspirin; Z79.899 Other long term (current) drug therapy; Z85.3 Personal history of malignant neoplasm of breast
CPT/HCPCS: 93458; 76937; C1769 ×2; C1894; J2250; J0360; J2405; J2001; J1644; Q9967

== ENCOUNTER 2022-11-21 16:14 | Emergency (ER) | payer MEDICARE, OTHER ==
[2022-11-21] MEDS ORDERED: LABETALOL 5 MG/ML VIAL MDV IVP STA (18:01)
[2022-11-21 18:21] LABS: Basophils % (A) 1 %; Eosinophils # (A) 0.2 k/uL (0-0.7); Eosinophils % (A) 3 %; HCT 36.4 % (34.0-46.0); HGB 12.3 gm/dL (11.4-16.0); Lymphocytes # (A) 1.4 k/uL (1.0-4.8); Lymphocytes % (A) 27 %; MCH 31.1 pg (25.0-35.0); MCHC 33.8 g/dL (31.0-37.0); MCV 92.1 fL (80.0-100.0); Mean Platelet Volume 9.2; Monocytes # (A) 0.4 k/uL (0-1.0); Monocytes % (A) 7 %; Neutrophils # (A) 3.2 k/uL (1.3-7.7); Neutrophils % (A) 60 %; Platelet Count 115 k/uL (150-450); RBC 3.95 m/uL (3.80-5.40); RDW 13.7 % (11.5-15.5); WBC 5.3 k/uL (3.8-10.6)
[2022-11-21 19:01] LABS: ALT 38 U/L (4-34); African American GFR (CKD) 74 (>60 ml/min/1.73 sqM); Albumin 3.9 g/dL (3.5-5.0); Anion Gap 10 mmol/L; Blood Urea Nitrogen 21 mg/dL (7-17); Calcium 9.3 mg/dL (8.4-10.2); Carbon Dioxide 26 mmol/L (22-30); Chloride 106 mmol/L (98-107); Glucose 106 mg/dL (74-99); Non-African American GFR(CKD) 64 (>60 ml/min/1.73 sqM); Sodium 142 mmol/L (137-145); Total Bilirubin 0.4 mg/dL (0.2-1.3); Total Protein 6.7 g/dL (6.3-8.2)
[2022-11-21 19:02] LABS: AST 37 U/L (14-36); Alkaline Phosphatase 90 U/L (38-126); Potassium 4.1 mmol/L (3.5-5.1)
[2022-11-21] MEDS ORDERED: cloNIDine HCL 0.2 MG TAB PO STA (19:14)
--- NOTE | 2022-11-21 20:09 | ED ---
Headache HPI - General Chief Complaint: Headache Stated Complaint: referal - high bp headaches Time Seen by Provider: 11/21/22 16:45 Mode of arrival: ambulatory Limitations: no limitations - History of Present Illness Initial Comments: This patient is 67-year-old woman presenting to have evaluation of headache. The patient had been at [facility] and mentioned the headache to them and they sent her here for evaluation. At triage the patient stated the headache was moderate intensity, however when I evaluate the patient she states that this is the worst headache she has had. Patient denies fever or chills. No neck stiffness. No neurologic symptoms. MD Complaint: headache -: hour(s) Onset Description: gradual Location: diffuse Severity: severe Quality: aching, worst headache of life Consistency: constant Improves With: nothing Worsens With: none Context: occurred at rest Treatments Prior to Arrival: none - Related Data Home Medications Medication Instructions Recorded Confirmed Aspirin [Adult Low Dose Aspirin EC] 81 mg PO DAILY 08/01/20 11/21/22 Dicyclomine [Bentyl] 10 mg PO TID 08/01/20 11/21/22 Nitroglycerin Sl Tabs [Nitrostat] 0.4 mg SL Q5M PRN 08/01/20 11/21/22 Pantoprazole Sodium 40 mg PO DAILY 08/01/20 11/21/22 glipiZIDE [Glucotrol] 5 mg PO TID 08/01/20 11/21/22 traZODone HCL [Desyrel] 100 mg PO HS 08/01/20 11/21/22 Atorvastatin Calcium [Lipitor] 10 mg PO DAILY 11/26/20 11/21/22 Brexpiprazole [Rexulti] 2 mg PO DAILY 11/26/20 11/21/22 Topiramate [Topamax] 50 mg PO DAILY 11/26/20 11/21/22 Cholecalciferol [Vitamin D3 (25 50 mcg PO DAILY 03/14/21 11/21/22 Mcg = 1000 Iu)] Isosorbide Dinitrate 30 mg PO DAILY 06/16/21 11/21/22 traZODone HCL 50 mg PO HS 06/16/21 11/21/22 Benzonatate [Tessalon Perle] 200 mg PO TID PRN 05/21/22 11/21/22 Cinnamon Bark [Cinnamon] 500 mg PO DAILY 05/21/22 11/21/22 Ketoconazole 2% Cream [Nizoral 2%] 1 applic TOPICAL HS PRN 05/21/22 11/21/22 Losartan Potassium [Cozaar] 100 mg PO DAILY 05/21/22 11/21/22 traMADol HCl [Ultram] 50 mg PO BID PRN 05/21/22 11/21/22 Citalopram Hydrobromide [CeleXA] 20 mg PO DAILY 07/23/22 11/21/22 Tirzepatide [Mounjaro] 2.5 mg SQ TH 09/12/22 11/21/22 Rimegepant Sulfate [Nurtec Odt] 75 mg PO DAILY PRN 09/13/22 11/21/22 Apple Cider Vinegar 450mg 450 mg PO DAILY 11/21/22 11/21/22 Calcium Carbonate [Calcium] 600 mg PO DAILY 11/21/22 11/21/22 Frida Root 550 Mg 550 mg PO DAILY 11/21/22 11/21/22 Magnesium Oxide [Magox 400] 400 mg PO DAILY 11/21/22 11/21/22 Nystatin 100,000 Unit/gm Powd 1 applic TOPICAL BID PRN 11/21/22 11/21/22 [Mycostatin Powder] Potassium Chloride ER [K-Dur 10] 10 meq PO DAILY 11/21/22 11/21/22 amLODIPine [Norvasc] 5 mg PO DAILY 11/21/22 11/21/22 carvediloL [Coreg] 3.125 mg PO BID 11/21/22 11/21/22 hydrOXYzine pamoate [hydrOXYzine 25 mg PO TID PRN 11/21/22 11/21/22 PAMOATE] metFORMIN HCL 1,000 mg PO BID 11/21/22 11/21/22 Previous Rx's Medication Instructions Recorded Acetaminophen Tab [Tylenol] 650 mg PO Q6HR PRN #0 tab 06/17/21 Allergies Allergy/AdvReac Type Severity Reaction Status Date / Time naproxen AdvReac Nausea & Verified 11/21/22 18:48 Vomiting Review of Systems ROS Statement: Those systems with pertinent positive or pertinent negative responses have been documented in the HPI. ROS Other: All systems not noted in ROS Statement are negative. Constitutional: Denies: fever, chills, weakness Eyes: Denies: eye pain, vision change Respiratory: Denies: cough, dyspnea Cardiovascular: Denies: chest pain, palpitations, edema, syncope Gastrointestinal: Denies: abdominal pain, vomiting, diarrhea Musculoskeletal: Denies: back pain Skin: Denies: rash Neurological: Reports: headache. Denies: weakness, numbness, confusion Psychiatric: Denies: anxiety, homicidal thoughts, suicidal thoughts Past Medical History Past Medical History: Cancer, Chest Pain / Angina, COPD, Diabetes Mellitus, GERD/Reflux, Hyperlipidemia, Hypertension, Memory Impairment, Osteoarthritis (OA) Additional Past Medical History / Comment(s): HX BREAST CANCER left 2004 2020 rt breast chest pain 09/11 resolved qith 1 ntg sublingual. diverticulitis, IBS, Lymphedema (L) arm History of Any Multi-Drug Resistant Organisms: None Reported Past Surgical History: Breast Surgery, Heart Catheterization, Tonsillectomy Additional Past Surgical History / Comment(s): BUNIONECTOMY. LT BREAST mastectomy w/some lymph nodes rt breast mastectomy. COLONOSCOPY Past Anesthesia/Blood Transfusion Reactions: No Reported Reaction Past Psychological History: Anxiety, Depression Smoking Status: Former smoker Past Alcohol Use History: None Reported Past Drug Use History: None Reported - Past Family History Mother Family Medical History: Congestive Heart Failure (CHF), Diabetes Mellitus Additional Family Medical History / Comment(s): Had colostomy Father Family Medical History: Chest Pain / Angina, Diabetes Mellitus Additional Family Medical History / Comment(s): Colostomy General Exam Limitations: no limitations General appearance: alert, in no apparent distress Head exam: Present: atraumatic, normocephalic Eye exam: Present: normal appearance, PERRL, EOMI. Absent: scleral icterus, conjunctival injection, nystagmus ENT exam: Present: normal oropharynx Neck exam: Present: normal inspection, full ROM. Absent: meningismus Respiratory exam: Present: normal lung sounds bilaterally. Absent: respiratory distress, wheezes, rales, rhonchi, stridor Cardiovascular Exam: Present: regular rate, normal rhythm, normal heart sounds GI/Abdominal exam: Present: soft. Absent: distended, tenderness, guarding, rebound Extremities exam: Present: normal inspection, normal capillary refill Back exam: Present: normal inspection. Absent: vertebral tenderness Neurological exam: Present: alert, oriented X3, CN II-XII intact. Absent: motor sensory deficit Skin exam: Present: warm, dry, intact, normal color. Absent: rash Course Vital Signs 11/21/22 11/21/22 11/21/22 16:38 18:12 18:37 Temperature 97.9 F Pulse Rate 105 H 79 Respiratory 18 18 Rate Blood Pressure 190/157 151/109 180/108 O2 Sat by Pulse 95 96 Oximetry 11/21/22 11/21/22 11/21/22 19:15 20:00 21:03 Temperature 98.0 F Pulse Rate 79 80 96 Respiratory 16 18 18 Rate Blood Pressure 173/106 117/84 158/77 O2 Sat by Pulse 93 L 92 L 94 L Oximetry Medical Decision Making - Medical Decision Making The patient had CT of the brain which I interpreted as negative for acute intracranial hemorrhage. No acute bony injury This patient is 67-year-old woman here to have evaluation for headache a ssociated with hypertension. Patient stated that this headache is definitely of a different character than the usual headaches that she gets and stated it was worst headache of life. Therefore computed tomography scan is obtained with results as above. Was pt. sent in by a medical professional or institution (, PA, WINDING INSPECTOR, urgent care, hospital, or [facility]...) When possible be specific @ -The patient advised to come here by [facility] personnel Did you speak to anyone other than the patient for history (EMS, parent, family, police, friend...)? What history was obtained from this source @ -[No] Did you review nursing and triage notes (agree or disagree)? Why? @ -[I reviewed and agree with nursing and triage notes] Were old charts reviewed (outside hosp., previous admission, EMS record, old EKG, old radiological studies, urgent care reports/EKG's, [facility] records)? Report findings @ -[No old charts were reviewed] Differential Diagnosis (chest pain, altered mental status, abdominal pain women, abdominal pain men, vaginal bleeding, weakness, fever, dyspnea, syncope, headache, dizziness, GI bleed, back pain, seizure, CVA, palpatations, mental health, musculoskeletal)? @ -[Differential Headache: Migraine, tension, cluster, carbon monoxide, central venous thrombosis, pension karma temporal arteritis, acute closure glaucoma, intercranial hemorrhage, mastoiditis, sinusitis, head injury, this is not meant to be an all-inclusive list. EKG interpreted by me (3pts min.). @ -[As above] X-rays interpreted by me (1pt min.). @ -[None done] CT interpreted by me (1pt min.). @ -[I interpreted as above U/S interpreted by me (1pt. min.). @ -[None done] What testing was considered but not performed or refused? (CT, X-rays, U/S, labs)? Why? @ -[None] What meds were considered but not given or refused? Why? @ -[None] Did you discuss the management of the patient with other professionals (professionals i.e. DrSudhakar, PA, WINDING INSPECTOR, lab, RT, psych nurse, nursing home social worker, air duct mechanic, teacher, radiation safety officer, director of casework services)? Give summary @ -[No] Was smoking cessation discussed for >3mins.? @ -[No] Was critical care preformed (if so, how long)? @ -[No] Were there social determinants of health that impacted care today? How? (Homelessness, low income, unemployed, alcoholism, drug addiction, transportation, low edu. Level, literacy, decrease access to med. care, custodial, rehab)? @ -[No] Was there de-escalation of care discussed even if they declined (Discuss DNR or withdrawal of care, Hospice)? DNR status @ -[No] What co-morbidities impacted this encounter? (DM, HTN, Smoking, COPD, CAD, Cancer, CVA, ARF, Chemo, Hep., AIDS, mental health diagnosis, sleep apnea, morbid obesity)? @ -[None] Was patient admitted / discharged? Hospital course, mention meds given and route, prescriptions, significant lab abnormalities, going to OR and other pertinent info. @ -[Patient is 67-year-old woman here with headache, she did have improvement with medications, and did want to go home following the studies. We discussed appropriate care and follow-up as well as return parameters. Undiagnosed new problem with uncertain prognosis? @ -[No] Drug Therapy requiring intensive monitoring for toxicity (Heparin, Nitro, Insulin, Cardizem)? @ -[No] Were any procedures done? @ -[No] Diagnosis/symptom? @ -Acute headache Acute on chronic hypertension Acute, or Chronic, or Acute on Chronic? @ -[default] Uncomplicated (without systemic symptoms) or Complicated (systemic symptoms)? @ -[Uncomplicated Side effects of treatment? @ -[No] Exacerbation, Progression, or Severe Exacerbation? @ -[No] Poses a threat to life or bodily function? How? (Chest pain, USA, [place], pneumonia, PE, COPD, DKA, ARF, appy, cholecystitis, CVA, Diverticulitis, Homicidal, Suicidal, threat to staff... and all critical care pts) @ -[No] - Lab Data Result diagrams: 11/21/22 18:08 11/21/22 18:30 Lab Results 11/21/22 11/21/22 Range/Units 18: 18:30 WBC 5.3 (3.8-10.6) k/uL RBC 3.95 (3.80-5.40) m/uL Hgb 12.3 (11.4-16.0) gm/dL Hct 36.4 (34.0-46.0) % MCV 92.1 (80.0-100.0) fL MCH 31.1 (25.0-35.0) pg MCHC 33.8 (31.0-37.0) g/dL RDW 13.7 (11.5-15.5) % Plt Count 115 L (150-450) k/uL MPV 9.2 Neutrophils % 60 % Lymphocytes % 27 % Monocytes % 7 % Eosinophils % 3 % Basophils % 1 % Neutrophils # 3.2 (1.3-7.7) k/uL Lymphocytes # 1.4 (1.0-4.8) k/uL Monocytes # 0.4 (0-1.0) k/uL Eosinophils # 0.2 (0-0.7) k/uL Basophils # 0.0 (0-0.2) k/uL Sodium 142 (137-145) mmol/L Potassium 4.1 (3.5-5.1) mmol/L Chloride 106 (98-107) mmol/L Carbon Dioxide 26 (22-30) mmol/L Anion Gap 10 mmol/L BUN 21 H (7-17) mg/dL Creatinine 0.93 (0.52-1.04) mg/dL Est GFR (CKD-EPI)AfAm 74 (>60 ml/min/1.73 sqM) Est GFR (CKD-EPI)NonAf 64 (>60 ml/min/1.73 sqM) Glucose 106 H (74-99) mg/dL Calcium 9.3 (8.4-10.2) mg/dL Total Bilirubin 0.4 (0.2-1.3) mg/dL AST 37 H (14-36) U/L ALT 38 H (4-34) U/L Alkaline Phosphatase 90 (38-126) U/L Total Protein 6.7 (6.3-8.2) g/dL Albumin 3.9 (3.5-5.0) g/dL - EKG Data -: EKG Interpreted by Ca EKG shows normal: sinus rhythm, QRS complexes (Left anterior fascicular block) Rate: normal (Rate 91 bpm) Interpretation: nonspecific ST-T wave changes, LVH (By voltage criteria) Disposition Clinical Impression: Headache, Hypertension Disposition: HOME SELF-CARE Condition: Good Instructions (If sedation given, give patient instructions): Acute Headache (ED), Hypertension (ED) Is patient prescribed a controlled substance at d/c from ED?: No Referrals: Alvaro Johnson DO [Primary Care Provider] - 1-2 days
[2022-11-21 20:20] VITALS: RESP 18
--- NOTE | 2022-11-21 20:33 | CT ---
EXAMINATION TYPE: CT brain wo con DATE OF EXAM: 11/21/2022 HISTORY: headache CT DLP: 1162.8 mGycm. Automated Exposure Control for Dose Reduction was Utilized. TECHNIQUE: CT scan of the head is performed without contrast. COMPARISON: 05/20/2021 FINDINGS: There is no acute intracranial hemorrhage or midline shift identified. Stable small arachno id cyst high over the right convexity. The calvarium is intact. The globes are intact. Mastoid sinus air cells, middle ear cavities, and par anasal sinuses are clear. IMPRESSION: No acute process.
[2022-11-21] MEDS ORDERED: BUTALB/APAP/CAFF 50-325-40MG TAB PO STA (20:51)
[2022-11-21 21:14] VITALS: BP 158/77; PULSE 96; TEMP 98
== END 2022-11-21 21:07 | disposition home or self-care (01) ==
LOC: EC 16:14
DX: R51.9 Headache, unspecified (principal); I10 Essential (primary) hypertension; I44.4 Left anterior fascicular block; E11.9 Type 2 diabetes mellitus without complications; J44.9 Chronic obstructive pulmonary disease, unspecified; K21.9 Gastro-esophageal reflux disease without esophagitis; E78.5 Hyperlipidemia, unspecified; M19.90 Unspecified osteoarthritis, unspecified site; F41.9 Anxiety disorder, unspecified; F32.A Depression, unspecified; Z87.891 Personal history of nicotine dependence; Z79.1 Long term (current) use of non-steroidal anti-inflammatories (NSAID); Z79.84 Long term (current) use of oral hypoglycemic drugs; Z79.82 Long term (current) use of aspirin; Z79.899 Other long term (current) drug therapy; Z88.8 Allergy status to other drugs, medicaments and biological substances; Z88.6 Allergy status to analgesic agent
CPT/HCPCS: 36415; 93005; 80053; 85025; 70450; 99284; 96374; J1920

== ENCOUNTER 2023-02-13 12:22 | Emergency (ER) | payer MEDICARE, OTHER ==
--- NOTE | 2023-02-13 15:22 | ED ---
General Adult HPI - General Source: patient Mode of arrival: ambulatory Limitations: no limitations <Abner Webb - Last Filed: 02/13/23 15:23> <Lucina Ahuja - Last Filed: 02/14/23 00:03> - General Chief complaint: Recheck/Abnormal Lab/Rx Stated complaint: High bp - History of Present Illness Initial comments: 67-year-old female with a past medical history significant for hypertension presents to the ED with chief complaint of high blood pressure. Patient states that she goes to [facility]. States when she goes there her blood pressure gets checked regularly. Patient notes over the past 2-3 weeks nurse tells her her blood pressure has been elevated. States over the past 2-3 weeks has also had headache. States today headache has worsened in severity upon presentation to the ED for further evaluation. Denies chest pain or shortness of breath. (Abner Webb) Su is a pleasant 67yo F who presents to the ER today for evaluation of hypertension. Patient's BP is monitored at her regular appointments with [facility] they've noted over the past 3 weeks she's had worsening hypertension despite patient's reported compliance with her oral antihypertensives. Recently her dose of amlodipine has been increased. Patient does note she had a mild headache for the past week or so but nothing too bothersome no vision changes no neuro deficits. Patient was told that due to persistent hypertension she's come to the ER. Patient denies any chest pain palpitations or shortness breath. She denies any decreased urine output. She reports she's been compliant with her medications. (Lucina Ahuja) - Related Data Home Medications Medication Instructions Recorded Confirmed Aspirin [Adult Low Dose Aspirin EC] 81 mg PO DAILY 08/01/20 11/21/22 Dicyclomine [Bentyl] 10 mg PO TID 08/01/20 11/21/22 Nitroglycerin Sl Tabs [Nitrostat] 0.4 mg SL Q5M PRN 08/01/20 11/21/22 Pantoprazole Sodium 40 mg PO DAILY 08/01/20 11/21/22 glipiZIDE [Glucotrol] 5 mg PO TID 08/01/20 11/21/22 traZODone HCL [Desyrel] 100 mg PO HS 08/01/20 11/21/22 Atorvastatin Calcium [Lipitor] 10 mg PO DAILY 11/26/20 11/21/22 Brexpiprazole [Rexulti] 2 mg PO DAILY 11/26/20 11/21/22 Topiramate [Topamax] 50 mg PO DAILY 11/26/20 11/21/22 Cholecalciferol [Vitamin D3 (25 50 mcg PO DAILY 03/14/21 11/21/22 Mcg = 1000 Iu)] Isosorbide Dinitrate 30 mg PO DAILY 06/16/21 11/21/22 traZODone HCL 50 mg PO HS 06/16/21 11/21/22 Benzonatate [Tessalon Perle] 200 mg PO TID PRN 05/21/22 11/21/22 Cinnamon Bark [Cinnamon] 500 mg PO DAILY 05/21/22 11/21/22 Ketoconazole 2% Cream [Nizoral 2%] 1 applic TOPICAL HS PRN 05/21/22 11/21/22 Losartan Potassium [Cozaar] 100 mg PO DAILY 05/21/22 11/21/22 traMADol HCl [Ultram] 50 mg PO BID PRN 05/21/22 11/21/22 Citalopram Hydrobromide [CeleXA] 20 mg PO DAILY 07/23/22 11/21/22 Tirzepatide [Mounjaro] 2.5 mg SQ TH 09/12/22 11/21/22 Rimegepant Sulfate [Nurtec Odt] 75 mg PO DAILY PRN 09/13/22 11/21/22 Apple Cider Vinegar 450mg 450 mg PO DAILY 11/21/22 11/21/22 Calcium Carbonate [Calcium] 600 mg PO DAILY 11/21/22 11/21/22 Frida Root 550 Mg 550 mg PO DAILY 11/21/22 11/21/22 Magnesium Oxide [Magox 400] 400 mg PO DAILY 11/21/22 11/21/22 Nystatin 100,000 Unit/gm Powd 1 applic TOPICAL BID PRN 11/21/22 11/21/22 [Mycostatin Powder] Potassium Chloride ER [K-Dur 10] 10 meq PO DAILY 11/21/22 11/21/22 amLODIPine [Norvasc] 5 mg PO DAILY 11/21/22 11/21/22 carvediloL [Coreg] 3.125 mg PO BID 11/21/22 11/21/22 hydrOXYzine pamoate [hydrOXYzine 25 mg PO TID PRN 11/21/22 11/21/22 PAMOATE] metFORMIN HCL 1,000 mg PO BID 11/21/22 11/21/22 Previous Rx's Medication Instructions Recorded Acetaminophen Tab [Tylenol] 650 mg PO Q6HR PRN #0 tab 06/17/21 Allergies Allergy/AdvReac Type Severity Reaction Status Date / Time naproxen AdvReac Nausea & Verified 02/13/23 15:17 Vomiting Review of Systems ROS Other: All systems not noted in ROS Statement are negative. <Abner Webb - Last Filed: 02/13/23 15:23> ROS Other: All systems not noted in ROS Statement are negative. <Lucina Ahuja - Last Filed: 02/14/23 00:03> ROS Statement: Those systems with pertinent positive or pertinent negative responses have been documented in the HPI. Past Medical History Past Medical History: Cancer, Chest Pain / Angina, COPD, Diabetes Mellitus, GERD/Reflux, Hyperlipidemia, Hypertension, Memory Impairment, Osteoarthritis (OA) Additional Past Medical History / Comment(s): HX BREAST CANCER left 2004 2020 rt breast chest pain 09/11 resolved qith 1 ntg sublingual. diverticulitis, IBS, Lymphedema (L) arm History of Any Multi-Drug Resistant Organisms: None Reported Past Surgical History: Breast Surgery, Heart Catheterization, Tonsillectomy Additional Past Surgical History / Comment(s): BUNIONECTOMY. LT BREAST mastectomy w/some lymph nodes rt breast mastectomy. COLONOSCOPY Past Anesthesia/Blood Transfusion Reactions: No Reported Reaction Past Psychological History: Anxiety, Depression Smoking Status: Former smoker Past Alcohol Use History: None Reported Past Drug Use History: None Reported - Past Family History Mother Family Medical History: Congestive Heart Failure (CHF), Diabetes Mellitus Additional Family Medical History / Comment(s): Had colostomy Father Family Medical History: Chest Pain / Angina, Diabetes Mellitus Additional Family Medical History / Comment(s): Colostomy <Abner Webb - Last Filed: 02/13/23 15:23> General Exam Limitations: no limitations <Abner Webb - Last Filed: 02/13/23 15:23> - General Exam Comments Initial Comments: Visual Physical Exam Vital signs reviewed General: Well-appearing, nontoxic, no acute distress. Head: Normocephalic, atraumatic Eyes: PERRLA, EOMI ENT: Airway patent Chest: Nonlabored breathing Skin: No visual rash, normal skin tone Neuro: Alert and oriented 3 Musculoskeletal: No gross abnormalities (Abner Webb) Course Vital Signs 02/13/23 02/13/23 02/13/23 15:14 21:26 22:55 Temperature 98.2 F Pulse Rate 84 84 71 Respiratory 22 18 16 Rate Blood Pressure 183/124 174/100 132/80 O2 Sat by Pulse 94 L Oximetry Medical Decision Making <Abner Webb - Last Filed: 02/13/23 15:23> - Lab Data Result diagrams: 02/13/23 18:44 02/13/23 18:44 <Lucina Ahuja - Last Filed: 02/14/23 00:03> - Medical Decision Making Quicknote portion performed. Signed Abner Webb PA-C (Abner Webb) Was pt. sent in by a medical professional or institution (DINORAH Bustos, NURSE COMPANION, urgent care, hospital, or care home...) When possible be specific @ -Sent by caregivers at [facility] Did you speak to anyone other than the patient for history (EMS, parent, family, police, friend...)? What history was obtained from this source @ -No Did you review nursing and triage notes (agree or disagree)? Why? @ -I reviewed and agree with nursing and triage notes Were old charts reviewed (outside hosp., previous admission, EMS record, old EKG, old radiological studies, urgent care reports/EKG's, care home records)? Report findings @ - visits reviewed Differential Diagnosis (chest pain, altered mental status, abdominal pain women, abdominal pain men, vaginal bleeding, weakness, fever, dyspnea, syncope, headache, dizziness, GI bleed, back pain, seizure, CVA, palpatations, mental health)? @ -Hypertension, secondary hypertension EKG interpreted by me (3pts min.). @ -As above X-rays interpreted by me (1pt min.). @ -None done CT interpreted by me (1pt min.). @ -None done U/S interpreted by me (1pt. min.). @ -None done What testing was considered but not performed or refused? (CT, X-rays, U/S, labs)? Why? @ -CT was considered due to patient's complaint of mild headache however the symptoms are very minimal and not bothersome I do not have concern for hyper tensive encephalopathy or acute bleed What meds were considered but not given or refused? Why? @ -None Did you discuss the management of the patient with other professionals (professionals i.e. , PA, NURSE COMPANION, lab, RT, psych nurse, social media coordinator, roofer, teacher, ship's officer, piano case maker)? Give summary @ -No Was smoking cessation discussed for >3mins.? @ -No Was critical care preformed (if so, how long)? @ -No Were there social determinants of health that impacted care today? How? (Homelessness, low income, unemployed, alcoholism, drug addiction, transportation, low edu. Level, literacy, decrease access to med. care, [facility], rehab)? @ -No Was there de-escalation of care discussed even if they declined (Discuss DNR or withdrawal of care, Hospice)? DNR status @ -No What co-morbidities impacted this encounter? (DM, HTN, Smoking, COPD, CAD, Cancer, CVA, ARF, Chemo, Hep., AIDS, mental health diagnosis, sleep apnea, morbid obesity)? @ -Mental Health Was patient admitted / discharged? Hospital course, mention meds given and route, prescriptions, significant lab abnormalities, going to OR and other pertinent info. @ -Discharge Undiagnosed new problem with uncertain prognosis? @ -No Drug Therapy requiring intensive monitoring for toxicity (Heparin, Nitro, Insulin, Cardizem)? @ -No Were any procedures done? @ -No Diagnosis/symptom? @ Hypertension Acute, or Chronic, or Acute on Chronic? @ -Acute on Chronic Uncomplicated (without systemic symptoms) or Complicated (systemic symptoms)? @ -Uncomplicated Side effects of treatment? @ -No Exacerbation, Progression, or Severe Exacerbation? @ -No Poses a threat to life or bodily function? How? (Chest pain, USA, [place], pneumonia, PE, COPD, DKA, ARF, appy, cholecystitis, CVA, Diverticulitis, Homicidal, Suicidal, threat to staff... and all critical care pts) @ -Unlikely (Lucina Ahuja) - Lab Data Lab Results 02/13/23 02/13/23 02/13/23 Range/Units 18:44 18:44 18:44 WBC 5.9 (3.8-10.6) k/uL RBC 5.06 (3.80-5.40) m/uL Hgb 14.9 (11.4-16.0) gm/dL Hct 46.9 H (34.0-46.0) % MCV 92.6 (80.0-100.0) fL MCH 29.5 (25.0-35.0) pg MCHC 31.8 (31.0-37.0) g/dL RDW 13.8 (11.5-15.5) % Plt Count 238 (150-450) k/uL MPV 7.7 Neutrophils % 50 % Lymphocytes % 38 % Monocytes % 5 % Eosinophils % 4 % Basophils % 1 % Neutrophils # 2.9 (1.3-7.7) k/uL Lymphocytes # 2.2 (1.0-4.8) k/uL Monocytes # 0.3 (0-1.0) k/uL Eosinophils # 0.3 (0-0.7) k/uL Basophils # 0.1 (0-0.2) k/uL Sodium 140 (137-145) mmol/L Potassium 5.0 (3.5-5.1) mmol/L Chloride 105 (98-107) mmol/L Carbon Dioxide 24 (22-30) mmol/L Anion Gap 11 mmol/L BUN 19 H (7-17) mg/dL Creatinine 0.77 (0.52-1.04) mg/dL Est GFR (CKD-EPI)AfAm >90 (>60 ml/min/1.73 sqM) Est GFR (CKD-EPI)NonAf 80 (>60 ml/min/1.73 sqM) Glucose 79 (74-99) mg/dL Calcium 8.9 (8.4-10.2) mg/dL Magnesium 2.1 (1.6-2.3) mg/dL Total Bilirubin 0.7 (0.2-1.3) mg/dL AST 42 H (14-36) U/L ALT 32 (4-34) U/L Alkaline Phosphatase 87 (38-126) U/L Troponin I <0.012 (0.000-0.034) ng/mL Total Protein 7.8 (6.3-8.2) g/dL Albumin 4.4 (3.5-5.0) g/dL Disposition <Abner Webb - Last Filed: 02/13/23 15:23> Is patient prescribed a controlled substance at d/c from ED?: No <Lucina Ahuja - Last Filed: 02/14/23 00:03> Clinical Impression: Hypertension Disposition: HOME SELF-CARE Condition: Stable Referrals: Alvaro Johnson DO [Primary Care Provider] - 1-2 days
--- NOTE | 2023-02-13 16:41 | XR ---
EXAMINATION TYPE: XR chest 2V DATE OF EXAM: 02/13/2023 4:06 PM CLINICAL INDICATION:Female, 67 years old with history of Chest Pain; COMPARISON: Chest radiographs from 07/23/2022. TECHNIQUE: XR chest 2V Frontal and lateral views of the chest. FINDINGS: Lungs/Pleura: There is flattening of the diaphragm with increased lucency of the lungs. No evidence o f pneumothorax, pleural effusion or focal consolidation. Pulmonary vascularity: Unremarkable. Heart/mediastinum: Cardiomediastinal silhouette is unremarkable. Musculoskeletal: No acute osseous pathology. IMPRESSION: 1. No acute cardiopulmonary disease process. 2. COPD changes.
[2023-02-13 18:53] LABS: Basophils # (A) 0.1 k/uL (0-0.2); Basophils % (A) 1 %; Eosinophils # (A) 0.3 k/uL (0-0.7); Eosinophils % (A) 4 %; HCT 46.9 % (34.0-46.0); HGB 14.9 gm/dL (11.4-16.0); Lymphocytes # (A) 2.2 k/uL (1.0-4.8); Lymphocytes % (A) 38 %; MCH 29.5 pg (25.0-35.0); MCHC 31.8 g/dL (31.0-37.0); MCV 92.6 fL (80.0-100.0); Mean Platelet Volume 7.7; Monocytes # (A) 0.3 k/uL (0-1.0); Monocytes % (A) 5 %; Neutrophils # (A) 2.9 k/uL (1.3-7.7); Neutrophils % (A) 50 %; Platelet Count 238 k/uL (150-450); RBC 5.06 m/uL (3.80-5.40); RDW 13.8 % (11.5-15.5); WBC 5.9 k/uL (3.8-10.6)
[2023-02-13 19:05] LABS: ALT 32 U/L (4-34); AST 42 U/L (14-36); African American GFR (CKD) >90 (>60 ml/min/1.73 sqM); Albumin 4.4 g/dL (3.5-5.0); Alkaline Phosphatase 87 U/L (38-126); Anion Gap 11 mmol/L; Blood Urea Nitrogen 19 mg/dL (7-17); Calcium 8.9 mg/dL (8.4-10.2); Carbon Dioxide 24 mmol/L (22-30); Chloride 105 mmol/L (98-107); Glucose 79 mg/dL (74-99); Magnesium 2.1 mg/dL (1.6-2.3); Non-African American GFR(CKD) 80 (>60 ml/min/1.73 sqM); Sodium 140 mmol/L (137-145); Total Bilirubin 0.7 mg/dL (0.2-1.3); Total Protein 7.8 g/dL (6.3-8.2)
[2023-02-13] MEDS ORDERED: cloNIDine HCL 0.1 MG TAB PO STA (21:43)
[2023-02-14 01:06] VITALS: BP 140/82; PULSE 73; RESP 14; TEMP 97.8
== END 2023-02-14 00:47 | disposition home or self-care (01) ==
LOC: EC 12:22
DX: I10 Essential (primary) hypertension (principal); J44.9 Chronic obstructive pulmonary disease, unspecified; E11.9 Type 2 diabetes mellitus without complications; E78.5 Hyperlipidemia, unspecified; K21.9 Gastro-esophageal reflux disease without esophagitis; M19.90 Unspecified osteoarthritis, unspecified site; F41.9 Anxiety disorder, unspecified; F32.A Depression, unspecified; Z87.891 Personal history of nicotine dependence; Z88.6 Allergy status to analgesic agent; Z79.84 Long term (current) use of oral hypoglycemic drugs; Z79.899 Other long term (current) drug therapy; Z79.82 Long term (current) use of aspirin
CPT/HCPCS: 36415; 71046; 80053; 83735; 84484; 85025; 93005; 99284

== ENCOUNTER → 2023-02-24 | Outpatient (CLI) | payer MEDICARE, OTHER ==
[2023-02-24 11:23] LABS: Partial Thromboplastin Time 24.8 sec (22.0-30.0)
[2023-02-24 15:15] LABS: HCT 44.4 % (37.2-46.3); HGB 14.2 g/dL (12.0-15.0); MCH 29.3 pg (27.0-32.0); MCV 91.7 FL (80.0-97.0); NRBC Per 100 WBC 0 X 10*3/uL (0.00-0.01); Platelet Count 257 X 10*3/uL (140-440); RBC 4.84 X 10*6/uL (4.10-5.20); RDW 14.1 % (11.5-14.5); WBC 5.55 X 10*3/uL (4.50-10.00)
[2023-02-24 15:34] LABS: Blood Urea Nitrogen 15.5 mg/dL (9.0-27.0); Carbon Dioxide 23.8 mmol/L (21.6-31.8); Chloride 108 mmol/L (96-109); Glucose 114 mg/dL (70-110); Potassium 4.3 mmol/L (3.5-5.5); Sodium 144 mmol/L (135-145)
[2023-02-24 15:35] LABS: ALT 25 U/L (8-44); AST 24 U/L (13-35); Albumin 4.1 g/dL (3.8-4.9); Albumin/Globulin Ratio 1.64 Ratio (1.60-3.17); Alkaline Phosphatase 90 U/L (41-126); Globulin 2.5 g/dL (1.6-3.3); Total Bilirubin 0.4 mg/dL (0.3-1.2); Total Protein 6.6 g/dL (6.2-8.2)
[2023-02-24 17:32] LABS: Appearance,Urine Slightly Cloudy (Clear); Bacteria,Urine 4+ (None Seen); Bilirubin,Urine Negative (Negative); Blood,Urine Negative (Negative); Calcium Oxalate Crystals,Urine Present (None Seen); Color,Urine Yellow (Yellow); Ketones,Urine Negative (Negative); Nitrite,Urine Positive (Negative); Specific Gravity,Urine 1.025 (1.001-1.030); Urobilinogen,Urine 0.2 (>1.0)
[2023-02-24 22:13] LABS: Prothrombin Time 10.6 sec (10.0-12.5)
== END | disposition home or self-care (01) ==
LOC: LABPAT 09:57
PROVIDERS: ATTEND Orthopaedic Surgery
DX: Z01.812 Encounter for preprocedural laboratory examination (principal); M17.12 Unilateral primary osteoarthritis, left knee
CPT/HCPCS: 36415; 80053; 81001; 85027; 85610; 85730; 87070

== ENCOUNTER 2023-03-03 10:17 | Observation (INO) | payer MEDICARE, OTHER ==
[2023-02-26 13:26] VITALS: BMI 45.7
[~2023-03-03 10:17] MED LIST changes: +ACETAMINOPHEN TAB 500 MG TAB PO PRN; -ALPRAZolam 0.25 MG TAB PO PRN; -ALPRAZolam 0.5 MG TAB ONE; -ALPRAZolam 0.5 MG TAB PO PRN; -ASPIRIN 325 MG TAB PO ONE; -ATORVASTATIN 80 MG TAB PO ONE; +DEXAMETHASONE SOD PHOSPHATE 4 MG/ML 1 ML VIAL IV ONE; -ENALAPRILAT 1.25 MG/ML 1 ML VIAL IV ONE; -ENALAPRILAT 1.25 MG/ML 1 ML VIAL ONE; -HEPARIN SODIUM 1,000 UN/ML (10ML VL) IV ONE; -HEPARIN SODIUM 1,000 UN/ML (10ML VL) ONE; -HEPARIN SODIUM,PORCINE 10,000 UNIT in SODIUM CHLORIDE 0.9% 1,000 ML IRRIGATION PRN; -HEPARIN SODIUM,PORCINE 2,500 UNIT in SODIUM CHLORIDE 0.9% 250 ML IRRIGATION PRN; -IOPAMIDOL-370 100ML BTL INJ ONE; +LIDOCAINE 1% (10MG/ML) FOR IV START INTRADERMA PRN; -LIDOCAINE 1% INJ 10MG/ML (20 ML MDV) ONE; -LIDOCAINE 1% INJ 10MG/ML (5 ML VIAL-PF) SQ ONE; +MELOXICAM 7.5 MG TAB PO PRN; +MIDAZOLAM 2 MG/2 ML VIAL IV PRN; -MIDAZOLAM 2 MG/2 ML VIAL IVP ONE; -NITROGLYCERIN SL TABS 0.4 MG TAB SUBLINGUAL PRN; +ONDANSETRON 4 MG/2 ML VIAL IVP ONE; +ONDANSETRON 4 MG/2 ML VIAL IVP PRN; -ONDANSETRON 4 MG/2 ML VIAL ONE; -RX INFO: IV CONTRAST WAS GIVEN 1 EACH MISC MISCELLANE PRN; -SODIUM CHLORIDE 0.9% 1,000 ML IV SCH; -SODIUM CHLORIDE 0.9% 1,000 ML in EMPTY BAG 1 BAG IV SCH; +TRANEXAMIC 1,000 MG/100ML-NACL 1,000 MG in SALINE 1 100ML.BAG IVPB PRN; -VERAPAMIL 2.5 MG/ML 2 ML AMP ONE; -VERAPAMIL SYRINGE (5 MG/10 ML) INTRAARTER ONE; -carvediloL 3.125 MG TAB PO STA; +fentaNYL (PF) 50 MCG/ML 2 ML AMP IVP PRN; -hydrALAZINE HCL 20 MG/ML 1 ML VIAL IV ONE; -hydrALAZINE HCL 20 MG/ML 1 ML VIAL ONE
[2023-03-03] MEDS: LACTATED RINGERS 1,000 ML IV SCH ×3 (11:03→17:21)
[2023-03-03 11:41] LABS: Glucose,Whole Blood 110 mg/dL (70-110)
--- NOTE | 2023-03-03 12:33 | P.ANPRN ---
Procedure Note - Anesthesia - Nerve Block Performed Left Meryck Single Time Out Performed: Yes Date of Procedure: 03/03/23 Procedure Start Time: 12:04 Procedure Stop Time: 12:09 Location of Patient: PreOp Indication: Acute Post-Operative Pain, Analgesia, Requested by Surgeon Sedation Type: Sedate with meaningful contact maintained Preparation: Sterile Prep Position: Right Lateral Catheter: None Needle Types: Pajunk Needle Gauge: 21 Ultrasound used to visualize needle placement: Yes Ultrasound used to observe medication spread: Yes Injectate: 0.5% Ropivacaine (see comment for volume) (Ropiv 15ml+NS10ml) Blood Aspirated: No Pain Paresthesia on Injection Noted: No Resistance on Injection: Normal Image Stored and Saved: Yes Events: Uneventful and Well Tolerated
[2023-03-03] MEDS ORDERED: ROPIVACAINE 1,100 MG, SODIUM CHLORIDE 0.9% 500 ML 330 ML, EMPTY PAIN BALL 1 EACH MISCELLANE PRN ×2 (12:35)
--- NOTE | 2023-03-03 12:35 | P.ANPRN ---
Procedure Note - Anesthesia - Nerve Block Performed Left Adductor Canal Infusion Time Out Performed: Yes Date of Procedure: 03/03/23 Procedure Start Time: 12:10 Procedure Stop Time: 12:07 Location of Patient: PreOp Indication: Acute Post-Operative Pain, Analgesia, Requested by Surgeon Sedation Type: Sedate with meaningful contact maintained Preparation: Sterile Prep Position: Supine Needle Types: Pajunk Needle Gauge: 21 Ultrasound used to visualize needle placement: Yes Ultrasound used to observe medication spread: Yes Injectate: 0.5% Ropivacaine (see comment for volume) (Ropiv 10ml+NS5ml) Blood Aspirated: No Pain Paresthesia on Injection Noted: No Resistance on Injection: Normal Image Stored and Saved: Yes Events: Uneventful and Well Tolerated
[2023-03-03] MEDS ORDERED: MIDAZOLAM 2 MG/2 ML VIAL ONE (12:39)
[2023-03-03] MEDS ORDERED: PROPOFOL 10 MG/ML 20 ML VIAL IV ONE (12:39)
[2023-03-03] MEDS: TRANEXAMIC 1,000 MG/100ML-NACL 1,000 MG in SALINE 1 100ML.BAG IVPB PRN ×2 (12:39→13:50)
[2023-03-03] MEDS ORDERED: fentaNYL (PF) 50 MCG/ML 2 ML AMP ONE (12:39)
[2023-03-03] MEDS ORDERED: ceFAZolin 1,000 MG in SODIUM CHLORIDE 0.9% 1,000 ML IRRIGATION ONE (12:39)
[2023-03-03] MEDS ORDERED: SODIUM CHLORIDE 0.9% (PF) 10 ML VIAL ONE (12:39)
[2023-03-03] MEDS ORDERED: LIDOCAINE 1% INJ 10MG/ML (20 ML MDV) ONE (12:39)
[2023-03-03] MEDS ORDERED: WATER FOR INJECTION, STERILE 10 ML VIAL IV ONE (12:39)
[2023-03-03] MEDS ORDERED: TRANEXAMIC 1,000 MG/100ML-NACL PREMIX BAG ONE (12:39)
[2023-03-03] MEDS ORDERED: PHENYLEPHRINE 10 MG/ML VIAL ONE (12:39)
[2023-03-03] MEDS ORDERED: SUCCINYLCHOLINE CHLORIDE 200 MG/10 ML VIAL IV ONE (12:39)
[2023-03-03] MEDS ORDERED: ePHEDrine 50 MG/ML 1 ML VIAL ONE (12:39)
[2023-03-03] MEDS ORDERED: ROPIVACAINE 5 MG/ML 30 ML VIAL ONE (12:39)
--- NOTE | 2023-03-03 14:31 | P.OP ---
Date of Procedure: 03/03/23 Procedure(s) Performed: PREOPERATIVE DIAGNOSIS: Left knee severe osteoarthritis with genu varum POSTOPERATIVE DIAGNOSIS: Left knee severe osteoarthritis with genu varum; 2. Diminished bone quality/osteopenia/osteoporosis OPERATION: Left knee cemented total replacement arthroplasty. ANESTHESIA: Spinal and General with regional blocks for postop pain control ESTIMATED BLOOD LOSS: 100 ml. DATA STEWARD: Alba Barrera PA-C (assistance with: patient positioning, retraction, exposure, hemostasis, leg positioning, implantation, irrigation, closure, dressing) COMPLICATIONS: None apparent. COMPONENTS IMPLANTED: Persona system from [employer] with tibial stem extension INDICATIONS: Su is a 67 year old diabetic female with a history of obesity and severe knee osteoarthritis. The patient's knee is end-stage, and conservative management has failed. The operation of knee replacement has been discussed at length in the office, as well as potential risks and complications. These are inclusive of, but not limited to: bleeding, infection, scarring, discomfort, blood vessel and nerve damage, need for further surgery, failure to relieve symptoms, persistence, recurrence, or worsening of problems, loosening, dislocation, wear, blood clot, pulmonary embolism, , gait dysfunction, stiffness, and other risks as discussed in the office. The patient elects to proceed and the consent form has been signed. PROCEDURE: The patient was taken to the operating room and positioned on the operating room table in the supine position. Anesthesia was initiated. Care was taken to make sure that all pressure points were adequately padded. The operative lower extremity was prepped and draped in the usual aseptic fashion using ChloraPrep. Ioban drape was used for the case and the patient received intravenous antibiotics within one hour of the incision. A pneumotourniquet and leg lugo were used for the case. The limb was exsanguinated with an Esmarch bandage and the tourniquet was inflated to 300 mmHg. Time-out was called confirming the patient's identity, side, procedure and administration of antibiotics. The incision was then created midline directly over the knee, carried down through skin and into the subcutaneous tissues and down to fascia. Full thickness subcutaneous medial flap was developed. Medial parapatellar arthrotomy was performed and the interior of the knee was inspected. There was end-stage osteoarthritis of the knee with a mild to moderate genu varum type d eformity. The fat pad was excised and proximal medial release on the tibia was completed using meticulous dissection and a curved osteotome. The anterior cruciate ligament was taken down. Note was made of significant attrition of the anterior and significant degenerative appearance of the posterior cruciate ligaments. The exposure was excellent. The knee was flexed 90 degrees and the patella was everted. A spot was chosen on the femur approximately 1 cm anterior to the posterior cruciate ligament insertion and an intramedullary hole was created within the femur. The intramedullary guide was then set to 5 degrees of valgus. The distal cutting block was attached and pinned into position. An appropriate amount of distal femoral resection was set. The oscillating saw was then used to make the distal femoral cut. This cut was confirmed to be flat with the flat end of an osteotome. The retractors were placed around the tibia and the tibial surface was addressed. The angle and depth of resection was adjusted using an extramedullary cutting guide. The guide had a built-in 3 degree posterior slope cut. Once the cutting guide was adjusted appropriately and in line with the axis of the tibia and confirmed to be in good position in relation to the second metatarsal and transmalleolar axis, the tibial cut was then created with protection of the posterior neurovascular structures and the collateral ligaments. Note was made of diminished bone quality and therefore a short tibial stem extension was planned. The tibial cut surface was removed and sized. Femoral sizing was then accomplished using anterior referencing. Care was taken to analyze the posterior condyles for signs of deficiency or severe wear, and adjustments to the guide were made, as appropriate. 3 degree external rotation pins were placed. The cutting jig for the femur was applied to these pins. The planned cuts were further analyzed prior to performing them with the oscillating saw. No femoral notching was produced. Bone fragments were removed and the cut surfaces were finished, as necessary, with a reciprocating saw. Spacer block technique was then used to confirm that the flexion and extension gaps were equal. Soft tissue releases and adjustment of the tibial and/or femoral cuts were made, as necessary, until the gaps were equal. This included release of the posterior cruciate ligament, which was tight in this patient and, if left unreleased, would have resulted in poor kinematics and possibly early loosening. The femur was then further finished for a posterior cruciate ligament substituting component. Patellar resurfacing was performed using a reamer. The size of the required patellar component was estimated and the patellar surface was then reamed down to a residual thickness which would recreate the gakona thickness with the component. The exact placement of the patellar component was adjusted for position based on preoperative x-rays and intraoperative findings. [Prior to placing trial components, anesthetic solution consisting of ropivicaine with epinephrine, ketorolac, and clonidine was injected carefully and methodically in a grid pattern using aspiration technique into the soft tissue around the knee circumferentially, starting with the deeper tissues first and progressing to fascia, and then finally the skin/subcutaneous tissue. Particular care was taken when injecting the posterior capsule.] The trial components were inserted. The tibial tray was allowed to self center and the patella was noted to track very well. The position of the tibial component was marked and the tibia was then finished for a stemmed tibial component. Cement was mixed on the back table and applied to the final components. Trial components were removed and the cut surfaces of the bone were pulse lavaged thoroughly and dried. Cement was then applied to the tibial surface and pressurized into the surface using finger pressurization technique. The tibial component with stem extension was then applied and excess cement was removed after it was impacted securely and noted to be flush with the cut surface. In similar fashion, the cement was applied to the cut femoral surface, pressurized in using finger pressurization and the component was impacted into place. Excess cement was removed. The polyethylene spacer was then implanted and locked into position. The patellar component was then applied in similar technique and a patellar clamp was used to hold the patella in place as the cement hardened. Once the cement had fully hardened, the knee was reinspected. Any other cement extrusion was removed and final kinematic testing showed range of motion from 0 to 130 degrees with excellent stability, both medially and laterally and appropriate alignment of the leg. Patellar tracking was excellent. The knee was then thoroughly pulse lavaged with normal saline. The tourniquet was deflated and hemostasis was obtained with electrocautery and IV tranexamic acid, 1 g given at the start of the operation and 1 g at the start of closure. Closure was with #2 Ethibond in the fascia/capsule and supplemented with #2 Quill, 2-0 Vicryl suture was used for the subcutaneous tissues and 3-0 Quill for the skin. Dermabond/Steri-Strips were then applied. A lightly compressive dressing was applied using Webril and an Robinson wrap. The patient was then transferred to [facility] and taken to the recovery room in stable condition. Sponge and needle counts were correct.
[2023-03-03] MEDS ORDERED: HYDROcodone/APAP 5-325MG 1 EACH TAB PO PRN (14:45)
[2023-03-03] MEDS ORDERED: NA PHOS,M-B/NA PHOS,DI-BA 133 ML ENEMA RECTAL PRN (14:45)
[2023-03-03] MEDS ORDERED: HYDROmorphone 0.5 MG/0.5 ML SYRINGE IVP PRN ×3 (14:45)
[2023-03-03] MEDS ORDERED: bisacodyL 10 MG SUPP RECTAL PRN (14:45)
[2023-03-03] MEDS ORDERED: NALOXONE 0.4 MG/ML 1 ML VIAL IV PRN (14:45)
[2023-03-03] MEDS ORDERED: ONDANSETRON 4 MG/2 ML VIAL IVP PRN (14:45)
[2023-03-03] MEDS ORDERED: hydrOXYzine pamoate 25 MG CAP PO PRN (14:45)
[2023-03-03] MEDS ORDERED: MAGNESIUM HYDROXIDE 2,400 MG/30 ML CUP PO PRN (14:45)
[2023-03-03] MEDS: HYDROmorphone 0.5 MG/0.5 ML SYRINGE IVP PRN ×3 (15:26→15:54)
[2023-03-03] MEDS ORDERED: hydrALAZINE HCL 20 MG/ML 1 ML VIAL IVP ONE (15:26)
--- NOTE | 2023-03-03 15:34 | XR ---
EXAMINATION TYPE: XR knee limited LT DATE OF EXAM: 03/03/2023 COMPARISON: NONE TECHNIQUE: Two views submitted HISTORY: Post op FINDINGS: There is a prosthetic knee in near anatomic alignment. There is soft tissue edema and soft tissue e mphysema. IMPRESSION: 1. Postoperative change. Appears in near-anatomic alignment
[2023-03-03 17:52] LABS: Glucose,Whole Blood 152 mg/dL (70-110)
[2023-03-03] MEDS: SENNOSIDES-DOCUSATE SODIUM 1 EACH TAB PO SCH ×2 (20:28→21:22)
[2023-03-03] MEDS: HYDROcodone/APAP 5-325MG 1 EACH TAB PO PRN (20:28)
[2023-03-03] MEDS: ASPIRIN 81 MG PO SCH (20:28)
[2023-03-03] MEDS: ATORVASTATIN 10 MG TAB PO SCH (20:28)
[2023-03-03] MEDS: carvediloL 3.125 MG TAB PO SCH (21:22)
[2023-03-03] MEDS ORDERED: TEMAZEPAM 15 MG CAP PO PRN (22:00)
[2023-03-03] MEDS: glipiZIDE 5 MG TAB PO SCH (22:49)
[2023-03-04] MEDS: LACTATED RINGERS 1,000 ML IV SCH ×3 (01:00→21:54)
[2023-03-04] MEDS: HYDROcodone/APAP 5-325MG 1 EACH TAB PO PRN ×3 (01:41→18:53)
[2023-03-04] MEDS: carvediloL 3.125 MG TAB PO SCH ×2 (06:22→17:47)
[2023-03-04] MEDS: LOSARTAN 50 MG TAB PO SCH (08:46)
[2023-03-04] MEDS: metFORMIN 500 MG TAB PO SCH (08:46)
[2023-03-04] MEDS: ASPIRIN 81 MG PO SCH ×2 (08:46→21:51)
[2023-03-04] MEDS: TOPIRAMATE 25 MG TAB PO SCH (08:46)
[2023-03-04] MEDS: CITALOPRAM HYDROBROMIDE 20 MG TAB PO SCH (08:46)
[2023-03-04] MEDS: amLODIPine 5 MG TAB PO SCH (08:46)
[2023-03-04] MEDS ORDERED: ISOSORBIDE MONONITRATE ER 30 MG TAB.ER.24H PO SCH (09:00)
--- NOTE | 2023-03-04 09:07 | P.PN ---
Subjective Progress Note Date: 03/04/23 This is a 67-year-old female who is status post left total knee arthroplasty. This is postoperative day #1 and patient is seen and evaluated at bedside today. Patient states that her pain is well-controlled. Patient states that she lives alone and wants to go to inpatient rehab postoperatively. Objective - Vital Signs Vital signs: Vital Signs Temp 98.3 F 03/04/23 07:04 Pulse 64 03/04/23 07:04 Resp 17 03/04/23 07:04 BP 129/74 03/04/23 07:04 Pulse Ox 95 03/04/23 07:04 FiO2 Intake & Output 03/03/23 03/04/23 03/04/23 18:59 06:59 18:59 Intake Total 2351 Output Total 100 Balance 2251 Weight 112.94 kg 112.94 kg Intake: IV 2351 Output: Estimated Blood Loss 100 Other: Voiding Method Toilet # Voids 1 - Exam Vital signs are stable. Patient is in no acute distress and is alert and oriented 3. Calf is soft and nontender to palpation. Dressing is clean, dry, and intact. Patient has full foot and ankle motion without pain or difficulty. Sensation intact. Neurovascular status and circulatory status are intact. - Labs Labs: Abnormal Lab Results - Last 24 Hours (Table) 03/03/23 Range/Units 17:50 POC Glucose (mg/dL) 152 H (70-110) mg/dL Assessment and Plan (1) Osteoarthritis of left knee Current Visit: Yes Status: Acute Code(s): M17.12 - UNILATERAL PRIMARY OSTEOARTHRITIS, LEFT KNEE SNOMED Code(s): 090623808718548 (2) Status post total left knee replacement Current Visit: Yes Status: Acute Code(s): Z96.652 - PRESENCE OF LEFT ARTIFICIAL KNEE JOINT SNOMED Code(s): 3675450672295 Plan: #1 Continue with routine postoperative care and pain control, leave dressing in place for 7 days. #2 Anticoagulation with aspirin. #3 Physical therapy today. #4 Appreciate input from internal medicine. #5 Anticipate discharge to [facility] in the next 24-48 hours.
[2023-03-04] MEDS: glipiZIDE 5 MG TAB PO SCH ×3 (10:39→21:51)
[2023-03-04 10:47] LABS: Basophils # (A) 0.04 X 10*3/uL (0.00-0.10); Basophils % (A) 0.3 %; Eosinophils # (A) 0.03 X 10*3/uL (0.04-0.35); Eosinophils % (A) 0.3 %; HCT 37.1 % (37.2-46.3); HGB 11.5 g/dL (12.0-15.0); Lymphocytes # (A) 1.91 X 10*3/uL (0.90-5.00); Lymphocytes % (A) 16.4 %; MCV 93.5 FL (80.0-97.0); Mean Platelet Volume 10.9 FL (9.5-12.2); Monocytes # (A) 0.95 X 10*3/uL (0.20-1.00); Monocytes % (A) 8.2 %; NRBC Per 100 WBC 0 X 10*3/uL (0.00-0.01); Neutrophils # (A) 8.68 X 10*3/uL (1.80-7.70); Neutrophils % (A) 74.5 %; Platelet Count 223 X 10*3/uL (140-440); RBC 3.97 X 10*6/uL (4.10-5.20); RDW 14.1 % (11.5-14.5); WBC 11.65 X 10*3/uL (4.50-10.00)
[2023-03-04 11:39] LABS: Glucose,Whole Blood 86 mg/dL (70-110)
--- NOTE | 2023-03-04 11:39 | P.PN ---
Progress Note - Text 03/04/23 622am 67-year-old female status post total knee replacement by Dr. Yoo. Patient has an On-Q pump for postop pain control with the solution running at 8 mL an hour with a VAS of 8, dressing clean dry and intact. Plan to continue On-Q pump infusion with oral pain medication
[2023-03-04] MEDS ORDERED: NYSTATIN 100,000 UNIT/GM POWD 15 GM TOPICAL PRN (12:07)
[2023-03-04] MEDS ORDERED: MAGNESIUM OXIDE 400 MG TAB PO PRN (12:07)
[2023-03-04] MEDS ORDERED: NITROGLYCERIN SL TABS 0.4 MG TAB SUBLINGUAL PRN (12:07)
[2023-03-04] MEDS ORDERED: CLOTRIMAZOLE 1% CREAM 30 GM TUBE TOPICAL PRN (12:07)
--- NOTE | 2023-03-04 13:16 | P.CONS ---
History of Present Illness - Reason for Consult Leukocytosis - History of Present Illness Patient is admitted for left knee arthroplasty still having significant pain did have a bowel movement. Patient denied any fever chills nausea vomiting abdominal pain dysuria patient doesn't have any evidence of infection at this time patient does have leukocytosis which is mild. REVIEW OF SYSTEMS: CONSTITUTIONAL: No fever, no malaise, no fatigue. HEENT: No recent visual problems or hearing problems. Denied any sore throat. CARDIOVASCULAR: No chest pain, orthopnea, PND, no palpitations, no syncope. PULMONARY: No shortness of breath, no cough, no hemoptysis. GASTROINTESTINAL: No diarrhea, no nausea, no vomiting, no abdominal pain. NEUROLOGICAL: No headaches, no weakness, no numbness. HEMATOLOGICAL: Denies any bleeding or petechiae. GENITOURINARY: Denies any burning micturition, frequency, or urgency. MUSCULOSKELETAL/RHEUMATOLOGICAL: Denies any joint pain, swelling, or any muscle pain. ENDOCRINE: Denies any polyuria or polydipsia. The rest of the 14-point review of systems is negative. PHYSICAL EXAMINATION: GENERAL: The patient is alert and oriented x3, not in any acute distress. Well developed, well nourished. HEENT: Pupils are round and equally reacting to light. EOMI. No scleral icterus. No conjunctival pallor. Normocephalic, atraumatic. No pharyngeal erythema. No thyromegaly. CARDIOVASCULAR: S1 and S2 present. No murmurs, rubs, or gallops. PULMONARY: Chest is clear to auscultation, no wheezing or crackles. ABDOMEN: Soft, nontender, nondistended, normoactive bowel sounds. No palpable organomegaly. MUSCULOSKELETAL: No joint swelling or deformity. Right knee post surgically packed EXTREMITIES: No cyanosis, clubbing, or pedal edema. NEUROLOGICAL: Gross neurological examination did not reveal any focal deficits. SKIN: No rashes. Assessment and plan -Leukocytosis without any evidence of infection reactive secondary to surgery no further intervention is necessary at this time -Right knee arthroplasty pain management as per primary service and patient is on aspirin 81 mg twice a day for DVT prophylaxis -Type 2 diabetes mellitus patient can be resumed on home regimen along with sliding scale insulin patient blood sugars appear to be well controlled at this time -Depression -Hypertension patient blood pressure is slightly elevated will be resumed on home medications -Migraine headaches -COPD without any acute exacerbation -Hyperlipidemia For above-mentioned chronic medical problems patient was resumed on appropriate home medications DVT prophylaxis: As mentioned above Past Medical History Past Medical History: Cancer, Chest Pain / Angina, COPD, Diabetes Mellitus, GERD/Reflux, Hyperlipidemia, Hypertension, Memory Impairment, Osteoarthritis (OA), Skin Disorder Additional Past Medical History / Comment(s): Breast Cancer Lt. 2004, 2020 Rt breast, chest pain resolved w/ 1 NTG last episode 02/12/23. diverticulitis, IBS, Lymphedema (L) arm, Type II Diabetes, prone to redness in abdominal folds History of Any Multi-Drug Resistant Organisms: None Reported Past Surgical History: Breast Surgery, Heart Catheterization, Tonsillectomy Additional Past Surgical History / Comment(s): Bunionectomy, colonoscopy. Lt. breast mastectomy w/some lymph nodes 2004, Rt breast mastectomy 2020 Past Anesthesia/Blood Transfusion Reactions: No Reported Reaction Past Psychological History: Anxiety, Depression Additional Psychological History / Comment(s): "I've been depressed since I was 11 years old." Smoking Status: Former smoker Past Alcohol Use History: None Reported Additional Past Alcohol Use History / Comment(s): quit >35 yrs. ago Past Drug Use History: None Reported - Past Family History Mother Family Medical History: Congestive Heart Failure (CHF), Diabetes Mellitus Additional Family Medical History / Comment(s): colostomy. age 72 Father Family Medical History: Chest Pain / Angina, Diabetes Mellitus Additional Family Medical History / Comment(s): colostomy. age 62 Brother(s) Additional Family Medical History / Comment(s): bowel problem Medications and Allergies Home Medications Medication Instructions Recorded Confirmed Type Aspirin [Adult Low Dose Aspirin EC] 81 mg PO DAILY 08/01/20 03/03/23 History Dicyclomine [Bentyl] 10 mg PO TID PRN 08/01/20 03/03/23 History Nitroglycerin Sl Tabs [Nitrostat] 0.4 mg SL Q5M PRN 08/01/20 03/03/23 History Pantoprazole Sodium 40 mg PO QAM 08/01/20 03/03/23 History glipiZIDE [Glucotrol] 5 mg PO TID 08/01/20 03/03/23 History traZODone HCL [Desyrel] 100 mg PO HS 08/01/20 03/03/23 History Atorvastatin Calcium [Lipitor] 10 mg PO HS 11/26/20 03/03/23 History Brexpiprazole [Rexulti] 2 mg PO QAM 11/26/20 03/03/23 History Topiramate [Topamax] 50 mg PO DAILY 11/26/20 03/03/23 History Cholecalciferol [Vitamin D3 (25 50 mcg PO DAILY 03/14/21 03/03/23 History Mcg = 1000 Iu)] Isosorbide Dinitrate 30 mg PO QAM 06/16/21 03/03/23 History traZODone HCL 50 mg PO HS 06/16/21 03/03/23 History Acetaminophen Tab [Tylenol] 650 mg PO Q6HR PRN #0 tab 06/17/21 03/03/23 Rx Benzonatate [Tessalon Perle] 200 mg PO TID PRN 05/21/22 03/03/23 History Cinnamon Bark [Cinnamon] 500 mg PO DAILY 05/21/22 03/03/23 History Ketoconazole 2% Cream [Nizoral 2%] 1 applic TOPICAL HS PRN 05/21/22 03/03/23 History Losartan Potassium [Cozaar] 100 mg PO QAM 05/21/22 03/03/23 History traMADol HCl [Ultram] 50 mg PO BID PRN 05/21/22 03/03/23 History Citalopram Hydrobromide [CeleXA] 20 mg PO QAM 07/23/22 03/03/23 History Tirzepatide [Mounjaro] 2.5 mg SQ TH 09/12/22 03/03/23 History Rimegepant Sulfate [Nurtec Odt] 75 mg PO DAILY PRN 09/13/22 03/03/23 History Apple Cider Vinegar 450mg 450 mg PO DAILY 11/21/22 03/03/23 History Calcium Carbonate [Calcium] 600 mg PO DAILY 11/21/22 03/03/23 History Frida Root 550 Mg 550 mg PO DAILY 11/21/22 03/03/23 History Magnesium Oxide [Magox 400] 400 mg PO DAILY PRN 11/21/22 03/03/23 History Nystatin 100,000 Unit/gm Powd 1 applic TOPICAL BID PRN 11/21/22 03/03/23 History [Mycostatin Powder] Potassium Chloride ER [K-Dur 10] 10 meq PO QAM 11/21/22 03/03/23 History amLODIPine [Norvasc] 5 mg PO QAM 11/21/22 03/03/23 History carvediloL [Coreg] 3.125 mg PO BID 11/21/22 03/03/23 History hydrOXYzine pamoate [hydrOXYzine 25 mg PO TID PRN 11/21/22 03/03/23 History PAMOATE] metFORMIN HCL 500 mg PO QAM 11/21/22 03/03/23 History Aspirin [Adult Low Dose Aspirin EC] 81 mg PO BID #1 tab 03/03/23 Rx HYDROcodone/APAP 7.5-325MG [[place] 1 - 2 tab PO Q6HR PRN #32 tab 03/03/23 Rx 7.5-325] Ondansetron Odt [Zofran Odt] 4 mg PO Q8HR PRN #14 tab 03/03/23 Rx Sennosides-Docusate Sodium 1 tab PO BID #60 tablet 03/03/23 Rx [Senokot-S] Allergies Allergy/AdvReac Type Severity Reaction Status Date / Time naproxen AdvReac Nausea & Verified 03/03/23 11:19 Vomiting Physical Exam Vitals: Vital Signs Temp Pulse Resp BP BP Pulse Ox 03/04/23 07:04 98.3 F 64 17 129/74 95 03/04/23 05:45 98.3 F 67 16 144/88 97 03/04/23 00:52 97.9 F 78 16 117/76 96 03/03/23 19:39 97.5 F L 104 H 18 162/99 94 L 03/03/23 18:59 98 18 141/80 94 L 03/03/23 17:30 96 18 139/87 95 03/03/23 17:00 89 12 147/66 94 L 03/03/23 16:30 93 12 146/65 94 L 03/03/23 16:00 97 12 146/64 97 03/03/23 15:45 94 12 158/72 97 03/03/23 15:30 88 12 168/81 100 03/03/23 15:15 89 12 202/113 100 03/03/23 15:00 90 12 200/110 100 03/03/23 14:50 97.2 F L 100 12 180/108 97 Intake and Output 03/03/23 03/04/23 03/04/23 22:59 06:59 14:59 Intake Total 200 Balance 200 Intake: IV 200 Other: Voiding Method Toilet # Voids 1 Weight 112.94 kg Results CBC & Chem 7: 03/04/23 07:09 Labs: Abnormal Lab Results - Last 24 Hours (Table) 03/03/23 03/04/23 Range/Units 17:50 07:09 WBC 11.65 H (4.50-10.00) X 10*3/uL RBC 3.97 L (4.10-5.20) X 10*6/uL Hgb 11.5 L (12.0-15.0) g/dL Hct 37.1 L (37.2-46.3) % MCHC 31.0 L (32.0-37.0) g/dL Neutrophils # 8.68 H (1.80-7.70) X 10*3/uL Eosinophils # 0.03 L (0.04-0.35) X 10*3/uL POC Glucose (mg/dL) 152 H (70-110) mg/dL
[2023-03-04 16:46] LABS: Glucose,Whole Blood 163 mg/dL (70-110)
[2023-03-04 20:40] LABS: Glucose,Whole Blood 130 mg/dL (70-110)
[2023-03-04] MEDS ORDERED: traZODone HCL 100 MG TAB PO SCH (21:00)
[2023-03-04] MEDS: SENNOSIDES-DOCUSATE SODIUM 1 EACH TAB PO SCH (21:51)
[2023-03-04] MEDS: ATORVASTATIN 10 MG TAB PO SCH (21:51)
[2023-03-05] MEDS: HYDROcodone/APAP 5-325MG 1 EACH TAB PO PRN ×3 (01:40→12:57)
[2023-03-05 06:30] LABS: Glucose,Whole Blood 138 mg/dL (70-110)
[2023-03-05] MEDS: carvediloL 3.125 MG TAB PO SCH (06:45)
[2023-03-05] MEDS: LACTATED RINGERS 1,000 ML IV SCH ×2 (07:01→08:10)
[2023-03-05] MEDS ORDERED: PANTOPRAZOLE SODIUM 40 MG GRANULE PKT PO SCH (07:30)
[2023-03-05] MEDS: amLODIPine 5 MG TAB PO SCH (08:07)
[2023-03-05] MEDS: metFORMIN 500 MG TAB PO SCH (08:07)
[2023-03-05] MEDS: glipiZIDE 5 MG TAB PO SCH ×2 (08:07→15:43)
[2023-03-05] MEDS: CITALOPRAM HYDROBROMIDE 20 MG TAB PO SCH (08:07)
[2023-03-05] MEDS: LOSARTAN 50 MG TAB PO SCH (08:07)
[2023-03-05] MEDS: ASPIRIN 81 MG PO SCH (08:07)
[2023-03-05] MEDS: TOPIRAMATE 25 MG TAB PO SCH (08:07)
[2023-03-05] MEDS: ISOSORBIDE DINITRATE 10 MG TAB PO SCH ×2 (10:54→10:55)
[2023-03-05 11:18] LABS: Glucose,Whole Blood 135 mg/dL (70-110)
--- NOTE | 2023-03-05 11:34 | P.DS ---
Providers Date of admission: 03/03/23 10:18 Expected date of discharge: 03/05/23 Attending physician: Russell Yoo Consults: 03/03/23 14:45 Consult Physician Routine Consulting Provider: Carlos Guillen Consult Reason/Comments: Medical management Do you want consulting provider notified?: Yes Primary care physician: Alvaro Johnson - Discharge Diagnosis(es) (1) Osteoarthritis of left knee Current Visit: Yes Status: Acute (2) Status post total left knee replacement Current Visit: Yes Status: Acute Hospital Course: This is a 67-year-old female who was last seen with complaint of continued left knee pain. The patient has a known history of degenerative arthritis of the left knee and presents to discuss surgical options. After discussion and consideration the patient elects to proceed with total left knee arthroplasty. The patient is seen preoperatively by her primary care physician and cleared for surgery. The patient is admitted to [facility] for total left knee arthroplasty. The procedures performed without complication or sequelae. She is doing well postoperatively. Vital signs are stable at discharge. Labs are stable at discharge. the patient is ambulating well with walker with minimal assistance. The patient is discharged to inpatient rehab on postop day #2 pending medical clearance. Please see orders and refer to the [facility] rec for accurate list of medications. Plan - Discharge Summary Discharge Rx Participant: Yes New Discharge Prescriptions: New Aspirin [Adult Low Dose Aspirin EC] 81 mg PO BID #1 tab HYDROcodone/APAP 7.5-325MG [[place] 7.5-325] 1 - 2 tab PO Q6HR PRN #32 tab PRN Reason: Pain Sennosides-Docusate Sodium [Senokot-S] 1 tab PO BID #60 tablet Ondansetron Odt [Zofran Odt] 4 mg PO Q8HR PRN #14 tab PRN Reason: Nausea No Action Aspirin [Adult Low Dose Aspirin EC] 81 mg PO DAILY Cholecalciferol [Vitamin D3 (25 Mcg = 1000 Iu)] 50 mcg PO DAILY traZODone HCL 50 mg PO HS Benzonatate [Tessalon Perle] 200 mg PO TID PRN PRN Reason: Cough traMADol HCl [Ultram] 50 mg PO BID PRN PRN Reason: Pain Losartan Potassium [Cozaar] 100 mg PO QAM Citalopram Hydrobromide [CeleXA] 20 mg PO QAM Rimegepant Sulfate [Nurtec Odt] 75 mg PO DAILY PRN PRN Reason: Headache carvediloL [Coreg] 3.125 mg PO BID metFORMIN HCL 500 mg PO QAM Potassium Chloride ER [K-Dur 10] 10 meq PO QAM Calcium Carbonate [Calcium] 600 mg PO DAILY hydrOXYzine pamoate [hydrOXYzine PAMOATE] 25 mg PO TID PRN PRN Reason: Anxiety Frida Root 550 Mg 550 mg PO DAILY traZODone HCL [Desyrel] 100 mg PO HS glipiZIDE [Glucotrol] 5 mg PO TID Nitroglycerin Sl Tabs [Nitrostat] 0.4 mg SL Q5M PRN PRN Reason: Chest Pain Dicyclomine [Bentyl] 10 mg PO TID PRN PRN Reason: Bloating Pantoprazole Sodium 40 mg PO QAM Topiramate [Topamax] 50 mg PO DAILY Brexpiprazole [Rexulti] 2 mg PO QAM Atorvastatin Calcium [Lipitor] 10 mg PO HS Acetaminophen Tab [Tylenol] 650 mg PO Q6HR PRN #0 tab PRN Reason: Mild Pain Or Fever > 100.5 Cinnamon Bark [Cinnamon] 500 mg PO DAILY Ketoconazole 2% Cream [Nizoral 2%] 1 applic TOPICAL HS PRN PRN Reason: SKIN ISSUES Tirzepatide [Mounjaro] 2.5 mg SQ TH amLODIPine [Norvasc] 5 mg PO QAM Nystatin 100,000 Unit/gm Powd [Mycostatin Powder] 1 applic TOPICAL BID PRN PRN Reason: FLARE UP Apple Cider Vinegar 450mg 450 mg PO DAILY Magnesium Oxide [Magox 400] 400 mg PO DAILY PRN PRN Reason: pain Discharge Medication List Aspirin [Adult Low Dose Aspirin EC] 81 mg PO DAILY 08/01/20 [History] Dicyclomine [Bentyl] 10 mg PO TID PRN 08/01/20 [History] Nitroglycerin Sl Tabs [Nitrostat] 0.4 mg SL Q5M PRN 08/01/20 [History] Pantoprazole Sodium 40 mg PO QAM 08/01/20 [History] glipiZIDE [Glucotrol] 5 mg PO TID 08/01/20 [History] traZODone HCL [Desyrel] 100 mg PO HS 08/01/20 [History] Atorvastatin Calcium [Lipitor] 10 mg PO HS 11/26/20 [History] Brexpiprazole [Rexulti] 2 mg PO QAM 11/26/20 [History] Topiramate [Topamax] 50 mg PO DAILY 11/26/20 [History] Cholecalciferol [Vitamin D3 (25 Mcg = 1000 Iu)] 50 mcg PO DAILY 03/14/21 [History] traZODone HCL 50 mg PO HS 06/16/21 [History] Acetaminophen Tab [Tylenol] 650 mg PO Q6HR PRN #0 tab 06/17/21 [Rx] Benzonatate [Tessalon Perle] 200 mg PO TID PRN 05/21/22 [History] Cinnamon Bark [Cinnamon] 500 mg PO DAILY 05/21/22 [History] Ketoconazole 2% Cream [Nizoral 2%] 1 applic TOPICAL HS PRN 05/21/22 [History] Losartan Potassium [Cozaar] 100 mg PO QAM 05/21/22 [History] traMADol HCl [Ultram] 50 mg PO BID PRN 05/21/22 [History] Citalopram Hydrobromide [CeleXA] 20 mg PO QAM 07/23/22 [History] Tirzepatide [Mounjaro] 2.5 mg SQ TH 09/12/22 [History] Rimegepant Sulfate [Nurtec Odt] 75 mg PO DAILY PRN 09/13/22 [History] Apple Cider Vinegar 450mg 450 mg PO DAILY 11/21/22 [History] Calcium Carbonate [Calcium] 600 mg PO DAILY 11/21/22 [History] Frida Root 550 Mg 550 mg PO DAILY 11/21/22 [History] Magnesium Oxide [Magox 400] 400 mg PO DAILY PRN 11/21/22 [History] Nystatin 100,000 Unit/gm Powd [Mycostatin Powder] 1 applic TOPICAL BID PRN 11/21/22 [History] Potassium Chloride ER [K-Dur 10] 10 meq PO QAM 11/21/22 [History] amLODIPine [Norvasc] 5 mg PO QAM 11/21/22 [History] carvediloL [Coreg] 3.125 mg PO BID 11/21/22 [History] hydrOXYzine pamoate [hydrOXYzine PAMOATE] 25 mg PO TID PRN 11/21/22 [History] metFORMIN HCL 500 mg PO QAM 11/21/22 [History] Aspirin [Adult Low Dose Aspirin EC] 81 mg PO BID #1 tab 03/03/23 [Rx] HYDROcodone/APAP 7.5-325MG [[place] 7.5-325] 1 - 2 tab PO Q6HR PRN #32 tab 03/03/23 [Rx] Ondansetron Odt [Zofran Odt] 4 mg PO Q8HR PRN #14 tab 03/03/23 [Rx] Sennosides-Docusate Sodium [Senokot-S] 1 tab PO BID #60 tablet 03/03/23 [Rx] Follow up Appointment(s)/Referral(s): Alba Barrera, PAC [PHYSICIAN LABORATORY MECHANICAL TECHNICIAN] - 03/12/23 1:00 pm Activity/Diet/Wound Care/Special Instructions: May bear wt as tolerated w walker. Wear stockings during the day for 2 weeks. May shower 72h post op. Remove Optifoam dressing 7 days. Discharge Disposition: TRANSFER TO SNF/ECF
--- NOTE | 2023-03-05 13:42 | P.PN ---
Subjective Progress Note Date: 03/05/23 - Reason for Consult Leukocytosis - History of Present Illness Patient is admitted for left knee arthroplasty still having significant pain did have a bowel movement. Patient denied any fever chills nausea vomiting abdominal pain dysuria patient doesn't have any evidence of infection at this time patient does have leukocytosis which is mild. 03/05/2023 Patient is seen in follow-up status post left total knee arthroplasty with orthopedics yesterday. Patient was in physical therapy reports she will be going [facility] and has received insurance authorization. Patient is currently afebrile and reported chest pain or shortness of breath. Patient is tolerating diet and blood sugars have been controlled. Patient reports she did follow with primary care provider for presurgical clearance. Patient is reporting some mild left knee pain although manageable on current regimen. All medications have been reviewed and resumed as appropriate. Patient will be going to [facility] today. Review of systems: Constitutional: No reports of fatigue, fever, or chills Cardiovascular: No reports of chest pain or palpitations Respiratory: No reports of shortness of breath or cough GI: No reports of nausea, vomiting, or diarrhea : No reports of dysuria or retention Neurovascular: reports of weakness and some left knee pain All medications have been reviewed PHYSICAL EXAMINATION: GENERAL: The patient is alert and oriented x3, well-developed, well-nourished, morbidly obese cute distress. Well developed, well nourished. HEENT: Pupils are round and equally reacting to light. EOMI. No scleral icterus. No conjunctival pallor. Normocephalic, atraumatic. No pharyngeal erythema. No thyromegaly. CARDIOVASCULAR: S1 and S2 present. No murmurs, rubs, or gallops. PULMONARY: Chest is clear to auscultation, no wheezing or crackles. ABDOMEN: Soft, obese, nontender, nondistended, normoactive bowel sounds. No palpable organomegaly. MUSCULOSKELETAL: No joint swelling or deformity. Right knee post surgically packed EXTREMITIES: No cyanosis, clubbing, or pedal edema. Left knee NEUROLOGICAL: Gross neurological examination did not reveal any focal deficits. Diffusely weak SKIN: No rashes. Assessment and plan -Leukocytosis without any evidence of infection reactive secondary to surgery no further intervention is necessary at this time -Right knee arthroplasty pain management as per primary service and patient is on aspirin 81 mg twice a day for DVT prophylaxis -Type 2 diabetes mellitus patient can be resumed on home regimen along with sliding scale insulin patient blood sugars appear to be well controlled at this time -Depression -Hypertension patient blood pressure is slightly elevated will be resumed on home medications -Migraine headaches -COPD without any acute exacerbation -Hyperlipidemia For above-mentioned chronic medical problems patient was resumed on appropriate home medications DVT prophylaxis: As mentioned above plan: All medications have been reviewed and resumed as appropriate. Patient will be going to [facility] for continued strength and mobility Case management following and has received insurance authorization for ECF. Patient will be going to [place] Continuing monitoring blood sugars with Accu-Cheks before meals and at bedtime and continue sliding scale for now Patient has been instructed to use incentive spirometer at the bedside and continue using while at EC. We will follow with orthopedics during hospitalization.thank you primary for this consultation. The impression and plan of care has been dictated by uLcina Brennan, Nurse Practitioner as directed. Dr. Lazraus MD I have performed a history and examination and MDM of this patient, discussed the same with the dictator, and agree with the dictator's assessment and plan as written ,documented as a scribe. Based on total visit time, I have performed more than 50% of the visit. Objective - Vital Signs Vital signs: Vital Signs Temp 97.5 F L 03/05/23 07:16 Pulse 83 03/05/23 07:16 Resp 20 03/05/23 07:16 BP 165/99 03/05/23 07:16 Pulse Ox 93 L 03/05/23 07:16 FiO2 Intake & Output 03/04/23 03/05/23 03/05/23 18:59 06:59 18:59 Intake Total 250 Balance 250 Intake: Oral 250 Other: Voiding Method Toilet # Voids 1 1 # Bowel Movements 1 - Labs CBC & Chem 7: 03/04/23 07:09 Labs: Abnormal Lab Results - Last 24 Hours (Table) 03/04/23 03/04/23 03/04/23 Range/Units 07:09 16:45 20:39 WBC 11.65 H (4.50-10.00) X 10*3/uL RBC 3.97 L (4.10-5.20) X 10*6/uL Hgb 11.5 L (12.0-15.0) g/dL Hct 37.1 L (37.2-46.3) % MCHC 31.0 L (32.0-37.0) g/dL Neutrophils # 8.68 H (1.80-7.70) X 10*3/uL Eosinophils # 0.03 L (0.04-0.35) X 10*3/uL POC Glucose (mg/dL) 163 H 130 H (70-110) mg/dL 03/05/23 Range/Units 06:23 WBC (4.50-10.00) X 10*3/uL RBC (4.10-5.20) X 10*6/uL Hgb (12.0-15.0) g/dL Hct (37.2-46.3) % MCHC (32.0-37.0) g/dL Neutrophils # (1.80-7.70) X 10*3/uL Eosinophils # (0.04-0.35) X 10*3/uL POC Glucose (mg/dL) 138 H (70-110) mg/dL
[2023-03-05 14:35] VITALS: BP 131/73; PULSE 85; RESP 18; TEMP 98.6
== END 2023-03-05 16:24 ==
LOC: OR 10:17 → 4SSUR 10:18
PROVIDERS: ADMIT Orthopaedic Surgery; ATTEND Orthopaedic Surgery
DX: M17.12 Unilateral primary osteoarthritis, left knee (principal); M21.162 Varus deformity, not elsewhere classified, left knee; M81.0 Age-related osteoporosis without current pathological fracture; G89.18 Other acute postprocedural pain; D72.829 Elevated white blood cell count, unspecified; E11.9 Type 2 diabetes mellitus without complications; F32.A Depression, unspecified; I10 Essential (primary) hypertension; G43.909 Migraine, unspecified, not intractable, without status migrainosus; J44.9 Chronic obstructive pulmonary disease, unspecified; E78.5 Hyperlipidemia, unspecified; K21.9 Gastro-esophageal reflux disease without esophagitis; F41.9 Anxiety disorder, unspecified; Z85.3 Personal history of malignant neoplasm of breast; Z87.891 Personal history of nicotine dependence; Z79.4 Long term (current) use of insulin; Z79.82 Long term (current) use of aspirin; Z79.84 Long term (current) use of oral hypoglycemic drugs; Z79.899 Other long term (current) drug therapy; Z88.6 Allergy status to analgesic agent
CPT/HCPCS: 96365; 96366 ×2; 97530 ×2; 97161; 97535; 97166; 64999; 64448; 85025; 73560; 27447; G0378 ×3; C1776; C1751; J2250; J0330; J0360; J1100; J0690 ×3; J2405; J2001; J3010; J2795; J2704; J1170; J2371

== ENCOUNTER → 2023-09-22 | Outpatient (CLI) | payer MEDICARE, OTHER | END | disposition home or self-care (01) | LOC: LABWHC1 09:34 | PROVIDERS: ATTEND Family Medicine | DX: Z01.812 Encounter for preprocedural laboratory examination (principal) | CPT/HCPCS: 81003; 85730 ==

== ENCOUNTER 2023-10-13 10:24 | Inpatient (IN) | payer MEDICARE, OTHER ==
[~2023-10-13 10:24] MED LIST changes: -ACETAMINOPHEN TAB 500 MG TAB PO PRN; -DEXAMETHASONE SOD PHOSPHATE 4 MG/ML 1 ML VIAL IV ONE; -LIDOCAINE 1% (10MG/ML) FOR IV START INTRADERMA PRN; -MELOXICAM 7.5 MG TAB PO PRN; -MIDAZOLAM 2 MG/2 ML VIAL IV PRN; -ONDANSETRON 4 MG/2 ML VIAL IVP ONE; -fentaNYL (PF) 50 MCG/ML 2 ML AMP IVP PRN
[2023-10-13 11:29] LABS: Glucose,Whole Blood 98 mg/dL (70-110)
[2023-10-13] MEDS: IV FLUID CONTINUATION 1,000 ML IV ONE (11:34)
[2023-10-13] MEDS ORDERED: METOCLOPRAMIDE 5 MG/ML 2 ML VIAL IVP PRN (11:39)
[2023-10-13] MEDS ORDERED: LIDOCAINE 1% (10MG/ML) FOR IV START INTRADERMA PRN (11:39)
[2023-10-13] MEDS: LACTATED RINGERS 1,000 ML BAG IV STA (11:40)
[2023-10-13] MEDS: MELOXICAM 7.5 MG TAB PO PRN (12:00)
[2023-10-13] MEDS: ACETAMINOPHEN TAB 500 MG TAB PO PRN (12:01)
[2023-10-13] MEDS: ONDANSETRON 4 MG/2 ML VIAL IVP ONE (12:02)
[2023-10-13] MEDS: DEXAMETHASONE SOD PHOSPHATE 4 MG/ML 1 ML VIAL IV ONE (12:02)
[2023-10-13] MEDS ORDERED: ROPIVACAINE 5 MG/ML 30 ML VIAL ONE (12:38)
[2023-10-13] MEDS ORDERED: MIDAZOLAM 2 MG/2 ML VIAL ONE (12:38)
[2023-10-13] MEDS ORDERED: KETAMINE HCL IN 0.9 % NACL 50 MG/5 ML SYRINGE ONE (12:38)
[2023-10-13] MEDS ORDERED: TRANEXAMIC 1,000 MG/100ML-NACL PREMIX BAG ONE (12:38)
[2023-10-13] MEDS ORDERED: PROPOFOL 10 MG/ML 20 ML VIAL IV ONE (12:38)
[2023-10-13] MEDS ORDERED: SODIUM CHLORIDE 0.9% (PF) 10 ML VIAL ONE (12:38)
[2023-10-13] MEDS: ceFAZolin 1,000 MG in SODIUM CHLORIDE 0.9% 1,000 ML IRRIGATION ONE (12:43)
--- NOTE | 2023-10-13 12:43 | P.ANPRN ---
Procedure Note - Anesthesia - Nerve Block Performed Right Adductor Canal Infusion Time Out Performed: Yes (1204) Date of Procedure: 10/13/23 Procedure Start Time: 12:05 Procedure Stop Time: 12:10 Location of Patient: PreOp Indication: Acute Post-Operative Pain, Requested by Surgeon Specifically requested for management of pain by DrSudhakar: Russell Yoo Sedation Type: Sedate with meaningful contact maintained Preparation: Sterile Prep, Sterile Dressing Position: Supine Catheter Depth at Skin (cm): 8 Catheter: Indwelling Needle Types: Pajunk Needle Gauge: 18 Ultrasound used to visualize needle placement: Yes Ultrasound used to observe medication spread: Yes Injectate: 0.5% Ropivacaine (see comment for volume) (15cc +10cc nacl pf) Blood Aspirated: No Pain Paresthesia on Injection Noted: No Resistance on Injection: Normal Image Stored and Saved: Yes Events: Uneventful and Well Tolerated
--- NOTE | 2023-10-13 12:44 | P.ANPRN ---
Procedure Note - Anesthesia - Nerve Block Performed Right iPack Single Time Out Performed: Yes (1204) Date of Procedure: 10/13/23 Procedure Start Time: 12:11 Procedure Stop Time: 12:14 Location of Patient: PreOp Indication: Acute Post-Operative Pain, Requested by Surgeon Specifically requested for management of pain by DrSudhakar: Russell Yoo Sedation Type: Sedate with meaningful contact maintained Preparation: Sterile Prep Position: Supine Catheter: None Needle Types: Pajunk Needle Gauge: 21 Ultrasound used to visualize needle placement: Yes Ultrasound used to observe medication spread: Yes Injectate: 0.5% Ropivacaine (see comment for volume) (15cc +10cc nacl pf) Blood Aspirated: No Pain Paresthesia on Injection Noted: No Resistance on Injection: Normal Image Stored and Saved: Yes Events: Uneventful and Well Tolerated
[2023-10-13] MEDS: TOBRAMYCIN SULFATE 1.2 GM VIAL MISCELLANE ONE (14:07)
[2023-10-13] MEDS: LACTATED RINGERS 1,000 ML IV ONE (14:17)
--- NOTE | 2023-10-13 14:44 | P.OP ---
Date of Procedure: 10/13/23 Procedure(s) Performed: PREOPERATIVE DIAGNOSIS: Right knee severe osteoarthritis with genu varum POSTOPERATIVE DIAGNOSIS: Right knee severe osteoarthritis with genu varum; 2. Diminished bone quality/osteopenia/osteoporosis OPERATION: Right knee cemented total replacement arthroplasty. ANESTHESIA: Spinal and Regional ESTIMATED BLOOD LOSS: 100 ml. MENTAL HEALTH NURSE: Alba Barrera PA-C (assistance with: patient positioning, retraction, exposure, hemostasis, leg positioning, implantation, irrigation, closure, dressing) COMPLICATIONS: None apparent. COMPONENTS IMPLANTED: Persona system from [place] with tibial stem extension INDICATIONS: Su is a 68 year old female with a history of knee osteoarthri tis. She has already undergone contralateral knee replacement without incident. The patient's right knee is end-stage, and conservative management has failed. The operation of knee replacement has been discussed at length in the office, as well as potential risks and complications. These are inclusive of, but not limited to: bleeding, infection, scarring, discomfort, blood vessel and nerve damage, need for further surgery, failure to relieve symptoms, persistence, recurrence, or worsening of problems, loosening, dislocation, wear, blood clot, pulmonary embolism, , gait dysfunction, stiffness, and other risks as discussed in the office. The patient elects to proceed and the consent form has been signed. PROCEDURE: The patient was taken to the operating room and positioned on the operating room table in the supine position. Anesthesia was initiated. Care was taken to make sure that all pressure points were adequately padded. The operative lower extremity was prepped and draped in the usual aseptic fashion using ChloraPrep. Ioban drape was used for the case and the patient received intravenous antibiotics within one hour of the incision. A pneumotourniquet and leg lugo were used for the case. The limb was exsanguinated with an Esmarch bandage and the tourniquet was inflated to 350 mmHg. Time-out was called confirming the patient's identity, side, procedure and administration of antibiotics. The incision was then created midline directly over the knee, carried down through skin and into the subcutaneous tissues and down to fascia. Full thickness subcutaneous medial flap was developed. Medial parapatellar arthrotomy was performed and the interior of the knee was inspected. There was end-stage osteoarthritis of the knee with a mild to moderate genu varum type deformity. The fat pad was excised and proximal medial release on the tibia was completed using meticulous dissection and a curved osteotome. The anterior cruciate ligament was taken down. Note was made of significant attrition of the anterior and significant degenerative appearance of the posterior cruciate ligaments. The exposure was excellent. The knee was flexed 90 degrees and the patella was everted. A spot was chosen on the femur approximately 1 cm anterior to the posterior cruciate ligament insertion and an intramedullary hole was created within the femur. The intramedullary guide was then set to 5 degrees of valgus. The distal cutting block was attached and pinned into position. An appropriate amount of distal femoral resection was set. The oscillating saw was then used to make the distal femoral cut. This cut was confirmed to be flat with the flat end of an osteotome. The retractors were placed around the tibia and the tibial surface was addressed. The angle and depth of resection was adjusted using an extramedullary cutting guide. The guide had a built-in 3 degree posterior slope cut. Once the cutting guide was adjusted appropriately and in line with the axis of the tibia and confirmed to be in good position in relation to the second metatarsal and transmalleolar axis, the tibial cut was then created with protection of the posterior neurovascular structures and the collateral ligaments. Note was made of diminished bone quality and therefore a short tibial stem extension was planned. The tibial cut surface was removed and sized. Femoral sizing was then accomplished using anterior referencing. Care was taken to analyze the posterior condyles for signs of deficiency or severe wear, and adjustments to the guide were made, as appropriate. 5 degree external rotation pins were placed. The cutting jig for the femur was applied to these pins. The planned cuts were further analyzed prior to performing them with the oscillating saw. No femoral notching was produced. Bone fragments were removed and the cut surfaces were finished, as necessary, with a reciprocating saw. Spacer block technique was then used to confirm that the flexion and extension gaps were equal. Soft tissue releases and adjustment of the tibial and/or femoral cuts were made, as necessary, until the gaps were equal. This included release of the posterior cruciate ligament, which was tight in this patient and, if left unreleased, would have resulted in poor kinematics and possibly early loosening. The femur was then further finished for a posterior cruciate ligament substituting component. Patellar resurfacing was performed using a reamer. The size of the required patellar component was estimated and the patellar surface was then reamed down to a residual thickness which would recreate the [place] thickness with the component. The exact placement of the patellar component was adjusted for position based on preoperative x-rays and intraoperative findings. The trial components were inserted. The tibial tray was allowed to self center and the patella was noted to track very well. The position of the tibial component was marked and the tibia was then finished for a stemmed tibial component. Cement was mixed on the back table and applied to the final components. Trial components were removed and the cut surfaces of the bone were pulse lavaged thoroughly and dried. Cement was then applied to the tibial surface and pressurized into the surface using finger pressurization technique. The tibial component with stem extension was then applied and excess cement was removed after it was impacted securely and noted to be flush with the cut surface. In similar fashion, the cement was applied to the cut femoral surface, pressurized in using finger pressurization and the component was impacted into place. Excess cement was removed. The polyethylene spacer was then implanted and locked into position. The patellar component was then applied in similar jonas hnique and a patellar clamp was used to hold the patella in place as the cement hardened. Once the cement had fully hardened, the knee was reinspected. Any other cement extrusion was removed and final kinematic testing showed range of motion from 0 to 130 degrees with excellent stability, both medially and laterally and appropriate alignment of the leg. Patellar tracking was excellent. The knee was then thoroughly pulse lavaged with normal saline. The tourniquet was deflated and hemostasis was obtained with electrocautery and IV tranexamic acid, 1 g given at the start of the operation and 1 g at the start of closure. Closure was with #2 Ethibond in the fascia/capsule and supplemented with #2 Quill, 2-0 Vicryl suture was used for the subcutaneous tissues and 3-0 Quill for the skin. Dermabond/Steri-Strips were then applied. A lightly compressive dressing was applied using Webril and an Robinson wrap. The patient was then transferred to stretcher and taken to the recovery room in stable condition. Sponge and needle counts were correct.
[2023-10-13] MEDS ORDERED: HYDROcodone/APAP 5-325MG 1 EACH TAB PO PRN (15:10)
[2023-10-13] MEDS ORDERED: NA PHOS,M-B/NA PHOS,DI-BA 133 ML ENEMA RECTAL PRN (15:10)
[2023-10-13] MEDS ORDERED: MAGNESIUM HYDROXIDE 2,400 MG/30 ML CUP PO PRN (15:10)
[2023-10-13] MEDS ORDERED: TEMAZEPAM 15 MG CAP PO PRN (15:10)
[2023-10-13] MEDS ORDERED: bisacodyL 10 MG SUPP RECTAL PRN (15:10)
[2023-10-13] MEDS ORDERED: ONDANSETRON 4 MG/2 ML VIAL IVP PRN (15:10)
[2023-10-13] MEDS ORDERED: hydrOXYzine pamoate 25 MG CAP PO PRN (15:10)
[2023-10-13] MEDS ORDERED: HYDROmorphone 0.5 MG/0.5 ML SYRINGE IVP PRN ×2 (15:10)
[2023-10-13] MEDS ORDERED: NALOXONE 0.4 MG/ML 1 ML VIAL IV PRN (15:10)
--- NOTE | 2023-10-13 15:38 | XR ---
EXAMINATION TYPE: XR knee limited RT DATE OF EXAM: 10/13/2023 3:34 PM CLINICAL INDICATION: Female, 68 years old with history of Evaluation for Postop abnormality and align ment; [facility] COMPARISON: None. TECHNIQUE: XR knee limited RT; examined in Frontal, lateral projections. FINDINGS: Status post total knee arthroplasty changes with hardware in appropriate alignment and in tact. No evidence of fracture. Subcutaneous lucencies and lucencies within the joint consistent with surgical changes. IMPRESSION: Status post total knee arthroplasty changes with hardware intact and appropriate alignment. No fractu res identified.
[2023-10-13] MEDS: ROPIVACAINE 1,100 MG, SODIUM CHLORIDE 0.9% 500 ML 330 ML, EMPTY PAIN BALL 1 EACH MISCELLANE PRN (16:39)
[2023-10-13] MEDS: HYDROmorphone 0.5 MG/0.5 ML SYRINGE IVP PRN ×2 (17:07→21:39)
[2023-10-13 17:30] LABS: Glucose,Whole Blood 141 mg/dL (70-110)
[2023-10-13] MEDS: LACTATED RINGERS 1,000 ML IV SCH ×2 (18:54→21:26)
[2023-10-13] MEDS ORDERED: NITROGLYCERIN SL TABS 0.4 MG TAB SUBLINGUAL PRN (19:54)
[2023-10-13] MEDS ORDERED: DICYCLOMINE 10 MG CAP PO PRN (19:54)
--- NOTE | 2023-10-13 19:54 | P.CONS ---
History of Present Illness - Reason for Consult Consult date: 10/13/23 Medical management Requesting physician: Russell Yoo - Chief Complaint Right knee surgery - History of Present Illness This is a pleasant 68-year-old patient who follows with Dr. Yury zambrano. Chronic stable medical conditions include anxiety depression, COPD, diabetes, GERD, hyperlipidemia, hypertension, IBS, prior breast cancer with lymph nodes removed to the left axilla with secondary lymphedema, osteoarthritis. Patient has undergone right total knee arthroplasty. No nausea vomiting. Does use a cane at home. Review of systems: GEN.: Tired EYES: None HEENT: None NECK: None RESPIRATORY: None CARDIOVASCULAR: None GASTROINTESTINAL: None GENITOURINARY: None MUSCULOSKELETAL: Joint pains e LYMPHATICS: None HEMATOLOGICAL: None PSYCHIATRY: None NEUROLOGICAL: Does use a cane Social history: Lives alone. Does use a cane. Did smoke in the past Physical examination: VITAL SIGNS: 97, 64, 16, 136 B 99, 98% room air GENERAL: BMI 44.2., Laying in bed comfortable EYES: Pupils equal. Conjunctiva dario l. HEENT: External appearance of nose and ears normal, oral cavity grossly normal. NECK: JVD not raised; masses not palpable. HEART: First and second heart sounds are normal; no edema. LUNGS: Respiratory rate normal; clear to auscultation. ABDOMEN: Soft, nontender, liver spleen not palpable, no masses palpable. PSYCH: Alert and oriented x3; mood and affect dario l. MUSCULOSKELETAL:No Clubbing/cyanosis;muscles-grossly intact. Dressing over the right knee. OA. NEUROLOGICAL: Cranial nerves grossly intact; no facial asymmetry, power and sensation grossly intact. LYMPHATICS: No lymph nodes palpable in the axilla and neck. INVESTIGATIONS, reviewed in the clinical context: No labs in the electronic records Assessment plan: -Right total knee arthroplasty Aspirin for DVT prophylaxis per primary team. Pain control. -Hyperlipidemia Lipitor 10 mg nightly -Anxiety depression Celexa 20 mg a day, Desyrel, trazodone, -Diabetes mellitus type 2 Metformin. Glucotrol. Mounjaro -Essential hypertension Coreg 3.125 twice daily. Amlodipine 5 mg daily. Cozaar 100 mg a day -GERD Protonix -Morbid obesity BMI 44.2 Weight loss measures -Full code -Chronic gait dysfunction from arthritis just use a cane at baseline Care was discussed with the patient. Questions answered. Thank you Dr. Yoo Past Medical History Past Medical History: Cancer, Chest Pain / Angina, COPD, Diabetes Mellitus, GERD/Reflux, Hyperlipidemia, Hypertension, Memory Impairment, Osteoarthritis (OA) Additional Past Medical History / Comment(s): HX BREAST CANCER left 2004 2020 rt breast chest pain 09/11 resolved qith 1 ntg sublingual. diverticulitis, IBS, Lymphedema (L) arm History of Any Multi-Drug Resistant Organisms: None Reported Past Surgical History: Breast Surgery, Heart Catheterization, Tonsillectomy Additional Past Surgical History / Comment(s): BUNIONECTOMY. LT BREAST mastectomy w/some lymph nodes rt breast mastectomy. COLONOSCOPY Past Anesthesia/Blood Transfusion Reactions: No Reported Reaction Smoking Status: Former smoker - Past Family History Mother Family Medical History: Congestive Heart Failure (CHF), Diabetes Mellitus Additional Family Medical History / Comment(s): colostomy. age 72 Father Family Medical History: Chest Pain / Angina, Diabetes Mellitus Additional Family Medical History / Comment(s): colostomy. age 62 Brother(s) Additional Family Medical History / Comment(s): bowel problem Medications and Allergies Home Medications Medication Instructions Recorded Confirmed Type Dicyclomine [Bentyl] 10 mg PO TID PRN 08/01/20 03/03/23 History Nitroglycerin Sl Tabs [Nitrostat] 0.4 mg SL Q5M PRN 08/01/20 03/03/23 History Pantoprazole Sodium 40 mg PO QAM 08/01/20 03/03/23 History glipiZIDE [Glucotrol] 5 mg PO TID 08/01/20 03/03/23 History traZODone HCL [Desyrel] 100 mg PO HS 08/01/20 03/03/23 History Atorvastatin Calcium [Lipitor] 10 mg PO HS 11/26/20 03/03/23 History Brexpiprazole [Rexulti] 2 mg PO QAM 11/26/20 03/03/23 History Topiramate [Topamax] 50 mg PO DAILY 11/26/20 03/03/23 History Cholecalciferol [Vitamin D3 (25 50 mcg PO DAILY 03/14/21 03/03/23 History Mcg = 1000 Iu)] traZODone HCL 50 mg PO HS 06/16/21 03/03/23 History Acetaminophen Tab [Tylenol] 650 mg PO Q6HR PRN #0 tab 06/17/21 03/03/23 Rx Benzonatate [Tessalon Perle] 200 mg PO TID PRN 05/21/22 03/03/23 History Cinnamon Bark [Cinnamon] 500 mg PO DAILY 05/21/22 03/03/23 History Ketoconazole 2% Cream [Nizoral 2%] 1 applic TOPICAL HS PRN 05/21/22 03/03/23 History Losartan Potassium [Cozaar] 100 mg PO QAM 05/21/22 03/03/23 History Citalopram Hydrobromide [CeleXA] 20 mg PO QAM 07/23/22 03/03/23 History Tirzepatide [Mounjaro] 2.5 mg SQ TH 09/12/22 03/03/23 History Rimegepant Sulfate [Nurtec Odt] 75 mg PO DAILY PRN 09/13/22 03/03/23 History Apple Cider Vinegar 450mg 450 mg PO DAILY 11/21/22 03/03/23 History Calcium Carbonate [Calcium] 600 mg PO DAILY 11/21/22 03/03/23 History Frida Root 550 Mg 550 mg PO DAILY 11/21/22 03/03/23 History Magnesium Oxide [Magox 400] 400 mg PO DAILY PRN 11/21/22 03/03/23 History Nystatin 100,000 Unit/gm Powd 1 applic TOPICAL BID PRN 11/21/22 03/03/23 History [Mycostatin Powder] Potassium Chloride ER [K-Dur 10] 10 meq PO QAM 11/21/22 03/03/23 History amLODIPine [Norvasc] 5 mg PO QAM 11/21/22 03/03/23 History carvediloL [Coreg] 3.125 mg PO BID 11/21/22 03/03/23 History hydrOXYzine pamoate 25 mg PO TID PRN 11/21/22 03/03/23 History metFORMIN HCL 500 mg PO QAM 11/21/22 03/03/23 History Aspirin [Adult Low Dose Aspirin EC] 81 mg PO BID #1 tab 03/03/23 Rx HYDROcodone/APAP 7.5-325MG [[place] 1 - 2 tab PO Q6HR PRN #32 tab 03/03/23 Rx 7.5-325] Ondansetron Odt [Zofran Odt] 4 mg PO Q8HR PRN #14 tab 03/03/23 Rx Sennosides-Docusate Sodium 1 tab PO BID #60 tablet 03/03/23 Rx [Senokot-S] Magnesium Hydroxide [Milk of 2,400 mg PO DAILY PRN ml 03/05/23 Rx Magnesia] Na Phos,M-B/Na Phos,Di-Ba [Fleet 133 ml RECTAL DAILY PRN each 03/05/23 Rx Adult] traMADol HCl [Ultram] 50 mg PO BID PRN #4 tab 03/05/23 Rx Aspirin [Adult Low Dose Aspirin EC] 81 mg PO BID #1 tab 10/13/23 Rx HYDROcodone/APAP 5-325MG [[place] 1 - 2 tab PO Q6HR PRN #32 tab 10/13/23 Rx 5-325] Ondansetron Odt [Zofran Odt] 4 mg PO Q8HR PRN #14 tab 10/13/23 Rx Sennosides-Docusate Sodium 1 tab PO BID #60 tablet 10/13/23 Rx [Senokot-S] Allergies Allergy/AdvReac Type Severity Reaction Status Date / Time naproxen AdvReac Nausea & Verified 10/13/23 11:04 Vomiting Physical Exam Vitals: Vital Signs Temp Pulse Resp BP Pulse Ox 10/13/23 17:30 69 16 164/83 96 10/13/23 17:15 68 16 168/86 94 L 10/13/23 16:45 70 18 189/73 95 10/13/23 16:30 69 18 173/99 93 L 10/13/23 16:09 65 18 164/90 97 10/13/23 15:54 64 16 136/99 98 10/13/23 15:39 71 16 150/80 97 10/13/23 15:24 76 16 154/89 95 10/13/23 15:09 97 F L 79 16 163/90 95 10/13/23 12:24 64 16 161/78 97 10/13/23 11:10 97.6 F 79 18 179/77 97 Intake and Output 10/13/23 10/13/23 10/13/23 06:59 14:59 22:59 Intake Total 1251 150 Output Total 100 Balance 1151 150 Intake: IV 1251 150 Output: Estimated Blood Loss 100 Other: Weight 109.7 kg 109.7 kg Results Labs: Abnormal Lab Results - Last 24 Hours (Table) 10/13/23 Range/Units 17:27 POC Glucose (mg/dL) 141 H (70-110) mg/dL
[2023-10-13] MEDS ORDERED: DEXTROSE 50% SYRINGE 50 ML IVP PRN ×2 (19:56)
[2023-10-13] MEDS: SENNOSIDES-DOCUSATE SODIUM 1 EACH TAB PO SCH ×2 (21:27→21:31)
[2023-10-13] MEDS: ATORVASTATIN 10 MG TAB PO SCH (21:31)
[2023-10-13] MEDS: carvediloL 3.125 MG TAB PO SCH (21:31)
[2023-10-13] MEDS: ASPIRIN 81 MG PO SCH (21:31)
[2023-10-13] MEDS: traZODone HCL 50 MG TAB PO SCH (21:31)
[2023-10-13] MEDS: traZODone HCL 100 MG TAB PO SCH (21:31)
[2023-10-13 21:34] LABS: Glucose,Whole Blood 237 mg/dL (70-110)
[2023-10-13] MEDS: INSULIN ASPART (NovoLOG) 100 UNIT/ML VIAL SQ SCH (21:39)
[2023-10-14] MEDS: HYDROcodone/APAP 5-325MG 1 EACH TAB PO PRN (04:35)
[2023-10-14 05:27] LABS: Glucose,Whole Blood 194 mg/dL (70-110)
[2023-10-14] MEDS: amLODIPine 5 MG TAB PO SCH (09:04)
[2023-10-14] MEDS: CITALOPRAM HYDROBROMIDE 20 MG TAB PO SCH (09:05)
[2023-10-14] MEDS: metFORMIN 500 MG TAB PO SCH (09:05)
[2023-10-14] MEDS: TOPIRAMATE 25 MG TAB PO SCH (09:05)
[2023-10-14] MEDS: PANTOPRAZOLE SODIUM 40 MG GRANULE PKT PO SCH (09:06)
[2023-10-14] MEDS: NON FORMULARY DRUG (Brexpiprazole [Rexulti] 2 MG Tablet) PO SCH (09:06)
[2023-10-14 09:15] LABS: Basophils # (A) 0.02 X 10*3/uL (0.00-0.10); Basophils % (A) 0.2 %; Eosinophils # (A) 0 X 10*3/uL (0.04-0.35); Eosinophils % (A) 0 %; HCT 35.6 % (37.2-46.3); HGB 11.1 g/dL (12.0-15.0); Lymphocytes # (A) 1.14 X 10*3/uL (0.90-5.00); Lymphocytes % (A) 10.7 %; MCH 28.9 pg (27.0-32.0); MCHC 31.2 g/dL (32.0-37.0); MCV 92.7 FL (80.0-97.0); Mean Platelet Volume 11.3 FL (9.5-12.2); Monocytes # (A) 0.58 X 10*3/uL (0.20-1.00); Monocytes % (A) 5.4 %; NRBC Per 100 WBC 0 X 10*3/uL (0.00-0.01); Neutrophils # (A) 8.86 X 10*3/uL (1.80-7.70); Platelet Count 201 X 10*3/uL (140-440); RBC 3.84 X 10*6/uL (4.10-5.20); RDW 14.5 % (11.5-14.5); WBC 10.67 X 10*3/uL (4.50-10.00)
--- NOTE | 2023-10-14 09:36 | P.PN ---
Subjective Progress Note Date: 10/14/23 This is a 68-year-old fe male who is status post right total knee arthroplasty. This is postoperative day #1 and patient is seen and evaluated at bedside today. Patient states that she is quite sore today, but was able to work a little bit with physical therapy today. Objective - Vital Signs Vital signs: Vital Signs Temp 98.2 F 10/14/23 07:05 Pulse 57 L 10/14/23 07:05 Resp 16 10/14/23 07:05 BP 105/60 10/14/23 07:05 Pulse Ox 90 L 10/14/23 07:05 FiO2 Intake & Output 10/13/23 10/14/23 10/14/23 18:59 06:59 18:59 Intake Total 1401 Output Total 100 Balance 1301 Weight 109.7 kg Intake: IV 1401 Output: Estimated Blood Loss 100 Other: # Voids 1 - Exam Vital signs are stable. Patient is in no acute distress and is alert and oriented 3. Calf is soft and nontender to palpation. Dressing is clean, dry, and intact. Patient has full foot and ankle motion without pain or difficulty. Sensation intact. Neurovascular status and circulatory status are intact. - Labs CBC & Chem 7: 10/14/23 03:56 Labs: Abnormal Lab Results - Last 24 Hours (Table) 10/13/23 10/13/23 10/14/23 Range/Units 17:27 21:32 03:56 WBC 10.67 H (4.50-10.00) X 10*3/uL RBC 3.84 L (4.10-5.20) X 10*6/uL Hgb 11.1 L (12.0-15.0) g/dL Hct 35.6 L (37.2-46.3) % MCHC 31.2 L (32.0-37.0) g/dL Immature Gran # 0.07 H (0.00-0.04) X 10*3/uL Neutrophils # 8.86 H (1.80-7.70) X 10*3/uL Eosinophils # 0 L (0.04-0.35) X 10*3/uL POC Glucose (mg/dL) 141 H 237 H (70-110) mg/dL 10/14/23 Range/Units 05:25 WBC (4.50-10.00) X 10*3/uL RBC (4.10-5.20) X 10*6/uL Hgb (12.0-15.0) g/dL Hct (37.2-46.3) % MCHC (32.0-37.0) g/dL Immature Gran # (0.00-0.04) X 10*3/uL Neutrophils # (1.80-7.70) X 10*3/uL Eosinophils # (0.04-0.35) X 10*3/uL POC Glucose (mg/dL) 194 H (70-110) mg/dL Assessment and Plan (1) Osteoarthritis of right knee Current Visit: Yes Status: Acute Code(s): M17.11 - UNILATERAL PRIMARY OSTEOARTHRITIS, RIGHT KNEE SNOMED Code(s): 588700941334700 (2) S/P total knee arthroplasty Current Visit: Yes Status: Acute Code(s): Z96.659 - PRESENCE OF UNSPECIFIED ARTIFICIAL KNEE JOINT SNOMED Code(s): 3100906281391 Plan: #1 Continue with routine postoperative care and pain control, leave dressing in place for 7 days. #2 Anticoagulation with aspirin. #3 Physical therapy today. #4 Appreciate input from internal medicine. #5 Anticipate discharge home with home care or to ECF in the next 24-48 hours.
[2023-10-14 11:46] LABS: Glucose,Whole Blood 164 mg/dL (70-110)
[2023-10-14] MEDS: FERROUS SULFATE 325 MG TAB PO SCH (12:23)
--- NOTE | 2023-10-14 13:02 | P.PN ---
Progress Note - Text 10/14/23 641am 68-year-old female status post total knee replacement. Patient is in no acute plan for postop pain control with solution running at 80 cc an hour with a VAS of 8. Dressing clean dry and intact. Plan to continue to keep up with
--- NOTE | 2023-10-14 14:16 | P.PN ---
Progress Note - Text Progress Note Date: 10/14/23 - Chief Complaint Right knee surgery - History of Present Illness This is a pleasant 68-year-old patient who follows with Dr. Yury zambrano. Chronic stable medical conditions include anxiety depression, COPD, diabetes, GERD, hyperlipidemia, hypertension, IBS, prior breast cancer with lymph nodes removed to the left axilla with secondary lymphedema, osteoarthritis. Patient has undergone right total knee arthroplasty. No nausea vomiting. Does use a cane at home. October 13: Some pain present at the operative site. Has been out of bed. Did work with therapy. Tolerating diet. No dizziness no lightheadedness. Ferrous sulfate added. No new complaints. Looking at going at possible rehab. Active Medications Hydrocodone Bitart/Acetaminophen (Hydrocodone/Apap 5-325mg 1 Each Tab) 1 each PO Q6HR PRN PRN Reason: Pain Scale 1 to 5 Hydrocodone Bitart/Acetaminophen (Hydrocodone/Apap 5-325mg 1 Each Tab) 2 each PO Q6HR PRN PRN Reason: Pain Scale 6 to 10 Last Admin: 10/14/23 12:25 Dose: 2 each Amlodipine Besylate (A[facility]ip[facility] 5 Mg Tab) [facility] [place] Last Admin: 10/14/23 09:04 Dose: 5 mg Aspirin (Aspirin 81 Mg) 81 mg PO BID [facility] Last Admin: 10/14/23 09:05 Dose: 81 mg Atorvastatin Calcium (Atorvastatin 10 Mg Tab) 10 mg PO HS [facility] Last Admin: 10/13/23 21:31 Dose: 10 mg Bisacodyl (Bisacodyl 10 Mg Supp) 10 mg RECTAL DAILY PRN PRN Reason: Constipation Carvedilol (Carvedilol 3.125 Mg Tab) 3.125 mg PO BID [facility] Last Admin: 10/14/23 09:05 Dose: 3.125 mg Citalopram Hydrobromide (Citalopram Hydrobromide 20 Mg Tab) [facility] [place] Last Admin: 10/14/23 09:05 Dose: 20 mg Ropivacaine 1,100 mg/ Sodium Chloride 330 ml/ Bandage/Support Products 1 each 0 mg MISCELLANE Q2H PRN PRN Reason: Breakthrough Pain Last Admin: 10/13/23 16:39 Dose: 550 ml Dextrose/Water (Dextrose 50% Syringe 50 Ml) 25 ml IVP PER PROTOCOL PRN; Protocol PRN Reason: Hypoglycemia Dextrose/Water (Dextrose 50% Syringe 50 Ml) 50 ml IVP PER PROTOCOL PRN; Protocol PRN Reason: Hypoglycemia Dicyclomine HCl (Dicyclomine 10 Mg Cap) 10 mg PO TID PRN PRN Reason: Bloating Ferrous Sulfate (Ferrous Sulfate 325 Mg Tab) 325 mg PO W/LUNCH [facility] Last Admin: 10/14/23 12:23 Dose: 325 mg Hydromorphone HCl (Hydromorphone 0.5 Mg/0.5 Ml Syringe) 0.125 mg IVP Q3HR PRN PRN Reason: Pain Scale 1 to 3 Hydromorphone HCl (Hydromorphone 0.5 Mg/0.5 Ml Syringe) 0.5 mg IVP Q3HR PRN PRN Reason: Pain Scale 7 to 10 Last Admin: 10/14/23 06:46 Dose: 0.5 mg Hydromorphone HCl (Hydromorphone 0.5 Mg/0.5 Ml Syringe) 0.25 mg IVP Q3HR PRN PRN Reason: Pain Scale 4 to 6 Hydroxyzine Pamoate (Hydroxyzine Pamoate 25 Mg Cap) 25 mg PO Q4HR PRN PRN Reason: Nausea, Anxiety, Pain Control Lactated Ringer's (Lactated Ringers) 1,000 mls @ 20 mls/hr IV .Q24H [facility] Last Admin: 10/14/23 12:21 Dose: Not Given Lactated Ringer's (Lactated Ringers) 1,000 mls @ 100 mls/hr IV .Q10H [facility] Last Admin: 10/14/23 12:24 Dose: 100 mls/hr Insulin Aspart (Insulin Aspart (Novolog) 100 Unit/Ml Vial) 0 unit SQ [facility]; Protocol Last Admin: 10/14/23 12:23 Dose: 2 unit Lidocaine HCl (Lidocaine 1% (10mg/Ml) For Iv Start) 0.1 ml INTRADERMA PER PROTOCOL PRN PRN Reason: IV Start Magnesium Hydroxide (Magnesium Hydroxide 2,400 Mg/30 Ml Cup) 2,400 mg PO DAILY PRN PRN Reason: Constipation Metformin HCl (Metformin 500 Mg Tab) 500 mg PO QAM [facility] Last Admin: 10/14/23 09:05 Dose: 500 mg Naloxone HCl (Naloxone 0.4 Mg/Ml 1 Ml Vial) 0.2 mg IV Q2M PRN PRN Reason: Opioid Reversal Nitroglycerin (Nitroglycerin Sl Tabs 0.4 Mg Tab) 0.4 mg SUBLINGUAL Q5M PRN PRN Reason: Chest Pain Non-Formulary Medication (Brexpiprazole [Rexulti]) 2 mg PO QAM [facility] Last Admin: 10/14/23 09:06 Dose: Not Given Non-Formulary Medication (Tirzepatide [Mounjaro]) 2.5 mg SQ TH [facility] Ondansetron HCl (Ondansetron 4 Mg/2 Ml Vial) 4 mg IVP Q8HR PRN PRN Reason: Nausea And Vomiting Pantoprazole Sodium (Pantoprazole Sodium 40 Mg Granule Pkt) [facility] [place] Last Admin: 10/14/23 09:06 Dose: 40 mg Senna/Docusate Sodium (Sennosides-Docusate Sodium 1 Each Tab) 2 each PO [facility] Last Admin: 10/13/23 21:31 Dose: 2 each Senna/Docusate Sodium (Sennosides-Docusate Sodium 1 Each Tab) 1 each PO BID [facility] Last Admin: 10/14/23 09:05 Dose: 1 each Sodium Biphosphate/Sodium Phosphate (Na Phos,M-B/Na Phos,Di-Ba 133 Ml Enema) 133 ml RECTAL DAILY PRN PRN Reason: Constipation Temazepam (Temazepam 15 Mg Cap) 15 mg PO PRN PRN Reason: Insomnia Topiramate (Topiramate 25 Mg Tab) 50 mg PO DAILY [facility] Last Admin: 10/14/23 09:05 Dose: 50 mg Trazodone HCl (Trazodone Hcl 50 Mg Tab) 50 mg PO [facility] Last Admin: 10/13/23 21:31 Dose: 50 mg Trazodone HCl (Trazodone Hcl 100 Mg Tab) 100 mg PO [facility] Last Admin: 10/13/23 21:31 Dose: 100 mg Social history: Lives alone. Does use a cane. Did smoke in the past Physical examination: VITAL SIGNS: 98.9, 62, 16, 110 x 62, 94% room air GENERAL: BMI 44.2., In bed, comfortable EYES: Pupils equal. Conjunctiva normal HEENT: External appearance of nose and ears normal, oral cavity grossly normal. NECK: JVD not raised; masses not palpable. HEART: First and second heart sounds are normal; no edema. LUNGS: Respiratory rate normal; clear to auscultation. ABDOMEN: Soft, nontender, liver spleen not palpable, no masses palpable. PSYCH: Alert and oriented x3; mood and affect dario l. MUSCULOSKELETAL:No Clubbing/cyanosis;muscles-grossly intact. Dressing over the right knee. OA. INVESTIGATIONS, reviewed in the clinical context: October 13: White count 10.6 hemoglobin 11.1 platelets 201. Accu-Cheks noted Preop labs: September 19, 2023: White count 5.4 hemoglobin 30.7 platelets 249 sodium 141 potassium 4.1 BUN 11.9 creatinine 1 Assessment plan: -Right total knee arthroplasty Aspirin for DVT prophylaxis per primary team. Pain control. -Acute postprocedure blood loss anemia expected from surgery Add ferrous sulfate 3 two 5 mg p.o. daily -Hyperlipidemia Lipitor 10 mg nightly -Anxiety depression Celexa 20 mg a day, Desyrel, trazodone, -Diabetes mellitus type 2 Metformin. Glucotrol. Mounjaro -Essential hypertension Coreg 3.125 twice daily. Amlodipine 5 mg daily. Cozaar-held for now -GERD Protonix -Morbid obesity BMI 44.2 Weight loss measures -Full code -Chronic gait dysfunction from arthritis just use a cane at baseline Discussed with patient. Ferrous sulfate added. Continue to hold Cozaar. Thank you Dr. Yoo Past Medical History Past Medical History: Cancer, Chest Pain / Angina, COPD, Diabetes Mellitus, GERD/Reflux, Hyperlipidemia, Hypertension, Memory Impairment, Osteoarthritis (OA) Additional Past Medical History / Comment(s): HX BREAST CANCER left 2004 2020 rt breast chest pain 09/11 resolved qith 1 ntg sublingual. diverticulitis, IBS, Lymphedema (L) arm History of Any Multi-Drug Resistant Organisms: None Reported Past Surgical History: Breast Surgery, Heart Catheterization, Tonsillectomy Additional Past Surgical History / Comment(s): BUNIONECTOMY. LT BREAST mastectomy w/some lymph nodes rt breast mastectomy. COLONOSCOPY Past Anesthesia/Blood Transfusion Reactions: No Reported Reaction Smoking Status: Former smoker
[2023-10-14 16:57] LABS: Glucose,Whole Blood 151 mg/dL (70-110)
[2023-10-14 20:28] LABS: Glucose,Whole Blood 120 mg/dL (70-110)
[2023-10-15 06:02] LABS: Glucose,Whole Blood 135 mg/dL (70-110)
--- NOTE | 2023-10-15 08:43 | P.DS ---
Providers Date of admission: 10/13/23 10:24 Expected date of discharge: 10/15/23 Attending physician: Russell Yoo Consults: 10/13/23 18:52 Consult Physician Routine Consulting Provider: Elian Givens Consult Reason/Comments: Medical management Do you want consulting provider notified?: Yes Primary care physician: Alvaro Johnson - Discharge Diagnosis(es) (1) Osteoarthritis of right knee Current Visit: Yes Status: Acute (2) S/P total knee arthroplasty Current Visit: Yes Status: Acute Hospital Course: This is a 68-year-old female who was last seen with complaint of continued right knee pain. The patient has a known history of degenerative arthritis of the right knee and presents to discuss surgical options. After discussion and consideration the patient elects to proceed with total right knee arthroplasty. The patient is seen preoperatively by her primary care physician and cleared for surgery. The patient is admitted to [facility] for total right knee arthroplasty. The procedures performed without complication or sequelae. Patient is doing well postoperatively. Vital signs are stable at discharge. Labs are stable at discharge. the patient is ambulating well with walker with minimal assistance. The patient initially wanted to go to inpatient rehab but she is doing too well and is completely independent with ambulation and ADLs. She does not meet inpatient rehab criteria. The patient is discharged to home with home care on postop day # 2 pending medical clearance. Please see orders and refer to the [facility] rec for accurate list of medications. Patient Condition at Discharge: Stable Plan - Discharge Summary Discharge Rx Participant: Yes New Discharge Prescriptions: New Aspirin [Adult Low Dose Aspirin EC] 81 mg PO BID #1 tab Ondansetron Odt [Zofran Odt] 4 mg PO Q8HR PRN #14 tab PRN Reason: Nausea HYDROcodone/APAP 5-325MG [[place] 5-325] 1 - 2 tab PO Q6HR PRN #32 tab PRN Reason: Pain Sennosides-Docusate Sodium [Senokot-S] 1 tab PO BID #60 tablet No Action Cholecalciferol [Vitamin D3 (25 Mcg = 1000 Iu)] 50 mcg PO DAILY traZODone HCL 50 mg PO HS Benzonatate [Tessalon Perle] 200 mg PO TID PRN PRN Reason: Cough Losartan Potassium [Cozaar] 100 mg PO QAM Citalopram Hydrobromide [CeleXA] 20 mg PO QAM Rimegepant Sulfate [Nurtec Odt] 75 mg PO DAILY PRN PRN Reason: Headache carvediloL [Coreg] 3.125 mg PO BID metFORMIN HCL 500 mg PO QAM Potassium Chloride ER [K-Dur 10] 10 meq PO QAM Calcium Carbonate [Calcium] 600 mg PO DAILY hydrOXYzine pamoate 25 mg PO TID PRN PRN Reason: Anxiety Frida Root 550 Mg 550 mg PO DAILY traMADol HCl [Ultram] 50 mg PO BID PRN #4 tab PRN Reason: Pain traZODone HCL [Desyrel] 100 mg PO HS glipiZIDE [Glucotrol] 5 mg PO TID Nitroglycerin Sl Tabs [Nitrostat] 0.4 mg SL Q5M PRN PRN Reason: Chest Pain Dicyclomine [Bentyl] 10 mg PO TID PRN PRN Reason: Bloating Pantoprazole Sodium 40 mg PO QAM Topiramate [Topamax] 50 mg PO DAILY Brexpiprazole [Rexulti] 2 mg PO QAM Atorvastatin Calcium [Lipitor] 10 mg PO HS Acetaminophen Tab [Tylenol] 650 mg PO Q6HR PRN #0 tab PRN Reason: Mild Pain Or Fever > 100.5 Cinnamon Bark [Cinnamon] 500 mg PO DAILY Ketoconazole 2% Cream [Nizoral 2%] 1 applic TOPICAL HS PRN PRN Reason: SKIN ISSUES Tirzepatide [Mounjaro] 2.5 mg SQ TH amLODIPine [Norvasc] 5 mg PO QAM Nystatin 100,000 Unit/gm Powd [Mycostatin Powder] 1 applic TOPICAL BID PRN PRN Reason: FLARE UP Apple Cider Vinegar 450mg 450 mg PO DAILY Magnesium Oxide [Magox 400] 400 mg PO DAILY PRN PRN Reason: pain Aspirin [Adult Low Dose Aspirin EC] 81 mg PO BID #1 tab HYDROcodone/APAP 7.5-325MG [[place] 7.5-325] 1 - 2 tab PO Q6HR PRN #32 tab PRN Reason: Pain Sennosides-Docusate Sodium [Senokot-S] 1 tab PO BID #60 tablet Ondansetron Odt [Zofran Odt] 4 mg PO Q8HR PRN #14 tab PRN Reason: Nausea Na Phos,M-B/Na Phos,Di-Ba [Fleet Adult] 133 ml RECTAL DAILY PRN each PRN Reason: Constipation Magnesium Hydroxide [Milk of Magnesia] 2,400 mg PO DAILY PRN ml PRN Reason: Constipation Discharge Medication List Dicyclomine [Bentyl] 10 mg PO TID PRN 08/01/20 [History] Nitroglycerin Sl Tabs [Nitrostat] 0.4 mg SL Q5M PRN 08/01/20 [History] Pantoprazole Sodium 40 mg PO QAM 08/01/20 [History] glipiZIDE [Glucotrol] 5 mg PO TID 08/01/20 [History] traZODone HCL [Desyrel] 100 mg PO HS 08/01/20 [History] Atorvastatin Calcium [Lipitor] 10 mg PO HS 11/26/20 [History] Brexpiprazole [Rexulti] 2 mg PO QAM 11/26/20 [History] Topiramate [Topamax] 50 mg PO DAILY 11/26/20 [History] Cholecalciferol [Vitamin D3 (25 Mcg = 1000 Iu)] 50 mcg PO DAILY 03/14/21 [History] traZODone HCL 50 mg PO HS 06/16/21 [History] Acetaminophen Tab [Tylenol] 650 mg PO Q6HR PRN #0 tab 06/17/21 [Rx] Benzonatate [Tessalon Perle] 200 mg PO TID PRN 05/21/22 [History] Cinnamon Bark [Cinnamon] 500 mg PO DAILY 05/21/22 [History] Ketoconazole 2% Cream [Nizoral 2%] 1 applic TOPICAL HS PRN 05/21/22 [History] Losartan Potassium [Cozaar] 100 mg PO QAM 05/21/22 [History] Citalopram Hydrobromide [CeleXA] 20 mg PO QAM 07/23/22 [History] Tirzepatide [Mounjaro] 2.5 mg SQ TH 09/12/22 [History] Rimegepant Sulfate [Nurtec Odt] 75 mg PO DAILY PRN 09/13/22 [History] Apple Cider Vinegar 450mg 450 mg PO DAILY 11/21/22 [History] Calcium Carbonate [Calcium] 600 mg PO DAILY 11/21/22 [History] Frida Root 550 Mg 550 mg PO DAILY 11/21/22 [History] Magnesium Oxide [Magox 400] 400 mg PO DAILY PRN 11/21/22 [History] Nystatin 100,000 Unit/gm Powd [Mycostatin Powder] 1 applic TOPICAL BID PRN 11/21/22 [History] Potassium Chloride ER [K-Dur 10] 10 meq PO QAM 11/21/22 [History] amLODIPine [Norvasc] 5 mg PO QAM 11/21/22 [History] carvediloL [Coreg] 3.125 mg PO BID 11/21/22 [History] hydrOXYzine pamoate 25 mg PO TID PRN 11/21/22 [History] metFORMIN HCL 500 mg PO QAM 11/21/22 [History] Aspirin [Adult Low Dose Aspirin EC] 81 mg PO BID #1 tab 03/03/23 [Rx] HYDROcodone/APAP 7.5-325MG [[place] 7.5-325] 1 - 2 tab PO Q6HR PRN #32 tab 03/03/23 [Rx] Ondansetron Odt [Zofran Odt] 4 mg PO Q8HR PRN #14 tab 03/03/23 [Rx] Sennosides-Docusate Sodium [Senokot-S] 1 tab PO BID #60 tablet 03/03/23 [Rx] Magnesium Hydroxide [Milk of Magnesia] 2,400 mg PO DAILY PRN ml 03/05/23 [Rx] Na Phos,M-B/Na Phos,Di-Ba [Fleet Adult] 133 ml RECTAL DAILY PRN each 03/05/23 [Rx] traMADol HCl [Ultram] 50 mg PO BID PRN #4 tab 03/05/23 [Rx] Aspirin [Adult Low Dose Aspirin EC] 81 mg PO BID #1 tab 10/13/23 [Rx] HYDROcodone/APAP 5-325MG [[place] 5-325] 1 - 2 tab PO Q6HR PRN #32 tab 10/13/23 [Rx] Ondansetron Odt [Zofran Odt] 4 mg PO Q8HR PRN #14 tab 10/13/23 [Rx] Sennosides-Docusate Sodium [Senokot-S] 1 tab PO BID #60 tablet 10/13/23 [Rx] Follow up Appointment(s)/Referral(s): Alba Barrera, LISE [PHYSICIAN HISTORY TUTOR] - 10/29/23 2:00 pm Huma Price, [NON-STAFF] - As Needed Activity/Diet/Wound Care/Special Instructions: May bear weight as tolerated with walker right lower extremity. May remove stocking and Robinson wrap on postop day #3. Keep Optifoam dressing intact and remove day 7. Discharge Disposition: HOME WITH HOME HEALTH SERVICES
[2023-10-15 09:06] VITALS: RESP 17
[2023-10-15 11:53] LABS: Glucose,Whole Blood 127 mg/dL (70-110)
[2023-10-15 16:14] VITALS: BP 130/73; PULSE 77; TEMP 99.5
[2023-10-15 16:39] LABS: Glucose,Whole Blood 129 mg/dL (70-110)
--- NOTE | 2023-10-15 16:49 | P.PN ---
Progress Note - Text Progress Note Date: 10/15/23 - Chief Complaint Right knee surgery - History of Present Illness This is a pleasant 68-year-old patient who follows with Dr. Yury zambrano. Chronic stable medical conditions include anxiety depression, COPD, diabetes, GERD, hyperlipidemia, hypertension, IBS, prior breast cancer with lymph nodes removed to the left axilla with secondary lymphedema, osteoarthritis. Patient has undergone right total knee arthroplasty. No nausea vomiting. Does use a cane at home. October 13: Some pain present at the operative site. Has been out of bed. Did work with therapy. Tolerating diet. No dizziness no lightheadedness. Ferrous sulfate added. No new complaints. Looking at going at possible rehab. October 14: Patient seen earlier today. Doing better. Pain better controlled. Did ambulate with a walker. Will be going home. Discussed with the patient to hold her Cozaar until her systolic blood pressures above 140. Daily blood pressure check in the morning. Questions answered. Active Medications Hydrocodone Bitart/Acetaminophen (Hydrocodone/Apap 5-325mg 1 Each Tab) 1 each PO Q6HR PRN PRN Reason: Pain Scale 1 to 5 Hydrocodone Bitart/Acetaminophen (Hydrocodone/Apap 5-325mg 1 Each Tab) 2 each PO Q6HR PRN PRN Reason: Pain Scale 6 to 10 Last Admin: 10/15/23 07:00 Dose: 2 each Amlodipine Besylate (Amlodipine 5 Mg Tab) 5 mg PO QAM [facility] Last Admin: 10/15/23 08:17 Dose: 5 mg Aspirin (Aspirin 81 Mg) 81 mg PO BID [facility] Last Admin: 10/15/23 08:17 Dose: 81 mg Atorvastatin Calcium (Atorvastatin 10 Mg Tab) 10 mg PO HS [facility] Last Admin: 10/14/23 21:04 Dose: 10 mg Bisacodyl (Bisacodyl 10 Mg Supp) 10 mg RECTAL DAILY PRN PRN Reason: Constipation Carvedilol (Carvedilol 3.125 Mg Tab) 3.125 mg PO BID [facility] Last Admin: 10/15/23 08:18 Dose: 3.125 mg Citalopram Hydrobromide (Citalopram Hydrobromide 20 Mg Tab) 20 mg PO QAM [facility] Last Admin: 10/15/23 08:18 Dose: 20 mg Ropivacaine 1,100 mg/ Sodium Chloride 330 ml/ Bandage/Support Products 1 each 0 mg MISCELLANE Q2H PRN PRN Reason: Breakthrough Pain Last Admin: 10/13/23 16:39 Dose: 550 ml Dextrose/Water (Dextrose 50% Syringe 50 Ml) 25 ml IVP PER PROTOCOL PRN; Protocol PRN Reason: Hypoglycemia Dextrose/Water (Dextrose 50% Syringe 50 Ml) 50 ml IVP PER PROTOCOL PRN; Protocol PRN Reason: Hypoglycemia Dicyclomine HCl (Dicyclomine 10 Mg Cap) 10 mg PO TID PRN PRN Reason: Bloating Ferrous Sulfate (Ferrous Sulfate 325 Mg Tab) 325 mg PO W/LUNCH [facility] Last Admin: 10/15/23 12:53 Dose: 325 mg Hydromorphone HCl (Hydromorphone 0.5 Mg/0.5 Ml Syringe) 0.125 mg IVP Q3HR PRN PRN Reason: Pain Scale 1 to 3 Hydromorphone HCl (Hydromorphone 0.5 Mg/0.5 Ml Syringe) 0.5 mg IVP Q3HR PRN PRN Reason: Pain Scale 7 to 10 Last Admin: 10/14/23 21:05 Dose: 0.5 mg Hydromorphone HCl (Hydromorphone 0.5 Mg/0.5 Ml Syringe) 0.25 mg IVP Q3HR PRN PRN Reason: Pain Scale 4 to 6 Hydroxyzine Pamoate (Hydroxyzine Pamoate 25 Mg Cap) 25 mg PO Q4HR PRN PRN Reason: Nausea, Anxiety, Pain Control Insulin Aspart (Insulin Aspart (Novolog) 100 Unit/Ml Vial) 0 unit SQ ACHS [facility]; Protocol Last Admin: 10/15/23 12:01 Dose: Not Given Lidocaine HCl (Lidocaine 1% (10mg/Ml) For Iv Start) 0.1 ml INTRADERMA PER PROTOCOL PRN PRN Reason: IV Start Magnesium Hydroxide (Magnesium Hydroxide 2,400 Mg/30 Ml Cup) 2,400 mg PO DAILY PRN PRN Reason: Constipation Metformin HCl (Metformin 500 Mg Tab) 500 mg PO QAM [facility] Last Admin: 10/15/23 08:18 Dose: 500 mg Naloxone HCl (Naloxone 0.4 Mg/Ml 1 Ml Vial) 0.2 mg IV Q2M PRN PRN Reason: Opioid Reversal Nitroglycerin (Nitroglycerin Sl Tabs 0.4 Mg Tab) 0.4 mg SUBLINGUAL Q5M PRN PRN Reason: Chest Pain Non-Formulary Medication (Brexpiprazole [Rexulti]) [facility] [place] Admin: 10/15/23 08:10 Dose: Not Given Non-Formulary Medication (Tirzepatide [Mounjaro]) 2.5 mg SQ [facility] Ondansetron HCl (Ondansetron 4 Mg/2 Ml Vial) 4 mg IVP Q8HR PRN PRN Reason: Nausea And Vomiting Pantoprazole Sodium (Pantoprazole Sodium 40 Mg Granule Pkt) 40 [facility] [place] Last Admin: 10/15/23 08:18 Dose: 40 mg Senna/Docusate Sodium (Sennosides-Docusate Sodium 1 Each Tab) 2 each PO [facility] Last Admin: 10/14/23 21:04 Dose: 2 each Senna/Docusate Sodium (Sennosides-Docusate Sodium 1 Each Tab) 1 each PO BID [facility] Last Admin: 10/15/23 08:18 Dose: 1 each Sodium Biphosphate/Sodium Phosphate (Na Phos,M-B/Na Phos,Di-Ba 133 Ml Enema) 133 ml RECTAL DAILY PRN PRN Reason: Constipation Temazepam (Temazepam 15 Mg Cap) 15 mg PO PRN PRN Reason: Insomnia Topiramate (Topiramate 25 Mg Tab) 50 mg PO DAILY [facility] Last Admin: 10/15/23 08:18 Dose: 50 mg Trazodone HCl (Trazodone Hcl 50 Mg Tab) 50 mg PO [facility] Last Admin: 10/14/23 21:04 Dose: 50 mg Trazodone HCl (Trazodone Hcl 100 Mg Tab) 100 mg PO [facility] Last Admin: 10/14/23 21:04 Dose: 100 mg Social history: Lives alone. Does use a cane. Did smoke in the past Physical examination: VITAL SIGNS: 98.7, 67, 17, 103 x 68, 94% room air GENERAL: Laying in bed, comfortable EYES: Pupils equal. Conjunctiva normal HEENT: External appearance of nose and ears normal, oral cavity grossly normal. NECK: JVD not raised; masses not palpable. HEART: First and second heart sounds are normal; no edema. LUNGS: Respiratory rate normal; clear to auscultation. ABDOMEN: Soft, nontender, liver spleen not palpable, no masses palpable. PSYCH: Alert and oriented x3; mood and affect dario l. MUSCULOSKELETAL:No Clubbing/cyanosis;muscles-grossly intact. Dressing over the right knee. OA. INVESTIGATIONS, reviewed in the clinical context: October 13: White count 10.6 hemoglobin 11.1 platelets 201. Accu-Cheks noted Preop labs: September 19, 2023: White count 5.4 hemoglobin 30.7 platelets 249 sodium 141 potassium 4.1 BUN 11.9 creatinine 1 Assessment plan: -Right total knee arthroplasty Aspirin for DVT prophylaxis per primary team. Pain control. -Acute postprocedure blood loss anemia expected from surgery Added: Ferrous sulfate 325 mg p.o. daily -Hyperlipidemia Lipitor 10 mg nightly -Anxiety depression Celexa 20 mg a day, Desyrel, trazodone, -Diabetes mellitus type 2 Metformin. Glucotrol. Mounjaro -Essential hypertension Coreg 3.125 twice daily. Amlodipine 5 mg daily. Cozaar-to resume at home once systolic blood pressure above 140 in the morning -GERD Protonix -Morbid obesity BMI 44.2 Weight loss measures -Full code -Chronic gait dysfunction from arthritis just use a cane at baseline Daily blood pressure check at home in the morning. Cozaar instructions given and discussed Thank you Dr. Yoo Past Medical History Past Medical History: Cancer, Chest Pain / Angina, COPD, Diabetes Mellitus, GERD/Reflux, Hyperlipidemia, Hypertension, Memory Impairment, Osteoarthritis (OA) Additional Past Medical History / Comment(s): HX BREAST CANCER left 2004 2020 rt breast chest pain 09/11 resolved qith 1 ntg sublingual. diverticulitis, IBS, Lymphedema (L) arm History of Any Multi-Drug Resistant Organisms: None Reported Past Surgical History: Breast Surgery, Heart Catheterization, Tonsillectomy Additional Past Surgical History / Comment(s): BUNIONECTOMY. LT BREAST mastectomy w/some lymph nodes rt breast mastectomy. COLONOSCOPY Past Anesthesia/Blood Transfusion Reactions: No Reported Reaction Smoking Status: Former smoker
[2023-10-16] MEDS ORDERED: NON FORMULARY DRUG (Tirzepatide [Mounjaro] 2.5 MG/0.5 ML Pen.Injctr) SQ SCH (19:54)
== END 2023-10-15 20:30 | disposition home health service (06) | DRG 470 ==
LOC: 2ORMAIN 10:24 → 4SSUR 17:02
PROVIDERS: ADMIT Orthopaedic Surgery; ATTEND Orthopaedic Surgery
PROC: 0SRC0J9 Replacement of Right Knee Joint with Synthetic Substitute, Cemented, Open Approach (ICD-10-PCS; principal; 2023-10-13 12:30)
DX: M17.11 Unilateral primary osteoarthritis, right knee (principal); Z68.41 Body mass index [BMI] 40.0-44.9, adult; E11.9 Type 2 diabetes mellitus without complications; F32.A Depression, unspecified; I10 Essential (primary) hypertension; J44.9 Chronic obstructive pulmonary disease, unspecified; E66.01 Morbid (severe) obesity due to excess calories; M21.161 Varus deformity, not elsewhere classified, right knee; E78.5 Hyperlipidemia, unspecified; F41.9 Anxiety disorder, unspecified; K21.9 Gastro-esophageal reflux disease without esophagitis; K58.9 Irritable bowel syndrome, unspecified; M81.0 Age-related osteoporosis without current pathological fracture; R26.9 Unspecified abnormalities of gait and mobility; Z96.652 Presence of left artificial knee joint; Z79.82 Long term (current) use of aspirin; Z79.84 Long term (current) use of oral hypoglycemic drugs; Z79.899 Other long term (current) drug therapy; Z85.3 Personal history of malignant neoplasm of breast; Z87.891 Personal history of nicotine dependence; Z90.13 Acquired absence of bilateral breasts and nipples; Z88.6 Allergy status to analgesic agent

== ENCOUNTER → 2023-10-23 | Outpatient (CLI) | payer MEDICARE, OTHER ==
[2023-10-23 18:22] LABS: Basophils # (A) 0.08 X 10*3/uL (0.00-0.10); Basophils % (A) 1.1 %; Eosinophils # (A) 0.36 X 10*3/uL (0.04-0.35); Eosinophils % (A) 4.8 %; HCT 37.3 % (37.2-46.3); HGB 11.7 g/dL (12.0-15.0); Lymphocytes % (A) 33.4 %; MCHC 31.4 g/dL (32.0-37.0); MCV 92.6 FL (80.0-97.0); Mean Platelet Volume 10.2 FL (9.5-12.2); Monocytes # (A) 0.67 X 10*3/uL (0.20-1.00); NRBC Per 100 WBC 0 X 10*3/uL (0.00-0.01); Neutrophils # (A) 3.85 X 10*3/uL (1.80-7.70); Neutrophils % (A) 51.4 %; Platelet Count 384 X 10*3/uL (140-440); RBC 4.03 X 10*6/uL (4.10-5.20); RDW 15.1 % (11.5-14.5); WBC 7.48 X 10*3/uL (4.50-10.00)
[2023-10-23 18:48] LABS: % Iron Saturation 15.53 (12.00-45.00); BUN/Creat Ratio 20.44 Ratio (12.00-20.00); Blood Urea Nitrogen 18.4 mg/dL (9.0-27.0); Calcium 8.9 mg/dL (8.7-10.3); Carbon Dioxide 23.3 mmol/L (21.6-31.8); Chloride 103 mmol/L (96-109); Glucose 103 mg/dL (70-110); Iron 50 UG/DL (50-170); Potassium 4.1 mmol/L (3.5-5.5); Sodium 140 mmol/L (135-145); Total Iron Binding Capacity 322 UG/DL (228-460)
== END | disposition home or self-care (01) ==
LOC: LABWHC1 13:14
PROVIDERS: ATTEND Family Medicine
DX: I10 Essential (primary) hypertension (principal); D50.0 Iron deficiency anemia secondary to blood loss (chronic)
CPT/HCPCS: 36415; 80048; 82728; 83540; 83550; 85025

== ENCOUNTER → 2023-10-29 | Outpatient (CLI) | payer MEDICARE, OTHER ==
--- NOTE | 2023-10-29 15:53 | US ---
EXAMINATION TYPE: US venous doppler duplex LE RT DATE OF EXAM: 10/29/2023 3:26 PM COMPARISON: NONE CLINICAL INDICATION: Female, 68 years old with history of I80.9 M25.561 M17.11; Right total knee 1 we ek ago, pain and swelling, no h/o dvt SIDE PERFORMED: Right TECHNIQUE: The lower extremity deep venous system is examined utilizing real time linear array sonog madina with graded compression, doppler sonography and color-flow sonography. VESSELS IMAGED: Common Femoral Vein Deep Femoral Vein Greater Saphenous Vein * Femoral Vein Popliteal Vein Small Saphenous Vein * Proximal Calf Veins (* superficial vessels) *unable to do compression images behind knee due to pain tolerance - good color flow Right Leg: Negative for DVT Subcutaneous edema involving the right lower extremity. IMPRESSION: No visualized deep venous thrombosis of the right lower extremity. Limited evaluation behind the knee do to pain tolerance with good color flow demonstrated.
== END | disposition home or self-care (01) ==
LOC: RADUSWWP 15:06
PROVIDERS: ATTEND Orthopaedic Surgery
DX: I80.9 Phlebitis and thrombophlebitis of unspecified site (principal); M17.11 Unilateral primary osteoarthritis, right knee; Z47.1 Aftercare following joint replacement surgery; Z96.652 Presence of left artificial knee joint

== ENCOUNTER → 2023-10-31 | Outpatient (CLI) | payer MEDICARE, OTHER ==
[2023-10-31 19:06] LABS: Basophils # (A) 0.06 X 10*3/uL (0.00-0.10); Basophils % (A) 1.2 %; Eosinophils # (A) 0.16 X 10*3/uL (0.04-0.35); Eosinophils % (A) 3.1 %; HCT 40.3 % (37.2-46.3); HGB 12.4 g/dL (12.0-15.0); Lymphocytes # (A) 1.66 X 10*3/uL (0.90-5.00); Lymphocytes % (A) 32.6 %; MCH 28.3 pg (27.0-32.0); MCHC 30.8 g/dL (32.0-37.0); Mean Platelet Volume 10.1 FL (9.5-12.2); Monocytes # (A) 0.52 X 10*3/uL (0.20-1.00); Monocytes % (A) 10.2 %; NRBC Per 100 WBC 0 X 10*3/uL (0.00-0.01); Neutrophils # (A) 2.67 X 10*3/uL (1.80-7.70); Neutrophils % (A) 52.5 %; Platelet Count 361 X 10*3/uL (140-440); RBC 4.38 X 10*6/uL (4.10-5.20); WBC 5.09 X 10*3/uL (4.50-10.00)
[2023-10-31 20:39] LABS: % Iron Saturation 11.05 (12.00-45.00); Blood Urea Nitrogen 10.6 mg/dL (9.0-27.0); Calcium 9.1 mg/dL (8.7-10.3); Carbon Dioxide 26.6 mmol/L (21.6-31.8); Chloride 105 mmol/L (96-109); Glucose 85 mg/dL (70-110); Iron 39 UG/DL (50-170); Potassium 4.2 mmol/L (3.5-5.5); Sodium 142 mmol/L (135-145); Total Iron Binding Capacity 353 UG/DL (228-460)
== END | disposition home or self-care (01) ==
LOC: LABWHC1 15:45
PROVIDERS: ATTEND Family Medicine
DX: I10 Essential (primary) hypertension (principal); D50.0 Iron deficiency anemia secondary to blood loss (chronic)
CPT/HCPCS: 36415; 80048; 82728; 83540; 83550; 85025

== ENCOUNTER 2024-01-01 10:45 | Observation (INO) | payer MEDICARE, OTHER ==
[2024-01-01 11:38] LABS: Basophils % (A) 1 %; Eosinophils # (A) 0.2 k/uL (0-0.7); Eosinophils % (A) 4 %; HCT 42.5 % (34.0-46.0); HGB 13.6 gm/dL (11.4-16.0); Lymphocytes # (A) 1.6 k/uL (1.0-4.8); Lymphocytes % (A) 33 %; MCH 28.8 pg (25.0-35.0); MCV 90.2 fL (80.0-100.0); Mean Platelet Volume 7.7; Monocytes # (A) 0.3 k/uL (0-1.0); Monocytes % (A) 7 %; Neutrophils # (A) 2.5 k/uL (1.3-7.7); Neutrophils % (A) 52 %; Platelet Count 260 k/uL (150-450); RBC 4.71 m/uL (3.80-5.40); RDW 14.3 % (11.5-15.5); WBC 4.7 k/uL (3.8-10.6)
[2024-01-01] MEDS: NITROGLYCERIN SL TABS 0.4 MG TAB SUBLINGUAL STA ×3 (11:41→12:50)
[2024-01-01 11:50] LABS: ALT 25 U/L (4-34); AST 31 U/L (14-36); African American GFR (CKD) 74 (>60 ml/min/1.73 sqM); Albumin 4.1 g/dL (3.5-5.0); Alkaline Phosphatase 107 U/L (38-126); Anion Gap 4 mmol/L; Blood Urea Nitrogen 15 mg/dL (7-17); Calcium 8.8 mg/dL (8.4-10.2); Carbon Dioxide 28 mmol/L (22-30); Chloride 108 mmol/L (98-107); Glucose 82 mg/dL (74-99); Non-African American GFR(CKD) 64 (>60 ml/min/1.73 sqM); Potassium 4.1 mmol/L (3.5-5.1); Sodium 140 mmol/L (137-145); Total Bilirubin 0.3 mg/dL (0.2-1.3); Total Protein 7.2 g/dL (6.3-8.2)
[2024-01-01 11:54] LABS: INR 0.9 (<1.2); Partial Thromboplastin Time 25.1 sec (22.0-30.0); Prothrombin Time 10.1 sec (10.0-12.5)
--- NOTE | 2024-01-01 12:16 | XR ---
EXAMINATION TYPE: XR chest 2V DATE OF EXAM: 01/01/2024 12:07 PM COMPARISON: Chest radiographs from 02/05/2023 CLINICAL INDICATION: Female, 68 years old with history of Chest Pain; [facility] TECHNIQUE: XR chest 2V Frontal and lateral views of the chest. FINDINGS: Lungs/Pleura: There is no evidence of pleural effusion, focal consolidation, or pneumothorax. Pulmonary vascularity: Unremarkable. Heart/mediastinum: Cardiomediastinal silhouette is unremarkable. Musculoskeletal: No acute osseous pathology. IMPRESSION: No acute cardiopulmonary disease/process. [facility], , 01/01/2024 12:14 PM
[2024-01-01] MEDS ORDERED: ONDANSETRON 4 MG/2 ML VIAL IVP PRN (12:57)
[2024-01-01] MEDS ORDERED: NALOXONE 0.4 MG/ML 1 ML VIAL IV PRN (12:57)
[2024-01-01] MEDS ORDERED: MORPHINE SULFATE 4 MG/ML SYRINGE IV PRN (12:57)
[2024-01-01] MEDS ORDERED: ONDANSETRON ODT 4 MG TAB PO PRN (12:59)
--- NOTE | 2024-01-01 13:07 | ED ---
General Adult HPI - General Chief complaint: Chest Pain Stated complaint: chest pain Time Seen by Provider: 01/01/24 11:20 Source: patient, EMS, RN notes reviewed, old records reviewed Mode of arrival: EMS Limitations: no limitations - History of Present Illness Initial comments: Patient is a 68-year-old female presents emergency department complaining of chest pain, neck pain. Has a history of angina, COPD, diabetes, hypertension, hyperlipidemia. Took her blood pressure meds this morning. Has had 3 days of left-sided chest pain symptoms. No significant radiation. Denies nausea or vomiting or diaphoresis with it. States it somewhat got a little bit worse today. States it occasionally involves the left shoulder but currently not at this time. Denies fevers, chills, shortness of breath, cough. Denies abdominal pain, nausea, vomiting. Also is complaining of bony tenderness of the neck. Presents for further evaluation at this time. Did not take her home nitro tablets. Received 324 mg of aspirin from EMS. - Related Data Home Medications Medication Instructions Recorded Confirmed Dicyclomine [Bentyl] 10 mg PO TID 08/01/20 01/01/24 Nitroglycerin Sl Tabs [Nitrostat] 0.4 mg SL Q5M PRN 08/01/20 01/01/24 Pantoprazole Sodium 40 mg PO DAILY 08/01/20 01/01/24 glipiZIDE [Glucotrol] 5 mg PO TID-W/MEALS 08/01/20 01/01/24 traZODone HCL [Desyrel] 100 mg PO HS 08/01/20 01/01/24 Atorvastatin Calcium [Lipitor] 10 mg PO HS 11/26/20 01/01/24 Brexpiprazole [Rexulti] 2 mg PO DAILY 11/26/20 01/01/24 Topiramate [Topamax] 50 mg PO DAILY 11/26/20 01/01/24 Cholecalciferol [Vitamin D3 (25 25 mcg PO DAILY 03/14/21 01/01/24 Mcg = 1000 Iu)] traZODone HCL 50 mg PO HS 06/16/21 01/01/24 Benzonatate [Tessalon Perle] 200 mg PO DIRECTED PRN 05/21/22 01/01/24 Cinnamon Bark [Cinnamon] 500 mg PO DAILY 05/21/22 01/01/24 Losartan Potassium [Cozaar] 100 mg PO DAILY 05/21/22 01/01/24 Apple Cider Vinegar 450mg 450 mg PO DAILY 11/21/22 01/01/24 Calcium Carbonate [Calcium] 600 mg PO DAILY 11/21/22 01/01/24 Frida Root 550 Mg 550 mg PO DAILY 11/21/22 01/01/24 Magnesium Oxide [Magox 400] 400 mg PO DAILY 11/21/22 01/01/24 Potassium Chloride ER [K-Dur 10] 10 meq PO DAILY 11/21/22 01/01/24 amLODIPine [Norvasc] 5 mg PO DAILY 11/21/22 01/01/24 Aspirin [Adult Low Dose Aspirin EC] 81 mg PO DAILY 01/01/24 01/01/24 Citalopram Hydrobromide [CeleXA] 40 mg PO DAILY 01/01/24 01/01/24 Isosorbide Dinitrate 30 mg PO DAILY 01/01/24 01/01/24 Tirzepatide [Mounjaro] 5 mg SQ MO 01/01/24 01/01/24 hydrOXYzine pamoate [Vistaril] 25 mg PO DIRECTED 01/01/24 01/01/24 metFORMIN HCL 500 mg PO DAILY 01/01/24 01/01/24 Previous Rx's Medication Instructions Recorded Ondansetron Odt [Zofran Odt] 4 mg PO Q8HR PRN #14 tab 10/13/23 Allergies Allergy/AdvReac Type Severity Reaction Status Date / Time naproxen AdvReac Nausea & Verified 01/01/24 10:59 Vomiting Review of Systems ROS Statement: Those systems with pertinent positive or pertinent negative responses have been documented in the HPI. Review of Systems: CONST: Denies fever EYES: Denies blurry vision ENT: Denies nasal congestion C/V: Endorses chest pain RESP: Denies shortness of breath GI: Denies abdominal pain : Denies dysuria SKIN: Denies rash. MSK: Endorses neck pain NEURO: Denies headache ROS Other: All systems not noted in ROS Statement are negative. Past Medical History Past Medical History: Cancer, Chest Pain / Angina, COPD, Diabetes Mellitus, GERD/Reflux, Hyperlipidemia, Hypertension, Memory Impairment, Osteoarthritis (OA) Additional Past Medical History / Comment(s): HX BREAST CANCER left 2004 2020 rt breast chest pain 09/11 resolved qith 1 ntg sublingual. diverticulitis, IBS, Lymphedema (L) arm History of Any Multi-Drug Resistant Organisms: None Reported Past Surgical History: Breast Surgery, Heart Catheterization, Orthopedic Surgery, Tonsillectomy Additional Past Surgical History / Comment(s): BUNIONECTOMY. LT BREAST mastectomy w/some lymph nodes rt breast mastectomy. COLONOSCOPY. Right knee replacement 09/2023 Past Anesthesia/Blood Transfusion Reactions: No Reported Reaction Past Psychological History: Anxiety, Depression Smoking Status: Former smoker Past Alcohol Use History: None Reported Past Drug Use History: None Reported - Past Family History Mother Family Medical History: Congestive Heart Failure (CHF), Diabetes Mellitus Additional Family Medical History / Comment(s): colostomy. age 72 Father Family Medical History: Chest Pain / Angina, Diabetes Mellitus Additional Family Medical History / Comment(s): colostomy. age 62 Brother(s) Additional Family Medical History / Comment(s): bowel problem General Exam - General Exam Comments Initial Comments: General: Appears in no acute distress. HEAD: Normal with no signs of head trauma. EYES: PERRLA, EOMI, conjunctiva normal, no discharge. ENT: Hearing grossly intact, normal oropharynx. RESPIRATORY: Clear breath sounds bilaterally. No wheezes, rales, or rhonchi. C/V: Regular rate and rhythm. S1 and S2 auscultated, no edema, peripheral pulses 2+ and intact throughout ABD: Abd is soft, nontender, nondistended EXT: No obvious deformity. Tenderness to palpation of the mid spine of the cervical spine at the site of kyphosis. No obvious step-off or deformity appreciated. SKIN: No rashes or lesions observed on exposed skin. NEURO: Alert and oriented x 4. Limitations: no limitations Course Vital Signs 01/01/24 01/01/24 01/01/24 10:52 11:41 12:17 Temperature 99.0 F Pulse Rate 77 80 76 Respiratory 20 18 18 Rate Blood Pressure 199/111 138/78 194/105 O2 Sat by Pulse 96 97 96 Oximetry 01/01/24 01/01/24 01/01/24 12:48 13:27 15:12 Temperature Pulse Rate 75 77 75 Respiratory 20 20 18 Rate Blood Pressure 187/112 159/111 175/113 O2 Sat by Pulse 97 97 97 Oximetry Medical Decision Making - Medical Decision Making Was pt. sent in by a medical professional or institution (, [facility], COST [employer]ER, urgent care, hospital, or intermediate...) When possible be specific @ -No Did you speak to anyone other than the patient for history (EMS, parent, family, police, friend...)? What history was obtained from this source @ -No Did you review nursing and triage notes (agree or disagree)? Why? @ -I reviewed and agree with nursing and triage notes Were old charts reviewed (outside hosp., previous admission, EMS record, old EKG, old radiological studies, urgent care reports/EKG's, intermediate records)? Report findings @ -Old charts reviewed, specifically EKG from January 2023. Today's EKG is no acute dynamic changes. Chronic T wave inversions in the inferior leads. Differential Diagnosis (chest pain, altered mental status, abdominal pain women, abdominal pain men, vaginal bleeding, weakness, fever, dyspnea, syncope, headache, dizziness, GI bleed, back pain, seizure, CVA, palpatations, mental health, musculoskeletal)? @ -Differential Chest Pain: Stable Angina, Unstable Angina, STEMI, NSTEMI Aortic Dissection, Pneumothorax, Musculoskeletal, Esophageal Spasm GERD, Cholecystitis, Pancreatitis, Zoster, this is not meant to be an all-inclusive list. EKG interpreted by me (3pts min.). @ -As above X-rays interpreted by me (1pt min.). @ -Chest x-ray reveals no obvious acute cardiopulmonary process. CT interpreted by me (1pt min.). @ -None done U/S interpreted by me (1pt. min.). @ -None done What testing was considered but not performed or refused? (CT, X-rays, U/S, labs)? Why? @ -None What meds were considered but not given or refused? Why? @ -Considered administering 324 mg of aspirin however patient already received aspirin from EMS prior to arrival. Did you discuss the management of the patient with other professionals (professionals i.e. DINORAH Bustos, COST CONTROLLER, lab, RT, psych nurse, hospice social worker, wall washer, teacher, quality officer, therapeutic case manager)? Give summary @ -Discussed the case with the admitting physician, Dr. Givens who accepted the admission. Was smoking cessation discussed for >3mins.? @ -No Was critical care preformed (if so, how long)? @ -No Were there social determinants of health that impacted care today? How? (Homelessness, low income, unemployed, alcoholism, drug addiction, transportation, low edu. Level, literacy, decrease access to med. care, fci, rehab)? @ -No Was there de-escalation of care discussed even if they declined (Discuss DNR or withdrawal of care, Hospice)? DNR status @ -No What co-morbidities impacted this encounter? (DM, HTN, Smoking, COPD, CAD, Canc er, CVA, ARF, Chemo, Hep., AIDS, mental health diagnosis, sleep apnea, morbid obesity)? @ -Angina Was patient admitted / discharged? Hospital course, mention meds given and route, prescriptions, significant lab abnormalities, going to OR and other pertinent info. @ -Patient presents emergency department complaining of 3 days of chest pain as well as some musculoskeletal neck pain. Patient administered analgesia medications as well as nitro here in the department. Vital signs remarkable for mild hypertension. Will obtain cardiac workup. Vitals otherwise within acceptable limits. Patient was in agreement this plan. Already received 324 mg of aspirin from EMS. EKG shows no evidence of obvious acute ischemic findings. Patient has chronic T wave inversions in the inferior leads seen from January 2023. Patient's laboratory studies remarkable for undetectable troponin. Remainder the labs unremarkable. Chest x-ray shows no obvious acute cardiopulmonary process. Following nitro administration, patient's chest pain improved from a 6 to an 8 to a 2 to a 3. Nitro paste placed. Patient is feeling improved. She will be admitted at this time. Patient was in agreement this plan. Cardiology consulted. I spoke with the admitting provider, Dr. Givens who accepted the admission. Undiagnosed new problem with uncertain prognosis? @ -No Drug Therapy requiring intensive monitoring for toxicity (Heparin, Nitro, Insulin, Cardizem)? @ -No Were any procedures done? @ -No Diagnosis/symptom? @ -Chest pain Acute, or Chronic, or Acute on Chronic? @ -Acute Uncomplicated (without systemic symptoms) or Complicated (systemic symptoms)? @ -Complicated Side effects of treatment? @ -No Exacerbation, Progression, or Severe Exacerbation? @ -No Poses a threat to life or bodily function? How? (Chest pain, USA, NM, pneumonia, PE, COPD, DKA, ARF, appy, cholecystitis, CVA, Diverticulitis, Homicidal, Suicidal, threat to staff... and all critical care pts) @ -Potentially, yes - Lab Data Result diagrams: 01/01/24 11:01/01/24 11: Lab Results 01/01/24 01/01/24 01/01/24 Range/Units 11:22 11:22 11:22 WBC 4.7 (3.8-10.6) k/uL RBC 4.71 (3.80-5.40) m/uL Hgb 13.6 (11.4-16.0) gm/dL Hct 42.5 (34.0-46.0) % MCV 90.2 (80.0-100.0) fL MCH 28.8 (25.0-35.0) pg MCHC 32.0 (31.0-37.0) g/dL RDW 14.3 (11.5-15.5) % Plt Count 260 (150-450) k/uL MPV 7.7 Neutrophils % 52 % Lymphocytes % 33 % Monocytes % 7 % Eosinophils % 4 % Basophils % 1 % Neutrophils # 2.5 (1.3-7.7) k/uL Lymphocytes # 1.6 (1.0-4.8) k/uL Monocytes # 0.3 (0-1.0) k/uL Eosinophils # 0.2 (0-0.7) k/uL Basophils # 0.0 (0-0.2) k/uL PT 10.1 (10.0-12.5) sec INR 0.9 (<1.2) APTT 25.1 (22.0-30.0) sec Sodium 140 (137-145) mmol/L Potassium 4.1 (3.5-5.1) mmol/L Chloride 108 H (98-107) mmol/L Carbon Dioxide 28 (22-30) mmol/L Anion Gap 4 mmol/L BUN 15 (7-17) mg/dL Creatinine 0.93 (0.52-1.04) mg/dL Est GFR (CKD-EPI)AfAm 74 (>60 ml/min/1.73 sqM) Est GFR (CKD-EPI)NonAf 64 (>60 ml/min/1.73 sqM) Glucose 82 (74-99) mg/dL Calcium 8.8 (8.4-10.2) mg/dL Magnesium 2.0 (1.6-2.3) mg/dL Total Bilirubin 0.3 (0.2-1.3) mg/dL AST 31 (14-36) U/L ALT 25 (4-34) U/L Alkaline Phosphatase 107 (38-126) U/L Troponin I (0.000-0.034) ng/mL Total Protein 7.2 (6.3-8.2) g/dL Albumin 4.1 (3.5-5.0) g/dL 01/01/24 Range/Units 11:22 WBC (3.8-10.6) k/uL RBC (3.80-5.40) m/uL Hgb (11.4-16.0) gm/dL Hct (34.0-46.0) % MCV (80.0-100.0) fL MCH (25.0-35.0) pg MCHC (31.0-37.0) g/dL RDW (11.5-15.5) % Plt Count (150-450) k/uL MPV Neutrophils % % Lymphocytes % % Monocytes % % Eosinophils % % Basophils % % Neutrophils # (1.3-7.7) k/uL Lymphocytes # (1.0-4.8) k/uL Monocytes # (0-1.0) k/uL Eosinophils # (0-0.7) k/uL Basophils # (0-0.2) k/uL PT (10.0-12.5) sec INR (<1.2) APTT (22.0-30.0) sec Sodium (137-145) mmol/L Potassium (3.5-5.1) mmol/L Chloride (98-107) mmol/L Carbon Dioxide (22-30) mmol/L Anion Gap mmol/L BUN (7-17) mg/dL Creatinine (0.52-1.04) mg/dL Est GFR (CKD-EPI)AfAm (>60 ml/min/1.73 sqM) Est GFR (CKD-EPI)NonAf (>60 ml/min/1.73 sqM) Glucose (74-99) mg/dL Calcium (8.4-10.2) mg/dL Magnesium (1.6-2.3) mg/dL Total Bilirubin (0.2-1.3) mg/dL AST (14-36) U/L ALT (4-34) U/L Alkaline Phosphatase (38-126) U/L Troponin I <0.012 (0.000-0.034) ng/mL Total Protein (6.3-8.2) g/dL Albumin (3.5-5.0) g/dL - EKG Data -: EKG Interpreted by Me EKG Comments: 12-lead Electrocardiogram Interpretation Note EKG was reviewed and interpreted by myself. 12-lead ECG performed at 1058 is interpreted by me as revealing normal sinus rhythm at a rate of 75 beats per minute. Left axis deviation. SC interval is 144 ms, QRS duration is 101 ms, QTc is 460 ms.. Chronic T wave inversions seen and leads III, aVF. Compared with EKG from January 2023 with no obvious acute changes today.. R wave pro gression across the precordium was satisfactory. By my interpretation this EKG is non-diagnostic for acute ischemia. Disposition Clinical Impression: Chest pain Disposition: ADMITTED IP TO THIS HOSP Condition: Stable Time of Disposition: 12:50
[2024-01-01] MEDS: NITROGLYCERIN OINT 1 INCH/GM PACKET TOPICAL SCH (13:29)
[2024-01-01] MEDS: MORPHINE SULFATE 4 MG/ML SYRINGE IVP STA (13:32)
[2024-01-01] MEDS: LIDOCAINE 4% PATCH TOPICAL STA (13:35)
[2024-01-01] MEDS ORDERED: NITROGLYCERIN SL TABS 0.4 MG TAB SUBLINGUAL PRN (15:50)
[2024-01-01] MEDS ORDERED: DEXTROSE 50% SYRINGE 50 ML IVP PRN ×2 (15:53)
--- NOTE | 2024-01-01 15:56 | P.HPIM ---
History of Present Illness H&P Date: 01/01/24 Chief Complaint: Chest pain This is a pleasant 68-year-old patient who follows with Dr. Johnson. Chronic stable medical conditions include COPD, diabetes, GERD, hypertension, hyperlipidemia, some cognitive impairment, osteoarthritis, left breast cancer 2004, diverticulitis, IBS, lymphedema left arm, anxiety depression. lives alone normally uses a cane/walker to get about. Patient presents with 3 to 4 days of chest pain. Describing a stabbing across the chest. It started going down the arms. Even present at rest. Some worsening with taking a deep breath. Variable duration. Review of systems: GEN.: None EYES: None HEENT: None NECK: None RESPIRATORY: None CARDIOVASCULAR: As above GASTROINTESTINAL: None GENITOURINARY: None MUSCULOSKELETAL: Some joint pain LYMPHATICS: None HEMATOLOGICAL: None PSYCHIATRY: None NEUROLOGICAL: Does use a walker/cane Past medical history to include: COPD, diabetes, GERD, hypertension, hyperlipidemia, all negative impairment, osteomyelitis arthritis, left breast cancer, diabetic mellitus, IV us, left arm lymphedema, anxiety depression Social history: Stop smoking over 35 years ago. No alcohol. Lives alone. Does use a cane and a walker Physical examination: VITAL SIGNS: 99, 75, 20, 159 x 111, 97% room air [blood pressure cuff site not correct] GENERAL: BMI 42.4, reclining in bed EYES: Pupils equal. Conjunctiva normal. HEENT: External appearance of nose and ears normal, oral cavity grossly normal. NECK: JVD not raised; masses not palpable. HEART: First and second heart sounds are normal; edema present. LUNGS: Respiratory rate normal; decreased breath sound. ABDOMEN: Soft, nontender, liver spleen not palpable, no masses palpable. PSYCH: Alert and oriented x3; mood and affect anxious MUSCULOSKELETAL:No Clubbing/cyanosis;muscles-grossly intact. . OA NEUROLOGICAL: Cranial nerves grossly intact; no facial asymmetry, power and sensation grossly intact. LYMPHATICS: No lymph nodes palpable in the axilla and neck INVESTIGATIONS, reviewed in the clinical context: January 01, 2024: White count 4.70 globin 13.6 platelets 260 sodium 140 potassium 4.1 BUN 15 creatinine 0.93 Troponin I less than 0.012, 0.013 EKG tracing personally reviewed by me-normal sinus rhythm. Abnormal T waves in inferolateral leads. Chest x-ray film personally reviewed by me-nothing acute Assessment and plan: -Anterior chest wall stabbing pain. Present for 2 to 3 days. Even at rest. Some pleuritic nature. Accompanied by EKG changes in inferolateral leads. Initial troponin negative. Cardiac risk factors include her age, postmenopausal, diabetes, hypertension Telemetry. Consult cardiology. Aspirin. Nitropaste Ordered 2D echocardiogram -Morbid obesity BMI 42.4 Weight loss measures -Hyperlipidemia Lipitor -Depression and anxiety Celexa 20 mg daily -Bowel spasms Bentyl when necessary -Morbid obesity BMI 45 Weight loss measures -Depression Celexa -GERD Protonix -Essential hypertension Cozaar. amlodipine -Diabetes mellitus type 2 on oral hypoglycemic Glucophage, Glucotrol. Mounjaro diabetic diet and follow Accu-Cheks and sliding scale -Chronic gait dysfunction uses a cane/walker at baseline -Full code Have the nurse use a large blood pressure cuff. Also check blood pressure manually. Patient is very anxious. Also contributing to her blood pressure. Make sure patient is taking her morning blood pressure medications. Cardiology informed. Past Medical History Past Medical History: Cancer, Chest Pain / Angina, COPD, Diabetes Mellitus, G ERD/Reflux, Hyperlipidemia, Hypertension, Memory Impairment, Osteoarthritis (OA) Additional Past Medical History / Comment(s): HX BREAST CANCER left 2004 2020 rt breast chest pain 09/11 resolved qith 1 ntg sublingual. diverticulitis, IBS, Lymphedema (L) arm History of Any Multi-Drug Resistant Organisms: None Reported Past Surgical History: Breast Surgery, Heart Catheterization, Orthopedic Surgery, Tonsillectomy Additional Past Surgical History / Comment(s): BUNIONECTOMY. LT BREAST mastectomy w/some lymph nodes rt breast mastectomy. COLONOSCOPY. Right knee replacement 09/2023 Past Anesthesia/Blood Transfusion Reactions: No Reported Reaction Past Psychological History: Anxiety, Depression Smoking Status: Former smoker Past Alcohol Use History: None Reported Past Drug Use History: None Reported - Past Family History Mother Family Medical History: Congestive Heart Failure (CHF), Diabetes Mellitus Additional Family Medical History / Comment(s): colostomy. age 72 Father Family Medical History: Chest Pain / Angina, Diabetes Mellitus Additional Family Medical History / Comment(s): colostomy. age 62 Brother(s) Additional Family Medical History / Comment(s): bowel problem Medications and Allergies Home Medications Medication Instructions Recorded Confirmed Type Dicyclomine [Bentyl] 10 mg PO TID 08/01/20 01/01/24 History Nitroglycerin Sl Tabs [Nitrostat] 0.4 mg SL Q5M PRN 08/01/20 01/01/24 History Pantoprazole Sodium 40 mg PO DAILY 08/01/20 01/01/24 History glipiZIDE [Glucotrol] 5 mg PO TID-W/MEALS 08/01/20 01/01/24 History traZODone HCL [Desyrel] 100 mg PO HS 08/01/20 01/01/24 History Atorvastatin Calcium [Lipitor] 10 mg PO HS 11/26/20 01/01/24 History Brexpiprazole [Rexulti] 2 mg PO DAILY 11/26/20 01/01/24 History Topiramate [Topamax] 50 mg PO DAILY 11/26/20 01/01/24 History Cholecalciferol [Vitamin D3 (25 25 mcg PO DAILY 03/14/21 01/01/24 History Mcg = 1000 Iu)] traZODone HCL 50 mg PO HS 06/16/21 01/01/24 History Benzonatate [Tessalon Perle] 200 mg PO DIRECTED PRN 05/21/22 01/01/24 History Cinnamon Bark [Cinnamon] 500 mg PO DAILY 05/21/22 01/01/24 History Losartan Potassium [Cozaar] 100 mg PO DAILY 05/21/22 01/01/24 History Apple Cider Vinegar 450mg 450 mg PO DAILY 11/21/22 01/01/24 History Calcium Carbonate [Calcium] 600 mg PO DAILY 11/21/22 01/01/24 History Frida Root 550 Mg 550 mg PO DAILY 11/21/22 01/01/24 History Magnesium Oxide [Magox 400] 400 mg PO DAILY 11/21/22 01/01/24 History Potassium Chloride ER [K-Dur 10] 10 meq PO DAILY 11/21/22 01/01/24 History amLODIPine [Norvasc] 5 mg PO DAILY 11/21/22 01/01/24 History Ondansetron Odt [Zofran Odt] 4 mg PO Q8HR PRN #14 tab 10/13/23 01/01/24 Rx Aspirin [Adult Low Dose Aspirin EC] 81 mg PO DAILY 01/01/24 01/01/24 History Citalopram Hydrobromide [CeleXA] 40 mg PO DAILY 01/01/24 01/01/24 History Isosorbide Dinitrate 30 mg PO DAILY 01/01/24 01/01/24 History Tirzepatide [Mounjaro] 5 mg SQ MO 01/01/24 01/01/24 History hydrOXYzine pamoate [Vistaril] 25 mg PO DIRECTED 01/01/24 01/01/24 History metFORMIN HCL 500 mg PO DAILY 01/01/24 01/01/24 History Allergies Allergy/AdvReac Type Severity Reaction Status Date / Time naproxen AdvReac Nausea & Verified 01/01/24 10:59 Vomiting Physical Exam Vitals: Vital Signs Temp Pulse Resp BP Pulse Ox 01/01/24 15:12 75 18 175/113 97 01/01/24 13:27 77 20 159/111 97 01/01/24 12:48 75 20 187/112 97 01/01/24 12:17 76 18 194/105 96 01/01/24 11:41 80 18 138/78 97 01/01/24 10:52 99.0 F 77 20 199/111 96 Intake and Output 01/01/24 01/01/24 01/01/24 06:59 14:59 22:59 Other: Weight 105.233 kg Results CBC & Chem 7: 01/01/24 11:22 01/01/24 11:22 Labs: Abnormal Lab Results - Last 24 Hours (Table) 01/01/24 Range/Units 11:22 Chloride 108 H (98-107) mmol/L
[2024-01-01] MEDS: INSULIN ASPART (NovoLOG) 100 UNIT/ML VIAL SQ SCH (16:56)
[2024-01-01 16:57] LABS: Glucose,Whole Blood 72 mg/dL (70-110)
[2024-01-01] MEDS: glipiZIDE 5 MG TAB PO SCH (17:03)
[2024-01-01] MEDS: DICYCLOMINE 10 MG CAP PO SCH (17:03)
[2024-01-01] MEDS: HEPARIN SODIUM,PORCINE 5,000 UNIT/ML 1 ML VIAL SQ SCH (17:04)
[2024-01-01 18:50] LABS: Appearance,Urine Clear (Clear); Bilirubin,Urine Negative (Negative); Blood,Urine Negative (Negative); Color,Urine Colorless; Glucose,Urine (UA) Negative (Negative); Ketones,Urine Negative (Negative); Leukocyte Esterase,Urine Negative (Negative); Nitrite,Urine Negative (Negative); Protein,Urine Negative (Negative); Specific Gravity,Urine 1.013 (1.001-1.035); Urobilinogen,Urine <2.0 mg/dL (<2.0)
[2024-01-01] MEDS: METOPROLOL TARTRATE 25 MG TAB PO STA (20:00)
[2024-01-01] MEDS: traZODone HCL 50 MG TAB PO SCH (20:01)
[2024-01-01] MEDS: ATORVASTATIN 10 MG TAB PO SCH (20:01)
[2024-01-01] MEDS: traZODone HCL 100 MG TAB PO SCH (20:01)
[2024-01-01] MEDS: ACETAMINOPHEN TAB 325 MG TAB PO PRN (22:20)
[2024-01-02 05:39] LABS: Glucose,Whole Blood 91 mg/dL (70-110)
[2024-01-02] MEDS ORDERED: amLODIPine 10 MG TAB PO SCH (07:45)
[2024-01-02] MEDS ORDERED: DOBUTamine DRIP for NUC MED 500 MG in DEXTROSE/WATER 1 250ML.BAG IV PRN (07:46)
[2024-01-02] MEDS ORDERED: amLODIPine 5 MG TAB PO SCH (09:00)
--- NOTE | 2024-01-02 09:54 | CT ---
EXAMINATION TYPE: CT angio chest DATE OF EXAM: 01/02/2024 9:18 AM COMPARISON: 07/24/2022 CLINICAL INDICATION: Female, 68 years old with history of back pain r/o aortic dissection, back pain r/o aortic dissection TECHNIQUE: CT of the chest is performed on a spiral scan at 2 mm thick sections. Study is performed with intravenous contrast timed for evaluation for dissection. This will limit additional portions o f the evaluation. 3-D MIP images reconstructed by the technologist are reviewed on the computer in t he coronal and sagittal planes. Contrast used:90ml mL of Isovue 370 without and with IV Contrast, (none if empty) Oral contrast used: (none if empty) CT DLP: 1090.30 mGycm, Automated exposure control for dose reduction was used. FINDINGS: Portion of the thyroid visualized normal No mediastinal or hilar adenopathy enlarged by CT criteria is evident. The ascending aorta diameter at the level of the main pulmonary artery is 3.7 cm. The main pulmonary artery diameter at the bifurcation is 2.6 cm. No aortic dissection is evident. Lung windows are clear. Limited CT sections were through the upper abdomen. Upper abdomen appears unremarkable. IMPRESSION: 1. No aortic dissection. 2. No acute pulmonary process. [facility], , 01/02/2024 9:52 AM
--- NOTE | 2024-01-02 10:20 | P.CRDCN ---
History of Present Illness Consult date: 01/02/24 Consult reason: chest pain History of present illness: This is a 68-year-old female patient of Dr. Uribe with past medical history of overweight, diabetes, hypertension, dyslipidemia, history of breast cancer status post bilateral mastectomy, bilateral lower extremity osteoarthritis. We have been asked to evaluate the patient for chest pain. Patient states that she developed severe chest pain yesterday thought she was having a heart attack. She was unable to get her nitroglycerin bottle open so she took an aspirin which did not help her chest pain. She denies having any shortness of breath. Chest pain was located on the left side and went into the upper back and left arm. She denies any pain with movement of her neck.. She now is having only pain in the upper back. Blood pressure 114/73, heart rate 65, pulse ox 95% on room air. Patient presented with blood pressure of 199/111. - EKG: Sinus rhythm, left axis deviation, T wave inversion in the lateral and inferior leads which is old when compared to previous EKGs - Chest x-ray: No acute process - CTA of the chest showed no aortic dissection, no acute pulmonary process. - Laboratory studies: CBC within normal limits. INR 0.9. Electrolytes renal function liver function tests are all essentially normal. Troponin negative x 3 - Home cardiac medications: Amlodipine 5 mg daily, aspirin 81 mg daily, atorvastatin 10 mg at bedtime, Imdur 30 mg daily, losartan 100 mg daily, magnesium 400 mg daily, Nitrostat as needed, potassium chloride 10 mill equivalents daily, patient is also on Mounjaro. - Cardiac catheterization performed by Dr. Uribe on 09/13/2022 revealed normal c oronary angiogram. Normal left-sided filling pressure. - Echocardiogram performed in the office on 07/18/2022 revealed EF 50 to 55%. Aortic valve is calcified. Mild mitral regurgitation, mild tricuspid regurgitation. Normal PASP of 19 mmHg. Review Of Systems: At the time of my exam: CONSTITUTIONAL: Denies fever or chills. HEENT: Denies blurred vision, vision changes, or eye pain. Denies hemoptysis CARDIOVASCULAR: Denies chest pain. Denies orthopnea. Denies PND. Denies palpitations RESPIRATORY: Denies shortness of breath. GASTROINTESTINAL: Denies abdominal pain. Denies nausea or vomiting. HEMATOLOGIC: Denies bleeding disorders. GENITOURINARY: Denies any blood in urine. SKIN: Denies puritis. Denies rash. Physical examination: Gen: This is a 68-year-old female in no acute distress VS: reviewed HEENT: Head is atraumatic, normocephalic. Pupils equal, round. Sclerae is anicteric. NECK: Supple. No JVD. LUNGS: Clear to auscultation. No wheezes or rhonchi. No intercostal retractions. HEART: Regular rate and rhythm. Systolic murmur. ABDOMEN: Soft No tenderness. EXTREMITIES: No pedal edema. No calf tenderness. NEUROLOGICAL: Patient is awake, alert and oriented x3. Assessment: Atypical chest pain, acute coronary syndrome ruled out Back pain Diabetes Hypertension Dyslipidemia History of breast cancer status post bilateral mastectomy Bilateral lower extremity osteoarthritis Plan: Resume patient's home cardiac medications Obtain dobutamine stress echocardiogram today Obtain 2-D echocardiogram and Doppler study to assess cardiac structure and function If testing is unremarkable, patient is cleared for discharge and may follow-up in the office with Dr. Uribe in 1 to 2 weeks. Thank you kindly for this consultation. Nurse practitioner note has been reviewed, I agree with documented findings and plan of care. Patient was seen and examined. Past Medical History Past Medical History: Cancer, Chest Pain / Angina, COPD, Diabetes Mellitus, GERD/Reflux, Hyperlipidemia, Hypertension, Memory Impairment, Osteoarthritis (OA) Additional Past Medical History / Comment(s): HX BREAST CANCER left 2004 2020 rt breast chest pain 09/11 resolved qith 1 ntg sublingual. diverticulitis, IBS, Lymphedema (L) arm History of Any Multi-Drug Resistant Organisms: None Reported Past Surgical History: Breast Surgery, Heart Catheterization, Orthopedic Surgery, Tonsillectomy Additional Past Surgical History / Comment(s): BUNIONECTOMY. LT BREAST ma stectomy w/some lymph nodes rt breast mastectomy. COLONOSCOPY. Right knee replacement 09/2023. left knee replacement Past Anesthesia/Blood Transfusion Reactions: No Reported Reaction Smoking Status: Former smoker - Past Family History Mother Family Medical History: Congestive Heart Failure (CHF), Diabetes Mellitus Additional Family Medical History / Comment(s): colostomy. age 72 Father Family Medical History: Chest Pain / Angina, Diabetes Mellitus Additional Family Medical History / Comment(s): colostomy. age 62 Brother(s) Additional Family Medical History / Comment(s): bowel problem Medications and Allergies Home Medications Medication Instructions Recorded Confirmed Type Dicyclomine [Bentyl] 10 mg PO TID 08/01/20 01/01/24 History Nitroglycerin Sl Tabs [Nitrostat] 0.4 mg SL Q5M PRN 08/01/20 01/01/24 History Pantoprazole Sodium 40 mg PO DAILY 08/01/20 01/01/24 History glipiZIDE [Glucotrol] 5 mg PO TID-W/MEALS 08/01/20 01/01/24 History traZODone HCL [Desyrel] 100 mg PO HS 08/01/20 01/01/24 History Atorvastatin Calcium [Lipitor] 10 mg PO HS 11/26/20 01/01/24 History Brexpiprazole [Rexulti] 2 mg PO DAILY 11/26/20 01/01/24 History Topiramate [Topamax] 50 mg PO DAILY 11/26/20 01/01/24 History Cholecalciferol [Vitamin D3 (25 25 mcg PO DAILY 03/14/21 01/01/24 History Mcg = 1000 Iu)] traZODone HCL 50 mg PO HS 06/16/21 01/01/24 History Benzonatate [Tessalon Perle] 200 mg PO DIRECTED PRN 05/21/22 01/01/24 History Cinnamon Bark [Cinnamon] 500 mg PO DAILY 05/21/22 01/01/24 History Losartan Potassium [Cozaar] 100 mg PO DAILY 05/21/22 01/01/24 History Apple Cider Vinegar 450mg 450 mg PO DAILY 11/21/22 01/01/24 History Calcium Carbonate [Calcium] 600 mg PO DAILY 11/21/22 01/01/24 History Frida Root 550 Mg 550 mg PO DAILY 11/21/22 01/01/24 History Magnesium Oxide [Magox 400] 400 mg PO DAILY 11/21/22 01/01/24 History Potassium Chloride ER [K-Dur 10] 10 meq PO DAILY 11/21/22 01/01/24 History amLODIPine [Norvasc] 5 mg PO DAILY 11/21/22 01/01/24 History Ondansetron Odt [Zofran Odt] 4 mg PO Q8HR PRN #14 tab 10/13/23 01/01/24 Rx Aspirin [Adult Low Dose Aspirin EC] 81 mg PO DAILY 01/01/24 01/01/24 History Citalopram Hydrobromide [CeleXA] 40 mg PO DAILY 01/01/24 01/01/24 History Isosorbide Dinitrate 30 mg PO DAILY 01/01/24 01/01/24 History Tirzepatide [Mounjaro] 5 mg SQ MO 01/01/24 01/01/24 History hydrOXYzine pamoate [Vistaril] 25 mg PO DIRECTED 01/01/24 01/01/24 History metFORMIN HCL 500 mg PO DAILY 01/01/24 01/01/24 History Allergies Allergy/AdvReac Type Severity Reaction Status Date / Time naproxen AdvReac Nausea & Verified 01/01/24 10:59 Vomiting Physical Exam Vitals: Vital Signs Temp Pulse Pulse Resp BP BP Pulse Ox 01/02/24 07:10 97.6 F 65 16 114/73 95 01/02/24 02:00 98.1 F 69 18 162/85 96 01/01/24 22:19 98.0 F 75 18 138/70 95 01/01/24 21:00 81 16 148/85 96 01/01/24 20:00 89 18 170/86 96 01/01/24 19:42 75 16 170/86 97 01/01/24 18:44 98.2 F 80 18 158/100 96 01/01/24 17:06 97.8 F 85 20 184/99 96 01/01/24 15:12 75 18 175/113 97 01/01/24 13:27 77 20 159/111 97 01/01/24 12:48 75 20 187/112 97 01/01/24 12:17 76 18 194/105 96 01/01/24 11:41 80 18 138/78 97 01/01/24 10:52 99.0 F 77 20 199/111 96 Intake and Output 01/01/24 01/02/24 01/02/24 22:59 06:59 14:59 Other: Voiding Method Toilet # Voids 1 3 Weight 105.233 kg Results 01/01/24 11:22 01/01/24 11:22 Cardiac Enzymes 01/01/24 01/01/24 01/01/24 Range/Units 11:22 11:22 14:08 AST 31 (14-36) U/L Troponin I <0.012 0.013 (0.000-0.034) ng/mL 01/01/24 Range/Units 16:38 AST (14-36) U/L Troponin I 0.012 (0.000-0.034) ng/mL Coagulation 01/01/24 Range/Units 11:22 PT 10.1 (10.0-12.5) sec APTT 25.1 (22.0-30.0) sec CBC 01/01/24 Range/Units 11:22 WBC 4.7 (3.8-10.6) k/uL RBC 4.71 (3.80-5.40) m/uL Hgb 13.6 (11.4-16.0) gm/dL Hct 42.5 (34.0-46.0) % Plt Count 260 (150-450) k/uL Comprehensive Metabolic Panel 01/01/24 Range/Units 11:22 Sodium 140 (137-145) mmol/L Potassium 4.1 (3.5-5.1) mmol/L Chloride 108 H (98-107) mmol/L Carbon Dioxide 28 (22-30) mmol/L BUN 15 (7-17) mg/dL Creatinine 0.93 (0.52-1.04) mg/dL Glucose 82 (74-99) mg/dL Calcium 8.8 (8.4-10.2) mg/dL AST 31 (14-36) U/L ALT 25 (4-34) U/L Alkaline Phosphatase 107 (38-126) U/L Total Protein 7.2 (6.3-8.2) g/dL Albumin 4.1 (3.5-5.0) g/dL Current Medications Generic Name Dose Route Start Last Admin Trade Name Freq PRN Reason Stop Dose Admin Acetaminophen 650 mg 01/01/24 12:57 01/01/24 22:20 Acetaminophen Tab 325 Mg Tab PO 650 mg Q6HR PRN Administration Mild Pain or Fever > 100.5 Amlodipine Besylate 10 mg 01/02/24 07:45 Amlodipine 10 Mg Tab PO DAILY [facility] Aspirin 81 mg 01/02/24 09:00 Aspirin 81 Mg PO DAILY [facility] Atorvastatin Calcium 10 mg 01/01/24 21:00 01/01/24 20:01 Atorvastatin 10 Mg Tab PO 10 mg HS SORIN Administration Calcium Carbonate/Glycine 500 mg 01/02/24 09:00 Calcium Carbonate 500 Mg Chewable PO DAILY [facility] Citalopram Hydrobromide 40 mg 01/02/24 09:00 Citalopram Hydrobromide 20 Mg Tab PO DAILY [facility] Dextrose/Water 25 ml 01/01/24 15:53 Dextrose 50% Syringe 50 Ml IVP PER PROTOCOL PRN Hypoglycemia Protocol Dextrose/Water 50 ml 01/01/24 15:53 Dextrose 50% Syringe 50 Ml IVP PER PROTOCOL PRN Hypoglycemia Protocol Dicyclomine HCl 10 mg 01/01/24 16:00 01/01/24 21:02 Dicyclomine 10 Mg Cap PO 10 mg TID [facility] Administration Glipizide 5 mg 01/01/24 17:30 01/02/24 06:29 Glipizide 5 Mg Tab PO 5 mg TID-W/MEALS [facility] Administration Heparin Sodium (Porcine) 5,000 unit 01/01/24 16:00 01/02/24 01:46 Heparin Sodium,Porcine 5,000 Unit/Ml 1 Ml Vial SQ 5,000 unit Q8HR [facility] Administration Insulin Aspart 0 unit 01/01/24 17:30 01/02/24 05:42 Insulin Aspart (Novolog) 100 Unit/Ml Vial SQ Not Given AC-TID [facility] Protocol Isosorbide Dinitrate 30 mg 01/02/24 09:00 Isosorbide Dinitrate 10 Mg Tab PO DAILY [facility] Losartan Potassium 100 mg 01/02/24 09:00 Losartan 50 Mg Tab PO DAILY [facility] Magnesium Oxide 400 mg 01/02/24 09:00 Magnesium Oxide 400 Mg Tab PO DAILY [facility] Metformin HCl 500 mg 01/02/24 09:00 Metformin 500 Mg Tab PO DAILY [facility] Morphine Sulfate 4 mg 01/01/24 12:57 Morphine Sulfate 4 Mg/Ml Syringe IV Q4HR PRN Severe Pain (Scale 7 to 10) Naloxone HCl 0.2 mg 01/01/24 12:57 Naloxone 0.4 Mg/Ml 1 Ml Vial IV Q2M PRN Opioid Reversal Nitroglycerin 0.5 inch 01/01/24 12:45 01/02/24 01:46 Nitroglycerin Oint 1 Inch/Gm Packet TOPICAL 0.5 inch Q8HR [facility] Administration Nitroglycerin 0.4 mg 01/01/24 15:50 Nitroglycerin Sl Tabs 0.4 Mg Tab SUBLINGUAL Q5M PRN Chest Pain Patient's Own ( 2 mg 01/02/24 09:00 Brexpiprazole [ PO Rexulti] 2 Mg Tablet DAILY [facility] ) Non-Formulary Medication 5 mg 01/05/24 09:00 Tirzepatide [Mounjaro] SQ MO [facility] Ondansetron HCl 4 mg 01/01/24 12:57 Ondansetron 4 Mg/2 Ml Vial IVP Q8HR PRN Nausea And Vomiting Ondansetron HCl 4 mg 01/01/24 12:59 Ondansetron Odt 4 Mg Tab PO Q8HR PRN Nausea Pantoprazole Sodium 40 mg 01/02/24 09:00 Pantoprazole Sodium 40 Mg Granule Pkt PO DAILY [facility] Topiramate 50 mg 01/02/24 09:00 Topiramate 25 Mg Tab PO DAILY [facility] Trazodone HCl 100 mg 01/01/24 21:00 01/01/24 20:01 Trazodone Hcl 100 Mg Tab PO 100 mg HS [facility] Administration Trazodone HCl 50 mg 01/01/24 21:00 01/01/24 20:01 Trazodone Hcl 50 Mg Tab PO 50 mg HS [facility] Administration Intake and Output 01/01/24 01/02/24 01/02/24 22:59 06:59 14:59 Other: Voiding Method Toilet # Voids 1 3 Weight 105.233 kg 01/01/24 11:22 01/01/24 11:22
[2024-01-02 10:47] LABS: Basophils # (A) 0.08 X 10*3/uL (0.00-0.10); Basophils % (A) 1.4 %; Eosinophils # (A) 0.21 X 10*3/uL (0.04-0.35); Eosinophils % (A) 3.7 %; HCT 40.4 % (37.2-46.3); HGB 12.5 g/dL (12.0-15.0); Lymphocytes # (A) 1.88 X 10*3/uL (0.90-5.00); Lymphocytes % (A) 32.9 %; MCH 28.7 pg (27.0-32.0); MCHC 30.9 g/dL (32.0-37.0); MCV 92.7 FL (80.0-97.0); Mean Platelet Volume 10.6 FL (9.5-12.2); Monocytes # (A) 0.49 X 10*3/uL (0.20-1.00); Monocytes % (A) 8.6 %; NRBC Per 100 WBC 0 X 10*3/uL (0.00-0.01); Neutrophils # (A) 3.04 X 10*3/uL (1.80-7.70); Neutrophils % (A) 53.2 %; Platelet Count 232 X 10*3/uL (140-440); RBC 4.36 X 10*6/uL (4.10-5.20); RDW 14.1 % (11.5-14.5); WBC 5.71 X 10*3/uL (4.50-10.00)
[2024-01-02 10:58] LABS: ALT 20 U/L (8-44); AST 28 U/L (13-35); Albumin 3.7 g/dL (3.8-4.9); Albumin/Globulin Ratio 1.42 Ratio (1.60-3.17); Alkaline Phosphatase 85 U/L (41-126); Blood Urea Nitrogen 16.9 mg/dL (9.0-27.0); Calcium 8.7 mg/dL (8.7-10.3); Carbon Dioxide 25.4 mmol/L (21.6-31.8); Chloride 107 mmol/L (96-109); Globulin 2.6 g/dL (1.6-3.3); Glucose 93 mg/dL (70-110); Potassium 4.1 mmol/L (3.5-5.5); Sodium 142 mmol/L (135-145); Total Bilirubin 0.2 mg/dL (0.3-1.2); Total Protein 6.3 g/dL (6.2-8.2)
[2024-01-02] MEDS ORDERED: DOBUTamine DRIP for NUC MED 500 MG/250 ML BAG IV ONE (11:15)
[2024-01-02 12:09] LABS: Glucose,Whole Blood 69 mg/dL (70-110)
--- NOTE | 2024-01-02 12:35 | CA ---
Transthoracic Echo Report Name: Su Kim Age: 68 Gender: F : 1955 Exam Date: 01/02/2024 11:16 Exam Location: [facility] Ht (in): 62 Wt (lb): 232 Ordering Physician: Elian Givens MD Attending/Referring Phys: Aerodynamics Teacher Saloni Becker RDCS Procedure CPT: Indications: Chest Pain Cardiac Hx: Technical Quality: Fair Contrast 1: Total Dose (mL): Contrast 2: Total Dose (mL): MEASUREMENTS (Male / Female) Normal Values 2D ECHO LV Diastolic Diameter PLAX 4.2 cm 4.2 - 5.9 / 3.9 - 5.3 cm LV Systolic Diameter PLAX 3.1 cm IVS Diastolic Thickness 1.3 cm 0.6 - 1.0 / 0.6 - 0.9 cm LVPW Diastolic Thickness 1.3 cm 0.6 - 1.0 / 0.6 - 0.9 cm LV Relative Wall Thickness 0.6 RV Internal Dim ED PLAX 2.8 cm LA Systolic Diameter LX 4.1 cm 3.0 - 4.0 / 2.7 - 3.8 cm LV Diastolic Volume MOD BP 50.5 cm??? 67 - 155 / 56 - 104 cm??? LV Systolic Volume MOD BP 20.1 cm??? 22 - 58 / 19 - 49 cm??? LV Ejection Fraction MOD BP 60.2 % >= 55 % LV Cardiac Index MOD BP 910.5 cm???/min???m??? LV Diastolic Volume MOD 4C 51.1 cm??? LV Systolic Volume MOD 4C 22.1 cm??? LV Ejection Fraction MOD 4C 56.7 % LV Cardiac Index MOD 4C 866.0 cm???/min???m??? LV Diastolic Length 4C 6.2 cm LV Systolic Length 4C 5.3 cm LV Diastolic Volume MOD 2C 48.8 cm??? LV Systolic Volume MOD 2C 17.2 cm??? LV Ejection Fraction MOD 2C 64.8 % LV Cardiac Index MOD 2C 945.3 cm???/min???m??? LV Diastolic Length 2C 6.0 cm LV Systolic Length 2C 5.0 cm LA Volume 40.5 cm??? 18 - 58 / 22 - 52 cm??? LA Volume Index 18.4 cm???/m??? 16 - 28 cm???/m??? M-MODE Aortic Root Diameter MM 2.7 cm LA Systolic Diameter MM 4.1 cm LA Ao Ratio MM 1.5 AV Cusp Separation MM 2.0 cm DOPPLER MV Area PHT 2.4 cm??? Mitral E Point Velocity 71.3 cm/s Mitral A Point Velocity 100.4 cm/s Mitral E to A Ratio 0.7 MV Deceleration Time 314.2 ms TR Peak Velocity 148.2 cm/s TR Peak Gradient 8.8 mmHg FINDINGS Left Ventricle Left ventricular ejection fraction is estimated at 55-60 %. Mildly increased septal wall thickness. Mildly increased posterior wall thickness. Normal left ventricular systolic function with no obvious regional wall motion abnormalities. Right Ventricle Normal right ventricular size and function. Right Atrium Normal right atrial size. Left Atrium Mildly increased left atrial diameter. Mitral Valve Structurally normal mitral valve. Trace to mild mitral regurgitation. No mitral stenosis. Mitral annular calcification. Aortic Valve Trileaflet aortic valve. No aortic valve stenosis or regurgitation. Tricuspid Valve Structurally normal tricuspid valve. Trace tricuspid regurgitation. No tricuspid stenosis. Pulmonic Valve Structurally normal pulmonic valve. No pulmonic stenosis. Trace pulmonic regurgitation. Pericardium No pericardial or pleural effusion. Aorta Normal size aortic root and proximal ascending aorta. CONCLUSIONS Normal biventricular systolic function No significant valvular abnormalities noted Normal right ventricular dimension No pericardial effusion Previewed by: Dr. Milton Uribe MD (Electronically Signed) Final Date: 02 January 2024 12:34
--- NOTE | 2024-01-02 12:37 | CA ---
Dobutamine Stress Echocardiogram Report SampleSu Age: 68 Gender: F : 1955 Exam Date: 01/02/2024 11:29 Exam Location: [facility] Ordering Physician: Jami Lopez Referring Physician: John GONZALEZ Land Checker: DEVIKA,, Technologist: Ht (in): Wt (lb): Procedure CPT: Indication: chest pain if CTA negative ICD-9 Codes: Rhythm: Patient History: Chest pain, hypertension and family history of heart disease Cardiac Medications: Medications in past 24 hours: Contrast: Total Dose (mL): Stress Results Protocol: Dobutamine Peak Dose (???g/kg/min): 20 Duration (min:sec): Atropine:(mg) Target HR: 129 Double Product: [id number] Resting HR: 77 Resting BP: 172 / 89 Peak HR: 134 Peak BP: 187 / 89 Max Predicted HR: 152 88 % Max Predicted HR Stress Summary: BP Response: Reason for Termination: Exceeded target heart rate (85% max predicted) Cardiac Symptoms: No symptoms ECG Analysis Resting EKG: Stress EKG: Arrhythmia: Echo Analysis Base Echo Analysis: Low Echo Anaylsis: Peak Echo Analysis: Recovery Echo: MEASUREMENTS (Male/Female) Normal Values CONCLUSIONS Mild EKG changes in response to dobutamine Normal echocardiogram in response to dobutamine with no obvious wall motion abnormalities concerning for ischemia Dr. Milton Uribe MD (Electronically Signed) Final Date: 02 January 2024 12:36
[2024-01-02 12:43] LABS: Glucose,Whole Blood 62 mg/dL (70-110)
[2024-01-02] MEDS: ASPIRIN 81 MG PO SCH (12:53)
[2024-01-02] MEDS: ISOSORBIDE DINITRATE 10 MG TAB PO SCH (12:53)
[2024-01-02] MEDS: CITALOPRAM HYDROBROMIDE 20 MG TAB PO SCH (12:54)
[2024-01-02] MEDS: LOSARTAN 50 MG TAB PO SCH (12:54)
[2024-01-02] MEDS: TOPIRAMATE 25 MG TAB PO SCH (12:54)
[2024-01-02] MEDS: MAGNESIUM OXIDE 400 MG TAB PO SCH (12:54)
[2024-01-02] MEDS: CALCIUM CARBONATE 500 MG CHEWABLE PO SCH (12:54)
[2024-01-02] MEDS: PANTOPRAZOLE SODIUM 40 MG GRANULE PKT PO SCH (12:54)
[2024-01-02] MEDS: metFORMIN 500 MG TAB PO SCH (12:55)
[2024-01-02 13:10] LABS: Glucose,Whole Blood 74 mg/dL (70-110)
[2024-01-02] MEDS: PATIENT'S OWN (Brexpiprazole [Rexulti] 2 MG Tablet) PO SCH (13:26)
[2024-01-02] MEDS: amLODIPine 10 MG TAB PO SCH (14:07)
[2024-01-02 14:51] VITALS: BP 132/82; PULSE 101; RESP 15; TEMP 99
[2024-01-02 15:59] LABS: Glucose,Whole Blood 143 mg/dL (70-110)
--- NOTE | 2024-01-02 16:09 | P.DS ---
Providers Date of admission: 01/01/24 12:49 Expected date of discharge: 01/02/24 Attending physician: Elian Givens Consults: 01/01/24 12:57 Consult Physician Routine Consulting Provider: [facility] Consult Reason/Comments: chest pain Do you want consulting provider notified?: Yes Primary care physician: [facility] Course: Discharge diagnoses: Atypical chest pain: Troponin EKG negative for acute process Cardiology consulted Status post echocardiogram and dobutamine stress echocardiogram which were unremarkable, okay to discharge per cardiology Resume home medications Hypertension Hyperlipidemia Diabetes mellitus Chronic back pain History of breast cancer status post bilateral mastectomy Bilateral lower extremity osteoarthritis Depression and anxiety Chronic gait dysfunction uses a cane/walker at baseline Hospital course: 68-year-old female with past medical history significant for hypertension, hyperlipidemia history of breast cancer status post bilateral mastectomy, diabetes mellitus, COPD, osteoarthritis who presented to ER with a complaint of chest pain. Patient stated that she developed severe chest pain and felt like she was having heart attack, she was unable to get her nitroglycerin bottle open so she took an aspirin which did not help her chest pain. Patient denied any fever, chills, productive cough, shortness of breath, palpitations, nausea vomiting diarrhea constipation abdominal pain dysuria urgency frequency weakness or numbness of the extremities. In the ED vitals were stable, blood pressure was initially elevated 199/111 which later on improved. CBC was unremarkable. BMP was unremarkable. Patient was admitted to hospital for further evaluation and management. EKG showed sinus rhythm, left axis deviation, T wave inversion in the lateral and inferior leads. Chest x-ray negative for acute process. CTA chest showed no aortic dissection or PE or acute pulmonary process. Patient previously had cardiac catheterization in 2022 which showed normal coronary arteries. Echocardiogram in 2022 showed EF 50 to 55%, calcified aortic valve. Cardiology evaluate the patient, patient underwent dobutamine stress ech ocardiogram and echocardiogram. Echocardiogram was unremarkable with EF 55 to 60% no regional wall motion abnormalities. Dobutamine stress echo showed mild EKG changes and response to dobutamine, normal echocardiogram and response to dobutamine with no obvious wall motion abnormalities concerning for ischemia. Okay to discharge per cardiology. Patient condition vital stable at discharge. Please refer to med rec and assessment for further details. PHYSICAL EXAMINATION: GENERAL: The patient is A&O x3, NAD HEENT: EOMI, Sclerae anicteric, Moist Mucous membranes Neck: Supple, Non tender, No JVD PULMONARY: Equal breath souds B/L, No wheezing, No crackles. CARDIOVASCULAR: S1, S2 present. No murmurs, rubs, or gallops. ABDOMEN: Soft, nontender, nondistended, normoactive bowel sounds. No guarding or rebound tenderness. MUSCULOSKELETAL: No edema, No cyanosis. No clubbing. Normal ROM. Intact peripheral pulses. NEUROLOGICAL: CN 2-12 grossly intact. No FND SKIN: No rashes. Dictation was produced using [employer] dictation software. please excuse any grammatical, word or spelling errors. Patient Condition at Discharge: Stable Plan - Discharge Summary Discharge Rx Participant: No New Discharge Prescriptions: Continue Cholecalciferol [Vitamin D3 (25 Mcg = 1000 Iu)] 25 mcg PO DAILY traZODone HCL 50 mg PO HS Benzonatate [Tessalon Perle] 200 mg PO DIRECTED PRN PRN Reason: Cough Losartan Potassium [Cozaar] 100 mg PO DAILY Potassium Chloride ER [K-Dur 10] 10 meq PO DAILY Calcium Carbonate [Calcium] 600 mg PO DAILY Frida Root 550 Mg 550 mg PO DAILY Ondansetron Odt [Zofran ODT] 4 mg PO Q8HR PRN #14 tab PRN Reason: Nausea Tirzepatide [Mounjaro] 5 mg SQ MO Isosorbide Dinitrate 30 mg PO DAILY traZODone HCL [Desyrel] 100 mg PO HS glipiZIDE [Glucotrol] 5 mg PO TID-W/MEALS Nitroglycerin Sl Tabs [Nitrostat] 0.4 mg SL Q5M PRN PRN Reason: Chest Pain Dicyclomine [Bentyl] 10 mg PO TID Pantoprazole Sodium 40 mg PO DAILY Topiramate [Topamax] 50 mg PO DAILY Brexpiprazole [Rexulti] 2 mg PO DAILY Atorvastatin Calcium [Lipitor] 10 mg PO HS Cinnamon Bark [Cinnamon] 500 mg PO DAILY amLODIPine [Norvasc] 5 mg PO DAILY Apple Cider Vinegar 450mg 450 mg PO DAILY Magnesium Oxide [Magox 400] 400 mg PO DAILY Aspirin [Adult Low Dose Aspirin EC] 81 mg PO DAILY Citalopram Hydrobromide [CeleXA] 40 mg PO DAILY metFORMIN HCL 500 mg PO DAILY hydrOXYzine pamoate [Vistaril] 25 mg PO DIRECTED Discharge Medication List Dicyclomine [Bentyl] 10 mg PO TID 08/01/20 [History] Nitroglycerin Sl Tabs [Nitrostat] 0.4 mg SL Q5M PRN 08/01/20 [History] Pantoprazole Sodium 40 mg PO DAILY 08/01/20 [History] glipiZIDE [Glucotrol] 5 mg PO TID-W/MEALS 08/01/20 [History] traZODone HCL [Desyrel] 100 mg PO HS 08/01/20 [History] Atorvastatin Calcium [Lipitor] 10 mg PO HS 11/26/20 [History] Brexpiprazole [Rexulti] 2 mg PO DAILY 11/26/20 [History] Topiramate [Topamax] 50 mg PO DAILY 11/26/20 [History] Cholecalciferol [Vitamin D3 (25 Mcg = 1000 Iu)] 25 mcg PO DAILY 03/14/21 [History] traZODone HCL 50 mg PO HS 06/16/21 [History] Benzonatate [Tessalon Perle] 200 mg PO DIRECTED PRN 05/21/22 [History] Cinnamon Bark [Cinnamon] 500 mg PO DAILY 05/21/22 [History] Losartan Potassium [Cozaar] 100 mg PO DAILY 05/21/22 [History] Apple Cider Vinegar 450mg 450 mg PO DAILY 11/21/22 [History] Calcium Carbonate [Calcium] 600 mg PO DAILY 11/21/22 [History] Frida Root 550 Mg 550 mg PO DAILY 11/21/22 [History] Magnesium Oxide [Magox 400] 400 mg PO DAILY 11/21/22 [History] Potassium Chloride ER [K-Dur 10] 10 meq PO DAILY 11/21/22 [History] amLODIPine [Norvasc] 5 mg PO DAILY 11/21/22 [History] Ondansetron Odt [Zofran ODT] 4 mg PO Q8HR PRN #14 tab 10/13/23 [Rx] Aspirin [Adult Low Dose Aspirin EC] 81 mg PO DAILY 01/01/24 [History] Citalopram Hydrobromide [CeleXA] 40 mg PO DAILY 01/01/24 [History] Isosorbide Dinitrate 30 mg PO DAILY 01/01/24 [History] Tirzepatide [Mounjaro] 5 mg SQ MO 01/01/24 [History] hydrOXYzine pamoate [Vistaril] 25 mg PO DIRECTED 01/01/24 [History] metFORMIN HCL 500 mg PO DAILY 01/01/24 [History] Follow up Appointment(s)/Referral(s): Alvaro Johnson DO [Primary Care Provider] - 1-2 days Milton Uribe MD [STAFF PHYSICIAN] - 2 Weeks Discharge Disposition: HOME SELF-CARE
[2024-01-05] MEDS ORDERED: NON FORMULARY DRUG (Tirzepatide [Mounjaro] 5 MG/0.5 ML Pen.Injctr) SQ SCH (09:00)
== END 2024-01-02 17:21 | disposition home or self-care (01) ==
LOC: EC 10:45 → 6NMEDSUR 12:49
PROVIDERS: ADMIT Hospitalist; ATTEND Hospitalist
DX: R07.89 Other chest pain (principal); J44.9 Chronic obstructive pulmonary disease, unspecified; E11.9 Type 2 diabetes mellitus without complications; I10 Essential (primary) hypertension; K21.9 Gastro-esophageal reflux disease without esophagitis; E78.5 Hyperlipidemia, unspecified; M19.90 Unspecified osteoarthritis, unspecified site; E66.01 Morbid (severe) obesity due to excess calories; F32.A Depression, unspecified; F41.9 Anxiety disorder, unspecified; G89.29 Other chronic pain; M54.9 Dorsalgia, unspecified; K58.9 Irritable bowel syndrome, unspecified; R26.9 Unspecified abnormalities of gait and mobility; Z79.899 Other long term (current) drug therapy; Z79.84 Long term (current) use of oral hypoglycemic drugs; Z79.82 Long term (current) use of aspirin; Z88.6 Allergy status to analgesic agent; Z82.49 Family history of ischemic heart disease and other diseases of the circulatory system; Z87.891 Personal history of nicotine dependence; Z85.3 Personal history of malignant neoplasm of breast; Z90.13 Acquired absence of bilateral breasts and nipples; Z68.42 Body mass index [BMI] 45.0-49.9, adult
CPT/HCPCS: 96372 ×2; 96374; 99285; 36415; 93005; 93306; 93351; 80053 ×2; 83735; 84484; 85025 ×2; 85610; 85730; 81003; 71046; 71275; G0378 ×2; J1250; J2270; J1644 ×2; Q9967

== ENCOUNTER 2024-01-06 16:49 | Observation (INO) | payer MEDICARE, OTHER ==
[2024-01-06] MEDS: NITROGLYCERIN SL TABS 0.4 MG TAB SUBLINGUAL STA ×3 (17:13→18:42)
[2024-01-06 18:07] LABS: Appearance,Urine Clear (Clear); Bilirubin,Urine Negative (Negative); Blood,Urine Negative (Negative); Color,Urine Colorless; Glucose,Urine (UA) Negative (Negative); Ketones,Urine Negative (Negative); Leukocyte Esterase,Urine Negative (Negative); Nitrite,Urine Negative (Negative); Protein,Urine Negative (Negative); Specific Gravity,Urine 1.006 (1.001-1.035); Urobilinogen,Urine <2.0 mg/dL (<2.0)
[2024-01-06 18:13] LABS: Basophils % (A) 1 %; Eosinophils # (A) 0.3 k/uL (0-0.7); Eosinophils % (A) 4 %; HCT 43.2 % (34.0-46.0); HGB 14.1 gm/dL (11.4-16.0); Hypochromasia Slight; Lymphocytes % (A) 30 %; MCH 29.8 pg (25.0-35.0); MCHC 32.7 g/dL (31.0-37.0); MCV 91.3 fL (80.0-100.0); Mean Platelet Volume 8.8; Monocytes # (A) 0.5 k/uL (0-1.0); Monocytes % (A) 8 %; Neutrophils # (A) 3.7 k/uL (1.3-7.7); Neutrophils % (A) 55 %; Platelet Count 190 k/uL (150-450); RBC 4.73 m/uL (3.80-5.40); RDW 14.1 % (11.5-15.5); WBC 6.7 k/uL (3.8-10.6)
[2024-01-06 18:17] LABS: ALT 28 U/L (4-34); AST 34 U/L (14-36); African American GFR (CKD) 68 (>60 ml/min/1.73 sqM); Albumin 4.4 g/dL (3.5-5.0); Alkaline Phosphatase 101 U/L (38-126); Anion Gap 11 mmol/L; Blood Urea Nitrogen 15 mg/dL (7-17); Calcium 8.9 mg/dL (8.4-10.2); Carbon Dioxide 22 mmol/L (22-30); Chloride 105 mmol/L (98-107); Glucose 92 mg/dL (74-99); Lipase 78 U/L (23-300); Magnesium 2.1 mg/dL (1.6-2.3); Non-African American GFR(CKD) 59 (>60 ml/min/1.73 sqM); Potassium 3.9 mmol/L (3.5-5.1); Sodium 138 mmol/L (137-145); Total Bilirubin 0.4 mg/dL (0.2-1.3); Total Protein 7.8 g/dL (6.3-8.2)
[2024-01-06] MEDS: SODIUM CHLORIDE 0.9% 500 ML 500 ML IV STA (18:18)
--- NOTE | 2024-01-06 18:22 | XR ---
EXAMINATION TYPE: XR chest 2V DATE OF EXAM: 01/06/2024 6:13 PM COMPARISON: Chest radiographs from 01/01/2024 CLINICAL INDICATION: Female, 68 years old with history of Chest Pain; [facility] TECHNIQUE: XR chest 2V Frontal and lateral views of the chest. FINDINGS: Lungs/Pleura: There is no evidence of pleural effusion, focal consolidation, or pneumothorax. Pulmonary vascularity: Unremarkable. Heart/mediastinum: Cardiomediastinal silhouette is unremarkable. Musculoskeletal: No acute osseous pathology. IMPRESSION: No acute cardiopulmonary disease/process. [facility] Yamilex Price, , 01/06/2024 6:20 PM
[2024-01-06 18:25] LABS: NT-Pro-B-Type Natriuretic Pept 288 pg/mL
[2024-01-06] MEDS: NITROGLYCERIN SL TABS 0.4 MG TAB SUBLINGUAL PRN (18:34)
[2024-01-06] MEDS: NITROGLYCERIN OINT 1 INCH/GM PACKET TOPICAL SCH (18:45)
[2024-01-06] MEDS ORDERED: NALOXONE 0.4 MG/ML 1 ML VIAL IV PRN (19:08)
[2024-01-06] MEDS ORDERED: MORPHINE SULFATE 4 MG/ML SYRINGE IV PRN (19:08)
--- NOTE | 2024-01-06 19:08 | ED ---
General Adult HPI - General Chief complaint: Chest Pain Stated complaint: chest pain Time Seen by Provider: 01/06/24 16:55 Source: patient, RN notes reviewed, old records reviewed Mode of arrival: EMS Limitations: no limitations - History of Present Illness Initial comments: 68-year-old female presents emergency department complaint of chest pain. Patient has a history of angina, COPD, diabetes, hypertension, hyperlipidemia. I recently evaluate the patient and admitted her for identical complaints a few days ago. Also has a history of poorly controlled hypertension. States she was just resting when chest pain started a few hours prior to arrival. Denies any other associated symptoms. States it is a pressure sensation which is typical for her anginal pain. Did not attempt any nitro tablets at home. Presents for further evaluation. EMS gave the patient 324 mg of aspirin as well as multiple nitro tablets which did improve her pain. Has no other acute complaints at this time. - Related Data Home Medications Medication Instructions Recorded Confirmed Dicyclomine [Bentyl] 10 mg PO TID 08/01/20 01/06/24 Nitroglycerin Sl Tabs [Nitrostat] 0.4 mg SL Q5M PRN 08/01/20 01/06/24 Pantoprazole Sodium 40 mg PO DAILY 08/01/20 01/06/24 glipiZIDE [Glucotrol] 5 mg PO TID-W/MEALS 08/01/20 01/06/24 traZODone HCL [Desyrel] 100 mg PO HS 08/01/20 01/06/24 Atorvastatin Calcium [Lipitor] 10 mg PO HS 11/26/20 01/06/24 Brexpiprazole [Rexulti] 2 mg PO DAILY 11/26/20 01/06/24 Topiramate [Topamax] 50 mg PO DAILY 11/26/20 01/06/24 Cholecalciferol [Vitamin D3 (25 25 mcg PO DAILY 03/14/21 01/06/24 Mcg = 1000 Iu)] traZODone HCL 50 mg PO HS 06/16/21 01/06/24 Benzonatate [Tessalon Perle] 200 mg PO DIRECTED PRN 05/21/22 01/06/24 Cinnamon Bark [Cinnamon] 500 mg PO DAILY 05/21/22 01/06/24 Losartan Potassium [Cozaar] 100 mg PO DAILY 05/21/22 01/06/24 Apple Cider Vinegar 450mg 450 mg PO DAILY 11/21/22 01/06/24 Calcium Carbonate [Calcium] 600 mg PO DAILY 11/21/22 01/06/24 Frida Root 550 Mg 550 mg PO DAILY 11/21/22 01/06/24 Magnesium Oxide [Magox 400] 400 mg PO DAILY 11/21/22 01/06/24 Potassium Chloride ER [K-Dur 10] 10 meq PO DAILY 11/21/22 01/06/24 amLODIPine [Norvasc] 5 mg PO DAILY 11/21/22 01/06/24 Aspirin [Adult Low Dose Aspirin EC] 81 mg PO DAILY 01/01/24 01/06/24 Citalopram Hydrobromide [CeleXA] 40 mg PO DAILY 01/01/24 01/06/24 Isosorbide Dinitrate 30 mg PO DAILY 01/01/24 01/06/24 Tirzepatide [Mounjaro] 5 mg SQ MO 01/01/24 01/06/24 hydrOXYzine pamoate [Vistaril] 25 mg PO DIRECTED 01/01/24 01/06/24 metFORMIN HCL 500 mg PO DAILY 01/01/24 01/06/24 Previous Rx's Medication Instructions Recorded Ondansetron Odt [Zofran ODT] 4 mg PO Q8HR PRN #14 tab 10/13/23 Allergies Allergy/AdvReac Type Severity Reaction Status Date / Time naproxen AdvReac Nausea & Verified 01/01/24 10:59 Vomiting Review of Systems ROS Statement: Those systems with pertinent positive or pertinent negative responses have been documented in the HPI. Review of Systems: CONST: Denies fever EYES: Denies blurry vision ENT: Denies nasal congestion C/V: Endorses chest pain RESP: Denies shortness of breath GI: Denies abdominal pain : Denies dysuria SKIN: Denies rash. MSK: Denies joint pain. NEURO: Denies headache ROS Other: All systems not noted in ROS Statement are negative. Past Medical History Past Medical History: Cancer, Chest Pain / Angina, COPD, Diabetes Mellitus, GERD/Reflux, Hyperlipidemia, Hypertension, Memory Impairment, Osteoarthritis (OA) Additional Past Medical History / Comment(s): HX BREAST CANCER left 2004 2020 rt breast chest pain 09/11 resolved qith 1 ntg sublingual. diverticulitis, IBS, Lymphedema (L) arm History of Any Multi-Drug Resistant Organisms: None Reported Past Surgical History: Breast Surgery, Heart Catheterization, Orthopedic S urgery, Tonsillectomy Additional Past Surgical History / Comment(s): BUNIONECTOMY. LT BREAST mastectomy w/some lymph nodes rt breast mastectomy. COLONOSCOPY. Right knee replacement 09/2023. left knee replacement Past Anesthesia/Blood Transfusion Reactions: No Reported Reaction Past Psychological History: Anxiety, Depression Smoking Status: Former smoker - Past Family History Mother Family Medical History: Congestive Heart Failure (CHF), Diabetes Mellitus Additional Family Medical History / Comment(s): colostomy. age 72 Father Family Medical History: Chest Pain / Angina, Diabetes Mellitus Additional Family Medical History / Comment(s): colostomy. age 62 Brother(s) Additional Family Medical History / Comment(s): bowel problem General Exam - General Exam Comments Initial Comments: General: Appears in no acute distress. HEAD: Normal with no signs of head trauma. EYES: EOMI ENT: Hearing grossly intact, normal oropharynx. RESPIRATORY: Clear breath sounds bilaterally. No wheezes, rales, or rhonchi. C/V: Regular rate and rhythm. S1 and S2 auscultated, no edema, peripheral pulses 2+ and intact throughout. chest pain not reproducible on palpation ABD: Abd is soft, nontender, nondistended EXT: Normal range of motion, no obvious deformity SKIN: No rashes or lesions observed on exposed skin. NEURO: Alert and oriented x 4. Limitations: no limitations Course Vital Signs 01/06/24 01/06/24 01/06/24 16:55 17:06 18:15 Temperature 98.4 F Pulse Rate 93 84 89 Respiratory 20 20 20 Rate Blood Pressure 231/132 190/124 O2 Sat by Pulse 97 96 96 Oximetry 01/06/24 01/06/24 01/06/24 18:35 19:25 20:00 Temperature Pulse Rate 77 79 89 Respiratory 18 18 18 Rate Blood Pressure 205/136 200/123 175/114 O2 Sat by Pulse 97 97 99 Oximetry 01/06/24 20:48 Temperature Pulse Rate 98 Respiratory 18 Rate Blood Pressure 179/87 O2 Sat by Pulse 99 Oximetry Medical Decision Making - Medical Decision Making Was pt. sent in by a medical professional or institution (, PA, SECOND OFFICER, urgent care, hospital, or [facility]...) When possible be specific @ -No Did you speak to anyone other than the patient for history (EMS, parent, family, police, friend...)? What history was obtained from this source @ -No Did you review nursing and triage notes (agree or disagree)? Why? @ -I reviewed and agree with nursing and triage notes Were old charts reviewed (outside hosp., previous admission, EMS record, old EKG, old radiological studies, urgent care reports/EKG's, [facility] records)? Report findings @ -Revealed old chart from previous admission 01/02/2024 including EKG. No obvious acute dynamic changes when compared with today's EKG. Differential Diagnosis (chest pain, altered mental status, abdominal pain women, abdominal pain men, vaginal bleeding, weakness, fever, dyspnea, syncope, headache, dizziness, GI bleed, back pain, seizure, CVA, palpatations, mental health, musculoskeletal)? @ -Differential Chest Pain: Stable Angina, Unstable Angina, STEMI, NSTEMI Aortic Dissection, Pneumothorax, Musculoskeletal, Esophageal Spasm GERD, Cholecystitis, Pancreatitis, Zoster, this is not meant to be an all-inclusive list. EKG interpreted by me (3pts min.). @ -As above X-rays interpreted by me (1pt min.). @ -Chest x-ray reveals no obvious acute cardiopulmonary process. CT interpreted by me (1pt min.). @ -None done U/S interpreted by me (1pt. min.). @ -None done What testing was considered but not performed or refused? (CT, X-rays, U/S, labs)? Why? @ -None What meds were considered but not given or refused? Why? @ -None Did you discuss the management of the patient with other professionals (professionals i.e. , PA, SECOND OFFICER, lab, RT, psych nurse, social work professor, director of manufacturing operations, teacher, parking control officer, case assistant)? Give summary @ -Discussed with Dr. Givens who accepted the admission. Was smoking cessation discussed for >3mins.? @ -No Was critical care preformed (if so, how long)? @ -No Were there social determinants of health that impacted care today? How? (Homelessness, low income, unemployed, alcoholism, drug addiction, transportation, low edu. Level, literacy, decrease access to med. care, intermediate, rehab)? @ -No Was there de-escalation of care discussed even if they declined (Discuss DNR or withdrawal of care, Hospice)? DNR status @ -No What co-morbidities impacted this encounter? (DM, HTN, Smoking, COPD, CAD, Cancer, CVA, ARF, Chemo, Hep., AIDS, mental health diagnosis, sleep apnea, morb id obesity)? @ -Angina Was patient admitted / discharged? Hospital course, mention meds given and r oute, prescriptions, significant lab abnormalities, going to OR and other pertinent info. @ -Patient presents with chest pain. Does seem to be her typical anginal chest pain. Did respond to nitroglycerin tablets on the way here. Already received 324 mg of aspirin. Has no other acute complaints at this time. Pain is improved at this time. Patient will receive additional nitroglycerin tablets and then will likely receive Nitropaste which typically works for the patient. She was in agreement this plan. Patient's pain did respond to the nitro as well as Nitropaste and is nearly resolved. She is resting comfortably. Mildly hypertensive at this time and was given a dose of IV hydralazine. EKG shows no signs of acute ischemia. Chest x- ray unremarkable. Laboratory studies unremarkable. On reevaluation, I discussed workup with the patient. She will be admitted for cardiac observation. She was in agreement this plan. I spoke with Dr. Givens the admitting provider who accepted the admission. I consulted cardiology. Undiagnosed new problem with uncertain prognosis? @ -No Drug Therapy requiring intensive monitoring for toxicity (Heparin, Nitro, Insulin, Cardizem)? @ -No Were any procedures done? @ -No Diagnosis/symptom? @ -Chest pain Acute, or Chronic, or Acute on Chronic? @ -Acute on chronic Uncomplicated (without systemic symptoms) or Complicated (systemic symptoms)? @ -Complicated Side effects of treatment? @ -No Exacerbation, Progression, or Severe Exacerbation? @ -No Poses a threat to life or bodily function? How? (Chest pain, [place], [place], pneumonia, PE, COPD, DKA, ARF, appy, cholecystitis, CVA, Diverticulitis, Homicidal, Suicidal, threat to staff... and all critical care pts) @ -Potentially, yes - Lab Data Result diagrams: 01/06/24 17:56 01/06/24 17:56 Lab Results 01/06/24 01/06/24 01/06/24 Range/Units 17:51 17:56 17:56 WBC 6.7 (3.8-10.6) k/uL RBC 4.73 (3.80-5.40) m/uL Hgb 14.1 (11.4-16.0) gm/dL Hct 43.2 (34.0-46.0) % MCV 91.3 (80.0-100.0) fL MCH 29.8 (25.0-35.0) pg MCHC 32.7 (31.0-37.0) g/dL RDW 14.1 (11.5-15.5) % Plt Count 190 (150-450) k/uL MPV 8.8 Neutrophils % 55 % Lymphocytes % 30 % Monocytes % 8 % Eosinophils % 4 % Basophils % 1 % Neutrophils # 3.7 (1.3-7.7) k/uL Lymphocytes # 2.0 (1.0-4.8) k/uL Monocytes # 0.5 (0-1.0) k/uL Eosinophils # 0.3 (0-0.7) k/uL Basophils # 0.0 (0-0.2) k/uL Hypochromasia Slight Sodium 138 (137-145) mmol/L Potassium 3.9 (3.5-5.1) mmol/L Chloride 105 (98-107) mmol/L Carbon Dioxide 22 (22-30) mmol/L Anion Gap 11 mmol/L BUN 15 (7-17) mg/dL Creatinine 0.99 (0.52-1.04) mg/dL Est GFR (CKD-EPI)AfAm 68 (>60 ml/min/1.73 sqM) Est GFR (CKD-EPI)NonAf 59 (>60 ml/min/1.73 sqM) Glucose 92 (74-99) mg/dL Calcium 8.9 (8.4-10.2) mg/dL Magnesium 2.1 (1.6-2.3) mg/dL Total Bilirubin 0.4 (0.2-1.3) mg/dL AST 34 (14-36) U/L ALT 28 (4-34) U/L Alkaline Phosphatase 101 (38-126) U/L Troponin I (0.000-0.034) ng/mL NT-Pro-B Natriuret Pep 288 pg/mL Total Protein 7.8 (6.3-8.2) g/dL Albumin 4.4 (3.5-5.0) g/dL Lipase 78 (23-300) U/L Urine Color Colorless Urine Appearance Clear (Clear) Urine pH 7.0 (5.0-8.0) Ur Specific [place] 1.006 (1.001-1.035) Urine Protein Negative (Negative) Urine Glucose (UA) Negative (Negative) Urine Ketones Negative (Negative) Urine Blood Negative (Negative) Urine Nitrite Negative (Negative) Urine Bilirubin Negative (Negative) Urine Urobilinogen <2.0 (<2.0) mg/dL Ur Leukocyte Esterase Negative (Negative) 01/06/24 Range/Units 17:56 WBC (3.8-10.6) k/uL RBC (3.80-5.40) m/uL Hgb (11.4-16.0) gm/dL Hct (34.0-46.0) % MCV (80.0-100.0) fL MCH (25.0-35.0) pg MCHC (31.0-37.0) g/dL RDW (11.5-15.5) % Plt Count (150-450) k/uL MPV Neutrophils % % Lymphocytes % % Monocytes % % Eosinophils % % Basophils % % Neutrophils # (1.3-7.7) k/uL Lymphocytes # (1.0-4.8) k/uL Monocytes # (0-1.0) k/uL Eosinophils # (0-0.7) k/uL Basophils # (0-0.2) k/uL Hypochromasia Sodium (137-145) mmol/L Potassium (3.5-5.1) mmol/L Chloride (98-107) mmol/L Carbon Dioxide (22-30) mmol/L Anion Gap mmol/L BUN (7-17) mg/dL Creatinine (0.52-1.04) mg/dL Est GFR (CKD-EPI)AfAm (>60 ml/min/1.73 sqM) Est GFR (CKD-EPI)NonAf (>60 ml/min/1.73 sqM) Glucose (74-99) mg/dL Calcium (8.4-10.2) mg/dL Magnesium (1.6-2.3) mg/dL Total Bilirubin (0.2-1.3) mg/dL AST (14-36) U/L ALT (4-34) U/L Alkaline Phosphatase (38-126) U/L Troponin I 0.014 (0.000-0.034) ng/mL NT-Pro-B Natriuret Pep pg/mL Total Protein (6.3-8.2) g/dL Albumin (3.5-5.0) g/dL Lipase (23-300) U/L Urine Color Urine Appearance (Clear) Urine pH (5.0-8.0) Ur Specific [place] (1.001-1.035) Urine Protein (Negative) Urine Glucose (UA) (Negative) Urine Ketones (Negative) Urine Blood (Negative) Urine Nitrite (Negative) Urine Bilirubin (Negative) Urine Urobilinogen (<2.0) mg/dL Ur Leukocyte Esterase (Negative) - EKG Data -: EKG Interpreted by Me EKG Comments: 12-lead Electrocardiogram Interpretation Note EKG was reviewed and interpreted by myself. 12-lead ECG performed at 1738 is interpreted by me as revealing normal sinus rhythm at a rate of 80 beats per minute. Left axis deviation. NE interval is 147 ms, QRS duration is 116 ms, QTc is 415 ms.. There were no ST or T wave abnormalities to suggest myocardial ischemia or injury. R wave progression across the precordium was satisfactory. By my interpretation this EKG is non-diagnostic for acute ischemia. Chronic T wave inversions in the inferior leads as well as lateral precordial leads. This is seen on prior EKG from January 02, 2024 when patient was last admitted. Disposition Clinical Impression: Chest pain, Hypertension Disposition: ADMITTED IP TO THIS [facility] Condition: Stable Time of Disposition: 18:55
[2024-01-06] MEDS: hydrALAZINE HCL 20 MG/ML 1 ML VIAL IVP STA ×2 (19:25→20:23)
[2024-01-06] MEDS: ONDANSETRON 4 MG/2 ML VIAL IVP PRN (20:49)
[2024-01-06 21:02] LABS: INR 0.9 (<1.2); Partial Thromboplastin Time 25.4 sec (22.0-30.0); Prothrombin Time 10.4 sec (10.0-12.5)
[2024-01-06] MEDS ORDERED: NITROGLYCERIN SL TABS 0.4 MG TAB SUBLINGUAL PRN (21:26)
--- NOTE | 2024-01-06 21:46 | P.HPIM ---
History of Present Illness H&P Date: 01/06/24 Chief Complaint: Chest pressure This is a pleasant 68-year-old patient who follows with Dr. Johnson. Chronic stable medical conditions include COPD, diabetes, GERD, hypertension, hyperlipidemia, some cognitive impairment, osteoarthritis, left breast cancer 2004, diverticulitis, IBS, lymphedema left arm, anxiety depression. lives alone normally uses a cane/walker to get about. Patient here to the hospital December 31 with chest pain. Stress echocardiogram was negative. Was discharged. Around 3 PM today. Patient developed pain across the chest. Going up to her arm and neck. Some dizziness. Feeling really tired. [place] a pressure-like symptom. No shortness of breath. Symptoms lasted for good 1 hour. Decided to come in. Review of systems: GEN.: None EYES: None HEENT: None NECK: None RESPIRATORY: None CARDIOVASCULAR: As above GASTROINTESTINAL: None GENITOURINARY: None MUSCULOSKELETAL: Some joint pain LYMPHATICS: None HEMATOLOGICAL: None PSYCHIATRY: None NEUROLOGICAL: Does use a walker/cane Past medical history to include: COPD, diabetes, GERD, hypertension, hyperlipidemia, all negative impairment, osteomyelitis arthritis, left breast cancer, diabetic mellitus, IV us, left arm lymphedema, anxiety depression Social history: Stop smoking over 35 years ago. No alcohol. Lives alone. Does use a cane and a walker Physical examination: VITAL SIGNS: 98.4, 84, 20, 231 x 132, 96% room air-upon presentation GENERAL: BMI 42.4, reclining in bed EYES: Pupils equal. Conjunctiva normal. HEENT: External appearance of nose and ears normal, oral cavity grossly normal. NECK: JVD not raised; masses not palpable. HEART: First and second heart sounds are normal; edema present. LUNGS: Respiratory rate normal; decreased breath sound. ABDOMEN: Soft, nontender, liver spleen not palpable, no masses palpable. PSYCH: Alert and oriented x3; mood and affect anxious MUSCULOSKELETAL:No Clubbing/cyanosis;muscles-grossly intact. . OA NEUROLOGICAL: Cranial nerves grossly intact; no facial asymmetry, power and sensation grossly intact. LYMPHATICS: No lymph nodes palpable in the axilla and neck INVESTIGATIONS, reviewed in the clinical context: January 06, 2024: White count 6.7 hemoglobin 14.1 platelets 190 sodium 138 potassium 3.9 creatinine 0.99 Troponin I 0.014, 0.019 EKG tracing personally reviewed by me-normal sinus rhythm. Flipped T waves inferior lateral leads. Recent studies: Stress echocardiogram: Negative 2D echocardiogram: EF 55 to 60%. Assessment and plan: -Anterior chest wall stabbing pain. Present for 2 to 3 days. Even at rest. Some pleuritic nature. Accompanied by EKG changes in inferolateral leads. Cardiac risk factors include her age, postmenopausal, diabetes, hypertension Patient on January 01 underwent a stress echocardiogram that was unremarkable. Patient probably need a nuclear stress test or cardiac catheterization. Given her risk factors. Keep n.p.o. after midnight except medications -Morbid obesity BMI 42.4 Weight loss measures -Hyperlipidemia Lipitor -Depression and anxiety Celexa 20 mg daily -Bowel spasms Bentyl when necessary -Morbid obesity BMI 45 Weight loss measures -Depression Celexa -GERD Protonix -Essential hypertension Cozaar. amlodipine -Diabetes mellitus type 2 on oral hypoglycemic Glucophage, Glucotrol. Mounjaro diabetic diet and follow Accu-Cheks and sliding scale -Chronic gait dysfunction uses a cane/walker at baseline -Full code Home medications resumed. Will keep the patient n.p.o. after midnight for possible cardiac catheterization. Otherwise patient might need a nuclear stress test. Past Medical History Past Medical History: Cancer, Chest Pain / Angina, COPD, Diabetes Mellitus, GERD/Reflux, Hyperlipidemia, Hypertension, Memory Impairment, Osteoarthritis (OA) Additional Past Medical History / Comment(s): HX BREAST CANCER left 2004 2020 rt breast chest pain 09/11 resolved qith 1 ntg sublingual. diverticulitis, IBS, Lymphedema (L) arm History of Any Multi-Drug Resistant Organisms: None Reported Past Surgical History: Breast Surgery, Heart Catheterization, Orthopedic Surgery, Tonsillectomy Additional Past Surgical History / Comment(s): BUNIONECTOMY. LT BREAST mastectomy w/some lymph nodes rt breast mastectomy. COLONOSCOPY. Right knee replacement 09/2023. left knee replacement Past Anesthesia/Blood Transfusion Reactions: No Reported Reaction Past Psychological History: Anxiety, Depression Smoking Status: Former smoker - Past Family History Mother Family Medical History: Congestive Heart Failure (CHF), Diabetes Mellitus Additional Family Medical History / Comment(s): colostomy. age 72 Father Family Medical History: Chest Pain / Angina, Diabetes Mellitus Additional Family Medical History / Comment(s): colostomy. age 62 Brother(s) Additional Family Medical History / Comment(s): bowel problem Medications and Allergies Home Medications Medication Instructions Recorded Confirmed Type Dicyclomine [Bentyl] 10 mg PO TID 08/01/20 01/06/24 History Nitroglycerin Sl Tabs [Nitrostat] 0.4 mg SL Q5M PRN 08/01/20 01/06/24 History Pantoprazole Sodium 40 mg PO DAILY 08/01/20 01/06/24 History glipiZIDE [Glucotrol] 5 mg PO TID-W/MEALS 08/01/20 01/06/24 History traZODone HCL [Desyrel] 100 mg PO HS 08/01/20 01/06/24 History Atorvastatin Calcium [Lipitor] 10 mg PO HS 11/26/20 01/06/24 History Brexpiprazole [Rexulti] 2 mg PO DAILY 11/26/20 01/06/24 History Topiramate [Topamax] 50 mg PO DAILY 11/26/20 01/06/24 History Cholecalciferol [Vitamin D3 (25 25 mcg PO DAILY 03/14/21 01/06/24 History Mcg = 1000 Iu)] traZODone HCL 50 mg PO HS 06/16/21 01/06/24 History Benzonatate [Tessalon Perle] 200 mg PO DIRECTED PRN 05/21/22 01/06/24 History Cinnamon Bark [Cinnamon] 500 mg PO DAILY 05/21/22 01/06/24 History Losartan Potassium [Cozaar] 100 mg PO DAILY 05/21/22 01/06/24 History Apple Cider Vinegar 450mg 450 mg PO DAILY 11/21/22 01/06/24 History Calcium Carbonate [Calcium] 600 mg PO DAILY 11/21/22 01/06/24 History Frida Root 550 Mg 550 mg PO DAILY 11/21/22 01/06/24 History Magnesium Oxide [Magox 400] 400 mg PO DAILY 11/21/22 01/06/24 History Potassium Chloride ER [K-Dur 10] 10 meq PO DAILY 11/21/22 01/06/24 History amLODIPine [Norvasc] 5 mg PO DAILY 11/21/22 01/06/24 History Ondansetron Odt [Zofran ODT] 4 mg PO Q8HR PRN #14 tab 10/13/23 01/06/24 Rx Aspirin [Adult Low Dose Aspirin EC] 81 mg PO DAILY 01/01/24 01/06/24 History Citalopram Hydrobromide [CeleXA] 40 mg PO DAILY 01/01/24 01/06/24 History Isosorbide Dinitrate 30 mg PO DAILY 01/01/24 01/06/24 History Tirzepatide [Mounjaro] 5 mg SQ MO 01/01/24 01/06/24 History hydrOXYzine pamoate [Vistaril] 25 mg PO DIRECTED 01/01/24 01/06/24 History metFORMIN HCL 500 mg PO DAILY 01/01/24 01/06/24 History Allergies Allergy/AdvReac Type Severity Reaction Status Date / Time naproxen AdvReac Nausea & Verified 01/01/24 10:59 Vomiting Physical Exam Vitals: Vital Signs Temp Pulse Resp BP Pulse Ox 01/06/24 20:48 98 18 179/87 99 01/06/24 20:00 89 18 175/114 99 01/06/24 19:25 79 18 200/123 97 01/06/24 18:35 77 18 205/136 97 01/06/24 18:15 89 20 190/124 96 01/06/24 17:06 84 20 231/132 96 01/06/24 16:55 98.4 F 93 20 97 Intake and Output 01/06/24 01/06/24 01/06/24 06:59 14:59 22:59 Other: Weight 105.233 kg Results CBC & Chem 7: 01/06/24 17:56 01/06/24 17:56
[2024-01-06] MEDS: DICYCLOMINE 10 MG CAP PO SCH (21:57)
[2024-01-06] MEDS: glipiZIDE 5 MG TAB PO SCH (21:57)
[2024-01-06] MEDS: traZODone HCL 100 MG TAB PO SCH (21:57)
[2024-01-06] MEDS: traZODone HCL 50 MG TAB PO SCH (21:58)
[2024-01-06] MEDS: HEPARIN SODIUM,PORCINE 5,000 UNIT/ML 1 ML VIAL SQ SCH (23:30)
[2024-01-07 07:35] LABS: Basophils % (A) 0 %; Eosinophils # (A) 0.1 k/uL (0-0.7); Eosinophils % (A) 1 %; HCT 41.7 % (34.0-46.0); HGB 13.2 gm/dL (11.4-16.0); Lymphocytes # (A) 1.6 k/uL (1.0-4.8); Lymphocytes % (A) 21 %; MCHC 31.8 g/dL (31.0-37.0); MCV 91.4 fL (80.0-100.0); Mean Platelet Volume 7.6; Monocytes # (A) 0.4 k/uL (0-1.0); Monocytes % (A) 5 %; Neutrophils # (A) 5.3 k/uL (1.3-7.7); Neutrophils % (A) 71 %; Platelet Count 247 k/uL (150-450); RBC 4.56 m/uL (3.80-5.40); RDW 14.5 % (11.5-15.5); WBC 7.5 k/uL (3.8-10.6)
[2024-01-07 07:57] LABS: ALT 25 U/L (4-34); AST 29 U/L (14-36); African American GFR (CKD) 70 (>60 ml/min/1.73 sqM); Alkaline Phosphatase 93 U/L (38-126); Anion Gap 7 mmol/L; Blood Urea Nitrogen 12 mg/dL (7-17); Calcium 8.8 mg/dL (8.4-10.2); Carbon Dioxide 26 mmol/L (22-30); Chloride 106 mmol/L (98-107); Glucose 61 mg/dL (74-99); Non-African American GFR(CKD) 61 (>60 ml/min/1.73 sqM); Potassium 4.4 mmol/L (3.5-5.1); Sodium 139 mmol/L (137-145); Total Bilirubin 0.4 mg/dL (0.2-1.3)
[2024-01-07] MEDS: CALCIUM CARBONATE 500 MG CHEWABLE PO SCH (08:58)
[2024-01-07] MEDS: ASPIRIN 81 MG PO SCH (08:58)
[2024-01-07] MEDS: CHOLECALCIFEROL 25 MCG (1000 IU) TABLET PO SCH (08:58)
[2024-01-07] MEDS: CITALOPRAM HYDROBROMIDE 20 MG TAB PO SCH (08:59)
[2024-01-07] MEDS: MAGNESIUM OXIDE 400 MG TAB PO SCH (09:00)
[2024-01-07] MEDS: LOSARTAN 50 MG TAB PO SCH (09:00)
[2024-01-07] MEDS: ISOSORBIDE DINITRATE 10 MG TAB PO SCH (09:00)
[2024-01-07] MEDS: metFORMIN 500 MG TAB PO SCH (09:01)
[2024-01-07] MEDS: PANTOPRAZOLE SODIUM 40 MG GRANULE PKT PO SCH (09:02)
[2024-01-07] MEDS: TOPIRAMATE 25 MG TAB PO SCH (09:02)
[2024-01-07] MEDS: POTASSIUM CHLORIDE ER 10 MEQ TAB.ER.PRT PO SCH (09:03)
[2024-01-07] MEDS: amLODIPine 5 MG TAB PO SCH (09:03)
[2024-01-07] MEDS: NON FORMULARY DRUG (Brexpiprazole [Rexulti] 2 MG Tablet) PO SCH (09:10)
[2024-01-07 12:37] VITALS: BP 92/76; PULSE 83; RESP 17; TEMP 98.2
--- NOTE | 2024-01-07 16:18 | P.DS ---
Providers Date of admission: 01/06/24 19:09 Expected date of discharge: 01/07/24 Attending physician: Elian Givens Consults: 01/06/24 19:08 Consult Physician Routine Consulting Provider: [facility] Consult Reason/Comments: chest pain Do you want consulting provider notified?: Yes Primary care physician: Al[facility] Course: Chief Complaint: Chest pressure This is a pleasant 68-year-old patient who follows with Dr. Johnson. Chronic stable medical conditions include COPD, diabetes, GERD, hypertension, hyperlipidemia, some cognitive impairment, osteoarthritis, left breast cancer 2004, diverticulitis, IBS, lymphedema left arm, anxiety depression. lives alone normally uses a cane/walker to get about. Patient here to the hospital December 31 with chest pain. Stress echocardiogram was negative. Was discharged. Around 3 PM today. Patient developed pain across the chest. Going up to her arm and neck. Some dizziness. Feeling really tired. [place] a pressure-like symptom. No shortness of breath. Symptoms lasted for good 1 hour. Decided to come in. January 06: Patient's pain is f costochondral. She especially tender on the right costochondral side. Worse with movement. Reproducible. Patient is due to see her staff midwife Dr. Uribe this Friday. Discussed with patient. I did inform cardiology to cancel the consult. Local pain control measures were discussed with the patient. Past medical history to include: COPD, diabetes, GERD, hypertension, hyperlipidemia, all negative impairment, osteomyelitis arthritis, left breast cancer, diabetic mellitus, IV us, left arm lymphedema, anxiety depression Social history: Stop smoking over 35 years ago. No alcohol. Lives alone. Does use a cane and a walker Physical examination: VITAL SIGNS: 98.2, 83, 17, 92 x 76, 96% room air GENERAL: BMI 42.4, reclining in bed, comfortable EYES: Pupils equal. Conjunctiva normal. HEENT: External appearance of nose and ears normal, oral cavity grossly normal. NECK: JVD not raised; masses not palpable. HEART: First and second heart sounds are normal; edema present. LUNGS: Respiratory rate normal; decreased breath sound. ABDOMEN: Soft, nontender, liver spleen not palpable, no masses palpable. PSYCH: Alert and oriented x3; mood and affect anxious MUSCULOSKELETAL:No Clubbing/cyanosis;muscles-grossly intact. . OA. Reproducible pain at the costochondral junction especially the right side INVESTIGATIONS, reviewed in the clinical context: January 06, 2024: White count 6.7 hemoglobin 14.1 platelets 190 sodium 138 potassium 3.9 creatinine 0.99 Troponin I 0.014, 0.019 EKG tracing personally reviewed by me-normal sinus rhythm. Flipped T waves inferior lateral leads. Recent studies: Stress echocardiogram: Negative 2D echocardiogram: EF 55 to 60%. Assessment and plan: -Anterior chest wall stabbing pain. Reproducible. Worse on movement. Right costochondritis. Patient follow-up with his staff midwife Dr. Uribe this Friday. -Morbid obesity BMI 42.4 Weight loss measures -Hyperlipidemia Lipitor -Depression and anxiety Celexa 20 mg daily -Bowel spasms Bentyl when necessary -Morbid obesity BMI 45 Weight loss measures -Depression Celexa -GERD Protonix -Essential hypertension Cozaar. amlodipine -Diabetes mellitus type 2 on oral hypoglycemic Glucophage, Glucotrol. Mounjaro diabetic diet and follow Accu-Cheks and sliding scale -Chronic gait dysfunction uses a cane/walker at baseline -Full code Disposition: Home Past Medical History Past Medical History: Cancer, Chest Pain / Angina, COPD, Diabetes Mellitus, GERD/Reflux, Hyperlipidemia, Hypertension, Memory Impairment, Osteoarthritis (OA) Additional Past Medical History / Comment(s): HX BREAST CANCER left 2004 2020 rt breast chest pain 09/11 resolved qith 1 ntg sublingual. diverticulitis, IBS, Lymphedema (L) arm History of Any Multi-Drug Resistant Organisms: None Reported Past Surgical History: Breast Surgery, Heart Catheterization, Orthopedic Surgery, Tonsillectomy Additional Past Surgical History / Comment(s): BUNIONECTOMY. LT BREAST mastectomy w/some lymph nodes rt breast mastectomy. COLONOSCOPY. Right knee replacement 09/2023. left knee replacement Past Anesthesia/Blood Transfusion Reactions: No Reported Reaction Past Psychological History: Anxiety, Depression Smoking Status: Former smoker Plan - Discharge Summary New Discharge Prescriptions: Continue Cholecalciferol [Vitamin D3 (25 Mcg = 1000 Iu)] 25 mcg PO DAILY traZODone HCL 50 mg PO HS Benzonatate [Tessalon Perle] 200 mg PO DIRECTED PRN PRN Reason: Cough Losartan Potassium [Cozaar] 100 mg PO DAILY Potassium Chloride ER [K-Dur 10] 10 meq PO DAILY Calcium Carbonate [Calcium] 600 mg PO DAILY Frida Root 550 Mg 550 mg PO DAILY Ondansetron Odt [Zofran ODT] 4 mg PO Q8HR PRN #14 tab PRN Reason: Nausea Tirzepatide [Mounjaro] 5 mg SQ MO Isosorbide Dinitrate 30 mg PO DAILY traZODone HCL [Desyrel] 100 mg PO HS glipiZIDE [Glucotrol] 5 mg PO TID-W/MEALS Nitroglycerin Sl Tabs [Nitrostat] 0.4 mg SL Q5M PRN PRN Reason: Chest Pain Dicyclomine [Bentyl] 10 mg PO TID Pantoprazole Sodium 40 mg PO DAILY Topiramate [Topamax] 50 mg PO DAILY Brexpiprazole [Rexulti] 2 mg PO DAILY Atorvastatin Calcium [Lipitor] 10 mg PO HS Cinnamon Bark [Cinnamon] 500 mg PO DAILY amLODIPine [Norvasc] 5 mg PO DAILY Apple Cider Vinegar 450mg 450 mg PO DAILY Magnesium Oxide [Magox 400] 400 mg PO DAILY Aspirin [Adult Low Dose Aspirin EC] 81 mg PO DAILY Citalopram Hydrobromide [CeleXA] 40 mg PO DAILY metFORMIN HCL 500 mg PO DAILY hydrOXYzine pamoate [Vistaril] 25 mg PO DIRECTED Discharge Medication List Dicyclomine [Bentyl] 10 mg PO TID 08/01/20 [History] Nitroglycerin Sl Tabs [Nitrostat] 0.4 mg SL Q5M PRN 08/01/20 [History] Pantoprazole Sodium 40 mg PO DAILY 08/01/20 [History] glipiZIDE [Glucotrol] 5 mg PO TID-W/MEALS 08/01/20 [History] traZODone HCL [Desyrel] 100 mg PO HS 08/01/20 [History] Atorvastatin Calcium [Lipitor] 10 mg PO HS 11/26/20 [History] Brexpiprazole [Rexulti] 2 mg PO DAILY 11/26/20 [History] Topiramate [Topamax] 50 mg PO DAILY 11/26/20 [History] Cholecalciferol [Vitamin D3 (25 Mcg = 1000 Iu)] 25 mcg PO DAILY 03/14/21 [History] traZODone HCL 50 mg PO HS 06/16/21 [History] Benzonatate [Tessalon Perle] 200 mg PO DIRECTED PRN 05/21/22 [History] Cinnamon Bark [Cinnamon] 500 mg PO DAILY 05/21/22 [History] Losartan Potassium [Cozaar] 100 mg PO DAILY 05/21/22 [History] Apple Cider Vinegar 450mg 450 mg PO DAILY 11/21/22 [History] Calcium Carbonate [Calcium] 600 mg PO DAILY 11/21/22 [History] Frida Root 550 Mg 550 mg PO DAILY 11/21/22 [History] Magnesium Oxide [Magox 400] 400 mg PO DAILY 11/21/22 [History] Potassium Chloride ER [K-Dur 10] 10 meq PO DAILY 11/21/22 [History] amLODIPine [Norvasc] 5 mg PO DAILY 11/21/22 [History] Ondansetron Odt [Zofran ODT] 4 mg PO Q8HR PRN #14 tab 10/13/23 [Rx] Aspirin [Adult Low Dose Aspirin EC] 81 mg PO DAILY 01/01/24 [History] Citalopram Hydrobromide [CeleXA] 40 mg PO DAILY 01/01/24 [History] Isosorbide Dinitrate 30 mg PO DAILY 01/01/24 [History] Tirzepatide [Mounjaro] 5 mg SQ MO 01/01/24 [History] hydrOXYzine pamoate [Vistaril] 25 mg PO DIRECTED 01/01/24 [History] metFORMIN HCL 500 mg PO DAILY 01/01/24 [History] Follow up Appointment(s)/Referral(s): Alvaro Johnson DO [Primary Care Provider] - 1-2 days Milton Uribe MD [STAFF PHYSICIAN] - 1 Week Patient Instructions/Handouts: Chest Pain (DC), Costochondritis (ED) Discharge Disposition: HOME SELF-CARE
[2024-01-07] MEDS ORDERED: ATORVASTATIN 10 MG TAB PO SCH (21:00)
[2024-01-12] MEDS ORDERED: NON FORMULARY DRUG (Tirzepatide [Mounjaro] 5 MG/0.5 ML Pen.Injctr) SQ SCH (09:00)
== END 2024-01-07 12:39 | disposition home or self-care (01) ==
LOC: EC 16:49 → 3SCARD 19:09
PROVIDERS: ADMIT Hospitalist; ATTEND Hospitalist
DX: M94.0 Chondrocostal junction syndrome [Tietze] (principal); I10 Essential (primary) hypertension; J44.9 Chronic obstructive pulmonary disease, unspecified; E78.5 Hyperlipidemia, unspecified; E11.9 Type 2 diabetes mellitus without complications; K21.9 Gastro-esophageal reflux disease without esophagitis; F32.A Depression, unspecified; F41.9 Anxiety disorder, unspecified; K58.9 Irritable bowel syndrome, unspecified; R26.9 Unspecified abnormalities of gait and mobility; E66.01 Morbid (severe) obesity due to excess calories; Z68.42 Body mass index [BMI] 45.0-49.9, adult; Z85.3 Personal history of malignant neoplasm of breast; Z87.891 Personal history of nicotine dependence; Z90.13 Acquired absence of bilateral breasts and nipples; Z79.84 Long term (current) use of oral hypoglycemic drugs; Z79.82 Long term (current) use of aspirin; Z79.85 Long-term (current) use of injectable non-insulin antidiabetic drugs; Z79.899 Other long term (current) drug therapy; Z88.6 Allergy status to analgesic agent; Z82.49 Family history of ischemic heart disease and other diseases of the circulatory system
CPT/HCPCS: 96376; 96372 ×2; 96374; 96375; 99285; 36415; 93005; 83880; 80053 ×2; 83690; 83735; 84484 ×2; 85025 ×2; 85610; 85730; 81003; 71046; G0378 ×2; J0360; J1644 ×2; J2405

== ENCOUNTER → 2024-02-23 | Outpatient (CLI) | payer MEDICARE, OTHER ==
--- NOTE | 2024-02-23 12:52 | MR ---
EXAMINATION TYPE: MR lumbar spine wo/w con DATE OF EXAM: 02/23/2024 12:34 PM COMPARISON: Radiograph 08/01/2021 CLINICAL INDICATION: Female, 68 years old with history of M43.16 spondylosis lumbar region, Chronic l ower back pain., TECHNIQUE: Multiplanar, multisequence images of the lumbar spine were obtained before and after admin istration of 10 mL intravenous Gadobutrol gadolinium contrast. IV Contrast: 10 cc Gadobutrol (None if empty) FINDINGS: Vertebral body heights are preserved. There is degenerative grade 1 retrolisthesis L1-L2 and L2-L3 secondary to hypertrophic facet arthropa thy present throughout the lumbar spine, more advanced in the mid to lower lumbar spine. Ligamentum flavum thickening particularly at L2-L3 and L3-L4 but also T12-L1. There is moderate degenerative disc disease with desiccated, narrowed, and bulging discs. More modera te to severe L2-L3 with fatty Modic type II endplate change. Conus medullaris is normal. Changes resulting focal moderate to severe spinal canal stenosis at L3-L4 and moderate at L2-L3. On the right, changes resulting in moderate neuroforaminal stenoses at L2-L3 and mild at additional l evels throughout the lumbar spine. On the left, changes noted mild neuroforaminal stenoses throughout. No abnormal enhancement within the spinal canal. IMPRESSION: 1. Moderate multilevel degenerative disc disease. 2. Additional hypertrophic facet arthropathy throughout and ligamentum flavum thickening particularly at L2-L3 and L3-L4. 3. Degenerative trace grade 1 retrolisthesis L1-L2 and L2-L3. 4. Changes result in focal moderate to severe spinal canal stenosis at L3-L4 and moderate at L2-L3. 5. Moderate right neuroforaminal stenosis at L2-L3. Mild additional levels on both sides throughout t he lumbar spine. [facility], , 02/23/2024 12:50 PM
== END | disposition home or self-care (01) ==
LOC: RADMRIMAIN 10:54
PROVIDERS: ATTEND Physical Medicine & Rehabilitation
DX: M48.062 Spinal stenosis, lumbar region with neurogenic claudication (principal); M41.26 Other idiopathic scoliosis, lumbar region; M43.16 Spondylolisthesis, lumbar region; M47.817 Spondylosis without myelopathy or radiculopathy, lumbosacral region; M51.369 Other intervertebral disc degeneration, lumbar region without mention of lumbar back pain or lower extremity pain
CPT/HCPCS: 72158; A9585

== ENCOUNTER → 2024-06-14 | Outpatient (CLI) | payer MEDICARE, OTHER ==
[2024-06-14 15:48] LABS: HCT 45.4 % (37.2-46.3); HGB 14.1 g/dL (12.0-15.0); MCHC 31.1 g/dL (32.0-37.0); MCV 90.3 FL (80.0-97.0); Mean Platelet Volume 10.1 FL (9.5-12.2); NRBC Per 100 WBC 0 X 10*3/uL (0.00-0.01); Platelet Count 262 X 10*3/uL (140-440); RBC 5.03 X 10*6/uL (4.10-5.20); RDW 14.9 % (11.5-14.5); WBC 5.62 X 10*3/uL (4.50-10.00)
[2024-06-14 16:08] LABS: BUN/Creat Ratio 18.45 Ratio (12.00-20.00); Blood Urea Nitrogen 20.3 mg/dL (9.0-27.0); Carbon Dioxide 26.8 mmol/L (21.6-31.8); Chloride 106 mmol/L (96-109); Glucose 104 mg/dL (70-110); Potassium 4.8 mmol/L (3.5-5.5); Sodium 146 mmol/L (135-145)
[2024-06-14 16:09] LABS: ALT 26 U/L (8-44); AST 36 U/L (13-35); Calcium 9.3 mg/dL (8.7-10.3)
== END | disposition home or self-care (01) ==
LOC: LABWHC1 09:57
PROVIDERS: ATTEND Internal Medicine Interventional Cardiology
DX: E11.9 Type 2 diabetes mellitus without complications (principal); E78.5 Hyperlipidemia, unspecified; I10 Essential (primary) hypertension; E55.9 Vitamin D deficiency, unspecified
CPT/HCPCS: 36415; 80048; 82306; 83036; 84450; 84460; 85027